=== PATIENT | female | born 1950 | race Caucasian/White ===

== ENCOUNTER 2021-02-19 08:13 | Outpatient (REF) | payer MEDICARE, SELFPAY ==
--- NOTE | ~2021-02-19 | XR_ITS ---
EXAMINATION: XR KNEE AP, BILATERAL XR KNEE CLINICAL INFORMATION: Pain in right knee COMPARISON: None TECHNIQUE: AP bilateral knee standing 1 view. Right knee lateral view. FINDINGS: AP BILATERAL KNEE: There is a total right knee arthroplasty with prosthetic components in satisfactory alignment. There is mild loss of medial and lateral compartment joint spaces, left knee. Minimal periarticular spurring visualized in the medial compartment. No loose bodies seen. No soft tissue swelling. RIGHT KNEE: A single lateral view right of knee reveals total knee arthroplasty with prosthetic components in satisfactory alignment. There is ukhe-wg-[id number] joint effusion but no loose body seen. No prosthetic loosening. XR/XR knee RT 2V IMPRESSION: 1. Total right knee arthroplasty with prosthetic components in satisfactory alignment. No loosening seen. There is mild suprapatellar joint effusion. 2. Mild degenerative changes medial and lateral compartments left knee with mild periarticular spurring medial compartment.
--- NOTE | ~2021-02-19 | XR_ITS ---
EXAMINATION: XR KNEE AP, BILATERAL XR KNEE CLINICAL INFORMATION: Pain in right knee COMPARISON: None TECHNIQUE: AP bilateral knee standing 1 view. Right knee lateral view. FINDINGS: AP BILATERAL KNEE: There is a total right knee arthroplasty with prosthetic components in satisfactory alignment. There is mild loss of medial and lateral compartment joint spaces, left knee. Minimal periarticular spurring visualized in the medial compartment. No loose bodies seen. No soft tissue swelling. RIGHT KNEE: A single lateral view right of knee reveals total knee arthroplasty with prosthetic components in satisfactory alignment. There is qjlm-la-njngjzjl joint effusion but no loose body seen. No prosthetic loosening. XR/XR knee standing BI IMPRESSION: 1. Total right knee arthroplasty with prosthetic components in satisfactory alignment. No loosening seen. There is mild suprapatellar joint effusion. 2. Mild degenerative changes medial and lateral compartments left knee with mild periarticular spurring medial compartment.
== END 2021-02-19 08:14 | disposition home or self-care (01) ==
LOC: HO.HOSX 08:13
PROVIDERS: Visit Provider Orthopaedic Surgery
DX: T84.84XA Pain due to internal orthopedic prosthetic devices, implants and grafts, initial encounter (principal); Z96.651 Presence of right artificial knee joint
CPT/HCPCS: 73560; 73565; 99212

== ENCOUNTER 2021-03-26 08:25 | Outpatient (REF) | payer MEDICARE, SELFPAY ==
[2021-03-26 12:30] LABS: TSH reflex Free T4 2.53 uIU/mL (0.32-4.0)
[2021-03-26 12:31] LABS: Alanine Aminotransferase 10 U/L (0-31); Albumin Level 3.9 g/dL (3.5-5.0); Alkaline Phosphatase 67 U/L (39-117); Anion Gap 13 (12-20); Aspartate Amino Transferase 13 U/L (5-31); Bilirubin Total 0.5 mg/dL (0.0-1.0); Blood Urea Nitrogen 21 mg/dL (9-16); Calcium 9.2 mg/dL (8.4-10.2); Carbon Dioxide 25 mmol/L (22-29); Chloride 108 mmol/L (96-108); Cholesterol 132 mg/dL; Estimated Glomerular Filt Rate > 60; Glucose Fasting 96 mg/dL (60-99); HDL Cholesterol 49 mg/dL; LDL Cholesterol Calculated 65 mg/dl; Potassium 4.4 mmol/L (3.3-5.1); Sodium 142 mmol/L (135-145); Total Protein 6.9 g/dL (6.5-8.0); Triglycerides 91 mg/dL
[2021-03-26 14:01] LABS: Glucose Urine UA NEG (NEG); Leukocyte Esterase Urine 1+ (NEG); Nitrite Urine NEG (NEG); UACC Culture Trigger YES; Urine Blood TRACE (NEG); Urine Ketones NEG (NEG); Urine Protein NEG (NEG-TRACE)
[2021-03-26 14:09] LABS: Appearance Urine HAZY; Color Urine YELLOW
[2021-03-26 14:35] LABS: Bacteria Urine 3+ /LPF; RBC Urine 0-2 /HPF (0)
== END 2021-03-26 08:26 | disposition home or self-care (01) ==
LOC: HO.HMGCLDS 08:25
PROVIDERS: PCP Nurse Practitioner Family; Visit Provider Nurse Practitioner Family
DX: R00.2 Palpitations (principal)
CPT/HCPCS: 36415; 80053; 80061; 81001; 81003; 84443; 87086; 87088; 87186

== ENCOUNTER → 2021-04-29 08:27 | Outpatient (REF) | payer MEDICARE, OTHER, SELFPAY ==
--- NOTE | ~2021-04-29 | NM_ITS ---
Myocardial perfusion study Indication: Palpitations to evaluate for myocardial ischemia Technique: The patient was brought in for a Lexiscan perfusion study on 04/29/2021. Patient performed low-level exercise and was injected 0.4 mg of Lexiscan intravenously. Within a minute of injection, 25 mCi of sestamibi was given intravenously. Images were obtained using the SPECT gamma camera interlaced with the gating device. Images were obtained in supine position. Resting perfusion study was performed on 04/30/2021. Patient was administered 25 mCi of sestamibi intravenously at rest. Images were then obtained in supine position. Images obtained with and without CT attenuation. Total DLP 105 mGy-cm. Images were processed with the software and compared side to side in short axis, horizontal long axis and vertical long axis views. Findings: The stress perfusion study showed both attenuated corrected as well as nonattenuated images show normal uptake of radiotracer in all segments of LV myocardium.. The gated study shows normal LV systolic function with calculated LVEF of greater than 70 %. LV cavity is normal in size. The gated study shows normal systolic wall thickening and contraction of segments. Resting study shows nonattenuated images show normal uptake of radiotracer in all segments of LV myocardium. Gating at rest reveals normal systolic wall motion with ejection fraction at 69%. The findings are consistent with normal myocardial perfusion . NM/NM cardiolite stress test Impression: 1. Myocardial perfusion imaging study shows normal myocardial perfusion 2. Gated LVEF is greater than 70% 3. Transient ischemic dilatation not present EKG is nondiagnostic for ischemia
--- NOTE | 2021-04-29 08:33 | CA_ITS ---
Transthoracic Echocardiogram Patient (Last, First, Middle): Bety Chinchilla, Gender: Female Date of : 1950 Age: 70 Procedure Date: 04/29/2021 Procedure Type: Transthoracic Echocardiogram Location: OP Height: 167.64 cm Weight: 77.57 kg BSA: 1.87 m2 Heart Rate: bpm BP: 120 / 80 mmHg Draw Press Operator: RADHA Knowles MD: Jose Hanks [facility] Symptoms: R00.2 - Palpitations Study Quality: Fair ECG Rhythm: Sinus Conclusions: - The left ventricular systolic function is normal. The calculated ejection fraction is 57% by biplane method. - There is mild calcification of the aortic valve. - No obvious valvular pathology seen on this study. Findings Left Ventricle Normal left ventricular cavity size. There is normal left ventricular wall thickness. The left ventricular systolic function is normal. The calculated ejection fraction is 57% by biplane method. There is no evidence of regional wall motion abnormalities. Diastolic function is normal for age. Right Ventricle Normal right ventricular cavity size and systolic function. Atria Both atria are normal in size. Aortic Valve There is a normal trileaflet aortic valve. There is mild calcification of the aortic valve. There is no aortic valve stenosis. There is no aortic valve regurgitation. Mitral Valve The mitral valve appears normal. There is trace mitral valve regurgitation. There is no mitral valve stenosis. Pulmonic Valve The pulmonic valve was not well visualized. Tricuspid Valve Normal tricuspid valve structure. There is trace tricuspid valve regurgitation. Tricuspid regurgitation envelope is inadequate for calculation of right ventricular systolic pressure. Great Vessels The aortic annulus, sinuses of valsalva, and asc aorta are normal in size. Venous The inferior vena cava is normal in size and collapses greater than 50% with inspiration. Pericardium/Pleural There is no evidence of pericardial effusion. Prior Study Comparison No significant change compared to prior study dated: 01/25/2019. Recommendations, Care & Conclusions No obvious valvular pathology seen on this study. Measurements 2D Linear Measurements IVSd: 0.86 0.6-0.9/0.6-1.0 cm LVIDd: 3.84 3.9-5.3/4.2-5.9 cm LVIDd Index: 2.05 2.4-3.2/2.2-3.1 cm/m2 LVIDs: 2.14 2.0-3.6 cm LVPWd: 0.80 0.7-1.1 cm Ao Root: 3.00 2.1-3.5 cm LA Diam: 2.30 2.7-3.8/3.0-4.0 cm LAIDs Index: 1.23 1.5-2.3 cm/m2 LV Mass: 114.33 67-162/88-224 g LV Mass Index: 61.14 43-95/49-115 g/m2 LVOT Diam: 2.00 3.0+(-)1.3 cm 2D Systolic Function EF 4C: 56.30 >55% EF 2C: 54.60 >55% EF BiP: 56.70 >55% Mitral Valve MV Pk E: 0.69 MV PK A: 0.87 MV Decel Time: 230.00 E/A: 0.80 E'Lateral: 7.51 E'Medial: 6.74 E/E' Med: 10.20 E/E' Lat: 9.10 PHT: 67.00 MVA PHT: 3.28 Decel [place]: 2.98 Aortic Valve AoV Pk Balbir: 1.28 AoV Mn Balbir: 0.86 AoV VTI: 0.25 AoV Pk Grad: 7.00 Aov Mn Grad: 3.00 PRASHANT Cont.VTI: 2.83 LVOT LVOT Pk Balbir: 1.09 LVOT Mn Balbir: 0.74 LVOT VTI: 0.23 LVOT Pk Grad: 5.00 LVOT Mn Grad: 2.00 LVOT Diam: 2.00 LVOT Area: 3.14 Diastolic Function MV Pk E: 0.69 MV Pk A: 0.87 E/A: 0.80 E'Medial: 6.74 E/E' Med: 10.20 E' Laterial: 7.51 E/E' Lat: 9.10 Right Ventricle TAPSE (mm): 2.38 TVS' Balbir: 14.70 Tricuspid Valve RA Press: 3.00 Great Vessels Aorta Ao Root-2D: 3.00 2.0-3.7 cm Ao Asc: 3.00 2.1-3.4 cm Ao Arch: 3.20 Updated in Other Vendor System with Status of Final Chi Cueto MD electronically signed on 04/29/2021 12:37:41 PM with status of Final
--- NOTE | 2021-04-29 09:30 | CA_ITS ---
Acquisition Time: 2021-04-29 09:03:41 Total Exercise Time: 00:03:24 Test Indications: Palpitations Medications: ?? ATENOLOL Protocol: LORENA Max HR: 142 BPM 95% of Pred: 148 BPM Max BP: 152/084 mmHG Max Work Load: 4.8 METS Exercise stress test with exercise 3 min 24 sec of Lorena protocol, with speed turned down to 2.0 MPH in stage 2, with moderate shortness of breath and request to stop exercise. Heart rate did achieve > 85% MPHR and no ischemia noted. Treadmill stopped and pt assisted to sitting position. During this recovery, frequent PVC, cuplets were noted. Once breathing recovered, testing was changed to a pharmacological stress test with Lexiscan injection, while sitting and kicking her left leg, without anginal symptoms, with frequent isolated PVC and occassional cuplet, with normotensive response to injection, with nondiagnostic EKG for ischemia. She did report having her palpitations which did correlate with PVCs. Nuclear images pending. Test reviewed with Dr Cueto., Referred By: Jose Hanks Overread By: ESTHELA MALIN
== END ==
LOC: HO.CARD 08:27
PROVIDERS: Visit Provider Nurse Practitioner Family
DX: R00.2 Palpitations (principal)
CPT/HCPCS: 78452; 93017; 93306; J0280; J2785

== ENCOUNTER 2021-12-26 10:50 | Outpatient (REF) | payer MEDICARE, OTHER, SELFPAY ==
[2021-12-26 14:04] LABS: Color Urine YELLOW; Glucose Urine UA NEG (NEG); Leukocyte Esterase Urine TRACE (NEG); Nitrite Urine POS (NEG); PH 5.5 (5.0-8.0); Specific Gravity - Urine 1.015 (1.005-1.025); UACC Culture Trigger YES; Urine Blood TRACE (NEG); Urine Ketones NEG (NEG); Urine Protein NEG (NEG-TRACE)
[2021-12-26 14:05] LABS: Appearance Urine HAZY
[2021-12-26 14:16] LABS: Bacteria Urine 3+ /LPF; Squamous Epithelial Cell Urine 1+ /LPF
== END 2021-12-26 10:51 | disposition home or self-care (01) ==
LOC: HO.HMGCLNP 10:50
PROVIDERS: PCP Nurse Practitioner Family; Visit Provider Nurse Practitioner Family
DX: R00.2 Palpitations (principal); R82.90 Unspecified abnormal findings in urine
CPT/HCPCS: 81001; 81003; 87086; 87088; 87186

== ENCOUNTER → 2022-04-03 11:31 | Outpatient (BNVA) | payer MEDICARE, OTHER, SELFPAY | PROVIDERS: PCP Nurse Practitioner Family; Visit Provider Physician Assistant | DX: Z01.818 Encounter for other preprocedural examination (principal); D36.9 Benign neoplasm, unspecified site | CPT/HCPCS: 99202 ==

== ENCOUNTER 2022-05-15 09:25 | Outpatient (REF) | payer MEDICARE, OTHER, SELFPAY ==
[2022-05-15 10:57] LABS: MANUAL DIFF FLAG NO
[2022-05-15 11:11] LABS: Basophils Percent Auto 0.6 % (0-2); Eosinophils Absolute Auto 0.2 X10*3/uL (0.0-0.4); Eosinophils Percent Auto 3.4 % (0-4); Hematocrit 37.4 % (37.0-47.0); Hemoglobin 12.1 g/dl (12.0-16.0); Imm Gran Abs Auto 0.02 X10*3/uL (0.00-0.03); Imm Gran Pct Auto 0.3 % (0.0-0.4); Lymphocytes Absolute Auto 2.4 X10*3/uL (1.2-4.9); Lymphocytes Percent Auto 38.2 % (20-40); Mean Corpuscular HGB Conc 32.4 g/dl (31.0-35.0); Mean Corpuscular Hemoglobin 29.1 pg (27.0-33.0); Mean Corpuscular Volume 89.9 fL (80.0-98.0); Mean Platelet Volume 10.6 fL (9.4-12.3); Monocytes Absolute Auto 0.5 X10*3/uL (0.1-1.2); Neutrophils Absolute Auto 3.1 x10*3/uL (2.0-8.3); Neutrophils Percent Auto 49.5 % (45-73); Platelet Count 349 X10*3/uL (160-400); Red Blood Count 4.16 X10*6/uL (4.20-5.50); Red Cell Distribution Width 13.9 % (11.0-16.0); White Blood Count 6.2 X10*3/uL (4.8-10.8)
[2022-05-15 11:38] LABS: Alanine Aminotransferase 7 U/L (0-31); Alkaline Phosphatase 62 U/L (39-117); Anion Gap 15 (12-20); Aspartate Amino Transferase 13 U/L (5-31); Bilirubin Total 0.5 mg/dL (0.0-1.0); Blood Urea Nitrogen 20 mg/dL (9-16); Calcium 9.5 mg/dL (8.4-10.2); Chloride 105 mmol/L (96-108); Cholesterol 135 mg/dL; Estimated Glomerular Filt Rate > 60; Glucose Fasting 88 mg/dL (60-99); HDL Cholesterol 47 mg/dL; LDL Cholesterol Calculated 71 mg/dl; Potassium 4.4 mmol/L (3.3-5.1); Sodium 142 mmol/L (135-145); Triglycerides 88 mg/dL
[2022-05-15 11:40] LABS: Carbon Dioxide 26 mmol/L (22-29)
[2022-05-15 12:04] LABS: TSH reflex Free T4 1.76 uIU/mL (0.32-4.0)
[2022-05-15 15:03] LABS: Appearance Urine Clear; Color Urine Yellow; Glucose Urine UA Negative (Negative); Leukocyte Esterase Urine Trace (Negative); Nitrite Urine Negative (Negative); PH 5.5 (5.0-9.0); Specific Gravity - Urine 1.015 (1.005-1.025); UMIC TRIGGER UACC YES; Urine Blood Trace (Negative); Urine Ketones Negative (Negative); Urine Protein Negative (Neg-Trace)
[2022-05-15 15:14] LABS: Bacteria Urine None Seen (None Seen); Hyaline Casts Urine 0-2 /LPF (0-2); Squamous Epithelial Cell Urine 0-2 /HPF (0-2); WBC Urine 0-5 /HPF (0-5)
== END 2022-05-15 09:26 | disposition home or self-care (01) ==
LOC: HO.HMGCLDS 09:25
PROVIDERS: PCP Nurse Practitioner Family; Visit Provider Nurse Practitioner Family
DX: E78.5 Hyperlipidemia, unspecified (principal)
CPT/HCPCS: 36415; 80053; 80061; 81001; 81003; 84443; 85025

== ENCOUNTER 2022-05-30 11:30 | Outpatient (REF) | payer MEDICARE, OTHER, SELFPAY ==
[2022-05-30 16:55] LABS: Urine Cytology See Pathology rpt
== END 2022-05-30 11:31 | disposition home or self-care (01) ==
LOC: HO.LAB 11:30
PROVIDERS: Visit Provider Urology
DX: N39.0 Urinary tract infection, site not specified (principal); N95.2 Postmenopausal atrophic vaginitis; R31.29 Other microscopic hematuria
CPT/HCPCS: 51701; 87086; 88112; 99202

== ENCOUNTER 2022-06-16 14:30 | Outpatient (REF) | payer MEDICARE, OTHER, SELFPAY ==
--- NOTE | ~2022-06-16 | US_ITS ---
EXAMINATION: US RETROPERITONEAL LIMITED (RENAL ONLY) CLINICAL INFORMATION: Urinary tract infection, site not specified. COMPARISON: None TECHNIQUE: Real-time imaging of the kidneys. FINDINGS: RIGHT KIDNEY: 9.0 x 3.9 x 4.8 cm (SAG x AP x TRV). The kidney is normal in size, contour, and echogenicity. Renal cortical thickness is normal. No renal calculi or hydronephrosis. There is anechoic cyst in midpole measuring 1.5 x 1.1 x 1.2 cm. LEFT KIDNEY: 9.4 x 5.3 x 4.8 cm (SAG x AP x TRV). The kidney is normal in size, contour, and echogenicity. Renal cortical thickness is normal. No renal calculi or focal parenchymal lesions. There is mild hydronephrosis. There is an incidental finding of an echogenic gallstone with acoustic shadowing. US/US renal BI IMPRESSION: 1. Anechoic cyst midpole right kidney. 2. No echogenic renal calculi or hydronephrosis. 3. Incidental finding of an echogenic gallstone with acoustic shadowing.
== END 2022-06-16 14:31 | disposition home or self-care (01) ==
LOC: HO.HMGCX 14:30
PROVIDERS: PCP Nurse Practitioner Family; Visit Provider Urology
DX: N39.0 Urinary tract infection, site not specified (principal); R31.29 Other microscopic hematuria
CPT/HCPCS: 76775

== ENCOUNTER 2022-06-30 17:01 | Outpatient (REF) | payer MEDICARE, OTHER, SELFPAY ==
[2022-06-30 17:20] LABS: Appearance Urine Cloudy; Color Urine Yellow; Glucose Urine UA Negative (Negative); Leukocyte Esterase Urine Large (3+) (Negative); Nitrite Urine Positive (Negative); Specific Gravity - Urine 1.015 (1.005-1.025); UMIC TRIGGER UA YES; Urine Blood Moderate (2+) (Negative); Urine Ketones Negative (Negative); Urine Protein Negative (Neg-Trace)
[2022-06-30 17:27] LABS: Bacteria Urine 4+ (None Seen); Hyaline Casts Urine 0-2 /LPF (0-2); Squamous Epithelial Cell Urine 0-2 /HPF (0-2); WBC Urine >50 /HPF (0-5)
== END 2022-06-30 17:02 | disposition home or self-care (01) ==
LOC: HO.LNP 17:01
PROVIDERS: Visit Provider Urology
DX: N39.0 Urinary tract infection, site not specified (principal); B96.20 Unspecified Escherichia coli [E. coli] as the cause of diseases classified elsewhere
CPT/HCPCS: 81001; 87086; 87088; 87186

== ENCOUNTER → 2022-07-18 10:58 | Outpatient (BNVA) | payer MEDICARE, OTHER, SELFPAY | PROVIDERS: PCP Nurse Practitioner Family; Visit Provider Urology | DX: R31.29 Other microscopic hematuria (principal); N39.0 Urinary tract infection, site not specified; N95.2 Postmenopausal atrophic vaginitis | CPT/HCPCS: 52000; 99212 ==

== ENCOUNTER 2022-08-14 09:04 | Day surgery (SDC) | payer MEDICARE, OTHER, SELFPAY ==
--- NOTE | 2022-08-13 13:19 | P.CONAN_ITS ---
Documented by User: Tessie Carrillo NP 08/13/22 13:40 HPI - Anesthesia Eval Consult details Narrative: 71yo F for Colonoscopy PMFSH Active Problems Active Problems: All Active Problems (Updated 08/11/22 @ 14:25 by Jeri Proctor, RN) History of total right knee replacement (TKR) (Acute) Palpitations (Acute) Medicare annual wellness visit, initial (Acute) Screening for colon cancer (Acute) Encounter for hearing test (Acute) Right knee pain (Acute) Frequent UTI (Acute) Encounter for screening colonoscopy (Acute) Tubular adenoma (Acute) Dyslipidemia (Acute) Vaginal atrophy (Acute) Microscopic hematuria (Acute) Past Medical History Medical History (Updated 08/11/22 @ 14:25 by Jeri Proctor RN) Elevated cholesterol History of depression History of palpitations Family History Family History Maternal Aunt Substance use disorder Surgical History Surgical History (Updated 08/11/22 @ 14:22 by Jeri Proctor RN) History of total right knee replacement (TKR) Hx of colonoscopy Social History Social History Housing: House Patient Tobacco Use Status: Never used Tobacco e-Cigarette/Vaping Use: Never Used Second Hand Smoke Exposure: Yes Are you DNR?: No Advance Directives: No Advance Directives Information Provided: Yes Current occupational status: retired Cognitive needs: No Hearing needs: No Vision needs: No Meds Allergies Allergy/AdvReac Type Severity Reaction Status Date / Time almond [ALMOND] Allergy Intermediate SWELLING,IT Verified 08/11/22 14:17 IRA clams [CLAMS] Allergy Intermediate SWELLING,ITCHING,GI Verified 08/11/22 14:17 ISSUES Home Medications Medication Instructions Recorded Confirmed Last Taken Type antiarthritic combination no.2 900 mg PO 03/19/21 05/30/22 08/13/22 History mg tablet (glucosamine-chondroitin) calcium carbonate 600 mg-vitamin 1 tab PO DAILY 03/19/21 08/11/22 08/13/22 History D3 20 mcg (800 unit) tablet cranberry fruit concentrate 250 mg 250 mg PO DAILY 03/19/21 08/11/22 08/07/22 History chewable tablet (Azo Cranberry) omega 5-xjo-mhk-fish oil 1,000 mg 1 cap PO DAILY 03/19/21 08/11/22 08/07/22 History (120 mg-180 mg) capsule (Fish Oil) turmeric root extract 1,053 mg 1,076 mg PO DAILY 03/19/21 08/11/22 08/13/22 History tablet Exam Exam Date and Time: August 13, 2022 1319 Pertinent Lab Results Pertinent Lab Results: Laboratory Tests 05/15/22 05/15/22 09:33 09:33 WBC 6.2 Hgb 12.1 Hct 37.4 Plt Count 349 Sodium 142 Potassium 4.4 Chloride 105 Carbon Dioxide 26 BUN 20 H Creatinine 0.75 Narrative Narrative: ECHO 2020 Conclusions: - The left ventricular systolic function is normal.? The ? calculated ejection fraction is 57% by biplane method. ? - There is mild calcification of the aortic valve. ? - No obvious valvular pathology seen on this study.? NM cardiolite stress test 2020 Impression: ? 1.? Myocardial perfusion imaging study shows normal myocardial perfusion 2.? Gated LVEF is greater than 70% 3. Transient ischemic dilatation not present ? EKG is nondiagnostic for ischemia ? Documented by User: Bibiana Miller MD 08/14/22 10:33 [facility] Past Medical History Medical History (Updated 08/11/22 @ 14:25 by Jeri Proctor RN) Elevated cholesterol History of depression History of palpitations Family History Family History Maternal Aunt Substance use disorder Family history of problems with anesthesia: No Surgical History Surgical History (Updated 08/11/22 @ 14:22 by Jeri Proctor RN) History of total right knee replacement (TKR) Hx of colonoscopy History of Problems with Anesthesia: No Social History Social History Housing: House Patient Tobacco Use Status: Never used Tobacco e-Cigarette/Vaping Use: Never Used Second Hand Smoke Exposure: Yes Are you DNR?: No Advance Directives: No Advance Directives Information Provided: Yes Current occupational status: retired Cognitive needs: No Hearing needs: No Vision needs: No Meds Allergies Allergy/AdvReac Type Severity Reaction Status Date / Time almond [ALMOND] Allergy Intermediate SWELLING,IT Verified 08/11/22 14:17 IRA clams [CLAMS] Allergy Intermediate SWELLING,ITCHING,GI Verified 08/11/22 14:17 ISSUES Home Medications Medication Instructions Recorded Confirmed Last Taken Type antiarthritic combination no.2 900 mg PO 03/19/21 05/30/22 08/13/22 History mg tablet (glucosamine-chondroitin) calcium carbonate 600 mg-vitamin 1 tab PO DAILY 03/19/21 08/11/22 08/13/22 History D3 20 mcg (800 unit) tablet cranberry fruit concentrate 250 mg 250 mg PO DAILY 03/19/21 08/11/22 08/07/22 History chewable tablet (Azo Cranberry) omega 9-ivg-bqn-fish oil 1,000 mg 1 cap PO DAILY 03/19/21 08/11/22 08/07/22 History (120 mg-180 mg) capsule (Fish Oil) turmeric root extract 1,053 mg 1,076 mg PO DAILY 03/19/21 08/11/22 08/13/22 History tablet Exam Airway Mallampati Class: II Neck ROM: Full Heart: rr Lungs: cta Assessment and Plan Assessment Anesthesia Assessment: Anesthesia Plan Discussed and Chart Reviewed Final Anesthetic Review Family History of Problems with Anesthesia: No History of Problems with Anesthesia: No NPO: Yes ASA Class: II Final Preanesthetic Review: No Changes in Pt Med Stat, Meds/Allgs Chart Reviewed, Consent Obtained/Reviewed and Anes Risks/Benef Reviewed Patient Risk: Low Procedure Risk: Low Anesthetic Plan Anesthetic Plan: MAC: Disposition: Standard PACU
[2022-08-14 08:53] VITALS: BMI 25.7
[2022-08-14 09:10] VITALS: BP 124/86; PULSE 20; RESP 20; TEMP 36.1; O2SAT 99
[2022-08-14] MEDS: Lactated Ringers 1,000 ML 100 ML IVCONT (09:38)
--- NOTE | 2022-08-14 10:15 | MHC.SHP ---
Pre-Procedural Eval Section A Date of Service: 08/14/22 Section B Chief Complaint: screening,benign neoplasm Relevant Family History (Specify if Yes): No Relevant Social History: None Present Medications: see Short Stay Collaborative assessment Medical History: Significant History (Elevated cholesterol History of depression History of palpitations) History of Previous Operations: Relevant previous surgery/procedure and date(s) (knee replacement, colonoscopy) Allergies: Allergies Allergy/AdvReac Type Severity Reaction Status Date / Time almond [ALMOND] Allergy Intermediate SWELLING,IT Verified 08/11/22 14:17 IRA clams [CLAMS] Allergy Intermediate SWELLING,ITCHING,GI Verified 08/11/22 14:17 ISSUES Review of Systems Sugical H&P ROS: Negative: Constitution, Cardiovascular, Respiratory, Neurological, Psychiatric, Hem-Onc, Allergic/Immunologic, Gastrointestinal, Genitourinary, Musculoskeletal, Integumentary, Endocrine and Eyes/Ears/Nose/Throat Exam Surgical H&P Exam: Normal: HEENT, Normal: Heart, Normal: Lungs, Normal: Extremities, Normal: Abdomen, Normal: Skin and Normal: Neurological Plan Diagnosis/Plan: Unchanged I have reviewed the history and physical and performed a pertinent physical examination on my patient. No changes have occurred unless specified. Time Spent With Patient Time: Total time managing care of this patient today ____ minutes.
--- NOTE | 2022-08-14 10:16 | W.PM.OPN ---
Operative Note Operative Note Date of Service: 08/14/22 Narrative: Operative Information Procedure Description: Colonoscopy Indication: screening Anesthesia: MAC COLONOSCOPY Instrument: Olympus variable stiffness pediatric scope 190L Colonoscopy Monitoring: Vital signs and clinical assessment, continuous EKG monitoring, Pulse oximetry, Carbon Dioxide monitoring and blood pressure monitoring were done throughout the procedure. Colon withdrawal time was 12 minutes. Procedure: The patient was placed in the left lateral decubitis position and pre-procedure medications were administered. After a digital rectal examination of the ano-rectum, the video colonoscope was inserted into the rectum and advanced through the colon to the cecum/TI. The colonoscope was slowly withdrawn in a retrograde panoramic fashion and the colon mucosa was carefully examined including a retroflexed view of the rectum. Findings and interventions are described below. Procedure Difficulty: moderate due to looping Findings: Terminal Ileum-normal Cecum:normal Right sided retroflexion-nml Ascending Colon: normal Transverse Colon -normal Descending Colon: 8-10 mm sessile polyp removed with cold snare Sigmoid Colon: moderate severe diverticulosis with wide mouthed tics Rectum: Retroflexion with medium sized internal hemorrhoids, grade I, 10 mm sessile polyp removed with cold snare Anorectum - normal Colon preparation: Stanford Bowel Preparation Scale Right colon; 3 Transverse colon: 3 Left colon; 3 (0 = Unprepared colon segment with mucosa not seen due to solid stool that cannot be cleared. 1 = Portion of mucosa of the colon segment seen, but other areas of the colon segment not well seen due to staining, residual stool and/or opaque liquid. 2 = Minor amount of residual staining, small fragments of stool and/or opaque liquid, but mucosa of colon segment seen well. 3 = Entire mucosa of colon segment seen well with no residual staining, small fragments of stool or opaque liquid) Impression and Post Procedure Diagnosis: polyps internal hemorrhoids diverticular disease Plan: High fiber diet leaflet Avoid straining at stool, epsom salts and sitz bath, anusol supps or cream Repeat Colonoscopy in 5-7 years if adenomatous polyps, can consider 10 yrs for screening if health allows it and the polyps are benign, or earlier if clinically indicated Above findings were reviewed with the patient and relevant handouts were provided if indicated.
[2022-08-14 10:58] VITALS: BP 105/58; PULSE 72; RESP 16; TEMP 36.6; O2SAT 98
[2022-08-14 11:13] VITALS: BP 119/69; PULSE 75; RESP 18; O2SAT 99
[2022-08-14 11:28] VITALS: BP 128/76; PULSE 73; RESP 18; TEMP 36.6; O2SAT 100
== END 2022-08-14 12:24 | disposition home or self-care (01) ==
PROVIDERS: PCP Nurse Practitioner Family; Visit Provider Internal Medicine Gastroenterology
PROC: 0DJD8ZZ Inspection of Lower Intestinal Tract, Via Natural or Artificial Opening Endoscopic (ICD-10-PCS; CPT 45378; principal; 2022-08-14 10:10)
DX: Z12.11 Encounter for screening for malignant neoplasm of colon (principal); Z86.010 Personal history of colon polyps; K63.5 Polyp of colon; K57.30 Diverticulosis of large intestine without perforation or abscess without bleeding; K64.0 First degree hemorrhoids; E78.00 Pure hypercholesterolemia, unspecified; Z79.899 Other long term (current) drug therapy; K62.1 Rectal polyp; Z96.651 Presence of right artificial knee joint
CPT/HCPCS: 45385; 88305

== ENCOUNTER 2022-09-05 11:55 | Outpatient (REF) | payer MEDICARE, OTHER, SELFPAY ==
--- NOTE | ~2022-09-05 | XR_ITS ---
EXAMINATION: XR KNEE, RIGHT CLINICAL INFORMATION: Right artificial knee joint COMPARISON: X-ray the right knee April 2021 TECHNIQUE: Four views of the right knee. FINDINGS: There is a total knee arthroplasty in place. The components are in the usual position and are unchanged. There is no periprosthetic fracture or surrounding abnormal lucency. There is a moderate joint effusion slightly increased compared to prior. The surrounding soft tissues are normal. XR/XR knee RT 2V IMPRESSION: 1. Right total knee arthroplasty without complication by x-ray. 2. Slight increase in joint effusion.
== END 2022-09-05 11:56 | disposition home or self-care (01) ==
LOC: HO.HMGCX 11:55
PROVIDERS: PCP Nurse Practitioner Family; Visit Provider Nurse Practitioner Family
DX: Z96.651 Presence of right artificial knee joint (principal)
CPT/HCPCS: 73560

== ENCOUNTER 2022-11-07 09:06 | Outpatient (REF) | payer MEDICARE, OTHER, SELFPAY ==
[2022-11-07 11:42] LABS: MANUAL DIFF FLAG NO
[2022-11-07 11:58] LABS: Basophils Percent Auto 0.5 % (0-2); Eosinophils Absolute Auto 0.2 X10*3/uL (0.0-0.4); Eosinophils Percent Auto 2.5 % (0-4); Hemoglobin 12.5 g/dl (12.0-16.0); Imm Gran Abs Auto 0.01 X10*3/uL (0.00-0.03); Imm Gran Pct Auto 0.2 % (0.0-0.4); Lymphocytes Absolute Auto 2.3 X10*3/uL (1.2-4.9); Mean Corpuscular HGB Conc 32.1 g/dl (31.0-35.0); Mean Corpuscular Hemoglobin 28.8 pg (27.0-33.0); Mean Corpuscular Volume 89.9 fL (80.0-98.0); Mean Platelet Volume 10.5 fL (9.4-12.3); Monocytes Absolute Auto 0.6 X10*3/uL (0.1-1.2); Monocytes Percent Auto 9.2 % (2-11); Neutrophils Absolute Auto 2.9 x10*3/uL (2.0-8.3); Neutrophils Percent Auto 48.6 % (45-73); Platelet Count 341 X10*3/uL (160-400); Red Blood Count 4.34 X10*6/uL (4.20-5.50); Red Cell Distribution Width 14.5 % (11.0-16.0)
[2022-11-07 12:28] LABS: Alanine Aminotransferase 7 U/L (0-31); Albumin Level 3.8 g/dL (3.5-5.0); Alkaline Phosphatase 70 U/L (39-117); Anion Gap 11 (12-20); Aspartate Amino Transferase 14 U/L (5-31); Bilirubin Total 0.5 mg/dL (0.0-1.0); Blood Urea Nitrogen 23 mg/dL (9-16); Calcium 9.5 mg/dL (8.4-10.2); Carbon Dioxide 28 mmol/L (22-29); Chloride 108 mmol/L (96-108); Cholesterol 141 mg/dL; Estimated Glomerular Filt Rate > 60; Glucose Fasting 91 mg/dL (60-99); HDL Cholesterol 51 mg/dL; LDL Cholesterol Calculated 72 mg/dl; Potassium 4.3 mmol/L (3.3-5.1); Sodium 143 mmol/L (135-145); TSH reflex Free T4 2.85 uIU/mL (0.32-4.0); Total Protein 6.7 g/dL (6.5-8.0); Triglycerides 94 mg/dL
[2022-11-07 14:05] LABS: Appearance Urine Clear; Color Urine Yellow; Glucose Urine UA Negative (Negative); Leukocyte Esterase Urine Trace (Negative); Nitrite Urine Negative (Negative); PH 6.5 (5.0-9.0); UMIC TRIGGER UACC YES; Urine Blood Trace (Negative); Urine Ketones Negative (Negative); Urine Protein Negative (Neg-Trace)
[2022-11-07 14:33] LABS: Bacteria Urine None Seen (None Seen); Hyaline Casts Urine 0-2 /LPF (0-2); Squamous Epithelial Cell Urine 0-2 /HPF (0-2); WBC Urine 0-5 /HPF (0-5)
== END 2022-11-07 09:07 | disposition home or self-care (01) ==
LOC: HO.HMGCLDS 09:06
PROVIDERS: PCP Nurse Practitioner Family; Visit Provider Nurse Practitioner Family
DX: I49.3 Ventricular premature depolarization (principal); Z87.898 Personal history of other specified conditions; E78.5 Hyperlipidemia, unspecified
CPT/HCPCS: 36415; 80053; 80061; 81001; 81003; 83735; 84443; 85025

== ENCOUNTER → 2022-11-18 10:28 | Outpatient (REF) | payer MEDICARE, OTHER, SELFPAY ==
--- NOTE | 2022-11-18 10:32 | HM_ITS ---
Conclusion: 1. Patient was monitored for total period of 2 days and 23 hours 2. Baseline was normal sinus with average heart of 72 beats per minute 3. Very rare PACs noted 4. Total of 15,680 PVCs accounting for 5% total beats account for frequent PVCs 5. No significant pauses noted 6. Patient reported 5 events at correlated with isolated PVCs MTDD
== END ==
LOC: HO.CARD 10:28
PROVIDERS: PCP Nurse Practitioner Family; Visit Provider Nurse Practitioner Family
DX: I49.3 Ventricular premature depolarization (principal); Z87.898 Personal history of other specified conditions
CPT/HCPCS: 93242

== ENCOUNTER 2023-03-12 13:44 | Outpatient (AMB) | payer MEDICARE, OTHER, SELFPAY ==
--- NOTE | 2023-03-12 13:56 | A.OFFVIS_ITS ---
Intake Vital Signs 03/12/23 13:57 Height 5 ft 5 in Weight 152 lb 1.903 oz BMI 25.3 BP 120/62 Blood Pressure Location Lt brachial Position Sitting Pulse 69 Intake Visit Reasons: NPV/cardiac arrhythmias/Glogowski Intake Note: NPV Material Planning Analyst Required: No Allergies almond [ALMOND] Allergy (Intermediate, Verified 03/12/23 13:59) SWELLING,ITCHING clams [CLAMS] Allergy (Intermediate, Verified 03/12/23 13:59) SWELLING,ITCHING,GI ISSUES nickel Adverse Reaction (Intermediate, Verified 03/12/23 13:59) Unknown Medication List - Last Reconciled 03/12/23 by Chi Cueto MD antiarthritic combination no.2 (glucosamine-chondroitin) mg PO atenolol 25 mg PO DAILY atorvastatin 10 mg PO BEDTIME calcium carbonate-vitamin D3 600 mg-20 mcg (800 unit) 1 tab PO DAILY cranberry fruit concentrate (Azo Cranberry) 250 mg PO DAILY estradiol 0.01%(0.1mg/gram) (Estrace) apply pea sized amount to fingertip vaginally at bedtime daily omega 2-gno-cps-fish oil 1,000 mg (120 mg-180 mg) (Fish Oil) 1 cap PO DAILY sertraline 25 mg PO DAILY turmeric root extract 1,076 mg PO DAILY HPI HPI Comments History of Present Illness Details Bety is here for evaluation regarding PVCs. She also needs clearance for cataract surgery. She had a routine EKG through her own PCP that showed bigeminy. Patient herself really does not have any cardiac history. No history of any coronary disease myocardial infarction or cardiomyopathy. She does not get exertional type chest pains and in fact does not get any chest pain at all. Sometimes may feel short of breath with activity. She does not feel any palpitations. No syncopal episodes. She states she has been on beta- blockers for a long time for history of irregular heart rate. [facility] Medical History Elevated cholesterol History of depression History of palpitations Surgical History History of total right knee replacement (TKR) Hx of colonoscopy Family History Maternal Aunt Substance use disorder Social History Housing: House Patient Tobacco Use Status: Never used Tobacco e-Cigarette/Vaping Use: Never Used Second Hand Smoke Exposure: Yes Current occupational status: retired Cognitive needs: No Hearing needs: No Vision needs: No Review of Systems Const Denies weakness ENT Denies dizziness Card Denies chest pain, Denies chest pain with activity, Denies syncope, Denies rapid heart rate, Denies pedal edema, Denies edema, Denies leg edema, Denies lightheadedness, Denies palpitations, Denies dyspnea, Denies dyspnea on exertion and Denies orthopnea Resp Denies cough, Denies dyspnea and Denies dyspnea on exertion GI Denies hematochezia and Denies change in stool character Musc Denies abnormal gait, Denies muscle cramps, Denies muscle weakness, Denies numbness, Denies radiating pain into limb and Denies tingling Neuro Denies abnormal gait, Denies dizziness, Denies syncope, Denies numbness, Denies tingling and Denies weakness Endo Denies palpitations Physical Exam Vital Signs: Last Vital Signs Pulse 69 03/12/23 13:57 BP 120/62 03/12/23 13:57 BMI result Body Mass Index 25.3 Const General: comfortable and no acute distress Orientation/consciousness: patient oriented x3 HEENT Other: Unremarkable Head: Yes normal to inspection Neck Neck: Yes normal visual inspection Chest Chest palpation & inspection: normal inspection of the chest Resp Auscultation: clear to auscultation bilaterally Cardio Palpation: normal PMI Heart sounds: S1 normal heart sound present, S2 normal heart sound present, no gallops, no murmurs and no rubs GI Palpation (GI): Soft to palpation Back/Spine/Pelvis Other: unremarkable Skin General skin exam: no rashes or lesions noted Neuro General: patient oriented x3 Extrem General: Yes normal to inspection Psych Mental Status: mental status grossly normal Assessment & Plan Assessment & Plan (1) Pre-op evaluation: Code(s): Z01.818 - Encounter for other preprocedural examination (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 PVCs have a left bundle pattern suggesting origin from the right ventricle. Based on polarity in the inferior leads, probably all RVOT PVCs which are generally benign. In the Holter monitor, underlying rhythm is sinus with an average rate of 72/Min. Frequent PVCs. [place] of 5%. No runs described. In the echocardiogram from 2020, LVEF 57%. Mild aortic valve calcification. Myocardial perfusion imaging study from 2020 was normal. Overall, she does have frequent PVCs but no evidence of cardiomyopathy or obstructive CAD. With regard to cataract surgery, may proceed as planned. Low cardiac risk. As she really does not have any symptoms or any concerns for high risk arrhythmias, may just remain on the beta-blockers that she is already taking. We will repeat an echocardiogram next year to ensure there is no development of PVC induced cardiomyopathy. We will also reassess the PVC burden. Plan discussed with patient and she understands and agrees. Orders: Orders CA echo transthoracic complete Today I49.3 - Ventricular premature depolarization ECG 3 day holter monitor Today I49.3 - Ventricular premature depolarization Coding Level of Care Code New Pt Level 4 (58445) Diagnoses Pre-op evaluation Z01.818 Frequent PVCs I49.3
[2023-03-12 13:57] VITALS: BP 120/62; PULSE 69; BMI 25.3
== END 2023-03-12 14:15 | disposition home or self-care (01) ==
PROVIDERS: PCP Nurse Practitioner Family; Referring Provider Nurse Practitioner Family; Visit Provider Internal Medicine
DX: I49.3 Ventricular premature depolarization (principal); Z01.818 Encounter for other preprocedural examination
CPT/HCPCS: 99213

== ENCOUNTER → 2023-03-12 13:44 | Outpatient (BNVA) | payer MEDICARE, OTHER, SELFPAY | PROVIDERS: PCP Nurse Practitioner Family; Referring Provider Nurse Practitioner Family; Visit Provider Internal Medicine | DX: Z01.810 Encounter for preprocedural cardiovascular examination (principal); I49.3 Ventricular premature depolarization | CPT/HCPCS: 99212 ==

== ENCOUNTER 2023-05-28 13:05 | Outpatient (AMB) | payer MEDICARE, OTHER, SELFPAY ==
--- NOTE | 2023-05-28 13:21 | A.OFFVIS_ITS ---
Intake Vital Signs 05/28/23 13:23 Height 5 ft 5 in Weight 150 lb BMI 25.0 Intake Visit Reasons: ov- RT.TKA pain January 2019 Intake Note: Bety 72 yr old female presents today for her Right Total knee check up from January [address] Oliver. States she was seen with her PCP who referred her to a freelance programmer/app developer, vascular & final tester, for a check up for redness on her knee. States she was told she is allergic to nickel (replacement) Allergies almond [ALMOND] Allergy (Intermediate, Verified 05/28/23 13:23) SWELLING,ITCHING clams [CLAMS] Allergy (Intermediate, Verified 05/28/23 13:23) SWELLING,ITCHING,GI ISSUES nickel Adverse Reaction (Intermediate, Verified 05/28/23 13:23) Unknown HPI ov- RT.TKA pain January 2019 KI HPI Details 72-year-old female who presents in the o ice today 4 years status post right total knee arthroplasty, which was performed in 01/[address] Oliver. The patient states about 2 years after the surgery she began to have erythema on the bottom of the knee. She was told by Dr. Oliver who told her to go to the PCP. PCP sent her to freelance programmer/app developer. Housing Property Manager sent her to a vascular specialist. She was then sent for an ultrasound that revealed blood clots that were superficial. She was told by the vascular surgeon she was reacting to the right knee implant. She states she was seen by an foundation director who tested her for nickel, which confirmed the allergy. She states the erythema has been spreading on the skin of the right lower extremity. She states the pain in the right knee began in the last few months and has begun to increase. She states her pain is controlled by Tylenol 1,000 mg, Ibuprofen 200 mg, and icy hot. She has tried compression stockings that caused an increase in pain. REPLACED BY [facility] Medical History Elevated cholesterol History of depression History of palpitations Surgical History History of total right knee replacement (TKR) Hx of colonoscopy Family History Maternal Aunt Substance use disorder Social History Housing: House Patient Tobacco Use Status: Never used Tobacco e-Cigarette/Vaping Use: Never Used Second Hand Smoke Exposure: Yes Current occupational status: retired Cognitive needs: No Hearing needs: No Vision needs: No Review of Systems Const All systems reviewed & are unremarkable except as noted in HPI and below Physical Exam Vital Signs: BMI result Body Mass Index 25.0 Const General: cooperative, healthy appearing and no acute distress Resp Effort & Inspection: normal respiratory effort and able to speak in complete sentences Cardio Rate: regular rate Peripheral pulses: Peripheral pulses 2+ throughout GI Palpation (GI): Soft to palpation Skin Lesions: no lesions Rashes: no rashes Extrem Other: Right knee: Full ROM. Mild laxity with valgus stress. Skin has what appears to be vascular structures in nature that are discolored. No warmth to touch. No scaly skin. No breaks in the skin or additional lesions in the skin. Assessment & Plan Assessment & Plan (1) Painful total knee replacement, right: Code(s): T84.84XA - Pain due to internal orthopedic prosthetic devices, implants and grafts, initial encounter; Z96.651 - Presence of right artificial knee joint Qualifiers: Encounter type: initial encounter Qualified Code(s): T84.84XA - Pain due to internal orthopedic prosthetic devices, implants and grafts, initial encounter; Z96.651 - Presence of right artificial knee joint Plan Ms. Chinchilla is a 72-year-old female who presents in the office today 4 years status post right total knee arthroplasty, which was performed in 01/[address] Oliver. The patient states about 2 years after the surgery she began to have erythema on the bottom of the knee. She was told by Dr. Oliver who told her to go to the PCP. PCP sent her to freelance programmer/app developer. Housing Property Manager sent her to a vascular specialist. She was then sent for an ultrasound that revealed blood clots that were superficial. She was told by the vascular surgeon she was reacting to the right knee implant. She states she was seen by an foundation director who tested her for nickel, which confirmed the allergy. She states the erythema has been spreading on the skin of the right lower extremity. She states the pain in the right knee began in the last few months and has begun to increase. She states her pain is controlled by Tylenol 1,000 mg, Ibuprofen 200 mg, and icy hot. She has tried compression stockings that caused an increase in pain. Dr. Barron was available to see the patient with me while in the office today and a collaborative treatment plan was made. Dr. Barron recommended that the patient have fluid removed from the knee for further testing. Once the test kit is obtained the office will call the patient to have her come in for fluid removal. Follow up will be after the kit is obtained, or sooner if needed. X-rays of the right knee obtained while in the office today and reviewed by me, Josee Sullivan PA-C, revealed no acute fractures or dislocations. Orthopedic hardware intact. Orders: Orders XR knee RT 2V Today M25.569 - Pain in unspecified knee XR knee standing BI Today M25.569 - Pain in unspecified knee Patient Instructions: Scribed for Josee Sullivan PA-C by Tahmina Shetty medical billing clerk, on 05/28/2023 at 1:07 pm, EST. Coding Level of Care Code Est Pt Level 4 (93249) Diagnoses Pain due to total right knee replacement, initial encounter T84.84XA; Z96.651 Encounter type: initial encounter
[2023-05-28 13:23] VITALS: BMI 25.0
== END 2023-05-28 14:09 | disposition home or self-care (01) ==
PROVIDERS: PCP Nurse Practitioner Family; Visit Provider Physician Assistant
DX: T84.84XA Pain due to internal orthopedic prosthetic devices, implants and grafts, initial encounter (principal); Z96.651 Presence of right artificial knee joint
CPT/HCPCS: 99213

== ENCOUNTER 2023-05-28 15:38 | Outpatient (REF) | payer MEDICARE, OTHER, SELFPAY ==
--- NOTE | ~2023-05-28 | XR_ITS ---
EXAMINATION: XR KNEE, RIGHT XR KNEE, STANDING, BILATERAL CLINICAL INFORMATION: Right knee pain COMPARISON: 09/05/2022 TECHNIQUE: AP standing view of bilateral knees. Lateral and sunrise views of the right knee. FINDINGS: Redemonstration of right total knee arthroplasty. Hardware appears intact. Moderate joint effusion. Apparent increase of 3 mm lucency posterior to the anterior superior aspect of the right femoral prosthesis in the anterior aspect. Degenerative changes left knee with moderate lateral joint space narrowing and small medial and lateral marginal osteophytes. XR/XR knee RT 2V IMPRESSION: 1. Redemonstration of right total knee arthroplasty. Moderate right joint effusion. Apparent increase of 3 mm lucency posterior to the anterior superior aspect of the right femoral prosthesis in the anterior aspect of the distal femur. 2. Moderate degenerative changes left knee. Additional imaging with CT scan or MRI should be considered for better visualization as these modalities are much more sensitive for detection of fracture or other underlying pathology.
--- NOTE | ~2023-05-28 | XR_ITS ---
EXAMINATION: XR KNEE, RIGHT XR KNEE, STANDING, BILATERAL CLINICAL INFORMATION: Right knee pain COMPARISON: 09/05/2022 TECHNIQUE: AP standing view of bilateral knees. Lateral and sunrise views of the right knee. FINDINGS: Redemonstration of right total knee arthroplasty. Hardware appears intact. Moderate joint effusion. Apparent increase of 3 mm lucency posterior to the anterior superior aspect of the right femoral prosthesis in the anterior aspect. Degenerative changes left knee with moderate lateral joint space narrowing and small medial and lateral marginal osteophytes. XR/XR knee standing BI IMPRESSION: 1. Redemonstration of right total knee arthroplasty. Moderate right joint effusion. Apparent increase of 3 mm lucency posterior to the anterior superior aspect of the right femoral prosthesis in the anterior aspect of the distal femur. 2. Moderate degenerative changes left knee. Additional imaging with CT scan or MRI should be considered for better visualization as these modalities are much more sensitive for detection of fracture or other underlying pathology.
== END 2023-05-28 15:39 | disposition home or self-care (01) ==
LOC: HO.HOSX 15:38
PROVIDERS: Visit Provider Physician Assistant
DX: T84.84XA Pain due to internal orthopedic prosthetic devices, implants and grafts, initial encounter (principal); Z96.651 Presence of right artificial knee joint
CPT/HCPCS: 73560; 73565; 99212

== ENCOUNTER 2023-08-10 12:04 | Outpatient (AMB) | payer MEDICARE, OTHER, SELFPAY ==
--- NOTE | 2023-08-10 12:05 | MHC.OFFVIS ---
Intake Intake Visit Reasons: OV - RT TKA, DOS 02/07/19 KI Intake Note: Bety is a 72 year old female who presents today for a follow up of her Right TKA 02/07/2019 . She is here today for a Synovasure aspiration. States her knee continues to be swollen. Allergies almond [ALMOND] Allergy (Intermediate, Verified 08/10/23 12:17) SWELLING,ITCHING clams [CLAMS] Allergy (Intermediate, Verified 08/10/23 12:17) SWELLING,ITCHING,GI ISSUES nickel Adverse Reaction (Intermediate, Verified 08/10/23 12:17) Unknown HPI OV - RT TKA, DOS 02/07/19 HPI Details Bety is a 72 year old woman who presents for right knee Synovasure. She denies fever and chills but feels that her pain is compromising her QOL She continues to complain of swelling in her knee. SHe has been told she has a metal allergy. She had + nickel sensitivity with cutaneous allergy testing. Hx of right TKA 02/07/[address] Oliver [facility] Medical History Elevated cholesterol History of depression History of palpitations Surgical History History of total right knee replacement (TKR) Hx of colonoscopy Family History Maternal Aunt Substance use disorder Social History Housing: House Patient Tobacco Use Status: Never used Tobacco e-Cigarette/Vaping Use: Never Used Second Hand Smoke Exposure: Yes Current occupational status: retired Cognitive needs: No Hearing needs: No Vision needs: No Review of Systems Const All systems reviewed & are unremarkable except as noted in HPI and below Physical Exam Const General: no acute distress, alert and awake Orientation/consciousness: patient oriented x3 HEENT Head: Yes normocephalic and Yes atraumatic Eyes EOM: EOMs intact bilaterally Resp Effort & Inspection: normal respiratory effort and able to speak in complete sentences Cardio Jugular venous distension: no JVD Skin General skin exam: turgor normal Rashes: no rashes Neuro General: patient oriented x3 Extrem Other: + effusion no erythema cutaneous venous/ skin changes of anterior tibia Psych Appearance: grossly normal Affect: normal affect Attitude: cooperative Office Procedures Joint Injection/Drain Joint Injection/Drain Details: Aspirated 30ml of murky synovial fluid Primary Site: right knee Approach Used: lateral parapatellar Coding 44969 - Large joint Procedure code (CPT) selection complete Assessment & Plan Assessment & Plan (1) Painful total knee replacement, right: Code(s): T84.84XA - Pain due to internal orthopedic prosthetic devices, implants and grafts, initial encounter; Z96.651 - Presence of right artificial knee joint Qualifiers: Encounter type: initial encounter Qualified Code(s): T84.84XA - Pain due to internal orthopedic prosthetic devices, implants and grafts, initial encounter; Z96.651 - Presence of right artificial knee joint Plan: Aspirated murky fluid Synovasure testing sent Plan Scribed for Tito Barron MD by Tj Kramer chief medical director, on 08/10/23 at 12:22 PM, EST. Coding Level of Care Code Est Pt Level 4 (06525) Diagnoses Pain due to total right knee replacement, initial encounter T84.84XA; Z96.651 Encounter type: initial encounter CPT Codes Coding - Large joint: 34998 - Large joint ([id number])
== END 2023-08-10 13:01 | disposition home or self-care (01) ==
PROVIDERS: PCP Nurse Practitioner Family; Visit Provider Orthopaedic Surgery
DX: T84.84XA Pain due to internal orthopedic prosthetic devices, implants and grafts, initial encounter (principal); Z96.651 Presence of right artificial knee joint
CPT/HCPCS: 20610; 99214

== ENCOUNTER → 2023-08-10 12:04 | Outpatient (BNVA) | payer MEDICARE, OTHER, SELFPAY | PROVIDERS: PCP Nurse Practitioner Family; Visit Provider Orthopaedic Surgery | DX: T84.84XA Pain due to internal orthopedic prosthetic devices, implants and grafts, initial encounter (principal); Z96.651 Presence of right artificial knee joint | CPT/HCPCS: 20610; 99212 ==

== ENCOUNTER 2023-09-04 11:01 | Outpatient (REF) | payer MEDICARE, OTHER, SELFPAY ==
[2023-09-04 13:40] LABS: MN% 3.7 %; PMN% 96.3 %
[2023-09-04 13:41] LABS: WBC Synovial Fluid 29.115 X10*3/uL
[2023-09-04 14:13] LABS: Monocytes Synovial Fluid 1 %; Neutrophils Synovial Fluid 99 %
[2023-09-04 14:15] LABS: BF Shift QC OK YES; Man Diluent Bkgrd OK YES; Source Synovial Fluid RIGHT KNEE
== END 2023-09-04 11:02 | disposition home or self-care (01) ==
LOC: HO.LAB 11:01
PROVIDERS: PCP Nurse Practitioner Family; Visit Provider Orthopaedic Surgery
DX: T84.84XA Pain due to internal orthopedic prosthetic devices, implants and grafts, initial encounter (principal); T56.891A Toxic effect of other metals, accidental (unintentional), initial encounter; Z96.651 Presence of right artificial knee joint
CPT/HCPCS: 20610; 36415; 85652; 86140; 87070; 87073; 87076; 87186; 87205; 89051; 99212

== ENCOUNTER 2023-09-04 11:01 | Outpatient (AMB) | payer MEDICARE, OTHER, SELFPAY ==
--- NOTE | 2023-09-04 11:14 | MHC.OFFVIS ---
Intake Vital Signs 09/04/23 11:18 Height 5 ft 5 in Weight 150 lb BMI 25.0 Intake Visit Reasons: OV-lab result review Intake Note: Bety is a 72 year old female who presents today for a follow up of her Right TKA 02/07/2019 KI. At her last appointment we aspirated the knee and sent out VIA Synovasure, additional labs were ordered by NE. Today she presents to review all lab values Allergies almond [ALMOND] Allergy (Intermediate, Verified 08/10/23 12:17) SWELLING,ITCHING clams [CLAMS] Allergy (Intermediate, Verified 08/10/23 12:17) SWELLING,ITCHING,GI ISSUES nickel Adverse Reaction (Intermediate, Verified 08/10/23 12:17) Unknown HPI OV-lab result review HPI Details Bety is a 73 year old woman who returns to discuss her Synovasure results & additional labs review. Hx of right TKA 02/07/[address] Oliver She continues to complain of swelling in her knee, along with pain. She has been told she has a metal allergy. She had + nickel sensitivity with cutaneous allergy testing. [facility] Medical History Elevated cholesterol History of depression History of palpitations Surgical History History of total right knee replacement (TKR) Hx of colonoscopy Family History Maternal Aunt Substance use disorder Social History Housing: House Patient Tobacco Use Status: Never used Tobacco e-Cigarette/Vaping Use: Never Used Second Hand Smoke Exposure: Yes Current occupational status: retired Cognitive needs: No Hearing needs: No Vision needs: No Review of Systems Const All systems reviewed & are unremarkable except as noted in HPI and below Physical Exam Vital Signs: BMI result Body Mass Index 25.0 Const General: no acute distress, alert and awake Orientation/consciousness: patient oriented x3 HEENT Head: Yes normocephalic and Yes atraumatic Eyes EOM: EOMs intact bilaterally Resp Effort & Inspection: normal respiratory effort and able to speak in complete sentences Cardio Jugular venous distension: no JVD Skin General skin exam: turgor normal Rashes: no rashes Neuro General: patient oriented x3 Extrem Other: Mild warmth Mild effusion anterior tibial skin changes. ? Telangiectasias Psych Appearance: grossly normal Affect: normal affect Attitude: cooperative Office Procedures Joint Injection/Drain Joint Injection/Drain Details: Aspiration Primary Site: right knee Approach Used: lateral parapatellar Coding - Large joint Procedure code (CPT) selection complete Results Reviewed Results Reviewed: Synovasure: 35k synovial nucleated cells 96% Neutrophils Synovasure + CRP-sf + cultures/microbial results negative though some still pending ESR and CRP elevated Assessment & Plan Assessment & Plan (1) Painful total knee replacement, right: Code(s): T84.84XA - Pain due to internal orthopedic prosthetic devices, implants and grafts, initial encounter; Z96.651 - Presence of right artificial knee joint Qualifiers: Encounter type: initial encounter Qualified Code(s): T84.84XA - Pain due to internal orthopedic prosthetic devices, implants and grafts, initial encounter; Z96.651 - Presence of right artificial knee joint Plan: All evidence points to infection. Cultures are negative but high cell count and inflammatory markers elevated. We discussed this and at this point I repeated an aspiration to let the fluid incubate for cultures. This was also murky in appearance. I will see her back in 1-2 weeks but I don't see a reasonable option that does not include a two stage revision procedure. Plan Prepared for Tito Barron MD by Tj Kramer, nuclear medicine medical director, on 09/04/23 at 11:19 AM, EST. Orders: Orders Cell Ct wDiff Synovial Fl 09/04/23 T84.84XA - Pain due to internal orthopedic prosthetic devices, implants and grafts, initial encounter, Z96.651 - Presence of right artificial knee joint Synovial Fld Cult + Gram stain 09/04/23 T84.84XA - Pain due to internal orthopedic prosthetic devices, implants and grafts, initial encounter, Z96.651 - Presence of right artificial knee joint Coding Level of Care Code Est Pt Level 4 (05639) Diagnoses Pain due to total right knee replacement, initial encounter T84.84XA; Z96.651 Encounter type: initial encounter CPT Codes Coding - Large joint: 64797 - Large joint ([id number])
[2023-09-04 11:18] VITALS: BMI 25.0
== END 2023-09-04 12:01 | disposition home or self-care (01) ==
PROVIDERS: PCP Nurse Practitioner Family; Visit Provider Orthopaedic Surgery
DX: T84.84XA Pain due to internal orthopedic prosthetic devices, implants and grafts, initial encounter (principal); Z96.651 Presence of right artificial knee joint
CPT/HCPCS: 20610; 99214

== ENCOUNTER 2023-09-04 12:06 | Outpatient (REF) | payer MEDICARE, OTHER, SELFPAY ==
[2023-09-04 14:25] LABS: C Reactive Protein 1.23 mg/dL (< or = 0.50)
[2023-09-04 14:31] LABS: Erythrocyte Sedimentation Rate 34 MM/HR (0-20)
== END 2023-09-04 12:07 | disposition home or self-care (01) ==
LOC: HO.10HDL 12:06
PROVIDERS: Visit Provider Orthopaedic Surgery
DX: Z13.89 Encounter for screening for other disorder (principal)
CPT/HCPCS: 36415; 85652; 86140

== ENCOUNTER → 2023-09-22 12:58 | Outpatient (REF) | payer MEDICARE, OTHER, SELFPAY ==
--- NOTE | 2023-09-22 13:02 | HM_ITS ---
Conclusion: 1. Patient was monitored for total period of 2 days and 22 hours 2. Baseline was normal sinus rhythm with average heart of 62 beats per minute 3. Frequent sinus bradycardia noted 50% of time heart rate below 60 beats per minute with no significant pauses 4. No significant arrhythmias noted 5. No patient reported events MTDD
--- NOTE | 2023-09-22 13:02 | CA_ITS ---
Transthoracic Echocardiogram Patient (Last, First, Middle): Bety Chinchilla, Gender: Female Date of : 1950 Age: 73 Procedure Date: 09/22/2023 Procedure Type: Transthoracic Echocardiogram Location: OP Height: 165.1 cm Weight: 68.04 kg BSA: 1.75 m2 Heart Rate: bpm BP: 110 / 70 mmHg Administrative Assistant Office Manager: ANIL Referring MD: Chi Cueto MD Seo Executive: Fletcher Gallardo MD Symptoms: I49.3 - Ventricular premature depolarization Study Quality: Fair ECG Rhythm: Sinus Conclusions: - Essentially normal study Findings Left Ventricle Normal left ventricular size, thickness, and systolic function. The visually estimated ejection fraction is between 55-60%. Spectral Doppler is indicative of a normal filling pattern. Peak GLS is -17.6%, borderline normal. Right Ventricle Normal right ventricular cavity size and systolic function. Atria Both atria are normal in size. There is lipomatous hypertrophy of the interatrial septum. There is no evidence of interatrial shunt. Aortic Valve Normal aortic valve structure and function. There is mild calcification of the aortic valve. There is no aortic valve stenosis. There is no aortic valve regurgitation. Mitral Valve There is mild anterior mitral leaflet thickening. There is trace mitral valve regurgitation. There is no mitral valve stenosis. Pulmonic Valve The pulmonic valve is likely normal. Tricuspid Valve Normal tricuspid valve structure. There is mild tricuspid valve regurgitation. The right ventricular systolic pressure is normal. The right ventricular systolic pressure is 28 mmHg. Normal right atrial pressure. There is no evidence of pulmonary hypertension. Great Vessels All visible segments of the aorta are normal in size. The pulmonary artery was not well visualized. There is no dilatation of the ascending aorta measuring 3.10 cm. Venous The inferior vena cava is normal in size and collapses greater than 50% with inspiration. Pericardium/Pleural There is no evidence of pericardial effusion. Prior Study Comparison No significant change compared to prior study dated: 04/29/2021. Measurements 2D Linear Measurements IVSd: 0.78 0.6-0.9/0.6-1.0 cm LVIDd: 4.40 3.9-5.3/4.2-5.9 cm LVIDd Index: 2.51 2.4-3.2/2.2-3.1 cm/m2 LVIDs: 2.86 2.0-3.6 cm LVPWd: 0.73 0.7-1.1 cm LA Diam: 3.00 2.7-3.8/3.0-4.0 cm LAIDs Index: 1.71 1.5-2.3 cm/m2 LV Mass: 126.53 67-162/88-224 g LV Mass Index: 72.30 43-95/49-115 g/m2 LVOT Diam: 2.00 3.0+(-)1.3 cm 2D Systolic Function EF 4C: 58.10 >55% EF 2C: 61.50 >55% EF BiP: 59.40 >55% Mitral Valve MV Pk E: 1.09 MV PK A: 0.75 MV Decel Time: 141.00 E/A: 1.40 E'Lateral: 10.20 E'Medial: 7.07 E/E' Med: 15.40 E/E' Lat: 10.70 PHT: 41.00 MVA PHT: 5.37 Decel Long: 7.73 Aortic Valve AoV Pk Balbir: 1.33 AoV Mn Balbir: 0.98 AoV VTI: 0.36 AoV Pk Grad: 7.00 Aov Mn Grad: 4.00 PRASHANT Cont.VTI: 1.88 LVOT LVOT Pk Balbir: 0.84 LVOT Mn Balbir: 0.55 LVOT VTI: 0.22 LVOT Pk Grad: 3.00 LVOT Mn Grad: 1.00 LVOT Diam: 2.00 LVOT Area: 3.14 Diastolic Function MV Pk E: 1.09 MV Pk A: 0.75 E/A: 1.40 E'Medial: 7.07 E/E' Med: 15.40 E' Laterial: 10.20 E/E' Lat: 10.70 Right Ventricle TAPSE (mm): 22.40 TVS' Balbir: 11.60 Tricuspid Valve TR Pk Balbir: 2.49 TR Pk Grad: 25.00 RA Press: 3.00 RVSP: 28.00 Great Vessels Aorta Sinus of Valsalva: 3.01 2.0-3.[address] [place]: 2.07 1.7-3.4 cm Ao Asc: 3.10 2.1-3.4 cm Updated in Other Vendor System with Status of Final Fletcher Gallardo MD electronically signed on 09/22/2023 4:27:57 PM with status of Final
== END ==
LOC: HO.CARD 12:58
PROVIDERS: PCP Nurse Practitioner Family; Visit Provider Internal Medicine
DX: I49.3 Ventricular premature depolarization (principal)
CPT/HCPCS: 93242; 93306; 93356

== ENCOUNTER → 2023-09-22 13:02 | Outpatient (BNV) | payer MEDICARE, OTHER, SELFPAY | PROVIDERS: PCP Nurse Practitioner Family; Visit Provider Internal Medicine Cardiovascular Disease | DX: R00.1 Bradycardia, unspecified (principal) | CPT/HCPCS: 93244; 93306 ==

== ENCOUNTER 2023-09-25 11:52 | Outpatient (AMB) | payer MEDICARE, OTHER, SELFPAY ==
--- NOTE | 2023-09-25 11:53 | MHC.OFFVIS ---
Intake Intake Visit Reasons: OV-discuss lab results Intake Note: Meghan is a 63 year old female presents today for a new problem visit with complaints of bilateral knee pain Allergies almond [ALMOND] Allergy (Intermediate, Verified 08/10/23 12:17) SWELLING,ITCHING clams [CLAMS] Allergy (Intermediate, Verified 08/10/23 12:17) SWELLING,ITCHING,GI ISSUES nickel Adverse Reaction (Intermediate, Verified 08/10/23 12:17) Unknown HPI OV-discuss lab results HPI Details Bety is a 73 year old woman who returns to discuss her repeat [facility] results & possible revision surgery. Hx of right TKA 02/07/[address] Oliver She continues to complain of swelling in her knee, along with pain. She also complains of pain in her left knee today, worse with activity. She has been told she has a metal allergy. She had + nickel sensitivity with cutaneous allergy testing. She has telangectasias over the anterior tibia. I aspirated her knee twice with samples sent to our [facility] labs and sent to [facility] for testing. Nucleated cells were 29k and 34k with 99 and [address] [facility] returned + for staph epi. [facility]ov[facility] still pending She has pain and feels fatigues. She is unable to walk distances. [facility] Medical History Elevated cholesterol History of depression History of palpitations Surgical History History of total right knee replacement (TKR) Hx of colonoscopy Family History Maternal Aunt Substance use disorder Social History Housing: House Patient Tobacco Use Status: Never used Tobacco e-Cigarette/Vaping Use: Never Used Second Hand Smoke Exposure: Yes Current occupational status: retired Cognitive needs: No Hearing needs: No Vision needs: No Review of Systems Const All systems reviewed & are unremarkable except as noted in HPI and below Physical Exam Const General: no acute distress, alert and awake Orientation/consciousness: patient oriented x3 HEENT Head: Yes normocephalic and Yes atraumatic Eyes EOM: EOMs intact bilaterally Resp Effort & Inspection: normal respiratory effort and able to speak in complete sentences Cardio Jugular venous distension: no JVD Skin General skin exam: turgor normal Rashes: no rashes Neuro General: patient oriented x3 Extrem Other: Telangiectasias distal to knee + knee effusion medial compartment ttp 0-130 deg motion stable to v/v stress Psych Appearance: grossly normal Affect: normal affect Attitude: cooperative Results Reviewed Results Reviewed: Cultures + for Staph epi and 29K nucleated cells 99% PMNs Assessment & Plan Assessment & Plan (1) Infection of prosthetic right knee joint: Code(s): T84.53XA - Infection and inflammatory reaction due to internal right knee prosthesis, initial encounter Plan: This is a 73 yo F with an infected right TKA. SHe has + ESR and CRP. High % PMNs with ~ 30 K nucleated cells and culture + for staph epi. Also convinced she has a metal allergy which I have no evidence to the contrary. She has been told this by an fryer operator. Regardless I recommend two stage revision arthroplasty for infection. I described this to her and discussed the r/b/a. I discussed the risks benefits and alternatives including but not limited to the risk of pain, infection, stiffness, need for further surgery as well as potential medical complications such as blood clots, pulmonary embolism and cardiac complications. She is adamant that we avoid nickel in her revision surgery and so we will tput in a titanium knee. First however is antibiotic spacer. I will have our NN call her and begin the pre operative clearance process. Plan Prepared for Tito Barron MD by Tj Kramer, medical massage therapist, on 09/25/23 at 11:55 AM, EST. Coding Level of Care Code Est Pt Level 4 (09264) Diagnoses Infection of prosthetic right knee joint T84.53XA
== END 2023-09-25 12:32 | disposition home or self-care (01) ==
PROVIDERS: PCP Nurse Practitioner Family; Visit Provider Orthopaedic Surgery
DX: T84.53XA Infection and inflammatory reaction due to internal right knee prosthesis, initial encounter (principal)
CPT/HCPCS: 99214

== ENCOUNTER → 2023-09-25 11:52 | Outpatient (BNVA) | payer MEDICARE, OTHER, SELFPAY | PROVIDERS: PCP Nurse Practitioner Family; Visit Provider Orthopaedic Surgery | DX: T84.53XA Infection and inflammatory reaction due to internal right knee prosthesis, initial encounter (principal) | CPT/HCPCS: 99212 ==

== ENCOUNTER 2023-10-07 13:34 | Outpatient (AMB) | payer MEDICARE, OTHER, SELFPAY ==
[2023-10-07 13:37] VITALS: BP 126/70; PULSE 60; BMI 25.4
--- NOTE | 2023-10-07 13:37 | A.OFFVIS_ITS ---
Intake Vital Signs 10/07/23 13:37 Height 5 ft 5 in Weight 152 lb 8.958 oz BMI 25.4 BP 126/70 Blood Pressure Location Lt brachial Position Sitting Pulse 60 Intake Visit Reasons: 6 mth follow up/Pre-op TKA revision, Dr. 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 Required: No Accompanied by: Self / Same As Patient Allergies almond [ALMOND] Allergy (Intermediate, Verified 10/07/23 13:40) SWELLING,ITCHING clams [CLAMS] Allergy (Intermediate, Verified 10/07/23 13:40) SWELLING,ITCHING,GI ISSUES nickel Adverse Reaction (Intermediate, Verified 10/07/23 13:40) Unknown Medication List - Last Reconciled 10/07/23 by Chi Cueto MD antiarthritic combination no.2 (glucosamine-chondroitin) mg PO atenolol 25 mg PO DAILY atorvastatin 10 mg PO BEDTIME calcium carbonate-vitamin D3 600 mg-20 mcg (800 unit) 1 tab PO DAILY cranberry fruit concentrate (Azo Cranberry) 250 mg PO DAILY estradiol 0.01%(0.1mg/gram) (Estrace) apply pea sized amount to fingertip vaginally at bedtime daily omega 2-fyc-tmz-fish oil 1,000 mg (120 mg-180 mg) (Fish Oil) 1 cap PO DAILY sertraline 25 mg PO DAILY turmeric root extract 1,076 mg PO DAILY HPI HPI Comments History of Present Illness Details Bety returns for follow-up. She also needs preoperative evaluation for knee surgery. To recall, in the past, she has been seen regarding PVCs. She had a routine EKG through her own PCP that showed bigeminy. Patient herself really does not have any cardiac history. No history of any coronary disease myocardial infarction or cardiomyopathy. She states she has been on beta-blockers for a long time for history of 'irregular heart rate'. Overall, she states she feels fine. No complaints like angina or shortness of breath or in fact anything cardiac sounding. Overall, doing well. Needs to go for knee surgery. [facility] Medical History Elevated cholesterol History of depression History of palpitations Surgical History History of total right knee replacement (TKR) Hx of colonoscopy Family History Maternal Aunt Substance use disorder Social History Housing: House Patient Tobacco Use Status: Never used Tobacco e-Cigarette/Vaping Use: Never Used Second Hand Smoke Exposure: Yes Current occupational status: retired Cognitive needs: No Hearing needs: No Vision needs: No Review of Systems Const Denies weakness ENT Denies dizziness Card Denies chest pain, Denies chest pain with activity, Denies syncope, Denies rapid heart rate, Denies pedal edema, Denies edema, Denies leg edema, Denies lightheadedness, Denies palpitations, Denies dyspnea, Denies dyspnea on exertion and Denies orthopnea Resp Denies cough, Denies dyspnea and Denies dyspnea on exertion GI Denies hematochezia and Denies change in stool character Musc Denies abnormal gait, Denies muscle cramps, Denies muscle weakness, Denies numbness, Denies radiating pain into limb and Denies tingling Neuro Denies abnormal gait, Denies dizziness, Denies syncope, Denies numbness, Denies tingling and Denies weakness Endo Denies palpitations Physical Exam Vital Signs: Last Vital Signs Pulse 60 10/07/23 13:37 BP 126/70 10/07/23 13:37 BMI result Body Mass Index 25.4 Const General: comfortable and no acute distress Orientation/consciousness: patient oriented x3 HEENT Other: Unremarkable Head: Yes normal to inspection Neck Neck: Yes normal visual inspection Chest Chest palpation & inspection: normal inspection of the chest Resp Auscultation: clear to auscultation bilaterally Cardio Palpation: normal PMI Heart sounds: S1 normal heart sound present, S2 normal heart sound present, no gallops, no murmurs and no rubs GI Palpation (GI): Soft to palpation Back/Spine/Pelvis Other: unremarkable Skin General skin exam: no rashes or lesions noted Neuro General: patient oriented x3 Extrem General: Yes normal to inspection Psych Mental Status: mental status grossly normal Office Procedures EKG Details: EKG with sinus rhythm, RSR' pattern suggestive of RV conduction delay; [place]. 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 PVCs have a left bundle pattern suggesting origin from the right ventricle. Based on polarity in the inferior leads, probably all RVOT PVCs which are generally benign. In prior Holter monitor, underlying rhythm is sinus with an average rate of 72/Min. Frequent PVCs. [place] of 5%. No runs described. In the more recent Holter monitor from last month, underlying rhythm is sinus with frequent sinus bradycardia but no significant PVCs. Echocardiogram with LVEF of 55-60%. No significant valvular issues. Myocardial perfusion imaging study from 2020 was normal. Overall, history of frequent PVCs but none so ever in the most recent Holter. Otherwise, based on the above testing no clear evidence of any obstructive CAD or cardiomyopathy. With regard to management, continue beta-blockers as she seems be doing quite well. With regard to knee surgery, may proceed. Low cardiac risk. Coding Level of Care Code Est Pt Level 4 (76834) Diagnoses Preoperative cardiovascular examination Z01.810 Frequent PVCs I49.3 CPT Codes EKG - CPT: 26414-[id number], Complete ([id number])
== END 2023-10-07 13:56 | disposition home or self-care (01) ==
PROVIDERS: PCP Nurse Practitioner Family; Visit Provider Internal Medicine
DX: I49.3 Ventricular premature depolarization (principal); Z01.810 Encounter for preprocedural cardiovascular examination
CPT/HCPCS: 93010; 99213

== ENCOUNTER → 2023-10-07 13:34 | Outpatient (BNVA) | payer MEDICARE, OTHER, SELFPAY | PROVIDERS: PCP Nurse Practitioner Family; Visit Provider Internal Medicine | DX: Z01.810 Encounter for preprocedural cardiovascular examination (principal); I49.3 Ventricular premature depolarization | CPT/HCPCS: 93005; 99212 ==

== ENCOUNTER 2023-10-12 10:39 | Outpatient (REF) | payer MEDICARE, OTHER, SELFPAY ==
[2023-10-12 13:01] LABS: MANUAL DIFF FLAG NO
[2023-10-12 13:23] LABS: Basophils Percent Auto 0.4 % (0-2); Eosinophils Absolute Auto 0.2 X10*3/uL (0.0-0.4); Eosinophils Percent Auto 1.9 % (0-4); Hematocrit 40.1 % (37.0-47.0); Hemoglobin 12.8 g/dl (12.0-16.0); Imm Gran Abs Auto 0.01 X10*3/uL (0.00-0.03); Imm Gran Pct Auto 0.1 % (0.0-0.4); Lymphocytes Absolute Auto 2.8 X10*3/uL (1.2-4.9); Lymphocytes Percent Auto 34.2 % (20-40); Mean Corpuscular HGB Conc 31.9 g/dl (31.0-35.0); Mean Corpuscular Hemoglobin 29.5 pg (27.0-33.0); Mean Corpuscular Volume 92.4 fL (80.0-98.0); Mean Platelet Volume 10.3 fL (9.4-12.3); Monocytes Absolute Auto 0.8 X10*3/uL (0.1-1.2); Monocytes Percent Auto 9.4 % (2-11); Neutrophils Absolute Auto 4.4 x10*3/uL (2.0-8.3); Platelet Count 324 X10*3/uL (160-400); Red Blood Count 4.34 X10*6/uL (4.20-5.50); Red Cell Distribution Width 14.4 % (11.0-16.0); White Blood Count 8.2 X10*3/uL (4.8-10.8)
[2023-10-12 13:29] LABS: Alanine Aminotransferase 10 U/L (0-31); Albumin Level 4.1 g/dL (3.5-5.0); Alkaline Phosphatase 64 U/L (39-117); Anion Gap 12 (12-20); Aspartate Amino Transferase 16 U/L (5-31); Bilirubin Total 0.4 mg/dL (0.0-1.0); Blood Urea Nitrogen 19 mg/dL (9-16); Calcium 10.2 mg/dL (8.4-10.2); Carbon Dioxide 27 mmol/L (22-29); Chloride 106 mmol/L (96-108); Estimated Glomerular Filt Rate > 60; Glucose Random 94 mg/dL (60-115); Potassium 3.8 mmol/L (3.3-5.1); Sodium 141 mmol/L (135-145); Total Protein 7.7 g/dL (6.5-8.0)
== END 2023-10-12 10:40 | disposition home or self-care (01) ==
LOC: HO.HMGCLDS 10:39
PROVIDERS: PCP Nurse Practitioner Family; Visit Provider Nurse Practitioner Family
DX: Z01.818 Encounter for other preprocedural examination (principal)
CPT/HCPCS: 36415; 80053; 85025

== ENCOUNTER 2023-10-14 15:42 | Outpatient (AMB) | payer MEDICARE, OTHER, SELFPAY ==
[2023-10-14 15:57] VITALS: BP 124/74; PULSE 60; O2SAT 98; BMI 25.3
--- NOTE | 2023-10-14 15:57 | MHC.PC.OV ---
Vital Signs 10/14/23 15:57 Height 5 ft 5 in Weight 152 lb BMI 25.3 BP 124/74 Blood Pressure Location Lt brachial Position Sitting Pulse 60 Pulse Source Pulse Oximeter Pulse Oximetry (%) 98 Oxygen Delivery Method Room Air Intake Visit Reasons: Rt prosthetic knee joint 11/11/[address] Barron Allergies almond [ALMOND] Allergy (Intermediate, Verified 10/07/23 13:40) SWELLING,ITCHING clams [CLAMS] Allergy (Intermediate, Verified 10/07/23 13:40) SWELLING,ITCHING,GI ISSUES nickel Adverse Reaction (Intermediate, Verified 10/07/23 13:40) Unknown Medication List - Last Reconciled 10/14/23 by MIRA Bates antiarthritic combination no.2 (glucosamine-chondroitin) mg PO atenolol 25 mg PO DAILY atorvastatin 10 mg PO BEDTIME calcium carbonate-vitamin D3 600 mg-20 mcg (800 unit) 1 tab PO DAILY cranberry fruit concentrate (Azo Cranberry) 250 mg PO DAILY estradiol 0.01%(0.1mg/gram) (Estrace) apply pea sized amount to fingertip vaginally at bedtime daily omega 3-dvu-eqc-fish oil 1,000 mg (120 mg-180 mg) (Fish Oil) 1 cap PO DAILY sertraline 25 mg PO DAILY turmeric root extract 1,076 mg PO DAILY Tobacco use date assessed: 12/24/22 HPI Rt prosthetic knee joint 11/11/[address] Barron HPI Details revision of right total knee, series of 2 surgeries, ? allergy to original hardware (nickel). 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 November 11 first surg. Last EKG was last week. wont repeat this today. pt denies any fevers, chills, dizziness, n/v, CP, SOB. PT IS CLEARED FOR SURGERY FROM MY [facility] Medical History Elevated cholesterol History of depression History of palpitations Surgical History History of total right knee replacement (TKR) Hx of colonoscopy Family History Maternal Aunt Substance use disorder Social History Housing: House Patient Tobacco Use Status: Never used Tobacco e-Cigarette/Vaping Use: Never Used Second Hand Smoke Exposure: Yes Current occupational status: retired Cognitive needs: No Hearing needs: No Vision needs: No Questionnaire PHQ-9 Over the last 2 weeks, how often have you been bothered by any of the following problems? 1. Little interest or pleasure in doing things: not at all 2. Feeling down, depressed, or hopeless: not at all 3. Trouble falling or staying asleep, or sleeping too much: not at all 4. Feeling tired or having little energy: more than half the days 5. Poor appetite or overeating: not at all 6. Feeling bad about yourself - or that you are a failure or have let yourself or your family down: not at all 7. Trouble concentrating on things, such as reading the newspaper or watching television: not at all 8. Moving or speaking so slowly that other people could have noticed. Or the opposite - being so fidgety or restless that you have been moving around a lot more than usual: not at all 9. Thoughts that you would be better off or of hurting yourself in some way: not at all Total score: 2 Depression Screening Interpretation: Negative Depression Screening Done: Yes 54844 - PHQ-9 Billing: Yes Source: Developed by Drs. Dominic Andrew, Pili Lvei, Pancho Root and colleagues, with an educational justyn from [employer]. Thrive Questionnaire Date Thrive assessed: 10/14/23 I am a: Patient What is your living situation today?: I have a steady place to live Within the past 12 months, did the food you bought not last and you didn't have the money to get more?: Never true Within the past 12 months, did you worry whether your food would run out before you got money to buy more?: Never true Do you have trouble paying for medicines?: No Do you have trouble getting transportation to medical appointments?: No Do you have trouble paying your heating and electricity bill?: No Do you have trouble taking care of your child, family member or friend?: No Do you have trouble with day-to-day activities such as bathing, preparing meals, shopping, managing finances, etc.?: No Are you currently unemployed and looking for a job?: No Are you interested in more education?: No Please select the resources that you would like help with: None Currently or been in a relationship where the following occur: no concerns reported THRIVE Score: 0 AUDIT C Alcohol Use Questionnaire (AUDIT-C) 1. How often do you have a drink containing alcohol?: Monthly or less 2. How many drinks containing alcohol do you have on a typical day when you are drinking?: 1 or 2 3. How often do you have six or more drinks on one occasion?: Never Total Score: 1 Score Reviewed/Action Taken: Yes ZAMZAM-7 AMB Questionnaire ZAMZAM-7 Date ZAMZAM - 7 assessed: 10/14/23 Feeling nervous, anxious, or on edge: 1 = Several days Not being able to stop or control worryin = Several days Worrying too much about different things: 1 = Several days Trouble relaxin = Several days Being so restless that it is hard to sit still: 0 = Not at all Becoming easily annoyed or irritable: 1 = Several days Feeling afraid as if something awful might happen: 0 = Not at all Total ZAMZAM-7 score (0-4 normal; 5-9 mild; 10-14 moderate; 15-21 severe): 5 Source: Developed by Drs. Dominic Andrew, Pili Levi, Pancho Roto and colleagues, with an educational justyn from [employer]. ZAMZAM-7 Assessment Billing ZAMZAM-7 Assessment Tool: ZAMZAM-7 Assessment 55715 Physical exam (Primary Care) Vital Signs: Last Vital Signs Pulse 60 10/14/23 15:57 BP 124/74 10/14/23 15:57 Pulse Ox 98 10/14/23 15:57 Oxygen Delivery Method Room Air 10/14/23 15:57 BMI result Body Mass Index 25.3 Tobacco/Smoking Status: Tobacco use Status Tobacco use date assessed 12/24/22 10/14/23 15:59 Patient Tobacco Use Status Never used Tobacco 10/14/23 15:59 e-Cigarette/Vaping Use Never Used 10/14/23 15:59 PHQ-9: PHQ-9 Score PHQ-9: Total score 2 10/14/23 16:35 Depression Screening Interpretation: Negative Thrive Assessment: Date of Thrive Assessment Date Thrive assessed 10/14/23 10/14/23 16:05 Currently or been in a relationship where the following occur: no concerns reported Const General: cooperative and healthy appearing Neck Neck: Yes no lymphadenopathy Resp Effort & Inspection: normal respiratory effort Auscultation: clear to auscultation bilaterally Cardio Rate: regular rate Rhythm: regular rhythm Heart sounds: S1 normal heart sound present and S2 normal heart sound present Skin Other: right inferior patellar region running distally down RLE, vine like erythema without tenderness with touch. erythema is not raised. Extrem General: Yes normal to inspection Psych Affect: normal affect Attitude: cooperative Thought content: Normal thought content present Insight: Good insight present (Psych) Judgement: Good judgement present (Psych) Assessment and Plan Assessment & Plan (1) Pre-op evaluation: Code(s): Z01.818 - Encounter for other preprocedural examination Orders: Orders Complete Blood Count Auto Diff Today Z01.818 - Encounter for other preprocedural examination Comprehensive Met. Panel Today Z01.818 - Encounter for other preprocedural examination TSH reflex Free T4 Today Z01.818 - Encounter for other preprocedural examination UA CC w/rflx Micro + Cult Today Z01.818 - Encounter for other preprocedural examination Urine Culture Today Z01.818 - Encounter for other preprocedural examination Coding Level of Care Code Est Pt Prev Care >65y(51942) Diagnoses Pre-op evaluation Z01.818 Additional Codes ZAMZAM-7 Assessment Billing - ZAMZAM-7 Assessment Tool: ZAMZAM-7 Assessment 62472 ([id number])
== END 2023-10-14 17:06 | disposition home or self-care (01) ==
PROVIDERS: PCP Nurse Practitioner Family; Visit Provider Nurse Practitioner Family
DX: Z01.818 Encounter for other preprocedural examination (principal)
CPT/HCPCS: 99213

== ENCOUNTER 2023-10-15 14:00 | Outpatient (REF) | payer MEDICARE, OTHER, SELFPAY ==
[2023-10-15 16:14] LABS: Appearance Urine Cloudy; Color Urine Yellow; Glucose Urine UA Negative (Negative); Leukocyte Esterase Urine Large (3+) (Negative); Nitrite Urine Positive (Negative); PH 5.5 (5.0-9.0); UMIC TRIGGER UACC YES; Urine Blood Small (1+) (Negative); Urine Ketones Trace mg/dL (Negative); Urine Protein Negative (Neg-Trace)
[2023-10-15 16:23] LABS: Bacteria Urine 4+ (None Seen); Hyaline Casts Urine 0-2 /LPF (0-2); Squamous Epithelial Cell Urine 0-2 /HPF (0-2); UACC Culture Trigger YES; WBC Urine >50 /HPF (0-5)
== END 2023-10-15 14:01 | disposition home or self-care (01) ==
LOC: HO.HMGCLNP 14:00
PROVIDERS: PCP Nurse Practitioner Family; Visit Provider Nurse Practitioner Family
DX: Z01.818 Encounter for other preprocedural examination (principal); R82.90 Unspecified abnormal findings in urine
CPT/HCPCS: 81001; 87086; 87088; 87186

== ENCOUNTER 2023-10-29 10:32 | Outpatient (REF) | payer MEDICARE, OTHER, SELFPAY ==
[2023-10-29 13:16] LABS: MANUAL DIFF FLAG NO
[2023-10-29 13:28] LABS: Basophils Percent Auto 0.4 % (0-2); Eosinophils Absolute Auto 0.1 X10*3/uL (0.0-0.4); Eosinophils Percent Auto 1.7 % (0-4); Hematocrit 37.9 % (37.0-47.0); Hemoglobin 12.3 g/dl (12.0-16.0); Imm Gran Abs Auto 0.02 X10*3/uL (0.00-0.03); Imm Gran Pct Auto 0.2 % (0.0-0.4); Lymphocytes Absolute Auto 2.2 X10*3/uL (1.2-4.9); Lymphocytes Percent Auto 27.6 % (20-40); Mean Corpuscular HGB Conc 32.5 g/dl (31.0-35.0); Mean Corpuscular Hemoglobin 29.9 pg (27.0-33.0); Mean Platelet Volume 10.5 fL (9.4-12.3); Monocytes Absolute Auto 0.8 X10*3/uL (0.1-1.2); Monocytes Percent Auto 9.5 % (2-11); Neutrophils Absolute Auto 4.9 x10*3/uL (2.0-8.3); Neutrophils Percent Auto 60.6 % (45-73); Platelet Count 394 X10*3/uL (160-400); Red Blood Count 4.12 X10*6/uL (4.20-5.50); Red Cell Distribution Width 14.2 % (11.0-16.0); White Blood Count 8.1 X10*3/uL (4.8-10.8)
[2023-10-29 13:53] LABS: Appearance Urine Clear; Color Urine Yellow; Glucose Urine UA Negative (Negative); Leukocyte Esterase Urine Negative (Negative); Nitrite Urine Negative (Negative); PH 5.5 (5.0-9.0); UMIC TRIGGER UACC YES; Urine Blood Small (1+) (Negative); Urine Ketones Negative (Negative); Urine Protein Negative (Neg-Trace)
[2023-10-29 13:53] LABS: Alanine Aminotransferase 10 U/L (0-31); Albumin Level 3.9 g/dL (3.5-5.0); Alkaline Phosphatase 59 U/L (39-117); Anion Gap 11 (12-20); Aspartate Amino Transferase 16 U/L (5-31); Bilirubin Total 0.3 mg/dL (0.0-1.0); Blood Urea Nitrogen 21 mg/dL (9-16); Calcium 9.9 mg/dL (8.4-10.2); Carbon Dioxide 27 mmol/L (22-29); Chloride 104 mmol/L (96-108); Estimated Glomerular Filt Rate > 60; Glucose Random 86 mg/dL (60-115); Potassium 3.9 mmol/L (3.3-5.1); Sodium 138 mmol/L (135-145); Total Protein 7.3 g/dL (6.5-8.0)
[2023-10-29 14:12] LABS: Bacteria Urine None Seen (None Seen); Hyaline Casts Urine 0-2 /LPF (0-2); Squamous Epithelial Cell Urine 0-2 /HPF (0-2); WBC Urine 0-5 /HPF (0-5)
== END 2023-10-29 10:33 | disposition home or self-care (01) ==
LOC: HO.HMGCLDS 10:32
PROVIDERS: PCP Nurse Practitioner Family; Visit Provider Nurse Practitioner Family
DX: Z01.818 Encounter for other preprocedural examination (principal)
CPT/HCPCS: 36415; 80053; 81001; 84443; 85025

== ENCOUNTER 2023-11-04 11:28 | Outpatient (REF) | payer MEDICARE, OTHER, SELFPAY ==
--- NOTE | ~2023-11-04 | US_ITS ---
EXAMINATION: US VENOUS ULTRASOUND WITH DOPPLER LOWER EXTREMITY, BILATERAL CLINICAL INFORMATION: Acute embolism and thrombosis of unspecified deep vein COMPARISON: None available. TECHNIQUE: Ultrasound of the deep veins is performed from the hip to the calf with compression sonography and color and pulse Doppler assessment. Spectral analysis with color-flow imaging is performed. FINDINGS: RIGHT: There is normal venous compression and respiratory variation and augmented flow. The visualized common femoral vein, superficial femoral vein, profunda femoral vein, popliteal vein, and the trifurcation region shows no evidence of deep venous thrombosis. There is no significant popliteal fossa cyst. LEFT: There is normal venous compression and respiratory variation and augmented flow. The visualized common femoral vein, superficial femoral vein, profunda femoral vein, popliteal vein, and the trifurcation region shows no evidence of deep venous thrombosis. There is no significant popliteal fossa cyst. Unremarkable appearing 1.1 x 0.7 x 1.0 cm right groin lymph node incidentally noted. The US/US venous duplex LE BI IMPRESSION: No DVT demonstrated in the bilateral lower extremities.
== END 2023-11-04 11:29 | disposition home or self-care (01) ==
LOC: HO.HMGCX 11:28
PROVIDERS: PCP Nurse Practitioner Family; Visit Provider Orthopaedic Surgery
DX: I82.403 Acute embolism and thrombosis of unspecified deep veins of lower extremity, bilateral (principal)
CPT/HCPCS: 93970

== ENCOUNTER 2023-11-05 09:32 | Outpatient (REF) | payer MEDICARE, OTHER, SELFPAY | END 2023-11-05 09:33 | disposition home or self-care (01) | LOC: HO.HOSX 09:32 | PROVIDERS: Visit Provider Physician Assistant | DX: Z13.89 Encounter for screening for other disorder (principal) ==

== ENCOUNTER 2023-11-06 09:38 | Outpatient (AMB) | payer MEDICARE, OTHER, SELFPAY ==
--- NOTE | 2023-11-06 09:44 | A.OFFVIS_ITS ---
Intake Vital Signs 11/06/23 09:48 Height 5 ft 5 in Weight 152 lb BMI 25.3 Intake Visit Reasons: Pre-Op:prosth remov, spacer place, R knee 11/10NE Allergies almond [ALMOND] Allergy (Intermediate, Verified 10/07/23 13:40) SWELLING,ITCHING clams [CLAMS] Allergy (Intermediate, Verified 10/07/23 13:40) SWELLING,ITCHING,GI ISSUES nickel Adverse Reaction (Intermediate, Verified 10/07/23 13:40) Unknown HPI Pre-Op:prosth remov, spacer place, R knee 11/10NE HPI Details 73-year-old female who presents in the [facility] today for her preoperative history and physical exam prior to a removal of right total knee prosthetic with placement of antibiotic spacer to be performed on 11/11/[address] Tito Barron. Patient states she was seen by a Manager Change due to her heart rate dropping down to the 30's. She reports she was told she was cleared for surgery. Patient has an allergy history, as follows: -Natural Bridge; swelling itching -Clams; swelling itching -Nickel; unknown Patient is currently taking, as follows: -Atenolol 25 mg PO daily -Atorvastatin 10 mg PO Bedtime -Calcium carbonate-vitamin D3 600 mg-20 mcg I tab PO daily -Cranberry extract 500 mg PO daily -Glucos sul 7QWS-gxr-qexog-C-Min 550-30- 1 mg (Glucosamine Chondroitin) 1 Cap PO BID -Seaside 2-wns-cpj-fish oil 1,000 mg 1 cap PO daily -Sertraline 25 mg PO daily -Turmeric root extract 1,076 mg PO bedti me Patient has a medical history, as follows: -DVT (deep venous thrombosis)-2021-right anterior knee-seen [place] [facility], no medication treatment given at that time. -Elevated cholesterol -Depression -Irregular heart beats -Palpitations -Ventricular bigeminy -Frequent PVCs -Microscopic hematuria -Vaginal atrophy -Tubular [id number] adenoma Patient has a surgical history, as follows: Patient reports she has woken up during surgery in the past. -Hx of bilateral cataract extraction -Hx of loop electrical excision procedur e (LEEP) -Hx of total right knee replacement (TKR )--2018- Dr. Oliver -[facility] Medical History (Updated 11/03/23 @ 13:09 by Tito Barron MD) DVT (deep venous thrombosis) Arthritis Back pain Hx of blood clots Hx: UTI (urinary tract infection) Elevated cholesterol History of depression History of palpitations Surgical History (Updated 11/02/23 @ 12:23 by Sandhya Stephens RN) Hx of bilateral cataract extraction History of loop electrical excision procedure (LEEP) History of total right knee replacement (TKR) Hx of colonoscopy Family History Maternal Aunt Substance use disorder Social History (Updated 11/06/23 @ 09:45 by Oscar Moreira) Housing: House Are you a primary skin care consultant to a significant other at home: No Do you presently have visiting nurse or other home services: No Alcohol intake: current Alcohol intake frequency: holidays/special occasions only Patient Tobacco Use Status: Never used Tobacco e-Cigarette/Vaping Use: Never Used Second Hand Smoke Exposure: Yes Current occupational status: retired Cognitive needs: No Hearing needs: No Vision needs: No Review of Systems Const All systems reviewed & are unremarkable except as noted in HPI and below Physical Exam Vital Signs: BMI result Body Mass Index 25.3 Const General: no acute distress, alert and awake Orientation/consciousness: patient oriented x3 HEENT Head: Yes normocephalic and Yes atraumatic Eyes EOM: EOMs intact bilaterally Resp Effort & Inspection: normal respiratory effort and able to speak in complete sentences Cardio Jugular venous distension: no JVD Skin General skin exam: turgor normal Rashes: no rashes Neuro General: patient oriented x3 Extrem Other: Right knee: Telangiectasias distal to knee + knee effusion medial compartment ttp 0-130 deg motion stable to v/v stress Psych Appearance: grossly normal Affect: normal affect Attitude: cooperative Assessment & Plan Assessment & Plan (1) Infection of prosthetic right knee joint: Code(s): T84.53XA - Infection and inflammatory reaction due to internal right knee prosthesis, initial encounter Plan: Daughter Reyna Please call [phone] Plan Ms. Chinchilla is a 73-year-old female who presents in the office today for her preoperative history and physical exam prior to a removal of right total knee prosthetic with placement of antibiotic spacer to be performed on 11/11/[address] Tito Barron. Patient states she was seen by a Manager Change due to her heart rate dropping down to the 30's. She reports she was told she was cleared for surgery. Patient has an allergy history, as follows: -Natural Bridge; swelling itching -Clams; swelling itching -Nickel; unknown Patient is currently taking, as follows: -Atenolol 25 mg PO daily -Atorvastatin 10 mg PO Bedtime -Calcium carbonate-vitamin D3 600 mg-20 mcg I tab PO daily -Cranberry extract 500 mg PO daily -Glucos sul 8HEW-dmc-bidlx-C-Min 550-30-1 mg (Glucosamine Chondroitin) 1 Cap PO BID -Seaside 1-dii-fyl-fish oil 1,000 mg 1 cap PO daily -Sertraline 25 mg PO daily -Turmeric root extract 1,076 mg PO bedtime Patient has a medical history, as follows: -DVT (deep venous thrombosis)-2021-right anterior knee-seen at [facility], no medication treatment given at that time. -Elevated cholesterol -Depression -Irregular heart beats -Palpitations -Ventricular bigeminy -Frequent PVCs -Microscopic hematuria -Vaginal atrophy -Tubular [id number] adenoma Patient has a surgical history, as follows: Patient reports she has woken up during surgery in the past. -Hx of bilateral cataract extraction -Hx of loop electrical excision procedure (LEEP) -Hx of total right knee replacement (TKR)--2018- Dr. Oliver -Hx of colonoscopy-- I discussed in detail the procedure and what to expect pre and post operatively. We discussed the risks, benefits and alternatives to the surgery as well as the rehabilitation course. The risks; which include, but are not limited to infection, bleeding, nerve injury, ongoing pain, swelling, and stiffness, perioperative risk of injury to bones and soft tissues, and blood clots. I have answered all questions and with their understanding they have consented to move forward with a removal of right total knee prosthetic with placement of antibiotic spacer to be performed on 11/11/[address] Tito Barron. Discussed the use of Lovenox for 6 weeks after surgery. Follow up will be at the post operative appointment on 11/26/2023 at 10:15 am, or sooner if needed. Please call daughter, Reyna, at [phone] after surgery. Patient Instructions: Scribed by Tahmina Shetty, caregivers non medical, for Josee Sullivan PA-C on 11/06/2023 at 9:40 am, EST. Coding Level of Care Code Global (75090) Diagnoses Infection of prosthetic right knee joint T84.53XA
[2023-11-06 09:48] VITALS: BMI 25.3
== END 2023-11-06 10:40 | disposition home or self-care (01) ==
PROVIDERS: PCP Nurse Practitioner Family; Visit Provider Physician Assistant
DX: T84.53XA Infection and inflammatory reaction due to internal right knee prosthesis, initial encounter (principal)
CPT/HCPCS: 99024

== ENCOUNTER → 2023-11-06 09:38 | Outpatient (BNVA) | payer MEDICARE, OTHER, SELFPAY | PROVIDERS: PCP Nurse Practitioner Family; Visit Provider Physician Assistant | DX: T84.53XA Infection and inflammatory reaction due to internal right knee prosthesis, initial encounter (principal) | CPT/HCPCS: 99212 ==

== ENCOUNTER 2023-11-11 11:37 | Inpatient (IN) | payer MEDICARE, OTHER, SELFPAY ==
[2023-11-02 12:31] VITALS: BP 142/69; PULSE 56; RESP 18; O2SAT 98; BMI 25.6
--- NOTE | 2023-11-02 12:49 | HO.ANESPROP2 ---
Documented by User: Tessie Carrillo NP 11/10/23 09:22 HPI - Anesthesia Eval Consult details Narrative: 73yo F for Right Removal of prothesis, placement of antibiotic spacer, 11/11/23 (s/p R TKA 2019 - pt denies problems, but recalls waking in the oR) Cardiac cleared Medically cleared No recent illness No CP/SOB within limits of pain. Able to ADLs, groceries. Hx RLE DVT. Chronic DVT per [facility] vascular note 2021. None by recent [place]. [facility] Active Problems Active Problems: All Active Problems (Updated 11/02/23 @ 12:22 by Sandhya Stephens RN) Preoperative cardiovascular examination (Acute) Infection of prosthetic right knee joint (Acute) Painful total knee replacement, right (Acute) Bigeminy (Acute) Pre-op evaluation (Acute) Frequent PVCs (Acute) Microscopic hematuria (Acute) Vaginal atrophy (Acute) Dyslipidemia (Acute) Tubular adenoma (Acute) Encounter for screening colonoscopy (Acute) Frequent UTI (Acute) Right knee pain (Acute) Encounter for hearing test (Acute) Screening for colon cancer (Acute) Medicare annual wellness visit, initial (Acute) Palpitations (Acute) History of total right knee replacement (TKR) (Acute) History of palpitations (Acute) Past Medical History Medical History DVT (deep venous thrombosis) Arthritis Back pain Hx of blood clots Hx: UTI (urinary tract infection) Elevated cholesterol History of depression History of palpitations Family History Family History Maternal Aunt Substance use disorder Family history of problems with anesthesia: No Surgical History Surgical History Hx of bilateral cataract extraction History of loop electrical excision procedure (LEEP) History of total right knee replacement (TKR) Hx of colonoscopy History of Problems with Anesthesia: No Social History Social History Housing: House Are you a primary caregivers non medical to a significant other at home: No Do you presently have visiting nurse or other home services: No Alcohol intake: current Alcohol intake frequency: holidays/special occasions only Patient Tobacco Use Status: Never used Tobacco e-Cigarette/Vaping Use: Never Used Second Hand Smoke Exposure: Yes Use of substances other than those prescribed or required for medical reasons: No Have you been hit, kicked, punched, or otherwise hurt by someone within the past year? If so, by whom?: No Are you DNR?: Yes Advance Directives: No Advance Directives on File: No Recently lost weight without trying: No Eating poorly because of decreased appetite: No Nutrition Risks: No Nutritional Risk Patient : No : No Poor oral hygiene: Yes (upper partial denture) Current occupational status: retired Cognitive needs: No Hearing needs: No Vision needs: No Meds Allergies Allergy/AdvReac Type Severity Reaction Status Date / Time almond [ALMOND] Allergy Intermediate SWELLING,IT Verified 10/07/23 13:40 IRA clams [CLAMS] Allergy Intermediate SWELLING,ITCHING,GI Verified 10/07/23 13:40 ISSUES nickel AdvReac Intermediate Unknown Verified 10/07/23 13:40 Home Medications ?Medication ?Instructions ?Recorded ?Confirmed ?Last Taken ?Type calcium carbonate 600 mg-vitamin 1 tab PO DAILY 03/19/21 11/02/23 11/03/23 History D3 20 mcg (800 unit) tablet omega 8-xdb-cfo-fish oil 1,000 mg 1 cap PO DAILY 03/19/21 11/02/23 11/03/23 History (120 mg-180 mg) capsule (Fish Oil) turmeric root extract 1,053 mg 1,076 mg PO BEDTIME 03/19/21 11/02/23 11/03/23 History tablet cranberry extract 500 mg capsule 500 mg PO DAILY 11/02/23 11/02/23 11/03/23 History glucosamine sulf dipot 1 cap PO BID 11/02/23 11/02/23 11/03/23 History chlr,msm,chond 550 mg-C 30 mg-ole 1 mg capsule (Glucosamine Chondroitin) Exam Height,Weight and Vital Signs: Height 5 ft 5 in Weight 69.853 kg Last Vital Signs Pulse 56 11/02/23 12:31 Resp 18 11/02/23 12:31 BP 142/69 H 11/02/23 12:31 Pulse Ox 98 11/02/23 12:31 O2 Del Method Room Air 11/02/23 12:31 Pertinent Lab Results Pertinent Lab Results: Laboratory Tests 10/29/23 10:37 WBC 8.1 Hgb 12.3 Hct 37.9 Plt Count 394 Sodium 138 Potassium 3.9 Chloride 104 Carbon Dioxide 27 BUN 21 H Creatinine 0.81 Narrative Narrative: EKG 10/2023 sinus rhythm, RSR' pattern suggestive of RV conduction delay; normal LA and corrected QT. ECHO 09/2023 Conclusions: - Essentially normal study NM cardiolite stress test 2020 Impression: 1. Myocardial perfusion imaging study shows normal myocardial perfusion 2. Gated LVEF is greater than 70% 3. Transient ischemic dilatation not present EKG is nondiagnostic for ischemia US venous duplex LE BI 11/2023 IMPRESSION: No DVT demonstrated in the bilateral lower extremities. Airway Mallampati Class: III TM Dist: >3cm Neck ROM: Full Partial: Upper (Almost full) Loose/Missing/Broken Teeth: Yes (Missing lower) Heart: RRR Lungs: CTAB Assessment and Plan Assessment Anesthesia Assessment: Anesthesia Plan Discussed and PAT Visit Final Anesthetic Review Family History of Problems with Anesthesia: No History of Problems with Anesthesia: No Documented by User: Faina Pope MD 11/11/23 13:30 PMFSH Past Medical History Medical History DVT (deep venous thrombosis) Arthritis Back pain Hx of blood clots Hx: UTI (urinary tract infection) Elevated cholesterol History of depression History of palpitations Family History Family History Maternal Aunt Substance use disorder Surgical History Surgical History Hx of bilateral cataract extraction History of loop electrical excision procedure (LEEP) History of total right knee replacement (TKR) Hx of colonoscopy Social History Social History Housing: House Are you a primary caregivers non medical to a significant other at home: No Do you presently have visiting nurse or other home services: No Alcohol intake: current Alcohol intake frequency: holidays/special occasions only Patient Tobacco Use Status: Never used Tobacco e-Cigarette/Vaping Use: Never Used Second Hand Smoke Exposure: Yes Use of substances other than those prescribed or required for medical reasons: No Have you been hit, kicked, punched, or otherwise hurt by someone within the past year? If so, by whom?: No Are you DNR?: Yes Advance Directives: No Advance Directives on File: No Recently lost weight without trying: No Eating poorly because of decreased appetite: No Nutrition Risks: No Nutritional Risk Patient : No : No Poor oral hygiene: Yes (upper partial denture) Current occupational status: retired Cognitive needs: No Hearing needs: No Vision needs: No Meds Allergies Allergy/AdvReac Type Severity Reaction Status Date / Time almond [ALMOND] Allergy Intermediate SWELLING,IT Verified 10/07/23 13:40 IRA clams [CLAMS] Allergy Intermediate SWELLING,ITCHING,GI Verified 10/07/23 13:40 ISSUES nickel AdvReac Intermediate Unknown Verified 10/07/23 13:40 Home Medications ?Medication ?Instructions ?Recorded ?Confirmed ?Last Taken ?Type calcium carbonate 600 mg-vitamin 1 tab PO DAILY 03/19/21 11/02/23 11/03/23 History D3 20 mcg (800 unit) tablet omega 1-lkf-wqr-fish oil 1,000 mg 1 cap PO DAILY 03/19/21 11/02/23 11/03/23 History (120 mg-180 mg) capsule (Fish Oil) turmeric root extract 1,053 mg 1,076 mg PO BEDTIME 03/19/21 11/02/23 11/03/23 History tablet cranberry extract 500 mg capsule 500 mg PO DAILY 11/02/23 11/02/23 11/03/23 History glucosamine sulf dipot 1 cap PO BID 11/02/23 11/02/23 11/03/23 History chlr,msm,chond 550 mg-C 30 mg-ole 1 mg capsule (Glucosamine Chondroitin) Assessment and Plan Final Anesthetic Review NPO: Yes ASA Class: III Final Preanesthetic Review: No Changes in Pt Med Stat, Meds/Allgs Chart Reviewed, Consent Obtained/Reviewed and Anes Risks/Benef Reviewed Patient Risk: Intermediate Procedure Risk: Intermediate Anesthetic Plan Anesthetic Plan: GA, MAC:, Spinal and Regional Block Disposition: Standard PACU
[2023-11-02 16:02] LABS: MRSA Nasal PCR NEGATIVE (Negative); SA Nasal PCR NEGATIVE (Negative)
[2023-11-11] VITALS (13 sets, daily range): BP systolic 87–145; BP diastolic 46–80; PULSE 59–82; RESP 16–20; TEMP 36.2–36.6; O2SAT 94–99
--- OUTSIDE RECORDS SUMMARY | 2023-11-11 11:46 | XMS_ITS | Continuity of Care Document ---
Author Organization [facility] Address [address] [place] [id number]- Care Team Providers Care Paradi Tender Name Role Phone Latonya NAIR, Jose Kelly Primary Care Physician [place] [facility] [place] Date(s): 07/01/22 - 07/31/22 [facility] [address] [place], [place] [address] Attending Physician: Royce Strauss Admitting Physician: Royce Strauss Referring Physician: AdmtrRoyce Allergies, Adverse Reactions, Alerts No Known Allergies Medications atenolol 25 mg oral tablet 25 mg, 1, tablet, By Mouth, Daily, Refills 0, Maintenance, 04/16/22 8:49:00 EDT, Partial fill upon patient request if the prescription is for a schedule II opioid drug. Start Date: 04/16/22 Status: Ordered atorvastatin 10 mg oral tablet 1 tablet = 10 mg, By Mouth, Daily, 0 Refills, Maintenance, 04/16/22 8:50:00 EDT, Partial fill upon patient request if the prescription is for a schedule II opioid drug. Start Date: 04/16/22 Status: Ordered AZO Cranberry Gummies 0 Refills, Maintenance, 04/16/22 8:51:00 EDT, Partial fill upon patient request if the prescriptionis for a schedule II opioid drug. Start Date: 04/16/22 Status: Ordered betamethasone topical dipropionate 0.05% cream 1 application, Topically, Daily, apply a small amount to the inflamed skin of right mauricio, use compression garments daily, # 15 Gm, 0 Refills, Maintenance, 04/16/22 9:58:00 EDT, Cream, [id number], Partial fill upon patient request if the prescr... Start Date: 04/16/22 Status: Ordered Calcium 600 +D oral tablet 1 tablet, By Mouth, 3 times a day, 0 Refills, Maintenance, 04/16/22 8:50:00 EDT, Partial fill upon patient request if the prescription is for a schedule II opioid drug. Start Date: 04/16/22 Status: Ordered Fish Oil By Mouth, 0 Refills, Maintenance, 04/16/22 8:50:00 EDT, Partial fill upon patient request if the prescription is for a schedule II opioid drug. Start Date: 04/16/22 Status: Ordered Glucosamine & Chondroitin with MSM 0 Refills, Maintenance, 04/16/22 8:50:00 EDT, Partial fill upon patient request if the prescriptionis for a schedule II opioid drug. Start Date: 04/16/22 Status: Ordered Juxtafit Knee-high Compression Garments(bilateral, left, right) with 2 pairs of liners Juxtafit Knee-high Compression Garments(bilateral, left, right) with 2 pairs of liners, See Instructions, # 1 kit, Refills 0, Tot. Refills 0, Maintenance, as directed, 05/28/22 15:57:00 EDT, Supply Start Date: 05/28/22 Status: Ordered Turmeric = 500 mg, By Mouth, Daily, 0 Refills, Maintenance, 04/16/22 8:51:00 EDT, Partial fill upon patient request if the prescription is for a schedule II opioid drug. Start Date: 04/16/22 Status: Ordered Zoloft 25 mg oral tablet 1 tablet = 25 mg, By Mouth, Daily, 0 Refills, Maintenance, 04/16/22 8:49:00 EDT, Partial fill upon patient request if the prescription is for a schedule II opioid drug. Start Date: 04/16/22 Status: Ordered Note * Event Display: Laboratory Result Scanned Authored Date: [id number] Patient Care team information Care Team Personnel Name: Jose Hanks NP Position: Reference Physician Member Role: PCP Address: Address: [address] [place] [address]- Care Team Related Persons Name: RICHARD RONDONFER Address: home [address] [place] [address]
--- OUTSIDE RECORDS SUMMARY | 2023-11-11 11:46 | XMS_ITS | Continuity of Care Document ---
Author Organization [facility] Address [address] [place] [address]- Care Team Providers Care Pill Coater Name Role Phone Latonya NAIR, Jose Kelly Primary Care Physician [place] [facility] [place]16[place]22 - 07/31/22 [facility] [address] [place], [place] [address] Attending Physician: Shay Dey MD Admitting Physician: Shay Dey MD Allergies, Adverse Reactions, Alerts No Known Allergies [...] opioid drug. Start Date: 04/16/22 Status: Ordered Patient Care team information Care Team Personnel Name: Jose Hanks NP Position: Reference Physician Member Role: PCP Address: Address: [address] [place] [phone]- Care Team Related Persons Name: ARACELI RONDON Address: home [address] [place] [address]
--- OUTSIDE RECORDS SUMMARY | 2023-11-11 11:46 | XMS_ITS | Continuity of Care Document ---
Author Organization [facility] Address [address] [place] [address]- Care Team Providers Care Analytical Clerk Name Role Phone Jose Hanks NP Primary Care Physician Encounter 05/03/20 - 05/10/20 [facility] [address], [facility] [address] [place] [address]- [phone] Attending Physician: Jose Hanks NP Admitting Physician: Jose Hanks NP Referring Physician: Jose Hanks NP
--- OUTSIDE RECORDS SUMMARY | 2023-11-11 11:46 | XMS_ITS | Continuity of Care Document ---
Author Organization [facility] [place] Address [address] [facility] [place] [address]- Care Team Providers Care Manager Global Name Role Phone Latonya NAIR, Jose Kelly Primary Care Physician [phone] Encounter 05/23/22 - 05/30/22 [facility] [address] [facility], [address] [place], [place] [address] Attending Physician: Jose Hanks NP Admitting Physician: Jose Hanks NP Referring Physician: Jose Hanks NP Allergies, Adverse Reactions, Alerts No Known Allergies [...] 04/16/22 Status: Ordered Patient Care team information Personnel Name: Jose Hanks NP Address: Address: [address] [place] [id number]
--- OUTSIDE RECORDS SUMMARY | 2023-11-11 11:46 | XMS_ITS | Continuity of Care Document ---
Author Organization [facility] Address [address] [facility] [address] [place] [address]- Care Team Providers Care Pipeline Operator Name Role Phone Drew Medina Primary Care Physician Encounter 05/07/21 - 05/14/21 [facility] [address], [facility] [address] [place] [address]- Attending Physician: Jose Hanks NP Admitting Physician: Jose Hanks NP Referring Physician: Jose Hanks NP
--- OUTSIDE RECORDS SUMMARY | 2023-11-11 11:46 | XMS_ITS | Continuity of Care Document ---
Author Organization [facility] Address [address] [place] [phone]- Care Team Providers Care Loader Helper Sorting Yard Name Role Phone Latonya NAIR, Jose Kelly Primary Care Physician Encounter [facility] Date(s): 08/28/22 - 12/26/22 [facility] [address] [place], [place] [address] Attending Physician: Ramirez Viera MD Admitting Physician: Ramirez Viera MD Allergies, Adverse Reactions, Alerts No Known [...] Reference Physician Member Role: PCP Address: Address: [address] [place] [id number]- Care Team Related Persons Name: ARACELI RONDON Address: home [address] [place] [id number]
--- OUTSIDE RECORDS SUMMARY | 2023-11-11 11:46 | XMS_ITS | Continuity of Care Document ---
Author Organization [facility] Address [address] [place] [address]- Care Team Providers Care Dimethylaniline Sulfator Operator Name Role Phone Latonya NAIR, Jose Kelly Primary Care Physician [facility] [facility] [place]22 - 06/[place]/22 [facility] [address] [place], [place] [address] Attending Physician: Royce Strauss Admitting Physician: Royce Strauss Referring Physician: trRoyce Allergies, Adverse Reactions, Alerts No Known Allergies [...] Reference Physician Member Role: PCP Address: Address: [address] [place] [address]- Care Team Related Persons Name: ARACELI RONDON Address: home [address] [place] [id number]
--- OUTSIDE RECORDS SUMMARY | 2023-11-11 11:46 | XMS_ITS | Continuity of Care Document ---
Author Organization [facility] Address [address] [place] [address]- Care Team Providers Care Dance Teacher Name Role Phone Latonya NAIR, Jose Kelly Primary Care Physician [phone] [place] [facility] [place] [id number] Date(s): 04/16/22 - 04/23/22 [facility] [address] [place] [address] Attending Physician: Gabriel NAIR, Sandhya Chery Admitting Physician: Gabriel NAIR, Sandhya Chery Referring Physician: Thanh REYNAGA, Abad Medications atenolol 25 mg oral tablet 25 [...] opioid drug. Start Date: 04/16/22 Status: Ordered Turmeric = 500 mg, By [...] opioid drug. Start Date: 04/16/22 Status: Ordered Vital Signs Most recent to oldest [Reference Range]: 1 Weight 70.31 kg (04/16/22 8:44 AM) Oxygen Saturation [94-100 %] 98 % (04/16/22 8:44 AM) Pulse Rate [55-90 bpm] 66 bpm (04/16/22 8:44 AM) Blood Pressure [90-138/55-84 mm Hg] 120/ 74mm Hg (04/16/22 8:44 AM) Mode of Delivery (Oxygen) Room air (04/16/22 8:44 AM) Blood pressure sites Arm, left (04/16/22 8:44 AM) Weight Obtained Via Patient/family state d (04/16/22 8:44 AM) Care Team Personnel Name: Jose Hanks NP Address: [address] [place] [address]
--- OUTSIDE RECORDS SUMMARY | 2023-11-11 11:46 | XMS_ITS | Continuity of Care Document ---
Author Organization [facility] Address [address] [place] [address]- Care Team Providers Care Assistant Center Director Name Role Phone Latonya NAIR, Jose Kelly Primary Care Physician Encounter [facility] [place] Date(s): 05/28/22 - 06/04/22 [facility] [address] [place], [place] [address] Attending Physician: Ramirez Viera MD [...] recent to oldest [Reference Range]: 1 Weight 71.21 kg (05/28/22 2:57 PM) Oxygen Saturation [94-100 %] 98 % (05/28/22 2:57 PM) Pulse Rate [55-90 bpm] 67 bpm (05/28/22 2:57 PM) Blood Pressure [90-138/55-84 mm Hg] 122/ 70mm Hg (05/28/22 2:57 PM) Mode of Delivery (Oxygen) Room air (05/28/22 2:57 PM) Blood pressure sites Arm, right (05/28/22 2:57 PM) Dry Weight 71.21 kg (05/28/22 2:57 PM) Weight Obtained Via Patient/family state d (05/28/22 2:57 PM) Dry Weight Obtained Via Patient/family s tated (05/28/22 2:57 PM) Patient Care team information Personnel Name: Jose Hanks NP Address: Address: [address] [place] [id number]
--- OUTSIDE RECORDS SUMMARY | 2023-11-11 11:46 | XMS_ITS | Continuity of Care Document ---
Author Organization [facility] [place] [address] [facility] [place] [address]- Care Team Providers Care Code Enforcement Supervisor Name Role Phone Latonya NAIR, Jose Kelly Primary Care Physician [phone] Encounter 05/25/23 - 06/01/23 [facility] [address] [facility], [address] [place], [place] [address] Attending Physician: Jose Hanks NP Admitting [...] opioid drug. Start Date: 04/16/22 Status: Ordered Results Radiology Reports * Exam Date Time Procedure Performing Provider Status 05/25/23 11:25 AM MM Digital Mammo Screening Jc Blevins; Auth (Verified) Notes: (MM Digital Mammo Screening) Reason For Exam: Z12.31 ROUTINE SCREENING RESULT: MM Digital Mammo Screening PROCEDURE: MM Digital Mammo Screening INDICATION: Screening for breast cancer. No known palpable abnormalities. COMPARISON: Multiple prior studies dating back to 05/03/2020. TECHNIQUE: Full-field digital CC and MLO 3D tomosynthesis images of both breasts were acquired. Computer-aided detection (CAD) was utilized in the interpretation of this study. DENSITY: The breast tissue is heterogeneously dense, which may obscure masses. FINDINGS: No suspicious masses, suspicious microcalcifications, or areas of architectural distortion are seen in either breast to suggest malignancy. Biopsy clip within the left breast. Scattered benign-appearing calcifications bilaterally, unchanged. IMPRESSION: No mammographic evidence of malignancy. RECOMMENDATION: Annual mammographic screening BI-RADS: 1 (Negative) Lay letter mailed to patient WSN: [id number] Ordering Physician: Jose Hanks NP Dictated By: Vikash Meza MD Dictated Date/Time: 05/25/23 12:18 pm Reviewed By: Vikash Meza MD Signed By: Vikash Meza MD Signed Date/Time: 05/25/23 12:18 pm Transcribed By: RAFIA Lead Business Analyst Date/Time: 05/25/23 12:07 pm Birads: Patient Care team information Care Team Personnel Name: Jose Hanks NP Position: Reference Physician Member Role: PCP Address: Address: [address] [place] [address]- Care Team Related Persons Name: ARACELI RONDON Address: home [address] [place] [address]
--- OUTSIDE RECORDS SUMMARY | 2023-11-11 11:47 | XMS_ITS | Continuity of Care Document ---
Author Organization [facility] Address [address] [place] [address]- Care Team Providers Care Wharf Worker Name Role Phone Latonya NAIR, Jose Kelly Primary Care Physician Encounter [facility] [place] Date(s): 11/26/22 - 12/26/22 [facility] [address] [place], [place] [address] Attending Physician: Royce Strauss Admitting Physician: Royce [...] opioid drug. Start Date: 04/16/22 Status: Ordered Laboratory * Event Display: Laboratory Result Scanned Authored Date: [id number] Patient Care team information Care Team Personnel Name: Jose Hanks NP Position: Reference Physician Member Role: PCP Address: Address: [address] [place] [address]- Care Team Related Persons Name: ARACELI RONDON Address: home [address] [place] [address]
--- NOTE | 2023-11-11 12:15 | PHA.MEDREC ---
Pharmacy Consult ? Medication Reconciliation Pharmacy has reviewed the medication reconciliation completed by nursing.
[2023-11-11] MEDS: Lactated Ringers 1,000 ML 100 ML IVCONT ×2 (12:27→17:37)
[2023-11-11 12:45] LABS: Hematocrit 35.4 % (37.0-47.0); Hemoglobin 11.6 g/dl (12.0-16.0); Mean Corpuscular HGB Conc 32.8 g/dl (31.0-35.0); Mean Corpuscular Hemoglobin 29.7 pg (27.0-33.0); Mean Corpuscular Volume 90.5 fL (80.0-98.0); Mean Platelet Volume 9.9 fL (9.4-12.3); Platelet Count 305 X10*3/uL (160-400); Red Blood Count 3.91 X10*6/uL (4.20-5.50); Red Cell Distribution Width 14.1 % (11.0-16.0); White Blood Count 8.8 X10*3/uL (4.8-10.8)
--- NOTE | 2023-11-11 12:58 | PC.NURSE ---
regional block by dr amado and dr gracia pt tolerating well
--- NOTE | 2023-11-11 15:00 | PM.OP ---
Brief Operative Note Date of Service: 11/11/23 Pre-op diagnosis: Infected right TKA Post-op diagnosis: same Procedure: Resection arthroplasty right knee Implants: Anna osteoremedy small Surgeon: Tito Barron MD Anesthesia: regional and spinal Was an Admitting Counselor used for this Procedure?: Yes Admitting Counselor: Josee Sullivan Estimated blood loss (mL): 25 Tourniquet time (min): 70 IV fluids (mL): 1,000 Pathology: other Condition: stable Disposition: PACU
[2023-11-11] MEDS: 0.9 % Sodium Chloride Flush 3 ML SYRINGE IVFLUSH (17:34)
--- NOTE | 2023-11-11 17:44 | MHC.SHP ---
Pre-Procedural Eval Section A - 24 Hr Update-Section A only Date of Service: 11/11/23 The patient is an INPATIENT: No Changes since office visit: No Cold of Flu in the past 2 weeks, No New Medical Problems, No Changes in Medication and No Patient answered all questions The patient has been examined within 24 hours of the surgical procedure. The History & Physical has been completed within 30 days and I have reviewed it.: Yes Section B - Complete if H&P > 30 days Chief Complaint: Revision right TKA with abx spacer Allergies: Allergies Allergy/AdvReac Type Severity Reaction Status Date / Time almond [ALMOND] Allergy Intermediate SWELLING,IT Verified 10/07/23 13:40 IRA clams [CLAMS] Allergy Intermediate SWELLING,ITCHING,GI Verified 10/07/23 13:40 ISSUES nickel AdvReac Intermediate Unknown Verified 10/07/23 13:40 Plan I have reviewed the history and physical and performed a pertinent physical examination on my patient. No changes have occurred unless specified. Time Spent With Patient Time: Total time managing care of this patient today ____ minutes.
[2023-11-11] MEDS: Celecoxib 200 MG CAPSULE PO (19:34)
[2023-11-11] MEDS: vancomycin HCL 1,000 MG, vancomycin HCL 750 MG in 0.9 % Sodium Chloride 500 ML 267.5 MG IV (19:34)
[2023-11-11] MEDS: Docusate Sodium 100 MG CAPSULE PO (19:34)
[2023-11-11] MEDS: oxyCODONE HCl ER 10 MG TAB.ER.12H PO (19:34)
[2023-11-11] MEDS: Atorvastatin Calcium 10 MG TABLET PO (19:35)
[2023-11-11 19:38] LABS: Creatinine Clr Calc Pharmacy 62.7; Estimated Glomerular Filt Rate > 60
[2023-11-11] MEDS: Acetaminophen 325 MG TABLET 650 MG PO (21:01)
--- NOTE | 2023-11-11 21:09 | PHA.PROG ---
Admission Date/Time: November 11, 2023 11:37 Indication: BONE AND JOINT INFECTION Weight in k.853 kg Adjusted body weight in Kg: Custer body weight in Kg: Obesity Dosing Indication % IBW: Serum Creatinine - Last 168 Hours 11/11/23 19:17 Creatinine 0.76 Estimated CrCl and GFR - Last 168 Hours 11/11/23 19:17 Estim Creat Clear Calc 62.7 Estimated GFR > 60 Vancomycin Loading Dose: 1750 MG Current Vancomycin Dosing Regimen: 750 MG Q12H Vancomycin Monitoring using AUC goal of 400 - 600 range with trough as surrogate marker: DIL=314 TROUGH=16.5 Date and Time for next Vancomycin Level to be drawn: 11/13/23 @0600 Pharmacist Comments on Vancomycin Plan: Vancomycin dosing will take advantage of My [employer] as a clinical decision support tool that uses Bayesian modeling to calculate individual patient's pharmacokinetic parameters and forecast the patient's drug concentration time course with the target goal AUC 24 range of 400 - 600 mg/L/hr.
[2023-11-12] VITALS (8 sets, daily range): BP systolic 98–121; BP diastolic 52–84; PULSE 52–66; RESP 16–18; TEMP 36.3–36.7; O2SAT 96–98
[2023-11-12] MEDS: oxyCODONE HCl Immed Release 5 MG TABLET PO ×4 (00:26→20:07)
[2023-11-12] MEDS: Lactated Ringers 1,000 ML 100 ML IVCONT ×2 (03:58→19:59)
--- NOTE | 2023-11-12 04:22 | PC.NURSE ---
0300- Patient unable to void, states she does not feel pain or pressure, but knows she needs to void. Bedpan offered and accepted, however, patient still unable to void, but not uncomfortable. Explained the dynamics of the purewick and patient willing to try as she has the locked immobilizer to her right leg. Time allowed to relax and void but still no results. Bladder scan revealed 779 ml, therefore, we discussed a st catherization to empty her bladder or a careful transfer to the commode. She wanted to avoid the tube , therefore with assistance and guidance with her leg she was able to safely pivot to the commode and results were a void of 650ml of yellow urine. Noted pt did not put right foot to floor or bear weight. transferred safely btb. will cont to monitor.
[2023-11-12 05:58] LABS: MANUAL DIFF FLAG NO
[2023-11-12 06:28] LABS: Anion Gap 10 (12-20); Blood Urea Nitrogen 22 mg/dL (9-16); Calcium 8.7 mg/dL (8.4-10.2); Carbon Dioxide 24 mmol/L (22-29); Chloride 108 mmol/L (96-108); Creatinine Clr Calc Pharmacy 63.5; Estimated Glomerular Filt Rate > 60; Glucose Fasting 130 mg/dL (60-99); Potassium 4.5 mmol/L (3.3-5.1); Sodium 137 mmol/L (135-145)
[2023-11-12 06:31] LABS: Basophils Percent Auto 0.2 % (0-2); Hematocrit 32.3 % (37.0-47.0); Hemoglobin 10.5 g/dl (12.0-16.0); Imm Gran Abs Auto 0.03 X10*3/uL (0.00-0.03); Imm Gran Pct Auto 0.3 % (0.0-0.4); Lymphocytes Percent Auto 10.5 % (20-40); Mean Corpuscular HGB Conc 32.5 g/dl (31.0-35.0); Mean Corpuscular Hemoglobin 29.7 pg (27.0-33.0); Mean Corpuscular Volume 91.5 fL (80.0-98.0); Mean Platelet Volume 10.4 fL (9.4-12.3); Monocytes Percent Auto 9.9 % (2-11); Neutrophils Absolute Auto 7.6 x10*3/uL (2.0-8.3); Neutrophils Percent Auto 79.1 % (45-73); Platelet Count 288 X10*3/uL (160-400); Red Blood Count 3.53 X10*6/uL (4.20-5.50); Red Cell Distribution Width 14.2 % (11.0-16.0); White Blood Count 9.6 X10*3/uL (4.8-10.8)
--- NOTE | 2023-11-12 07:42 | HO.POSTANES ---
Post Anesthesia Evaluation Post Anesthesia Evaluation Date of Service: 11/12/23 Vital Signs: Vital Signs Temp Pulse Resp BP Pulse Ox O2 Del Method 11/12/23 07:16 97.7 F 52 17 115/52 L 98 Room Air 11/12/23 04:21 18 11/12/23 03:46 97.8 F 55 18 114/54 L 96 Room Air 11/12/23 01:26 18 11/12/23 01:00 18 11/11/23 23:47 97.4 F 59 18 108/57 L 94 Room Air Anesthesia: Spinal Mental Status: Awake Pain Control: Satisfactory Nausea/Vomiting: None Hydration: Adequate Anesthesia-Related Issues: No Anes. Related Issues
[2023-11-12] MEDS: vancomycin HCL 750 MG in 0.9 % Sodium Chloride 250 ML 265 MG IV ×2 (07:50→20:01)
[2023-11-12] MEDS: Sertraline HCL 25 MG TABLET PO (07:51)
[2023-11-12] MEDS: oxyCODONE HCl ER 10 MG TAB.ER.12H PO ×2 (07:51→20:04)
[2023-11-12] MEDS: Docusate Sodium 100 MG CAPSULE PO ×2 (07:51→20:04)
[2023-11-12] MEDS: Calcium + Vitamin D 250 MG TABLET 500 MG PO (07:51)
[2023-11-12] MEDS: Acetaminophen 325 MG TABLET 650 MG PO ×2 (07:51→14:22)
[2023-11-12] MEDS: Celecoxib 200 MG CAPSULE PO ×2 (07:51→20:04)
[2023-11-12] MEDS: atenoloL 25 MG TABLET PO (07:52)
[2023-11-12] MEDS: 0.9 % Sodium Chloride Flush 3 ML SYRINGE IVFLUSH ×3 (07:52→23:43)
--- NOTE | 2023-11-12 09:10 | PM.PNORT ---
Subjective Subjective Date of Service: 11/12/23 Interval history: POD1 s/p removal of TKA and placement of antibiotic spacer Patient is resting in bed comfortably No overnight events Pain is managed No additional complaints Physical Exam Vital Signs: Vital Signs: Last Vital Signs Temp 97.7 F 11/12/23 07:16 Pulse 52 11/12/23 07:16 Resp 17 11/12/23 07:16 BP 115/52 L 11/12/23 07:16 Pulse Ox 98 11/12/23 07:16 O2 Del Method Room Air 11/12/23 07:16 O2 Flow Rate 2 11/11/23 15:25 BMI result Body Mass Index 25.6 Const: General: cooperative, healthy appearing and no acute distress Resp: Effort & Inspection: normal respiratory effort and able to speak in complete sentences Cardio: Rate: regular rate Peripheral pulses: Peripheral pulses 2+ throughout GI: Palpation (GI): Soft to palpation Skin: Lesions: no lesions Rashes: no rashes Extrem: Other: right knee dressing is c/d/i. Able to dorsi/plantar flex. Calf is supple and nontender. Sensation intact. Pedal pulse intact. Procedures Date of Service Date of Service: 11/12/23 Progress Note: A&P Assessment and plan (1) Infection of prosthetic right knee joint: Status: Acute Assessment and Plan: Continue pain mgmnt Begin ASA for dvt ppx begin PT for right total knee removal with placement of abx spacer - WBAT with brace Dispo planning-Pending PT eval, pain mgmnt, ID consult placed, PICC line placement Of note blood cultures were ordered in error, no additional blood cultures needed, patient is not septic, PICC placement may proceed (2) Painful total knee replacement, right: Status: Acute Time Spent With Patient Time: Total time managing care of this patient today ____ minutes. Quality Stroke Does the patient have a stroke diagnosis?: No VTE Prior VTE?: No VTE Risk Level:: Medical - moderate - high VTE Device Contraindication: N/A - Device Ordered VTE Drug Contraindication: N/A - Med Ordered
[2023-11-12] MEDS: Omeprazole 20 MG CAPSULE.DR PO (09:29)
--- NOTE | 2023-11-12 11:17 | HO.PM.IMCN ---
History of Present Illness Data of Consult Service Date: 11/12/23 Requesting physician: Geovanna Pabon Primary Care Provider: BRUCE Dejesus- HPI Reason for consult: med management 73 y/o F hx of depression ,palpatations,HLP came for prior to a removal of right total knee prosthetic with placement of antibiotic spacer (11/10),patient seen -as per patient recently has her joint fluid check-?infection ,so recomended( for above procedure). patient is s/p surgery ,has some discomfort ,no swelling or erythema. Denies any new complaint of chest pain or shortness of breath or abdominal pain or fever or chills or nausea or vomiting or coughor weakness or numbness. labs: cbc : no leucocytosis h/h: 10.5/32.3 bun : 22/0.75 synovial fluid and blood cultures pending Review of Systems Review of Systems: Yes all other systems are reviewed and are negative [facility] Medical History DVT (deep venous thrombosis) Arthritis Back pain Hx of blood clots Hx: UTI (urinary tract infection) Elevated cholesterol History of depression History of palpitations Functional capacity: independent ambulation Family History Maternal Aunt Substance use disorder Surgical History Hx of bilateral cataract extraction History of loop electrical excision procedure (LEEP) History of total right knee replacement (TKR) Hx of colonoscopy Social History Household Members: None Housing: House Are you a primary adult care provider to a significant other at home: No Do you presently have visiting nurse or other home services: No Alcohol intake: current Alcohol intake frequency: holidays/special occasions only Patient Tobacco Use Status: Never used Tobacco e-Cigarette/Vaping Use: Never Used Second Hand Smoke Exposure: Yes Use of substances other than those prescribed or required for medical reasons: No Currently Displaying Signs/Symptoms of Drug Intoxication Withdrawal: No Have you been hit, kicked, punched, or otherwise hurt by someone within the past year? If so, by whom?: No Do you feel safe in your current relationship?: Yes Is there a partner from a previous relationship who is making you feel unsafe now?: No Are you made to feel afraid or neglected: No Mormonism Healthcare Practices: christianity Are you DNR?: Yes Advance Directives: No Advance Directives on File: No Do you have thoughts of harming others: None Do you have a plan to hurt others: No Plan Recently lost weight without trying: No Eating poorly because of decreased appetite: No Nutrition Risks: No Nutritional Risk Patient : No : No Poor oral hygiene: No service: No Current occupational status: retired Cognitive needs: No Hearing needs: No Vision needs: No Meds Allergies Allergy/AdvReac Type Severity Reaction Status Date / Time almond [ALMOND] Allergy Intermediate SWELLING,IT Verified 10/07/23 13:40 IRA clams [CLAMS] Allergy Intermediate SWELLING,ITCHING,GI Verified 10/07/23 13:40 ISSUES nickel AdvReac Intermediate Unknown Verified 10/07/23 13:40 Active Medications: Current Medications Acetaminophen (Acetaminophen 325 Mg Tablet) 650 mg PO Q6H PRN PRN Reason: Pain, Mild (Pain Scale 1-3) Last Admin: 11/12/23 07:51 Dose: 650 mg Aspirin (Aspirin 325 Mg Tablet) 325 mg PO BID [facility] Atenolol (Atenolol 25 Mg Tablet) 25 mg PO DAILY [facility]; Protocol Last Admin: 11/12/23 07:52 Dose: 25 mg Atorvastatin Calcium (Atorvastatin Calcium 10 Mg Tablet) 10 mg PO BEDTIME [facility] Last Admin: 11/11/23 19:35 Dose: 10 mg Calcium Carbonate/Cholecalciferol (Calcium + Vitamin D 250 Mg Tablet) 500 mg PO DAILY [facility] Last Admin: 11/12/23 07:51 Dose: 500 mg Celecoxib (Celecoxib 200 Mg Capsule) 200 mg PO BID [facility] Last Admin: 11/12/23 07:51 Dose: 200 mg Docusate Sodium (Docusate Sodium 100 Mg Capsule) 100 mg PO BID [facility] Last Admin: 11/12/23 07:51 Dose: 100 mg Hydromorphone HCl (Hydromorphone Hcl 0.5 Mg/0.5 Ml Syringe) 0.25 mg IVPUSH Q4H PRN; Protocol PRN Reason: Pain, Severe (Pain Scale 7-10) Lactated Ringer's (Lr) 1,000 mls @ 100 mls/hr IVCONT .Q10H [facility] Last Admin: 11/12/23 03:58 Dose: 100 mls/hr Vancomycin HCl 750 mg/ Sodium (Chloride) 265 mls @ 265 mls/hr IV Q12H [facility] Last Infusion: 11/12/23 09:54 Dose: Infused Omeprazole (Omeprazole 20 Mg Capsule.Dr) 20 mg PO DAILY@0630 [facility] Last Admin: 11/12/23 09:29 Dose: 20 mg Ondansetron HCl (Ondansetron Hcl 4 Mg/2 Ml Vial) 4 mg IVPUSH Q8H PRN PRN Reason: Nausea and Vomiting Oxycodone HCl (Oxycodone Hcl Immed Release 5 Mg Tablet) 5 mg PO Q4H PRN PRN Reason: Pain, Moderate(Pain Scale 4-6) Last Admin: 11/12/23 04:38 Dose: 5 mg Oxycodone HCl (Oxycodone Hcl Er 10 Mg Tab.Er.12h) 10 mg PO BID [facility] Last Admin: 11/12/23 07:51 Dose: 10 mg Pharmacy Consult (Consult Rx Vancomycin Dosing) 1 each MISCELLANE DAILY PRN PRN Reason: Consult order Sertraline HCl (Sertraline Hcl 25 Mg Tablet) 25 mg PO DAILY [facility] Last Admin: 11/12/23 07:51 Dose: 25 mg Sodium Chloride (0.9 % Sodium Chloride Flush 3 Ml Syringe) 3 ml IVFLUSH QSHIFT [facility] Last Admin: 11/12/23 07:52 Dose: 3 ml Home Medications ?Medication ?Instructions ?Recorded ?Confirmed ?Last Taken ?Type calcium carbonate 600 mg-vitamin 1 tab PO DAILY 03/19/21 11/02/23 11/03/23 History D3 20 mcg (800 unit) tablet omega 8-uyq-aij-fish oil 1,000 mg 1 cap PO DAILY 03/19/21 11/02/23 11/03/23 History (120 mg-180 mg) capsule (Fish Oil) turmeric root extract 1,053 mg 1,076 mg PO BEDTIME 03/19/21 11/02/23 11/03/23 History tablet cranberry extract 500 mg capsule 500 mg PO DAILY 11/02/23 11/02/23 11/03/23 History glucosamine sulf dipot 1 cap PO BID 11/02/23 11/02/23 11/03/23 History chlr,msm,chond 550 mg-C 30 mg-ole 1 mg capsule (Glucosamine Chondroitin) Physical Exam Vital Signs and Narrative: Vital Signs: Last Vital Signs Temp 97.7 F 11/12/23 07:16 Pulse 52 11/12/23 07:16 Resp 17 11/12/23 07:16 BP 115/52 L 11/12/23 07:16 Pulse Ox 98 11/12/23 07:16 O2 Del Method Room Air 11/12/23 07:16 O2 Flow Rate 2 11/11/23 15:25 BMI result Body Mass Index 25.6 Appearance: Alert.? Oriented X3.? cvs: rrr, [id number] . res: clear to auscultation ,no rhonchii or wheezing abd: no rebound or guarding ,nt, bs present. ext pulses present , no cyanosis . MS: right knee wrapped -no swelling /erythema . neuro: axo3 , nonfocal. Results Labs 11/12/23 05:29 11/12/23 05:29 Labs: Laboratory Results - last 24 hr 11/11/23 11/11/23 11/12/23 12:36 19:17 05:29 MCV 90.5 91.5 MCH 29.7 29.7 MCHC 32.8 32.5 RDW 14.1 14.2 Plt Count 305 288 MPV 9.9 10.4 Immature Gran % (Auto) 0.3 Neut % (Auto) 79.1 H Lymph % (Auto) 10.5 L Barry % (Auto) 9.9 Eos % (Auto) 0.0 Baso % (Auto) 0.2 Lymph # (Auto) 1.0 L Barry # (Auto) 1.0 Eos # (Auto) 0.0 Baso # (Auto) 0.0 Abs Immat Gran (auto) 0.03 Absolute Neuts (auto) 7.6 Absolute Nucleated RBC 0.000 0.000 Nucleated RBC % (auto) 0.0 0.0 Anion Gap 10 L Estim Creat Clear Calc 62.7 63.5 Estimated GFR > 60 > 60 Fasting Glucose 130 H Calcium 8.7 D Assessment and Plan (1) Infection of prosthetic right knee joint: Status: Acute Plan 73 y/o F hx of depression ,palpatations,HLP came for prior to a removal of right total knee prosthetic with placement of antibiotic spacer (11/10) s/premoval of right total knee prosthetic with placement of antibiotic spacer (11/10): synovial fluid culture -grew strep epidermidis (09/04/23) Blood culture and synovial cultures repeated yesterday pending. postop anemia -moniter cbc closely Patient is currently on vancomycin,vanco trough monitering,pain management Id eval. ? palpataion: seen by cardiology for preop(10/07/[address] farr 's note for detials.) recent Holter monitor from last month, underlying rhythm is sinus with frequent sinus bradycardia but no significant PVCs. Echocardiogram with LVEF of 55-60%. No significant valvular issues. Myocardial perfusion imaging study from 2020 was normal. history of frequent PVCs but none so ever in the most recent Holter. Otherwise, based on the above testing no clear evidence of any obstructive CAD or cardiomyopathy. recomeneded to continue bb. ? [place]x of dvt (2021) [place]( [place]) dvt studies on 11/04/23 negative no new symptoms consider outpatient follow up dvt prophylax: as per primary team .
--- NOTE | 2023-11-12 13:31 | MHC.CM.PN ---
IMM 11/12/23 s/p Prosthetic removal and ABX spacer insertion 11/11/23. HCP is on file. Patient uses a walker. A referral has been sent to [facility]. Angelica has met with the patient to discuss option available. MOW will be ordered. Referrals have been sent to [facility] for Home infusion services and PT. DP home with services. Patient dtr will provide transportation home.
--- NOTE | 2023-11-12 14:08 | P.DS_ITS ---
DS: Providers Provider Date of Service: 11/13/23 <Kaiden-Cierra EVER Velázquez-C - Last Filed: 11/12/23 14:10> Date of admission: 11/11/23 11:37 <Kaiden-Cierra VelázquezEVER-C - Last Filed: 11/12/23 14:10> Primary care physician: Jose Hanks, ASSISTANT OCEANOGRAPHER-BC <LilianaCierraLEA MinerC - Last Filed: 11/12/23 14:10> Consults: 11/11/23 17:23 Consult to Hospitalist Routine Comment: Consulting Provider: Hospitalist Reason For Exam: routine medical management 11/12/23 08:19 Consult to Infectious Diseases Stat [place] [facility] [place] Reason for consultation: RTKA infection <Kaiden-CierraEVER Miner-C - Last Filed: 11/12/23 14:10> DS: Diagnosis Discharge Diagnosis (1) Infection of prosthetic right knee joint: Status: Acute <EVER Woodard-C - Last Filed: 11/12/23 14:10> (2) Painful total knee replacement, right: Status: Acute <Kaiden-EVER Marinelli-C - Last Filed: 11/12/23 14:10> DS: Summary Hospital Course Hospital Course: The patient underwent a successful revision right total knee arthroplasty with placement of abx spacer on 11/12/23, was transferred to PACU and then to the floor to recover. During their stay, their vitals were stable, afebrile at . Labs were unremarkable, H/H . POD 1 she was started on Lovenox for DVT ppx, they also received Physical Therapy services twice a day. Physical therapy should include gait training, ROM to tolerance and quad strength. SHe is WBAT. Knee brace should be worn with ambulation only to provide stability while walking. Ok to remove while at rest. Prior to discharge, his dressing was changed, incision clean dry and intact, new Aquacel dressing applied. The Aquacel dressing shoulder remain intact and dry at all times. Any concerns with the dressing, please contact orthopedic office. No showering. Infectious Disease recommendations: Plan Six weeks IV Vancomycin ( start date 11/12/23) Picc Line / iv abx Orders: * Weekly CBC w diff, BUN/cr * Check Vanco trough levels after 4th dose--labs should be reported to [facility], Infectious Disease * Keep Vanco trough level between 10 and 20 * Flush PICC line with 10 cc of normal saline 3 times a day <Kenyon Velázquez PA-C - Last Filed: 11/12/23 14:10> Time Attestation Total time managing care of this patient today: 30 mintues. <Josee Sullivan PA-C - Last Filed: 11/13/23 08:27> Discharge Coordination Time (in mins): 30 <Josee Sullivan PA-C - Last Filed: 11/13/23 08:27> Quality: Safe Use of Opioids Does Pt have an Active Cancer Diagnosis on the Problem List?: No <Josee Sullivan PA-C - Last Filed: 11/13/23 08:27> Quality: Stroke Does the patient have a stroke diagnosis?: No <Josee Sullivan PA-C - Last Filed: 11/13/23 08:27> Physical Exam Vital Signs: Vital Signs: Last Vital Signs Temp 98.0 F 11/12/23 12:00 Pulse 58 11/12/23 12:00 Resp 17 11/12/23 12:00 BP 98/55 L 11/12/23 12:00 Pulse Ox 97 11/12/23 12:00 O2 Del Method Room Air 11/12/23 12:00 O2 Flow Rate 2 11/11/23 15:25 BMI result Body Mass Index 25.6 <Kenyon Velázquez PA-C - Last Filed: 11/12/23 14:10> Const: General: cooperative, healthy appearing and no acute distress <Josee Sullivan PA-C - Last Filed: 11/13/23 08:27> Resp: Effort & Inspection: normal respiratory effort and able to speak in complete sentences <FRANKY Robbins Last Filed: 11/13/23 08:27> Cardio: Rate: regular rate <FRANKY Robbins Last Filed: 11/13/23 08:27> Peripheral pulses: Peripheral pulses 2+ throughout <FRANKY Robbins Last Filed: 11/13/23 08:27> GI: Palpation (GI): Soft to palpation <Josee Sullivan PA-C - Last Filed: 11/13/23 08:27> Skin: Lesions: no lesions <Josee Sullivan PA-C - Last Filed: 11/13/23 08:27> Rashes: no rashes <FRANKY Robbins Last Filed: 11/13/23 08:27> Extrem: Other: right knee dressing is c/d/i. Able to dorsi/plantar flex. Calf is supple and nontender. Sensation intact. Pedal pulse intact. <FRANKY Robbins Last Filed: 11/13/23 08:27> DS: Data Data Completed and Pending Labs on day of discharge: Laboratory Results - last 24 hr 11/11/23 11/12/23 19:17 05:29 WBC 9.6 RBC 3.53 L Hgb 10.5 L Hct 32.3 L MCV 91.5 MCH 29.7 MCHC 32.5 RDW 14.2 Plt Count 288 MPV 10.4 Immature Gran % (Auto) 0.3 Neut % (Auto) 79.1 H Lymph % (Auto) 10.5 L [place] % (Auto) 9.9 Eos % (Auto) 0.0 Baso % (Auto) 0.2 Lymph # (Auto) 1.0 L [place] # (Auto) 1.0 Eos # (Auto) 0.0 Baso # (Auto) 0.0 Abs Immat Gran (auto) 0.03 Absolute Neuts (auto) 7.6 Absolute Nucleated RBC 0.000 Nucleated RBC % (auto) 0.0 Sodium 137 Potassium 4.5 Chloride 108 Carbon Dioxide 24 Anion Gap 10 L BUN 22 H Creatinine 0.76 0.75 Estim Creat Clear Calc 62.7 63.5 Estimated GFR > 60 > 60 Fasting Glucose 130 H Calcium 8.7 D Preliminary micro results at discharge 11/11/23 Unknown Routine Culture - Preliminary Knee,Right No growth to date. Anaerobic Culture - Preliminary No growth to date. 11/11/23 Unknown Routine Culture - Preliminary Knee,Right No growth to date. Anaerobic Culture - Preliminary No growth to date. <Kenyon Velázquez PA-C - Last Filed: 11/12/23 14:10> Discharge Plan Discharge Anticipated Discharge Date/Time: 11/13/23 15:19 <Kenyon Velázquez PA-C - Last Filed: 11/12/23 14:10> Patient Disposition: Home Health Service <Kenyon Velázquez PA-C - Last Filed: 11/12/23 14:10> Discharge Diagnosis: s/p removal right TKA with abx spacer <Kenyon Velázquez PA-C - Last Filed: 11/12/23 14:10> s/p removal right TKA with abx spacer <Josee Sullivan PA-C - Last Filed: 11/13/23 08:27> Referrals: Josee Sullivan PA-C [Physician Canceling Machine Operator] - 11/26/23 10:15 am <Kenyon Velázquez PA-C - Last Filed: 11/12/23 14:10> Discharge Medications: New oxycodone 5 mg Tablet 5 mg PO Q4H PRN (Reason: Pain, Moderate(Pain Scale 4-6)) 7 Days Qty: 42 0RF Rx Instructions: Partial Fill upon patient request. acetaminophen 325 mg Tablet 650 mg PO Q6H PRN (Reason: Pain, Mild (Pain Scale 1-3)) 30 Days Qty: 240 0RF vancomycin in 0.9 % sodium chl 750 mg/150 mL piggyback 750 mg IV Q12H celecoxib 200 mg Capsule 200 mg PO BID 30 Days Qty: 60 0RF aspirin 325 mg Tablet 325 mg PO BID 42 Days Qty: 84 0RF docusate sodium 100 mg Capsule 100 mg PO BID 30 Days Qty: 60 0RF Continued sertraline 25 mg tablet 25 mg PO DAILY Qty: 90 1RF atenolol 25 mg tablet 25 mg PO DAILY Qty: 90 1RF atorvastatin 10 mg tablet 10 mg PO BEDTIME Qty: 90 1RF cranberry extract 500 mg Capsule 500 mg PO DAILY Rx Instructions: administer with meals Glucosamine Chondroitin 550-30-1 mg Capsule 1 cap PO BID calcium carbonate-vitamin D3 600 mg(1,500mg) -800 unit tablet 1 tab PO DAILY omega [id number] oil [Fish Oil] 1,000 mg (120 mg-180 mg) capsule 1 cap PO DAILY turmeric root extract 1,053 mg tablet 1,076 mg PO BEDTIME <FRANKY Woodard Last Filed: 11/12/23 14:10> Discharge Orders: Discharge Order (Routine); Ordered 11/13/23 Ordered By: Josee Sullivan <FRANKY Woodard Last Filed: 11/12/23 14:10> Activity on Discharge: Use cane or walker <FRANKY Woodard Last Filed: 11/12/23 14:10> Use cane or walker <FRANKY Robbins Last Filed: 11/13/23 08:27> Stand Alone Forms: Patient Portal Discharge page <FRANKY Woodard Last Filed: 11/12/23 14:10> Print Language: Tunisian <RFANKY Woodard Last Filed: 11/12/23 14:10> Care Plan Goals: restore fxn to right knee and eliminate infection <FRANKY Woodard Last Filed: 11/12/23 14:10> Health Concerns: none <FRANKY Woodard Last Filed: 11/12/23 14:10> Plan of Treatment: Physical Therapy for ROM 0-120, quad strength, gait training. Use walker for ambulation Limit stair climbing, No shower, No tub bath, No driving Continue anticoagulant Keep Aquacel dressing clean, dry and intact. Follow up with orthopedics in 2 weeks <FRANKY Woodard Last Filed: 11/12/23 14:10> Assessment: stable for discharge <FRANKY Woodard Last Filed: 11/12/23 14:10>
--- NOTE | 2023-11-12 16:52 | HO.PICC ---
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 Following completion of [place] Protocol the skin and soft tissues were anesthetized with 1% Lidocaine plain. Using ultrasound guidance, right brachial vein access was obtained. Over an 0.018 wire through peel-away sheath, a 4FR single lumen PASV PICC line was positioned. Catheter length is 41cm internal length, 0cm external length, for a total trimmed length of 41cm. The procedure was performed in rm 272. Tip verification was performed by Alek Espinal with Sherlock 3CG. Tip located in SVC. Ultrasound was used to document vein patency and for needle entry. A formal ultrasound picture and cardiac rhythm strip was recorded. Vascular Fleet Administrative Assistant has released the line for use and it is currently dressed with a StatLock, Tegaderm, and CHG disc. Verification has been performed for blood return and line patency. Blood cultures are pending, placement approved by and Maximo Sullivan PA-C Arm Circumference: 28cm Equipment: [employer] PowerPICC SOLO Catheter with Sherlock 3CG Tip Catheter Type: 4fr single lumen PASV PowerPICC Lot #: [id number]
[2023-11-12] MEDS: Aspirin 325 MG TABLET PO ×2 (17:08→23:04)
[2023-11-12] MEDS: Atorvastatin Calcium 10 MG TABLET PO (20:04)
[2023-11-13] VITALS: BP 119/56; PULSE 63; RESP 16; TEMP 36.7; O2SAT 94
[2023-11-13] MEDS: polyethylene glycoL 3350 17 GM POWD.PACK PO (01:38)
[2023-11-13] MEDS: Calcium Carbonate 750 MG TAB.CHEW PO (01:38)
[2023-11-13 03:27] VITALS: BP 144/64; PULSE 50; RESP 18; TEMP 36.6; O2SAT 94
[2023-11-13] MEDS: Omeprazole 20 MG CAPSULE.DR PO (05:13)
[2023-11-13] MEDS: Lactated Ringers 1,000 ML 100 ML IVCONT (05:14)
[2023-11-13 06:14] LABS: Anion Gap 12 (12-20); Blood Urea Nitrogen 18 mg/dL (9-16); Calcium 8.8 mg/dL (8.4-10.2); Carbon Dioxide 24 mmol/L (22-29); Chloride 111 mmol/L (96-108); Creatinine Clr Calc Pharmacy 56.7; Estimated Glomerular Filt Rate > 60; Glucose Fasting 137 mg/dL (60-99); Potassium 4.3 mmol/L (3.3-5.1); Sodium 143 mmol/L (135-145)
--- NOTE | 2023-11-13 07:07 | HE.PHANOTE ---
RE: VANCO DOSING Random came back as 16. Noted that serum creatinine is trending up but still want appropriate dose to treat bone&joint infection so will continue with 750 mg q12h, next random is scheduled (after 2 doses) on 11/13/23 @0600.
[2023-11-13 07:27] VITALS: BP 122/53; PULSE 96; RESP 16; TEMP 36.9; O2SAT 96
[2023-11-13] MEDS: vancomycin HCL 750 MG in 0.9 % Sodium Chloride 250 ML 265 MG IV (08:22)
[2023-11-13] MEDS: Aspirin 325 MG TABLET PO (08:22)
[2023-11-13] MEDS: Sertraline HCL 25 MG TABLET PO (08:23)
[2023-11-13] MEDS: oxyCODONE HCl ER 10 MG TAB.ER.12H PO (08:23)
[2023-11-13] MEDS: Docusate Sodium 100 MG CAPSULE PO (08:23)
[2023-11-13] MEDS: Celecoxib 200 MG CAPSULE PO (08:23)
[2023-11-13] MEDS: Calcium + Vitamin D 250 MG TABLET 500 MG PO (08:23)
[2023-11-13] MEDS: atenoloL 25 MG TABLET PO (08:24)
--- NOTE | 2023-11-13 08:28 | P.F2F_ITS ---
Service Date Service Date: 11/13/23 Encounter Date of encounter: 11/13/23 Reasons for Services Signs and symptoms assessed: s/p rt total knee arthroplasty removal with abx spacer. Pt. is considered homebound due to recent surgery. Unable to drive, poor balance, poor gait mechanics. Reason for intermediate: administration of IV, SQ, or IM injection and central line care Reason for physical therapy: home safety and mobility, therapeutic exercises, restore joint function, gait/transfer training, assess need for DME and ADL training Homebound: Leaving the home is medically contraindicated at this time without the asist of a device and/or another person due th the listed conditions above and below. Reason homebound: unsteady gait / fall risk, leg weakness, pain with ambulation, pain with transfers, poor balance / fall risk and unable to drive Certification: Based on the above findings, I certify that this patient is confined to the home and needs intermittent intermediate care, physical therapy and/or speech therapy, or continues to need occupational therapy. The patient is under my care, and I have initiated the establishment of the plan of care. The patient will be followed by a physician who will periodically review the plan of care. Time Spent With Patient Time: Total time managing care of this patient today ____ minutes.
--- NOTE | 2023-11-13 08:39 | HO.PM.IMPN ---
Subjective Subjective Date of Service: 11/13/23 Interval History: nausea, constipation Physical Exam Vital Signs: Vital Signs: Last Vital Signs Temp 98.5 F 11/13/23 07:27 Pulse 96 11/13/23 07:27 Resp 16 11/13/23 07:27 BP 122/53 L 11/13/23 07:27 Pulse Ox 96 11/13/23 07:27 O2 Del Method Room Air 11/13/23 07:27 O2 Flow Rate 2 11/11/23 15:25 BMI result Body Mass Index 25.6 Const: General: cooperative, healthy appearing and no acute distress Resp: Effort & Inspection: normal respiratory effort and able to speak in complete sentences Cardio: Rate: regular rate Peripheral pulses: Peripheral pulses 2+ throughout GI: Palpation (GI): Soft to palpation Skin: Lesions: no lesions Rashes: no rashes Extrem: Other: right knee dressing is c/d/i. Able to dorsi/plantar flex. Calf is supple and nontender. Sensation intact. Pedal pulse intact. Objective Data Active Medications Acetaminophen (Acetaminophen 325 Mg Tablet) 650 mg PO Q6H PRN PRN Reason: Pain, Mild (Pain Scale 1-3) Last Admin: 11/12/23 14:22 Dose: 650 mg Documented By: ALIVIA Aspirin (Aspirin 325 Mg Tablet) 325 mg PO BID [facility] Last Admin: 11/13/23 08:22 Dose: 325 mg Documented By: ALIVIA Atenolol (Atenolol 25 Mg Tablet) 25 mg PO DAILY [facility]; Protocol Last Admin: 11/13/23 08:24 Dose: 25 mg Documented By: ALIVIA Atorvastatin Calcium (Atorvastatin Calcium 10 Mg Tablet) 10 mg PO BEDTIME [facility] Last Admin: 11/12/23 20:04 Dose: 10 mg Documented By: APOLINAR Calcium Carbonate/Cholecalciferol (Calcium + Vitamin D 250 Mg Tablet) 500 mg PO DAILY [facility] Last Admin: 11/13/23 08:23 Dose: 500 mg Documented By: ALIVIA Celecoxib (Celecoxib 200 Mg Capsule) 200 mg PO BID [facility] Last Admin: 11/13/23 08:23 Dose: 200 mg Documented By: ALIVIA Docusate Sodium (Docusate Sodium 100 Mg Capsule) 100 mg PO BID [facility] Last Admin: 11/13/23 08:23 Dose: 100 mg Documented By: ALIVIA Hydromorphone HCl (Hydromorphone Hcl 0.5 Mg/0.5 Ml Syringe) 0.25 mg IVPUSH Q4H PRN; Protocol PRN Reason: Pain, Severe (Pain Scale 7-10) Lactated Ringer's (Lr) 1,000 mls @ 100 mls/hr IVCONT .Q10H [facility] Last Admin: 11/13/23 05:14 Dose: 100 mls/hr Documented By: ANTOIC Vancomycin HCl 750 mg/ Sodium (Chloride) 265 mls @ 265 mls/hr IV Q12H [facility] Last Admin: 11/13/23 08:22 Dose: 265 mls/hr Documented By: ALIVIA Omeprazole (Omeprazole 20 Mg Capsule.Dr) 20 mg PO DAILY@0630 [facility] Last Admin: 11/13/23 05:13 Dose: 20 mg Documented By: BERNABE Ondansetron HCl (Ondansetron Hcl 4 Mg/2 Ml Vial) 4 mg IVPUSH Q8H PRN PRN Reason: Nausea and Vomiting Oxycodone HCl (Oxycodone Hcl Immed Release 5 Mg Tablet) 5 mg PO Q4H PRN PRN Reason: Pain, Moderate(Pain Scale 4-6) Last Admin: 11/12/23 20:07 Dose: 5 mg Documented By: APOLINAR Oxycodone HCl (Oxycodone Hcl Er 10 Mg Tab.Er.12h) 10 mg PO BID [facility] Last Admin: 11/13/23 08:23 Dose: 10 mg Documented By: ALIVIA Pharmacy Consult (Consult Rx Vancomycin Dosing) 1 each MISCELLANE DAILY PRN PRN Reason: Consult order Sertraline HCl (Sertraline Hcl 25 Mg Tablet) 25 mg PO DAILY [facility] Last Admin: 11/13/23 08:23 Dose: 25 mg Documented By: ALIVIA Sodium Chloride (0.9 % Sodium Chloride Flush 3 Ml Syringe) 3 ml IVFLUSH QSHIFT [facility] Last Admin: 11/13/23 08:24 Dose: Not Given Documented By: ALIVIA Non-Admin Reason: IV Running Sodium Chloride (0.9 % Sodium Chloride Flush 10 Ml Syringe) 5 ml IVFLUSH TID [facility] Last Admin: 11/13/23 08:28 Dose: Not Given Documented By: ALIVIA Non-Admin Reason: IV Running Labs 11/12/23 05:29 11/13/23 05:42 Labs: Laboratory Results - last 24 hr 11/13/23 05:42 Hold Purple Top SEE NOTE Anion Gap 12 Estim Creat Clear Calc 56.7 Estimated GFR > 60 Fasting Glucose 137 H Calcium 8.8 Random Vancomycin 16.0 Microbiology Microbiology Results: Microbiology 11/11/23 Unknown Gram Stain - Final Knee,Right Routine Culture - Final No growth after 2 days Anaerobic Culture - Preliminary No growth to date. 11/11/23 Unknown Gram Stain - Final Knee,Right Routine Culture - Final No growth after 2 days Anaerobic Culture - Preliminary No growth to date. 11/11/23 17:18 Blood Culture - Preliminary Blood - Venous No growth after 24 hours. 11/11/23 17:18 Blood Culture - Preliminary Blood - Venous No growth after 24 hours. Assessment and Plan (1) Dyslipidemia: Status: Acute Plan 73 y/o F hx of depression, palpatations,HLP came for prior to a removal of right total knee prosthetic with placement of antibiotic spacer (11/10) s/p removal of right total knee prosthetic with placement of antibiotic spacer (11/10): management per ortho ? hx of dvt (2021) -[facility]( as per patient) dvt studies on 11/04/23 negative no new symptoms constipation enema appears medically stable, will sign off for now, please recall if needed Quality Stroke Does the patient have a stroke diagnosis?: No VTE Prior VTE?: No VTE Risk Level:: Medical - moderate - high VTE Device Contraindication: N/A - Device Ordered VTE Drug Contraindication: N/A - Med Ordered
[2023-11-13 08:51] LABS: Hematocrit 33.8 % (37.0-47.0); Hemoglobin 10.8 g/dl (12.0-16.0)
--- NOTE | 2023-11-13 13:56 | MHC.CM.PN ---
Addendum entered by Amy Martinez 11/13/23 14:36: CM MET WITH PT TO REVIEW DCP SHE SAYS SHE FEELS SHE WILL BE ABLE TO DO HER EVENING DOSE OF IV ABX INDEPENDENTLY SHE IS AWARE THE VNA WILL START TOMORROW AND IF SHE HAS ANY QUESTIONS THIS EVENING SHE CAN CALL [facility] SHE SAYS HER DAUGHTER WILL BE TRANSPORTING HER HOME SHE DID MENTION SHE WAS UNSURE HOW SHE WOULD GET TO HER FOLLOW UP APPTS PT LIVES IN [place], INFORMED HER WE DID NOT HAVE ANY TRANSPORTATION OPTIONS THAT WOULD BE COVERED BY HER INSURANCE CM WILL REACH OUT TO [facility] TO DETERMINE IF THEY HAVE ANY RESOURCES FOR THIS PT CM WILL ALSO MESSAGE ORTHO NAVIGATION RN TO DETERMINE IF THEY HAVE OPTIONS Original Note: PT CLEARED TO DC TODAY, HOME WITH [facility] FOR IV ABX AND SUPPLIES AND [facility] FOR PT AND SN [facility] LIAISON ON SITE TODAY TO PROVIDE TEACH TO PT, WHICH PT REPORTEDLY DID VERY WELL WITH. [facility] WILL DELIVER MEDS/SUPPLIES TODAY [facility] WILL SEE HER AT HOME TOMORROW FAMILY TO TRANSPORT
[2023-11-13 14:12] VITALS: BP 122/53; PULSE 96; O2SAT 96
[2023-11-13 15:24] VITALS: BP 103/54; PULSE 80; RESP 12; TEMP 36.6; O2SAT 95
--- NOTE | 2023-11-13 15:57 | W.PM.IDCN ---
History of Present Illness Data of Consult Service Date: 11/13/23 Requesting physician: Josee Sullivan Primary Care Provider: BRUCE Dejesus- HPI Reason for consult: right knee PKI,staph epidermidis She presents for evaluation/spacer placement right total knee. She has WBC 29,000 fluid and MRSA negative. She had initial TKR right she reports Dr Oliver 5 years ago. Review of Systems Review of Systems: Yes all other systems are reviewed and are negative PMFSH Past Medical History Medical History History of revision of total replacement of right knee joint DVT (deep venous thrombosis) Arthritis Back pain Hx of blood clots Hx: UTI (urinary tract infection) Elevated cholesterol History of depression History of palpitations Family History Family History Maternal Aunt Substance use disorder Family history: reviewed and not pertinent Surgical History Surgical History Hx of bilateral cataract extraction History of loop electrical excision procedure (LEEP) History of total right knee replacement (TKR) Hx of colonoscopy Social History Social History Household Members: None Housing: House Are you a primary resident care associate to a significant other at home: No Do you presently have visiting nurse or other home services: No Alcohol intake: current Alcohol intake frequency: holidays/special occasions only Patient Tobacco Use Status: Never used Tobacco e-Cigarette/Vaping Use: Never Used Second Hand Smoke Exposure: Yes Use of substances other than those prescribed or required for medical reasons: No Currently Displaying Signs/Symptoms of Drug Intoxication Withdrawal: No Have you been hit, kicked, punched, or otherwise hurt by someone within the past year? If so, by whom?: No Do you feel safe in your current relationship?: Yes Is there a partner from a previous relationship who is making you feel unsafe now?: No Are you made to feel afraid or neglected: No Sabianist Healthcare Practices: druze Are you DNR?: Yes Advance Directives: No Advance Directives on File: No Do you have thoughts of harming others: None Do you have a plan to hurt others: No Plan Recently lost weight without trying: No Eating poorly because of decreased appetite: No Nutrition Risks: No Nutritional Risk Patient : No : No Poor oral hygiene: No service: No Current occupational status: retired Cognitive needs: No Hearing needs: No Vision needs: No Meds Allergies Allergy/AdvReac Type Severity Reaction Status Date / Time almond [ALMOND] Allergy Intermediate SWELLING,IT Verified 10/07/23 13:40 IRA clams [CLAMS] Allergy Intermediate SWELLING,ITCHING,GI Verified 10/07/23 13:40 ISSUES nickel AdvReac Intermediate Unknown Verified 10/07/23 13:40 Active Medications: Current Medications Acetaminophen (Acetaminophen 325 Mg Tablet) 650 mg PO Q6H PRN PRN Reason: Pain, Mild (Pain Scale 1-3) Last Admin: 11/12/23 14:22 Dose: 650 mg Aspirin (Aspirin 325 Mg Tablet) 325 mg PO BID [facility] Last Admin: 11/13/23 08:22 Dose: 325 mg Atenolol (Atenolol 25 Mg Tablet) 25 mg PO DAILY [facility]; Protocol Last Admin: 11/13/23 08:24 Dose: 25 mg Atorvastatin Calcium (Atorvastatin Calcium 10 Mg Tablet) 10 mg PO BEDTIME [facility] Last Admin: 11/12/23 20:04 Dose: 10 mg Calcium Carbonate/Cholecalciferol (Calcium + Vitamin D 250 Mg Tablet) 500 mg PO DAILY [facility] Last Admin: 11/13/23 08:23 Dose: 500 mg Celecoxib (Celecoxib 200 Mg Capsule) 200 mg PO BID [facility] Last Admin: 11/13/23 08:23 Dose: 200 mg Docusate Sodium (Docusate Sodium 100 Mg Capsule) 100 mg PO BID [facility] Last Admin: 11/13/23 08:23 Dose: 100 mg Hydromorphone HCl (Hydromorphone Hcl 0.5 Mg/0.5 Ml Syringe) 0.25 mg IVPUSH Q4H PRN; Protocol PRN Reason: Pain, Severe (Pain Scale 7-10) Lactated Ringer's (Lr) 1,000 mls @ 100 mls/hr IVCONT .Q10H [facility] Last Infusion: 11/13/23 15:21 Dose: Infused Vancomycin HCl 750 mg/ Sodium (Chloride) 265 mls @ 265 mls/hr IV Q12H [facility] Last Infusion: 11/13/23 09:27 Dose: Infused Omeprazole (Omeprazole 20 Mg Capsule.Dr) 20 mg PO DAILY@0630 [facility] Last Admin: 11/13/23 05:13 Dose: 20 mg Ondansetron HCl (Ondansetron Hcl 4 Mg/2 Ml Vial) 4 mg IVPUSH Q8H PRN PRN Reason: Nausea and Vomiting Oxycodone HCl (Oxycodone Hcl Immed Release 5 Mg Tablet) 5 mg PO Q4H PRN PRN Reason: Pain, Moderate(Pain Scale 4-6) Last Admin: 11/12/23 20:07 Dose: 5 mg Oxycodone HCl (Oxycodone Hcl Er 10 Mg Tab.Er.12h) 10 mg PO BID [facility] Last Admin: 11/13/23 08:23 Dose: 10 mg Pharmacy Consult (Consult Rx Vancomycin Dosing) 1 each MISCELLANE DAILY PRN PRN Reason: Consult order Sertraline HCl (Sertraline Hcl 25 Mg Tablet) 25 mg PO DAILY [facility] Last Admin: 11/13/23 08:23 Dose: 25 mg Sodium Chloride (0.9 % Sodium Chloride Flush 3 Ml Syringe) 3 ml IVFLUSH QSHIFT [facility] Last Admin: 11/13/23 08:24 Dose: Not Given Sodium Chloride (0.9 % Sodium Chloride Flush 10 Ml Syringe) 5 ml IVFLUSH TID [facility] Last Admin: 11/13/23 08:28 Dose: Not Given Home Medications ?Medication ?Instructions ?Recorded ?Confirmed ?Last Taken ?Type calcium carbonate 600 mg-vitamin 1 tab PO DAILY 03/19/21 11/02/23 11/03/23 History D3 20 mcg (800 unit) tablet omega 5-zsf-sgk-fish oil 1,000 mg 1 cap PO DAILY 03/19/21 11/02/23 11/03/23 History (120 mg-180 mg) capsule (Fish Oil) turmeric root extract 1,053 mg 1,076 mg PO BEDTIME 03/19/21 11/02/23 11/03/23 History tablet cranberry extract 500 mg capsule 500 mg PO DAILY 11/02/23 11/02/23 11/03/23 History glucosamine sulf dipot 1 cap PO BID 11/02/23 11/02/23 11/03/23 History chlr,msm,chond 550 mg-C 30 mg-ole 1 mg capsule (Glucosamine Chondroitin) Physical Exam Vital Signs: Vital Signs: Last Vital Signs Temp 97.8 F 11/13/23 15:24 Pulse 80 11/13/23 15:24 Resp 12 11/13/23 15:24 BP 103/54 L 11/13/23 15:24 Pulse Ox 95 11/13/23 15:24 O2 Del Method Room Air 11/13/23 15:24 O2 Flow Rate 2 11/11/23 15:25 BMI result Body Mass Index 25.6 Const: General: cooperative HEENT: Head: Yes normal to inspection Face and sinus: Yes normal facial exam Mouth: Normal oral and palatal mucosa present Teeth and gingiva: dentition normal Eyes: General: appearance normal, both eyes and all related structures Pupils: Equal, round and reactive pupils present Resp: Effort & Inspection: normal respiratory effort Cardio: Rate: regular rate Rhythm: regular rhythm GI: Palpation (GI): Soft to palpation and nontender : General: Yes no CVA tenderness Back/Spine/Pelvis: Back: no CVA tenderness Skin: General skin exam: no rashes or lesions noted Neuro: General: moves all extremities Cranial nerves: Yes Equal, round and reactive pupils present Extrem: Other: right knee wrapped Psych: Appearance: grossly normal Results Labs 11/13/23 07:57 11/13/23 05:42 Labs: Short CBC 11/13/23 Range/Units 07:57 Hgb 10.8 L (12.0-16.0) g/dl Hct 33.8 L (37.0-47.0) % BMP 11/13/23 05:42 Sodium 143 Potassium 4.3 Chloride 111 H Carbon Dioxide 24 BUN 18 H Creatinine 0.84 Calcium 8.8 Microbiology Microbiology Results: Microbiology 11/11/23 Unknown Knee,Right Gram Stain - Final 11/11/23 Unknown Knee,Right Routine Culture - Final No growth after 2 days 11/11/23 Unknown Knee,Right Anaerobic Culture - Preliminary No growth to date. 11/11/23 Unknown Knee,Right Gram Stain - Final 11/11/23 Unknown Knee,Right Routine Culture - Final No growth after 2 days 11/11/23 Unknown Knee,Right Anaerobic Culture - Preliminary No growth to date. 11/11/23 17:18 Blood - Venous Blood Culture - Preliminary No growth after 24 hours. 11/11/23 17:18 Blood - Venous Blood Culture - Preliminary No growth after 24 hours. Assessment and Plan (1) Infection of prosthetic right knee joint: Status: Acute Plan She has probable staph epi Apparently spacer and then IV Vancomycin,trough 15-20) for six weeks with weekly creatinine. May use preventive Bactrim DS three times a week for some time later.
--- NOTE | 2023-11-14 12:15 | W.PM.OPN ---
Operative Note Operative Note Date of Service: 11/11/23 Narrative: Date of Service: 11/11/23 Pre-op diagnosis: Infected right TKA Post-op diagnosis: same Procedure: Resection arthroplasty right knee Implants: Anna osteoremedy small Surgeon: Tito Barron MD Anesthesia: regional and spinal Was an Environmental Compliance Manager used for this Procedure?: Yes Environmental Compliance Manager: Josee Sullivan Estimated blood loss (mL): 25 Tourniquet time (min): 70 IV fluids (mL): 1,000 Pathology: other Condition: stable Disposition: PACU Procedure in detail: The patient was brought to the operating room and prepped and draped in standard sterile fashion. A time-out was called to identify proper site proper procedure proper surgeon and IV antibiotics were administered. 1 g of IV tranexamic acid was administered. I began by making a midline incision through the prior incision and down to the retinaculum. A medial peripatellar arthrotomy was performed. There was immediate expression of abundant abnormal appearing joint fluid. The knee was flexed up and the joint examined. There was abundant necrotic fat and irregular appearing joint lfuid. I took cultures although prior cultures grew up staphlococcus. I then took a small flexible osteotome to the femur. Ciorcumferential undermining of the femoral component was perfromed and then the prosthessis was removed iwth no bone loss which was suprising. The unerlying bone was soft however. I then turned my attention to the tibial monoblock and using a small osteotome was able to remove this with no bone loss. The same was performed over the patellar. It appeared that there was no ingrowth in any of the components. I then used a bovie to remove all necrotic debris. I then used a currette and a rongeur to debride the tibial and femoral bone. There was some posterior femoral bone loss and then posteromedial tibia. It was not severe. I then irrigated copiously with a pulse lavage and sized a small osteoremedy implant. 8 gm of vancomycin powder was mixed with 2 bags of gentamycin bone cement. Once the cement was near firm i loosely cemented in the components in terminal extension. I was satsified with the stability and there was flexion to ~90 deg. I then closed with quill and nylon on the skin. Patient was then placed in sterile dressing and brought to recovery room in stable condition there were no known complications.
== END 2023-11-13 17:50 | disposition home health service (06) | DRG 464 ==
LOC: HO.SSSA 14:06 → HO.S3 15:30
PROVIDERS: Anesthesiology; Orthopaedic Surgery; Physician Assistant; Admitting Provider Physician Assistant; PCP Nurse Practitioner Family; Visit Provider Physician Assistant
PROC: 0SPC0JZ Removal of Synthetic Substitute from Right Knee Joint, Open Approach (ICD-10-PCS; principal; 2023-11-11 15:30)
DX: T84.53XA Infection and inflammatory reaction due to internal right knee prosthesis, initial encounter (principal); I96 Gangrene, not elsewhere classified; K59.00 Constipation, unspecified; B95.7 Other staphylococcus as the cause of diseases classified elsewhere; D64.89 Other specified anemias; G89.18 Other acute postprocedural pain; E78.00 Pure hypercholesterolemia, unspecified; Z86.718 Personal history of other venous thrombosis and embolism; Z79.899 Other long term (current) drug therapy
CPT/HCPCS: 36415; 36573; 80048; 80202; 82565; 85014; 85018; 85025; 85027; 86850; 86900; 86901; 87040; 87070; 87073; 87205; 87640; 87641; 97116; 97161; 97530; C1713; C1751; C1776; J0131; J0665; J0690; J1100; J1596; J2250; J2371; J2405; J2704; J3370; J7120

== ENCOUNTER → 2023-11-11 11:37 | Outpatient (BNV) | payer MEDICARE, OTHER, SELFPAY | PROVIDERS: Admitting Provider Physician Assistant; PCP Nurse Practitioner Family; Visit Provider Internal Medicine | DX: E78.5 Hyperlipidemia, unspecified (principal) | CPT/HCPCS: 99222; 99231 ==

== ENCOUNTER → 2023-11-11 11:37 | Outpatient (BNV) | payer MEDICARE, OTHER, SELFPAY | PROVIDERS: Admitting Provider Physician Assistant; PCP Nurse Practitioner Family; Visit Provider Orthopaedic Surgery | DX: T84.53XA Infection and inflammatory reaction due to internal right knee prosthesis, initial encounter (principal); T84.84XA Pain due to internal orthopedic prosthetic devices, implants and grafts, initial encounter; Z96.651 Presence of right artificial knee joint | CPT/HCPCS: 27487; 99024; G0180 ==

== ENCOUNTER → 2023-11-11 11:37 | Outpatient (BNV) | payer MEDICARE, OTHER, SELFPAY | PROVIDERS: Admitting Provider Physician Assistant; PCP Nurse Practitioner Family; Visit Provider Internal Medicine | DX: T84.53XA Infection and inflammatory reaction due to internal right knee prosthesis, initial encounter (principal) | CPT/HCPCS: 99222 ==

== ENCOUNTER 2023-11-16 09:15 | Outpatient (REF) | payer MEDICARE, OTHER, SELFPAY ==
[2023-11-16 10:34] LABS: MANUAL DIFF FLAG NO
[2023-11-16 10:55] LABS: Basophils Percent Auto 0.4 % (0-2); Eosinophils Absolute Auto 0.2 X10*3/uL (0.0-0.4); Eosinophils Percent Auto 2.9 % (0-4); Hematocrit 34.2 % (37.0-47.0); Hemoglobin 11.2 g/dl (12.0-16.0); Imm Gran Abs Auto 0.04 X10*3/uL (0.00-0.03); Imm Gran Pct Auto 0.5 % (0.0-0.4); Lymphocytes Absolute Auto 2.1 X10*3/uL (1.2-4.9); Lymphocytes Percent Auto 27.1 % (20-40); Mean Corpuscular HGB Conc 32.7 g/dl (31.0-35.0); Mean Corpuscular Hemoglobin 29.6 pg (27.0-33.0); Mean Corpuscular Volume 90.5 fL (80.0-98.0); Mean Platelet Volume 10.3 fL (9.4-12.3); Monocytes Absolute Auto 0.6 X10*3/uL (0.1-1.2); Monocytes Percent Auto 7.8 % (2-11); Neutrophils Absolute Auto 4.7 x10*3/uL (2.0-8.3); Neutrophils Percent Auto 61.3 % (45-73); Platelet Count 358 X10*3/uL (160-400); Red Blood Count 3.78 X10*6/uL (4.20-5.50); Red Cell Distribution Width 14.1 % (11.0-16.0); White Blood Count 7.7 X10*3/uL (4.8-10.8)
[2023-11-16 11:34] LABS: Vancomycin Trough 19.1 mcg/mL (10.0-20.0)
[2023-11-16 12:02] LABS: Blood Urea Nitrogen 14 mg/dL (9-16); Estimated Glomerular Filt Rate > 60
== END 2023-11-16 09:16 | disposition home or self-care (01) ==
LOC: HO.HVNA 09:15
PROVIDERS: PCP Nurse Practitioner Family; Visit Provider Internal Medicine
DX: Z47.89 Encounter for other orthopedic aftercare (principal); T84.53XA Infection and inflammatory reaction due to internal right knee prosthesis, initial encounter; X58.XXXA Exposure to other specified factors, initial encounter; Y93.9 Activity, unspecified; Y92.9 Unspecified place or not applicable; Y99.9 Unspecified external cause status
CPT/HCPCS: 36415; 80202; 82565; 84520; 85025

== ENCOUNTER 2023-11-18 12:26 | Outpatient (AMB) | payer MEDICARE, OTHER, SELFPAY ==
--- NOTE | 2023-11-18 12:36 | A.OFFVIS_ITS ---
Intake Intake Visit Reasons: PO:prosthremov,s/p, Rknee 4/10brace fitting Intake Note: Bety presents today for her S/P rt knee arthroplasty right knee 11/14/23 brace fitting. States her brace is loose. Allergies almond [ALMOND] Allergy (Intermediate, Verified 11/18/23 12:40) SWELLING,ITCHING clams [CLAMS] Allergy (Intermediate, Verified 11/18/23 12:40) SWELLING,ITCHING,GI ISSUES nickel Adverse Reaction (Intermediate, Verified 11/18/23 12:40) Unknown HPI PO:prosthremov,s/p, Rknee 4/10brace fitting HPI Details 73-year-old female who returns to the [facility] today for a brace fitting s/p right knee arthroplasty, 11/14/23. She reports her brace is loose. [facility] Medical History History of revision of total replacement of right knee joint DVT (deep venous thrombosis) Arthritis Back pain Hx of blood clots Hx: UTI (urinary tract infection) Elevated cholesterol History of depression History of palpitations Surgical History Hx of bilateral cataract extraction History of loop electrical excision procedure (LEEP) History of total right knee replacement (TKR) Hx of colonoscopy Family History Maternal Aunt Substance use disorder Social History Household Members: None Housing: House Are you a primary medication care manager to a significant other at home: No Do you presently have visiting nurse or other home services: No Alcohol intake: current Alcohol intake frequency: holidays/special occasions only Patient Tobacco Use Status: Never used Tobacco e-Cigarette/Vaping Use: Never Used Second Hand Smoke Exposure: Yes service: No Current occupational status: retired Cognitive needs: No Hearing needs: No Vision needs: No Review of Systems Const All systems reviewed & are unremarkable except as noted in HPI and below Physical Exam Extrem Other: Right knee: Incision clean, dry and intact. No erythema or drainage. Calf supple, nontender. NVI. Assessment & Plan Assessment & Plan (1) Infection of prosthetic right knee joint: Code(s): T84.53XA - Infection and inflammatory reaction due to internal right knee prosthesis, initial encounter Qualifiers: Encounter type: subsequent encounter Qualified Code(s): T84.53XD - Infection and inflammatory reaction due to internal right knee prosthesis, subsequent encounter (2) Painful total knee replacement, right: Code(s): T84.84XA - Pain due to internal orthopedic prosthetic devices, implants and grafts, initial encounter; Z96.651 - Presence of right artificial knee joint Qualifiers: Encounter type: initial encounter Qualified Code(s): T84.84XA - Pain due to internal orthopedic prosthetic devices, implants and grafts, initial encounter; Z96.651 - Presence of right artificial knee joint Plan Her immobilizer brace was readjusted. She will continue to wear the brace locked in extension while ambulating. She can remove the brace for resting and physical therapy. she will see me back next week for routine post-op appointment. Patient Instructions: Scribed for Kenyon Velázquez PA-C, by Cole Wilson medical office receptionist, on 11/18/2023 at 12:45 PM EST. I, Kenyon Velázquez PA-C, have personally reviewed and agree with the information entered by the scribe. Coding Level of Care Code Global (08962) Diagnoses Infection associated with internal right knee prosthesis, subsequent encounter T84.53XD Encounter type: subsequent encounter Pain due to total right knee replacement, initial encounter T84.84XA; Z96.651 Encounter type: initial encounter
== END 2023-11-18 13:29 | disposition home or self-care (01) ==
PROVIDERS: PCP Nurse Practitioner Family; Visit Provider Physician Assistant
DX: T84.53XD Infection and inflammatory reaction due to internal right knee prosthesis, subsequent encounter (principal); T84.84XA Pain due to internal orthopedic prosthetic devices, implants and grafts, initial encounter; Z96.651 Presence of right artificial knee joint
CPT/HCPCS: 99024

== ENCOUNTER → 2023-11-18 12:26 | Outpatient (BNVA) | payer MEDICARE, OTHER, SELFPAY | PROVIDERS: PCP Nurse Practitioner Family; Visit Provider Physician Assistant | DX: T84.53XD Infection and inflammatory reaction due to internal right knee prosthesis, subsequent encounter (principal); T84.84XA Pain due to internal orthopedic prosthetic devices, implants and grafts, initial encounter; Z96.651 Presence of right artificial knee joint | CPT/HCPCS: 99212 ==

== ENCOUNTER 2023-11-23 09:30 | Outpatient (REF) | payer MEDICARE, OTHER, SELFPAY ==
[2023-11-23 13:14] LABS: MANUAL DIFF FLAG NO
[2023-11-23 13:57] LABS: Basophils Percent Auto 0.4 % (0-2); Eosinophils Absolute Auto 0.3 X10*3/uL (0.0-0.4); Eosinophils Percent Auto 3.9 % (0-4); Hematocrit 37.3 % (37.0-47.0); Hemoglobin 11.9 g/dl (12.0-16.0); Imm Gran Abs Auto 0.06 X10*3/uL (0.00-0.03); Imm Gran Pct Auto 0.7 % (0.0-0.4); Lymphocytes Percent Auto 23.9 % (20-40); Mean Corpuscular HGB Conc 31.9 g/dl (31.0-35.0); Mean Corpuscular Hemoglobin 29.2 pg (27.0-33.0); Mean Corpuscular Volume 91.4 fL (80.0-98.0); Mean Platelet Volume 10.1 fL (9.4-12.3); Monocytes Absolute Auto 0.7 X10*3/uL (0.1-1.2); Monocytes Percent Auto 7.9 % (2-11); Neutrophils Absolute Auto 5.2 x10*3/uL (2.0-8.3); Neutrophils Percent Auto 63.2 % (45-73); Platelet Count 373 X10*3/uL (160-400); Red Blood Count 4.08 X10*6/uL (4.20-5.50); White Blood Count 8.2 X10*3/uL (4.8-10.8)
[2023-11-23 14:10] LABS: Vancomycin Trough 20.7 mcg/mL (10.0-20.0)
[2023-11-23 14:12] LABS: Blood Urea Nitrogen 14 mg/dL (9-16); Estimated Glomerular Filt Rate > 60
== END 2023-11-23 09:31 | disposition home or self-care (01) ==
LOC: HO.HVNA 09:30
PROVIDERS: PCP Nurse Practitioner Family; Visit Provider Internal Medicine
DX: M19.19 Post-traumatic osteoarthritis, other specified site (principal); T84.53XD Infection and inflammatory reaction due to internal right knee prosthesis, subsequent encounter
CPT/HCPCS: 36415; 80202; 82565; 84520; 85025

== ENCOUNTER 2023-11-26 12:36 | Outpatient (REF) | payer MEDICARE, OTHER, SELFPAY ==
--- NOTE | ~2023-11-26 | XR_ITS ---
EXAMINATION: XR KNEE, RIGHT CLINICAL INFORMATION: Reason for Exam M25.569 - Pain in unspecified knee COMPARISON: Knee radiographs 05/08/2023 TECHNIQUE: 3 views of the knee FINDINGS: No acute fracture or dislocation. There is been interval revision of the previously seen total knee arthroplasty with removal of the tibial component, a new femoral component and a radiopaque bone cement noted dorsal to the knee. Large suprapatellar joint effusion. Atherosclerotic vascular calcification. Few amorphous foci of mineralization in the soft tissues of the knee. Soft tissue swelling about the knee. XR/XR knee RT 3V IMPRESSION: There is been interval revision of the previously seen total knee arthroplasty with removal of the tibial component, a new femoral component and a radiopaque bone cement noted dorsal to the knee. Large suprapatellar joint effusion. Soft tissue swelling about the knee.
== END 2023-11-26 12:37 | disposition home or self-care (01) ==
LOC: HO.HOSX 12:36
PROVIDERS: Visit Provider Orthopaedic Surgery
DX: T84.53XD Infection and inflammatory reaction due to internal right knee prosthesis, subsequent encounter (principal); M25.561 Pain in right knee; X58.XXXD Exposure to other specified factors, subsequent encounter; Z98.890 Other specified postprocedural states
CPT/HCPCS: 73562; 99212

== ENCOUNTER 2023-11-26 13:11 | Outpatient (AMB) | payer MEDICARE, OTHER, SELFPAY ==
--- NOTE | 2023-11-26 13:44 | MHC.OFFVIS ---
Intake Visit Reasons: 2wkPO:prosth remov, spacer place, R knee 11/10NE Intake Note: Bety is a 73 year old female [facility] s/p Right Knee Resection Arthroplasty 11/11/23. She is wearing her ROM brace, she has been wearing it while weight bearing but taking off when at rest. Patient reports that she is doing well. She reports that she needs to change her vanco as her levels are too high but she will be doing this tomorrow with infectious disease. Allergies almond [ALMOND] Allergy (Intermediate, Verified 11/27/23 13:14) SWELLING,ITCHING clams [CLAMS] Allergy (Intermediate, Verified 11/27/23 13:14) SWELLING,ITCHING,GI ISSUES nickel Adverse Reaction (Intermediate, Verified 11/27/23 13:14) Unknown HPI HPI 2wkPO:prosth remov, spacer place, R knee 11/10NE: Details: Bety is a 73 year old female [facility] s/p Right Knee Resection Arthroplasty 11/11/23. She is wearing her ROM brace, she has been wearing it while weight bearing but taking off when at rest. Patient reports that she is doing well. She reports that she needs to change her vanco as her levels are too high but she will be doing this tomorrow with infectious disease. [facility] Medical History History of revision of total replacement of right knee joint DVT (deep venous thrombosis) Arthritis Back pain Hx of blood clots Hx: UTI (urinary tract infection) Elevated cholesterol History of depression History of palpitations Surgical History Hx of bilateral cataract extraction History of loop electrical excision procedure (LEEP) History of total right knee replacement (TKR) Hx of colonoscopy Family History Maternal Aunt Substance use disorder Social History Household Members: None Housing: House Are you a primary home care associate to a significant other at home: No Do you presently have visiting nurse or other home services: No Alcohol intake: current Alcohol intake frequency: holidays/special occasions only Patient Tobacco Use Status: Never used Tobacco e-Cigarette/Vaping Use: Never Used Second Hand Smoke Exposure: Yes service: No Current occupational status: retired Cognitive needs: No Hearing needs: No Vision needs: No Physical Exam Extrem Other: inc c/d/i 0-90 deg motion Results Reviewed Results Reviewed: antibiotic spacer intact Assessment & Plan Assessment & Plan (1) Infection of prosthetic right knee joint: Code(s): T84.53XA - Infection and inflammatory reaction due to internal right knee prosthesis, initial encounter Category: Medical Qualifiers: Encounter type: subsequent encounter Qualified Code(s): T84.53XD - Infection and inflammatory reaction due to internal right knee prosthesis, subsequent encounter Plan: continue IV abx for 4 more weeks f/u one week for suture removal Orders: Orders XR knee standing BI 11/26/23 M25.569 - Pain in unspecified knee Coding Level of Care Code Global (14573) Diagnoses Infection associated with internal right knee prosthesis, subsequent encounter T84.53XD Encounter type: subsequent encounter
== END 2023-11-26 14:18 | disposition home or self-care (01) ==
PROVIDERS: PCP Nurse Practitioner Family; Visit Provider Orthopaedic Surgery
DX: T84.53XD Infection and inflammatory reaction due to internal right knee prosthesis, subsequent encounter (principal)
CPT/HCPCS: 99024

== ENCOUNTER 2023-11-27 12:58 | Outpatient (AMB) | payer MEDICARE, OTHER, SELFPAY ==
--- NOTE | 2023-11-27 13:04 | MHC.OFFVIS ---
Vital Signs 11/27/23 13:13 Height 5 ft 5 in Weight 156 lb BMI 26.0 BP 102/56 L Blood Pressure Location Lt brachial Position Sitting Pulse 78 Pulse Source Pulse Oximeter Temp 98.7 F Temp Source Oral Pulse Oximetry (%) 97 Intake Visit Reasons: Ref.[facility], Infection of prosthetic R Knee joint Allergies almond [ALMOND] Allergy (Intermediate, Verified 11/27/23 13:14) SWELLING,ITCHING clams [CLAMS] Allergy (Intermediate, Verified 11/27/23 13:14) SWELLING,ITCHING,GI ISSUES nickel Adverse Reaction (Intermediate, Verified 11/27/23 13:14) Unknown HPI HPI Ref.[facility], Infection of prosthetic R Knee joint: Details: She is six weeks on antibiotics on 12/24. She has Vancomycin level last week 19 and now 22.7 with normal creatinine. Vancomycin level has been reduced She is on Daptomycin 6 mgkg daily She has impregnated beads. She has no hardware knee. COUNTS INCLUDE 234 BEDS AT THE [facility] Medical History History of revision of total replacement of right knee joint DVT (deep venous thrombosis) Arthritis Back pain Hx of blood clots Hx: UTI (urinary tract infection) Elevated cholesterol History of depression History of palpitations Surgical History Hx of bilateral cataract extraction History of loop electrical excision procedure (LEEP) History of total right knee replacement (TKR) Hx of colonoscopy Family History Maternal Aunt Substance use disorder Social History Household Members: None Housing: House Are you a primary director of patient care to a significant other at home: No Do you presently have visiting nurse or other home services: No Alcohol intake: current Alcohol intake frequency: holidays/special occasions only Patient Tobacco Use Status: Never used Tobacco e-Cigarette/Vaping Use: Never Used Second Hand Smoke Exposure: Yes service: No Current occupational status: retired Cognitive needs: No Hearing needs: No Vision needs: No Review of Systems Const All systems reviewed & are unremarkable except as noted in HPI and below Physical Exam Vital Signs: Last Vital Signs Temp 98.7 F 11/27/23 13:13 Pulse 78 11/27/23 13:13 BP 102/56 L 11/27/23 13:13 Pulse Ox 97 11/27/23 13:13 BMI result Body Mass Index 26.0 Const General: cooperative Orientation/consciousness: patient oriented x3 HEENT Head: Yes normal to inspection Mouth: Normal oral and palatal mucosa present Eyes General: appearance normal, both eyes and all related structures Pupils: Equal, round and reactive pupils present Resp Effort & Inspection: normal respiratory effort Cardio Rate: regular rate Rhythm: regular rhythm GI Palpation (GI): Soft to palpation and nontender General: Yes no CVA tenderness Back/Spine/Pelvis Back: no CVA tenderness Skin General skin exam: no rashes or lesions noted Neuro General: patient oriented x3 Cranial nerves: Yes CN's II-XII intact bilaterally and Yes Equal, round and reactive pupils present Extrem General: Yes normal to inspection Psych Appearance: grossly normal Assessment & Plan Assessment & Plan (1) Infection of prosthetic right knee joint: Code(s): T84.53XA - Infection and inflammatory reaction due to internal right knee prosthesis, initial encounter Category: Medical Qualifiers: Encounter type: subsequent encounter Qualified Code(s): T84.53XD - Infection and inflammatory reaction due to internal right knee prosthesis, subsequent encounter Plan 6 weeks Daptomycin 6 mg/kg /day Weekly CK and creatinine. Orders: Referrals Infusion Center Notification T84.53XD - Infection and inflammatory reaction due to internal right knee prosthesis, subsequent encounter Medications: New daptomycin in 0.9 % sod chlor 500 mg/50 mL administer over 30 mins last dose 12/24 and then pull PICC line 500 mg (50 mL) IV DAILY Coding Level of Care Code Est Pt Level 3 (83702) Diagnoses Infection associated with internal right knee prosthesis, subsequent encounter T84.53XD Encounter type: subsequent encounter
[2023-11-27 13:13] VITALS: BP 102/56; PULSE 78; TEMP 37.1; O2SAT 97; BMI 26.0
== END 2023-11-27 14:32 | disposition home or self-care (01) ==
PROVIDERS: PCP Nurse Practitioner Family; Visit Provider Internal Medicine
DX: T84.53XD Infection and inflammatory reaction due to internal right knee prosthesis, subsequent encounter (principal)
CPT/HCPCS: 99213

== ENCOUNTER → 2023-11-27 12:58 | Outpatient (BNVA) | payer MEDICARE, OTHER, SELFPAY | PROVIDERS: PCP Nurse Practitioner Family; Visit Provider Internal Medicine | DX: T84.53XD Infection and inflammatory reaction due to internal right knee prosthesis, subsequent encounter (principal) | CPT/HCPCS: 99212 ==

== ENCOUNTER 2023-11-30 09:25 | Outpatient (REF) | payer MEDICARE, OTHER, SELFPAY ==
[2023-11-30 14:02] LABS: Basophils Absolute Auto 0.1 X10*3/uL (0.0-0.2); Basophils Percent Auto 0.8 % (0-2); Eosinophils Absolute Auto 0.3 X10*3/uL (0.0-0.4); Eosinophils Percent Auto 3.7 % (0-4); Hematocrit 38.7 % (37.0-47.0); Hemoglobin 12.6 g/dl (12.0-16.0); Imm Gran Abs Auto 0.02 X10*3/uL (0.00-0.03); Imm Gran Pct Auto 0.3 % (0.0-0.4); MANUAL DIFF FLAG NO; Mean Corpuscular HGB Conc 32.6 g/dl (31.0-35.0); Mean Corpuscular Hemoglobin 29.7 pg (27.0-33.0); Mean Corpuscular Volume 91.3 fL (80.0-98.0); Mean Platelet Volume 10.2 fL (9.4-12.3); Monocytes Absolute Auto 0.8 X10*3/uL (0.1-1.2); Monocytes Percent Auto 9.6 % (2-11); Neutrophils Absolute Auto 4.8 x10*3/uL (2.0-8.3); Neutrophils Percent Auto 60.6 % (45-73); Platelet Count 410 X10*3/uL (160-400); Red Blood Count 4.24 X10*6/uL (4.20-5.50); White Blood Count 7.8 X10*3/uL (4.8-10.8)
[2023-11-30 17:13] LABS: Blood Urea Nitrogen 26 mg/dL (9-16); Estimated Glomerular Filt Rate > 60
== END 2023-11-30 09:26 | disposition home or self-care (01) ==
LOC: HO.HVNA 09:25
PROVIDERS: Visit Provider Internal Medicine
DX: T84.53XA Infection and inflammatory reaction due to internal right knee prosthesis, initial encounter (principal)
CPT/HCPCS: 36415; 82565; 84520; 85025

== ENCOUNTER 2023-12-03 11:11 | Outpatient (AMB) | payer MEDICARE, OTHER, SELFPAY ==
--- NOTE | 2023-12-03 11:17 | MHC.OFFVIS ---
Vital Signs 12/03/23 11:26 Height 5 ft 5 in Weight 156 lb BMI 26.0 Intake Visit Reasons: PO:prosth remov, spacer place, R knee Intake Note: Bety is a 73 year old female who presents today using a walker with her granddaughter for a post operative visit s/p Right Knee Resection Arthroplasty 11/11/23. She is wearing her ROM brace and continues wearing it while weight bearing but taking off when at rest. Sutures remain intact. Patient is doing well and continues using ROM brace for stability. Her main concern today is to discuss her next surgery. Accompanied by: Grand Child Allergies almond [ALMOND] Allergy (Intermediate, Verified 12/03/23 11:28) SWELLING,ITCHING clams [CLAMS] Allergy (Intermediate, Verified 12/03/23 11:) SWELLING,ITCHING,GI ISSUES nickel Adverse Reaction (Intermediate, Verified 12/03/23 11:28) Unknown HPI HPI PO:prosth remov, spacer place, R knee 11/10NE: Details: Bety is a 73 year old female who presents today using a walker with her granddaughter for a post operative visit s/p Right Knee Resection Arthroplasty 11/11/23. She is wearing her ROM brace and continues wearing it while weight bearing but taking off when at rest. Sutures remain intact. Patient is doing well and continues using ROM brace for stability. Her main concern today is to discuss her next surgery. [facility] Medical History History of revision of total replacement of right knee joint DVT (deep venous thrombosis) Arthritis Back pain Hx of blood clots Hx: UTI (urinary tract infection) Elevated cholesterol History of depression History of palpitations Surgical History Hx of bilateral cataract extraction History of loop electrical excision procedure (LEEP) History of total right knee replacement (TKR) Hx of colonoscopy Family History Maternal Aunt Substance use disorder Social History Household Members: None Housing: House Are you a primary animal care assistant to a significant other at home: No Do you presently have visiting nurse or other home services: No Alcohol intake: current Alcohol intake frequency: holidays/special occasions only Patient Tobacco Use Status: Never used Tobacco e-Cigarette/Vaping Use: Never Used Second Hand Smoke Exposure: Yes service: No Current occupational status: retired Cognitive needs: No Hearing needs: No Vision needs: No Physical Exam Vital Signs: BMI result Body Mass Index 26.0 Extrem Other: inc c/d/i Assessment & Plan Assessment & Plan (1) Infection of prosthetic right knee joint: Code(s): T84.53XA - Infection and inflammatory reaction due to internal right knee prosthesis, initial encounter Category: Medical Qualifiers: Encounter type: subsequent encounter Qualified Code(s): T84.53XD - Infection and inflammatory reaction due to internal right knee prosthesis, subsequent encounter Plan: Sutures removed f/u ~3 weeks Coding Level of Care Code Global (63807) Diagnoses Infection associated with internal right knee prosthesis, subsequent encounter T84.53XD Encounter type: subsequent encounter
[2023-12-03 11:26] VITALS: BMI 26.0
== END 2023-12-03 11:52 | disposition home or self-care (01) ==
PROVIDERS: PCP Nurse Practitioner Family; Visit Provider Orthopaedic Surgery
DX: T84.53XD Infection and inflammatory reaction due to internal right knee prosthesis, subsequent encounter (principal)
CPT/HCPCS: 99024

== ENCOUNTER → 2023-12-03 11:11 | Outpatient (BNVA) | payer MEDICARE, OTHER, SELFPAY | PROVIDERS: PCP Nurse Practitioner Family; Visit Provider Orthopaedic Surgery | DX: T84.53XD Infection and inflammatory reaction due to internal right knee prosthesis, subsequent encounter (principal) | CPT/HCPCS: 99212 ==

== ENCOUNTER 2023-12-07 09:25 | Outpatient (REF) | payer MEDICARE, OTHER, SELFPAY ==
[2023-12-07 13:52] LABS: Estimated Glomerular Filt Rate > 60
[2023-12-11 13:44] LABS: CK-BB None Detected (None Detected); CK-MB 0 % (<5); CK-MM 100 % (95-100); Creatine Kinase,Total,Serum 74 U/L (29-143)
== END 2023-12-07 09:26 | disposition home or self-care (01) ==
LOC: HO.HVNA 09:25
PROVIDERS: PCP Nurse Practitioner Family; Visit Provider Internal Medicine
DX: T84.53XD Infection and inflammatory reaction due to internal right knee prosthesis, subsequent encounter (principal)
CPT/HCPCS: 36415; 82552; 82565

== ENCOUNTER 2023-12-09 09:00 | Outpatient (REF) | payer MEDICARE, OTHER, SELFPAY ==
[2023-12-09 13:36] LABS: Appearance Urine Clear; Color Urine Yellow; Glucose Urine UA Negative (Negative); Leukocyte Esterase Urine Trace (Negative); Nitrite Urine Positive (Negative); Specific Gravity - Urine 1.015 (1.005-1.025); UMIC TRIGGER UACC YES; Urine Blood Trace (Negative); Urine Ketones Negative (Negative); Urine Protein Negative (Neg-Trace)
[2023-12-09 13:45] LABS: Bacteria Urine 4+ (None Seen); Hyaline Casts Urine 0-2 /LPF (0-2); Squamous Epithelial Cell Urine 0-2 /HPF (0-2); UACC Culture Trigger YES
== END 2023-12-09 09:01 | disposition home or self-care (01) ==
LOC: HO.HMGCLNP 09:00
PROVIDERS: PCP Nurse Practitioner Family; Visit Provider Nurse Practitioner Family
DX: N39.0 Urinary tract infection, site not specified (principal); T84.53XD Infection and inflammatory reaction due to internal right knee prosthesis, subsequent encounter; X58.XXXD Exposure to other specified factors, subsequent encounter
CPT/HCPCS: 81001; 87086; 87088; 87186

== ENCOUNTER 2023-12-14 13:15 | Outpatient (REF) | payer MEDICARE, OTHER, SELFPAY ==
[2023-12-14 14:23] LABS: Estimated Glomerular Filt Rate > 60
[2023-12-18 18:13] LABS: CK-BB None Detected (None Detected); CK-MB 0 % (<5); CK-MM 100 % (95-100); Creatine Kinase,Total,Serum 134 U/L (29-143)
== END 2023-12-14 13:16 | disposition home or self-care (01) ==
LOC: HO.HVNA 13:15
PROVIDERS: Visit Provider Internal Medicine
DX: T84.53XD Infection and inflammatory reaction due to internal right knee prosthesis, subsequent encounter (principal)
CPT/HCPCS: 36415; 82552; 82565

== ENCOUNTER 2023-12-25 13:29 | Outpatient (AMB) | payer MEDICARE, OTHER, SELFPAY ==
--- NOTE | 2023-12-25 13:36 | A.OFFVIS_ITS ---
Intake Visit Reasons: 1 mth. f/u Allergies almond [ALMOND] Allergy (Intermediate, Verified 12/31/23 11:40) SWELLING,ITCHING clams [CLAMS] Allergy (Intermediate, Verified 12/31/23 11:40) SWELLING,ITCHING,GI ISSUES nickel Adverse Reaction (Intermediate, Verified 12/31/23 11:40) Unknown HPI HPI 1 mth. f/u: Details: She has prosthetic right knee and says swelling diminished. She has no hardware. She is on Daptomycin for staph epi. PFSH Medical History History of revision of total replacement of right knee joint DVT (deep venous thrombosis) Arthritis Back pain Hx of blood clots Hx: UTI (urinary tract infection) Elevated cholesterol History of depression History of palpitations Surgical History Hx of bilateral cataract extraction History of loop electrical excision procedure (LEEP) History of total right knee replacement (TKR) Hx of colonoscopy Family History Maternal Aunt Substance use disorder Social History Household Members: None Housing: House Are you a primary vp care management to a significant other at home: No Do you presently have visiting nurse or other home services: No Alcohol intake: current Alcohol intake frequency: holidays/special occasions only Patient Tobacco Use Status: Never used Tobacco e-Cigarette/Vaping Use: Never Used Second Hand Smoke Exposure: Yes service: No Current occupational status: retired Cognitive needs: No Hearing needs: No Vision needs: No Review of Systems Const All systems reviewed & are unremarkable except as noted in HPI and below Physical Exam Const General: cooperative HEENT Head: Yes normal to inspection Face and sinus: Yes normal facial exam Mouth: Normal oral and palatal mucosa present Teeth and gingiva: dentition normal Eyes General: appearance normal, both eyes and all related structures Pupils: Equal, round and reactive pupils present Resp Effort & Inspection: normal respiratory effort Cardio Rate: regular rate Rhythm: regular rhythm GI Palpation (GI): Soft to palpation and nontender General: Yes no CVA tenderness Back/Spine/Pelvis Back: no CVA tenderness Skin General skin exam: no rashes or lesions noted Neuro General: moves all extremities Cranial nerves: Yes Equal, round and reactive pupils present Extrem General: Yes normal to inspection Psych Appearance: grossly normal Assessment & Plan Assessment & Plan (1) Infection of prosthetic right knee joint: Comment: area appears clear Code(s): T84.53XA - Infection and inflammatory reaction due to internal right knee prosthesis, initial encounter Category: Medical Qualifiers: Encounter type: subsequent encounter Qualified Code(s): T84.53XD - Infection and inflammatory reaction due to internal right knee prosthesis, subsequent encounter Plan: Finish six weeks Daptomycin and then Bactrim DS daily for prevention. Orders: Orders IR cvc remove any age 0512/29/23 T84.53XD - Infection and inflammatory reaction due to internal right knee prosthesis, subsequent encounter Medications: New sulfamethoxazole-trimethoprim 800-160 mg (Bactrim DS) 1 tab PO DAILY 30 tabs 1RF 30 days Coding Level of Care Code Est Pt Level 3 (40032) Diagnoses Infection associated with internal right knee prosthesis, subsequent encounter T84.53XD Encounter type: subsequent encounter
== END 2023-12-25 14:03 | disposition home or self-care (01) ==
PROVIDERS: PCP Nurse Practitioner Family; Visit Provider Internal Medicine
DX: T84.53XD Infection and inflammatory reaction due to internal right knee prosthesis, subsequent encounter (principal)
CPT/HCPCS: 99213

== ENCOUNTER → 2023-12-25 13:29 | Outpatient (BNVA) | payer MEDICARE, OTHER, SELFPAY | PROVIDERS: PCP Nurse Practitioner Family; Visit Provider Internal Medicine | DX: T84.53XD Infection and inflammatory reaction due to internal right knee prosthesis, subsequent encounter (principal) | CPT/HCPCS: 99212 ==

== ENCOUNTER 2023-12-31 11:27 | Outpatient (AMB) | payer MEDICARE, OTHER, SELFPAY ==
--- NOTE | 2023-12-31 11:35 | A.OFFVIS_ITS ---
Vital Signs 12/31/23 11:36 Height 5 ft 5 in Weight 165 lb BMI 27.5 Intake Visit Reasons: 6wkPO:prosth remov, spacer place, R knee 11/10NE Intake Note: Bety is a 73 year old female who presents today for a post operative appointment s/p Right Knee Resection Arthroplasty 11/11/23. Allergies almond [ALMOND] Allergy (Intermediate, Verified 12/31/23 11:40) SWELLING,ITCHING clams [CLAMS] Allergy (Intermediate, Verified 12/31/23 11:40) SWELLING,ITCHING,GI ISSUES nickel Adverse Reaction (Intermediate, Verified 12/31/23 11:40) Unknown HPI HPI 6wkPO:prosth remov, spacer place, R knee 11/10NE: Details: 2 mo post resection arthroplasty complains of pain PFSH Medical History History of revision of total replacement of right knee joint DVT (deep venous thrombosis) Arthritis Back pain Hx of blood clots Hx: UTI (urinary tract infection) Elevated cholesterol History of depression History of palpitations Surgical History Hx of bilateral cataract extraction History of loop electrical excision procedure (LEEP) History of total right knee replacement (TKR) Hx of colonoscopy Family History Maternal Aunt Substance use disorder Social History Household Members: None Housing: House Are you a primary long term care phlebotomist to a significant other at home: No Do you presently have visiting nurse or other home services: No Alcohol intake: current Alcohol intake frequency: holidays/special occasions only Patient Tobacco Use Status: Never used Tobacco e-Cigarette/Vaping Use: Never Used Second Hand Smoke Exposure: Yes service: No Current occupational status: retired Cognitive needs: No Hearing needs: No Vision needs: No Physical Exam Vital Signs: BMI result Body Mass Index 27.5 Extrem Other: full extension pain with flexion > 75 deg Assessment & Plan Assessment & Plan (1) Infection of prosthetic right knee joint: Code(s): T84.53XA - Infection and inflammatory reaction due to internal right knee prosthesis, initial encounter Category: Medical Qualifiers: Encounter type: subsequent encounter Qualified Code(s): T84.53XD - Infection and inflammatory reaction due to internal right knee prosthesis, subsequent encounter Plan: PO abx for 10 more day followed by 2 week washout and then aspiration and possible surgery Plan Fit for a Playmaker Knee Brace Coding Level of Care Code Global (09681) Diagnoses Infection associated with internal right knee prosthesis, subsequent encounter T84.53XD Encounter type: subsequent encounter
[2023-12-31 11:36] VITALS: BMI 27.5
== END 2023-12-31 11:53 | disposition home or self-care (01) ==
PROVIDERS: PCP Nurse Practitioner Family; Visit Provider Orthopaedic Surgery
DX: T84.53XD Infection and inflammatory reaction due to internal right knee prosthesis, subsequent encounter (principal)
CPT/HCPCS: 99024

== ENCOUNTER → 2023-12-31 11:27 | Outpatient (BNVA) | payer MEDICARE, OTHER, SELFPAY | PROVIDERS: PCP Nurse Practitioner Family; Visit Provider Orthopaedic Surgery | DX: T84.53XD Infection and inflammatory reaction due to internal right knee prosthesis, subsequent encounter (principal) | CPT/HCPCS: 99212 ==

== ENCOUNTER 2024-01-11 13:00 | Outpatient (AMB) | payer MEDICARE, OTHER, SELFPAY ==
--- NOTE | 2024-01-11 13:07 | MHC.PC.OV ---
Vital Signs 01/11/24 13:11 Height 5 ft 5 in Weight 149 lb BMI 24.8 BP 110/80 Blood Pressure Location Lt brachial Position Sitting Pulse 61 Pulse Source Pulse Oximeter Pulse Oximetry (%) 97 Oxygen Delivery Method Room Air Intake Visit Reasons: Follow up Intake Note: Patient here to follow up after knee procedure. Allergies almond [ALMOND] Allergy (Intermediate, Verified 01/11/24 13:12) SWELLING,ITCHING clams [CLAMS] Allergy (Intermediate, Verified 01/11/24 13:12) SWELLING,ITCHING,GI ISSUES nickel Adverse Reaction (Intermediate, Verified 01/11/24 13:12) Unknown Medication List - Last Reconciled 01/11/24 by MIRA Bates atenolol 25 mg PO DAILY atorvastatin 10 mg PO DAILY glucos sul [id number]-Mn 550-30-1 mg (Glucosamine Chondroitin) 1 cap PO BID omega 5-fkh-mat-fish oil 1,000 mg (120 mg-180 mg) (Fish Oil) 1 cap PO DAILY sertraline 50 mg PO DAILY 90 days turmeric root extract 1,076 mg PO BEDTIME Tobacco use date assessed: 01/11/24 Fall risk assessment: No Falls in past year Last assessed Fall Risk: 01/11/24 Dental Screening Dental Screen Date: 01/11/24 Did you have a dental visit in the last 12 months?: Yes Did you have a dental problem in the last 6 months where you did not have access to dental care?: No Was dental information given to patient?: Patient has dentist HPI Follow up HPI Details ongoing infected knee prosthetic. [place] filler, and old prosthetic taken out, on november 10. Pt is going to PT. Pt still reports some discomfort and warmth to the region. She will be following up with ortho next week for possible new prosthetic replacement in the near future. Pt reports increased depression. She is tearful today. Will increase sertraline from 25mg to 50mg. Denies any SI and HI. Will await Ortho's plan [facility] Medical History History of revision of total replacement of right knee joint DVT (deep venous thrombosis) Arthritis Back pain Hx of blood clots Hx: UTI (urinary tract infection) Elevated cholesterol History of depression History of palpitations Surgical History Hx of bilateral cataract extraction History of loop electrical excision procedure (LEEP) History of total right knee replacement (TKR) Hx of colonoscopy Family History Maternal Aunt Substance use disorder Social History Household Members: None Housing: House Are you a primary dog daycare provider to a significant other at home: No Do you presently have visiting nurse or other home services: No Alcohol intake: current Alcohol intake frequency: holidays/special occasions only Patient Tobacco Use Status: Never used Tobacco e-Cigarette/Vaping Use: Never Used Second Hand Smoke Exposure: Yes service: No Current occupational status: retired Cognitive needs: No Hearing needs: No Vision needs: No Questionnaire Thrive Questionnaire Date Thrive assessed: 11/12/23 ZAMZAM-7 AMB Questionnaire ZAMZAM-7 Date ZAMZAM - 7 assessed: 10/14/23 Source: Developed by Drs. Dominic Andrew, Pili Levi, Pancho Root and colleagues, with an educational justyn from [employer]. Review of Systems Const Reports as per HPI Physical exam (Primary Care) Vital Signs: Last Vital Signs Pulse 61 01/11/24 13:11 BP 110/80 01/11/24 13:11 Pulse Ox 97 01/11/24 13:11 Oxygen Delivery Method Room Air 01/11/24 13:11 BMI result Body Mass Index 24.8 Tobacco/Smoking Status: Tobacco use Status Tobacco use date assessed 01/11/24 01/11/24 13:18 Patient Tobacco Use Status Never used Tobacco 01/11/24 13:07 e-Cigarette/Vaping Use Never Used 01/11/24 13:07 Thrive Assessment: Date of Thrive Assessment Date Thrive assessed 11/12/23 01/11/24 13:07 Const General: cooperative Orientation/consciousness: patient oriented x3 Limitations: ambulation with walker Resp Effort & Inspection: normal respiratory effort Auscultation: clear to auscultation bilaterally Cardio Rate: regular rate Rhythm: regular rhythm Heart sounds: S1 normal heart sound present and S2 normal heart sound present Neuro General: patient oriented x3 Extrem Other: large vertical incision to right knee, well approximated, slightly warm to touch especially to lateral aspect, swelling noted to knee, + patellar reflex. + dorsalis pedis Psych Appearance: grossly normal Mental Status: mental status grossly normal Speech and movement: Normal speech and movement present Affect: normal affect Attitude: cooperative Thought process: Normal thought process present Thought content: Normal thought content present Insight: Good insight present (Psych) Judgement: Good judgement present (Psych) Assessment and Plan Assessment & Plan (1) Infection of prosthetic right knee joint: Comment: area appears clear Code(s): T84.53XA - Infection and inflammatory reaction due to internal right knee prosthesis, initial encounter Qualifiers: Encounter type: subsequent encounter Qualified Code(s): T84.53XD - Infection and inflammatory reaction due to internal right knee prosthesis, subsequent encounter Plan The patient agreed to the use of a medical translator for this encounter. Scribed for BRUCE Mcelroy-BC by Helena Desai medical translator, on 01/11/2024 at 13:35 EST. Orders: Orders Complete Blood Count Auto Diff Today T84.53XD - Infection and inflammatory reaction due to internal right knee prosthesis, subsequent encounter Comprehensive [place]. Panel Fast Today T84.53XD - Infection and inflammatory reaction due to internal right knee prosthesis, subsequent encounter Lipid Panel Today T84.53XD - Infection and inflammatory reaction due to internal right knee prosthesis, subsequent encounter TSH reflex Free T4 Today T84.53XD - Infection and inflammatory reaction due to internal right knee prosthesis, subsequent encounter UA CC w/rflx Micro + Cult Today T84.53XD - Infection and inflammatory reaction due to internal right knee prosthesis, subsequent encounter Medications: Changed From sertraline 25 mg PO DAILY 90 tabs 1RF To sertraline 50 mg PO DAILY 90 days 90 tabs 1RF Coding Level of Care Code Est Pt Level 3 (40436) Diagnoses Infection associated with internal right knee prosthesis, subsequent encounter T84.53XD Encounter type: subsequent encounter
[2024-01-11 13:11] VITALS: BP 110/80; PULSE 61; O2SAT 97; BMI 24.8
== END 2024-01-11 14:28 | disposition home or self-care (01) ==
PROVIDERS: PCP Nurse Practitioner Family; Visit Provider Nurse Practitioner Family
DX: T84.53XD Infection and inflammatory reaction due to internal right knee prosthesis, subsequent encounter (principal)
CPT/HCPCS: 99213

== ENCOUNTER 2024-01-18 10:50 | Outpatient (REF) | payer MEDICARE, OTHER, SELFPAY ==
[2024-01-18 13:57] LABS: C Reactive Protein 0.36 mg/dL (< or = 0.50)
[2024-01-18 14:14] LABS: Erythrocyte Sedimentation Rate 14 MM/HR (0-20)
== END 2024-01-18 10:51 | disposition home or self-care (01) ==
LOC: HO.10HDL 10:50
PROVIDERS: Visit Provider Orthopaedic Surgery
DX: T84.53XD Infection and inflammatory reaction due to internal right knee prosthesis, subsequent encounter (principal)
CPT/HCPCS: 36415; 85652; 86140; 99212

== ENCOUNTER 2024-01-18 11:06 | Outpatient (AMB) | payer MEDICARE, OTHER, SELFPAY ==
[2024-01-18 11:07] VITALS: BMI 24.8
--- NOTE | 2024-01-18 11:07 | A.OFFVIS_ITS ---
Vital Signs 01/18/24 11:07 Height 5 ft 5 in Weight 149 lb BMI 24.8 Intake Visit Reasons: PO:prosth remov, spacer place, R knee 11/10NE Intake Note: Bety is 73 year old female who presents today with a walker for a post operative visit s/p Right Knee Resection Arthroplasty 11/11/23. Patient completed labs prior to her appointment today. Patient reports she noticed roughly about a week and a half ago her knee is beginning to having more pain and feels weaker. Allergies almond [ALMOND] Allergy (Intermediate, Verified 01/18/24 11:10) SWELLING,ITCHING clams [CLAMS] Allergy (Intermediate, Verified 01/18/24 11:10) SWELLING,ITCHING,GI ISSUES nickel Adverse Reaction (Intermediate, Verified 01/18/24 11:10) Unknown HPI HPI PO:prosth remov, spacer place, R knee 11/10NE: Details: Bety is 73 year old female who presents today with a walker for a post operative visit s/p Right Knee Resection Arthroplasty 11/11/23. Patient completed labs prior to her appointment today. Patient reports she noticed roughly about a week and a half ago her knee is beginning to having more pain and feels weaker. [facility] Medical History History of revision of total replacement of right knee joint DVT (deep venous thrombosis) Arthritis Back pain Hx of blood clots Hx: UTI (urinary tract infection) Elevated cholesterol History of depression History of palpitations Surgical History Hx of bilateral cataract extraction History of loop electrical excision procedure (LEEP) History of total right knee replacement (TKR) Hx of colonoscopy Family History Maternal Aunt Substance use disorder Social History Household Members: None Housing: House Are you a primary ostomy care nurse to a significant other at home: No Do you presently have visiting nurse or other home services: No Alcohol intake: current Alcohol intake frequency: holidays/special occasions only Patient Tobacco Use Status: Never used Tobacco e-Cigarette/Vaping Use: Never Used Second Hand Smoke Exposure: Yes service: No Current occupational status: retired Cognitive needs: No Hearing needs: No Vision needs: No Physical Exam Vital Signs: BMI result Body Mass Index 24.8 Extrem Other: Incision clean dry and intact 0-90 degrees of motion No unexpected warmth or erythema 2+ dorsalis pedis pulse Results Reviewed Results Reviewed: ESR and CRP are within normal limits Assessment & Plan Assessment & Plan (1) Infection of prosthetic right knee joint: Comment: area appears clear Code(s): T84.53XA - Infection and inflammatory reaction due to internal right knee prosthesis, initial encounter Category: Medical Qualifiers: Encounter type: subsequent encounter Qualified Code(s): T84.53XD - Infection and inflammatory reaction due to internal right knee prosthesis, subsequent encounter Plan: Bety is proximally 8-10 weeks status post resection arthroplasty for infected right knee. She is doing well and her labs are encouraging. She has only been off p.o. antibiotics for 10 days. I would like to see her next week for a aspiration with Synovasure and I will schedule her for revision surgery in early January. Orders: Orders Erythrocyte Sedimentation Rate 01/18/24 T84.53XD - Infection and inflammatory reaction due to internal right knee prosthesis, subsequent encounter C Reactive Protein 01/18/24 T84.53XD - Infection and inflammatory reaction due to internal right knee prosthesis, subsequent encounter Coding Level of Care Code Global (13484) Diagnoses Infection associated with internal right knee prosthesis, subsequent encounter T84.53XD Encounter type: subsequent encounter
== END 2024-01-18 11:46 | disposition home or self-care (01) ==
PROVIDERS: PCP Nurse Practitioner Family; Visit Provider Orthopaedic Surgery
DX: T84.53XD Infection and inflammatory reaction due to internal right knee prosthesis, subsequent encounter (principal)
CPT/HCPCS: 99024

== ENCOUNTER → 2024-01-25 09:25 | Outpatient (BNVA) | payer MEDICARE, OTHER, SELFPAY | PROVIDERS: PCP Nurse Practitioner Family | DX: Z01.818 Encounter for other preprocedural examination (principal) ==

== ENCOUNTER 2024-01-29 10:05 | Outpatient (AMB) | payer MEDICARE, OTHER, SELFPAY ==
--- NOTE | 2024-01-29 10:10 | MHC.OFFVIS ---
Vital Signs 01/29/24 11:07 Height 5 ft 5 in Weight 149 lb BMI 24.8 Intake Visit Reasons: R Knee Aspiration- Synovasure Intake Note: Bety is a 73 year old female who presents today for a Right Knee Synovasure Aspiration. She is s/p Right Knee Resection Arthroplasty 11/11/23, this aspiration is for preoperative planning for upcoming TKA Revision booked on 02/10/24 Allergies almond [ALMOND] Allergy (Intermediate, Verified 01/29/24 10:16) SWELLING,ITCHING clams [CLAMS] Allergy (Intermediate, Verified 01/29/24 10:16) SWELLING,ITCHING,GI ISSUES nickel Adverse Reaction (Intermediate, Verified 01/29/24 10:16) Unknown HPI HPI R Knee Aspiration- Synovasure: Details: Bety is a 73 year old female who presents today for a Right Knee Synovasure Aspiration. She is s/p Right Knee Resection Arthroplasty 11/11/23, this aspiration is for preoperative planning for upcoming TKA Revision booked on 02/10/24 [facility] Medical History History of revision of total replacement of right knee joint DVT (deep venous thrombosis) Arthritis Back pain Hx of blood clots Hx: UTI (urinary tract infection) Elevated cholesterol History of depression History of palpitations Surgical History Hx of bilateral cataract extraction History of loop electrical excision procedure (LEEP) History of total right knee replacement (TKR) Hx of colonoscopy Family History Maternal Aunt Substance use disorder Social History Household Members: None Housing: House Are you a primary healthcare account manager to a significant other at home: No Do you presently have visiting nurse or other home services: No Alcohol intake: current Alcohol intake frequency: holidays/special occasions only Patient Tobacco Use Status: Never used Tobacco e-Cigarette/Vaping Use: Never Used Second Hand Smoke Exposure: Yes service: No Current occupational status: retired Cognitive needs: No Hearing needs: No Vision needs: No Physical Exam Vital Signs: BMI result Body Mass Index 24.8 Extrem Other: effusion with no erythema Office Procedures Joint Injection/Drain Joint Injection/Drain Details: Aspirated serosanguinous synovial fluid right knee. Aseptic appearance. Site was prepped using aseptic technique. Patient tolerated the procedure well. Primary Site: right knee Approach Used: anterolateral Coding - Large joint Procedure code (CPT) selection complete Assessment & Plan Assessment & Plan (1) Infection of prosthetic right knee joint: Comment: area appears clear Code(s): T84.53XA - Infection and inflammatory reaction due to internal right knee prosthesis, initial encounter Category: Medical Qualifiers: Encounter type: subsequent encounter Qualified Code(s): T84.53XD - Infection and inflammatory reaction due to internal right knee prosthesis, subsequent encounter Plan: Fluid sent for synovasure. Coding Level of Care Code Est Pt Level 2 (09520) Diagnoses Infection associated with internal right knee prosthesis, subsequent encounter T84.53XD Encounter type: subsequent encounter CPT Codes Coding - Large joint: 95951 - Large joint ([id number])
[2024-01-29 11:07] VITALS: BMI 24.8
== END 2024-01-29 10:41 | disposition home or self-care (01) ==
PROVIDERS: PCP Nurse Practitioner Family; Visit Provider Orthopaedic Surgery
DX: T84.53XD Infection and inflammatory reaction due to internal right knee prosthesis, subsequent encounter (principal)
CPT/HCPCS: 20610

== ENCOUNTER → 2024-01-29 10:05 | Outpatient (BNVA) | payer MEDICARE, OTHER, SELFPAY | PROVIDERS: PCP Nurse Practitioner Family; Visit Provider Orthopaedic Surgery | DX: T84.53XD Infection and inflammatory reaction due to internal right knee prosthesis, subsequent encounter (principal) | CPT/HCPCS: 20610 ==

== ENCOUNTER 2024-02-02 09:38 | Outpatient (REF) | payer MEDICARE, OTHER, SELFPAY ==
[2024-02-02 13:02] LABS: MANUAL DIFF FLAG NO
[2024-02-02 13:16] LABS: Basophils Percent Auto 0.4 % (0-2); Eosinophils Absolute Auto 0.1 X10*3/uL (0.0-0.4); Eosinophils Percent Auto 1.5 % (0-4); Hemoglobin 12.5 g/dl (12.0-16.0); Imm Gran Abs Auto 0.02 X10*3/uL (0.00-0.03); Imm Gran Pct Auto 0.3 % (0.0-0.4); Lymphocytes Absolute Auto 2.3 X10*3/uL (1.2-4.9); Lymphocytes Percent Auto 30.2 % (20-40); Mean Corpuscular HGB Conc 32.9 g/dl (31.0-35.0); Mean Corpuscular Hemoglobin 29.3 pg (27.0-33.0); Mean Platelet Volume 10.5 fL (9.4-12.3); Monocytes Absolute Auto 0.8 X10*3/uL (0.1-1.2); Monocytes Percent Auto 10.6 % (2-11); Neutrophils Absolute Auto 4.3 x10*3/uL (2.0-8.3); Platelet Count 282 X10*3/uL (160-400); Red Blood Count 4.27 X10*6/uL (4.20-5.50); Red Cell Distribution Width 13.6 % (11.0-16.0); White Blood Count 7.5 X10*3/uL (4.8-10.8)
[2024-02-02 13:50] LABS: Alanine Aminotransferase 11 U/L (0-31); Albumin Level 4.2 g/dL (3.5-5.0); Alkaline Phosphatase 57 U/L (39-117); Anion Gap 13 (12-20); Aspartate Amino Transferase 17 U/L (5-31); Bilirubin Total 0.4 mg/dL (0.0-1.0); Blood Urea Nitrogen 29 mg/dL (9-16); Calcium 10.1 mg/dL (8.4-10.2); Carbon Dioxide 26 mmol/L (22-29); Chloride 105 mmol/L (96-108); Cholesterol 167 mg/dL (<200); Estimated Glomerular Filt Rate > 60; Glucose Fasting 93 mg/dL (60-99); HDL Cholesterol 66 mg/dL (>40); LDL Cholesterol Calculated 84 mg/dL (<100); Sodium 140 mmol/L (135-145); Total Protein 7.5 g/dL (6.5-8.0); Triglycerides 89 mg/dL (<150)
== END 2024-02-02 09:39 | disposition home or self-care (01) ==
LOC: HO.HMGCLDS 09:38
PROVIDERS: PCP Nurse Practitioner Family; Visit Provider Nurse Practitioner Family
DX: T84.53XD Infection and inflammatory reaction due to internal right knee prosthesis, subsequent encounter (principal)
CPT/HCPCS: 36415; 80053; 80061; 84443; 85025

== ENCOUNTER 2024-02-05 11:00 | Outpatient (REF) | payer MEDICARE, OTHER, SELFPAY ==
[2024-02-05 13:16] LABS: Appearance Urine Clear; Color Urine Yellow; Glucose Urine UA Negative (Negative); Leukocyte Esterase Urine Moderate (2+) (Negative); Nitrite Urine Positive (Negative); Specific Gravity - Urine 1.015 (1.005-1.025); UMIC TRIGGER UACC YES; Urine Blood Negative (Negative); Urine Ketones Negative (Negative); Urine Protein Negative (Neg-Trace)
[2024-02-05 13:22] LABS: Bacteria Urine 4+ (None Seen); Hyaline Casts Urine 0-2 /LPF (0-2); RBC Urine 0-2 /HPF (0-2); Squamous Epithelial Cell Urine 0-2 /HPF (0-2); UACC Culture Trigger YES; WBC Urine 21-50 /HPF (0-5)
== END 2024-02-05 11:01 | disposition home or self-care (01) ==
LOC: HO.HMGCLNP 11:00
PROVIDERS: PCP Nurse Practitioner Family; Visit Provider Nurse Practitioner Family
DX: T84.53XD Infection and inflammatory reaction due to internal right knee prosthesis, subsequent encounter (principal); X58.XXXD Exposure to other specified factors, subsequent encounter; R82.90 Unspecified abnormal findings in urine
CPT/HCPCS: 81001; 87086; 87088; 87186

== ENCOUNTER 2024-02-10 07:18 | Inpatient (IN) | payer MEDICARE, OTHER, SELFPAY ==
[2024-02-02 09:08] VITALS: BMI 24.8
--- NOTE | 2024-02-09 08:44 | HO.ANESPROP2 ---
Documented by User: Tessie Carrillo NP 02/09/24 08:47 HPI - Anesthesia Eval Consult details Narrative: 73yo F for Right Knee Total Revision s/p Removal of prothesis, placement of antibiotic spacer 11/11/23 with spinal/block Cardiac cleared and Medically cleared prior to 11/2023 surgery Hx RLE DVT. Chronic DVT per [facility] vascular note 2021. None by recent US. DNR/DNI [facility] Active Problems Active Problems: All Active Problems Preoperative cardiovascular examination (Acute) Infection of prosthetic right knee joint (Acute) Painful total knee replacement, right (Acute) Bigeminy (Acute) Pre-op evaluation (Acute) Frequent PVCs (Acute) Microscopic hematuria (Acute) Vaginal atrophy (Acute) Dyslipidemia (Acute) Tubular adenoma (Acute) Encounter for screening colonoscopy (Acute) Frequent UTI (Acute) Right knee pain (Acute) Encounter for hearing test (Acute) Screening for colon cancer (Acute) Medicare annual wellness visit, initial (Acute) Palpitations (Acute) History of total right knee replacement (TKR) (Acute) DVT (deep venous thrombosis) (Acute) History of palpitations (Acute) Past Medical History Medical History History of revision of total replacement of right knee joint DVT (deep venous thrombosis) Arthritis Back pain Hx of blood clots Hx: UTI (urinary tract infection) Elevated cholesterol History of depression History of palpitations Family History Family History Maternal Aunt Substance use disorder Family history of problems with anesthesia: No Surgical History Surgical History Hx of bilateral cataract extraction History of loop electrical excision procedure (LEEP) History of total right knee replacement (TKR) Hx of colonoscopy History of Problems with Anesthesia: No Social History Social History Household Members: None Housing: House Are you a primary long term care administrator to a significant other at home: No Do you presently have visiting nurse or other home services: No Alcohol intake: current Alcohol intake frequency: holidays/special occasions only Patient Tobacco Use Status: Never used Tobacco e-Cigarette/Vaping Use: Never Used Second Hand Smoke Exposure: Yes Use of substances other than those prescribed or required for medical reasons: No Have you been hit, kicked, punched, or otherwise hurt by someone within the past year? If so, by whom?: No Are you DNR?: Yes Advance Directives: No Advance Directives Information Provided: Yes Advance Directives on File: No Recently lost weight without trying: No Eating poorly because of decreased appetite: No Nutrition Risks: No Nutritional Risk Poor oral hygiene: No (upper partial denture) service: No Current occupational status: retired Cognitive needs: No Hearing needs: No Vision needs: No Meds Allergies Allergy/AdvReac Type Severity Reaction Status Date / Time almond [ALMOND] Allergy Intermediate SWELLING,IT Verified 01/29/24 10:16 IRA clams [CLAMS] Allergy Intermediate SWELLING,ITCHING,GI Verified 01/29/24 10:16 ISSUES nickel AdvReac Intermediate Unknown Verified 01/29/24 10:16 Home Medications ?Medication ?Instructions ?Recorded ?Confirmed ?Last Taken ?Type omega 4-zol-kid-fish oil 1,000 mg 1 cap PO DAILY 03/19/21 02/10/24 02/03/24 History (120 mg-180 mg) capsule (Fish Oil) turmeric root extract 1,053 mg 1,076 mg PO BEDTIME 03/19/21 02/02/24 02/03/24 History tablet glucosamine sulf dipot 1 cap PO BID 11/02/23 02/02/24 02/03/24 History chlr,msm,chond 550 mg-C 30 mg-ole 1 mg capsule (Glucosamine Chondroitin) atorvastatin 10 mg tablet 10 mg PO BEDTIME 01/11/24 02/10/24 02/09/24 History calcium carbonate 600 mg-vitamin 1 tab PO DAILY 01/25/24 02/10/24 02/03/24 History D3 5 mcg (200 unit) tablet cranberry 500 mg capsule 500 mg PO BID 01/25/24 02/10/24 02/03/24 History Exam Height,Weight and Vital Signs: Height 5 ft 5 in Weight 67.585 kg Pertinent Lab Results Pertinent Lab Results: Laboratory Tests 02/02/24 09:48 WBC 7.5 Hgb 12.5 Hct 38.0 Plt Count 282 D Sodium 140 Potassium 4.0 Chloride 105 Carbon Dioxide 26 BUN 29 H Creatinine 0.87 Narrative Narrative: EKG 10/2023 sinus rhythm, RSR' pattern suggestive of RV conduction delay; normal [place] and corrected QT. ECHO 09/2023 Conclusions: - Essentially normal study NM cardiolite stress test 2020 Impression: 1. Myocardial perfusion imaging study shows normal myocardial perfusion 2. Gated LVEF is greater than 70% 3. Transient ischemic dilatation not present EKG is nondiagnostic for ischemia US venous duplex LE BI 11/2023 IMPRESSION: No DVT demonstrated in the bilateral lower extremities. Assessment and Plan Assessment Anesthesia Assessment: Chart Reviewed Final Anesthetic Review Family History of Problems with Anesthesia: No History of Problems with Anesthesia: No Documented by User: Faina Pope MD 02/10/24 08:21 PMFSH Past Medical History Medical History History of revision of total replacement of right knee joint DVT (deep venous thrombosis) Arthritis Back pain Hx of blood clots Hx: UTI (urinary tract infection) Elevated cholesterol History of depression History of palpitations Family History Family History Maternal Aunt Substance use disorder Surgical History Surgical History Hx of bilateral cataract extraction History of loop electrical excision procedure (LEEP) History of total right knee replacement (TKR) Hx of colonoscopy Social History Social History Household Members: None Housing: House Are you a primary long term care administrator to a significant other at home: No Do you presently have visiting nurse or other home services: No Alcohol intake: current Alcohol intake frequency: holidays/special occasions only Patient Tobacco Use Status: Never used Tobacco e-Cigarette/Vaping Use: Never Used Second Hand Smoke Exposure: Yes Use of substances other than those prescribed or required for medical reasons: No Have you been hit, kicked, punched, or otherwise hurt by someone within the past year? If so, by whom?: No Are you DNR?: Yes Advance Directives: No Advance Directives Information Provided: Yes Advance Directives on File: No Recently lost weight without trying: No Eating poorly because of decreased appetite: No Nutrition Risks: No Nutritional Risk Poor oral hygiene: No (upper partial denture) service: No Current occupational status: retired Cognitive needs: No Hearing needs: No Vision needs: No Meds Allergies Allergy/AdvReac Type Severity Reaction Status Date / Time almond [ALMOND] Allergy Intermediate SWELLING,IT Verified 01/29/24 10:16 IRA clams [CLAMS] Allergy Intermediate SWELLING,ITCHING,GI Verified 01/29/24 10:16 ISSUES nickel AdvReac Intermediate Unknown Verified 01/29/24 10:16 Home Medications ?Medication ?Instructions ?Recorded ?Confirmed ?Last Taken ?Type omega 2-lmx-piv-fish oil 1,000 mg 1 cap PO DAILY 03/19/21 02/10/24 02/03/24 History (120 mg-180 mg) capsule (Fish Oil) turmeric root extract 1,053 mg 1,076 mg PO BEDTIME 03/19/21 02/02/24 02/03/24 History tablet glucosamine sulf dipot 1 cap PO BID 11/02/23 02/02/24 02/03/24 History chlr,msm,chond 550 mg-C 30 mg-ole 1 mg capsule (Glucosamine Chondroitin) atorvastatin 10 mg tablet 10 mg PO BEDTIME 01/11/24 02/10/24 02/09/24 History calcium carbonate 600 mg-vitamin 1 tab PO DAILY 01/25/24 02/10/24 02/03/24 History D3 5 mcg (200 unit) tablet cranberry 500 mg capsule 500 mg PO BID 01/25/24 02/10/24 02/03/24 History Exam Airway Mallampati Class: II TM Dist: >3cm Neck ROM: Limited Heart: rrr Lungs: cta Assessment and Plan Assessment Anesthesia Assessment: Anesthesia Plan Discussed Final Anesthetic Review NPO: Yes ASA Class: III Final Preanesthetic Review: No Changes in Pt Med Stat, Meds/Allgs Chart Reviewed, Consent Obtained/Reviewed, Anes Risks/Benef Reviewed and DNR Form (If Appl.) (reversed) Patient Risk: Intermediate Procedure Risk: Intermediate Anesthetic Plan Anesthetic Plan: MAC:, Spinal, Regional Block and Agree w/ Assess. and Plan Disposition: Standard PACU
[2024-02-10] VITALS (9 sets, daily range): BP systolic 97–138; BP diastolic 48–74; PULSE 58–95; RESP 14–18; TEMP 36.1–37; O2SAT 93–99; BMI 24.5
--- NOTE | ~2024-02-10 | XR_ITS ---
EXAMINATION: XR KNEE, RIGHT CLINICAL INFORMATION: Status post total knee arthroplasty revision COMPARISON: 05/28/2023 and 11/26/2023 TECHNIQUE: AP and lateral views of the right knee. FINDINGS: Interval revision of the total knee arthroplasty. There is anatomic alignment at patellofemoral and tibiofemoral compartments. No fracture or osteolysis around the new hardware. Postoperative soft tissue gas and effusion of the knee with anterior skin ann in place. XR/XR knee RT 2V IMPRESSION: Interval revision of the total knee arthroplasty. The hardware is in excellent position. No hardware loosening.
--- NOTE | 2024-02-10 07:34 | MHC.SHP ---
Pre-Procedural Eval Section A - 24 Hr Update-Section A only Date of Service: 02/10/24 The patient is an INPATIENT: No Changes since office visit: No Cold of Flu in the past 2 weeks, No New Medical Problems, No Changes in Medication and No Patient answered all questions The patient has been examined within 24 hours of the surgical procedure. The History & Physical has been completed within 30 days and I have reviewed it.: Yes Section B - Complete if H&P > 30 days Chief Complaint: Revision RTK with abx spacer Details of Present Illness: Here for re implantation. Infectious markers negative Relevant Family History (Specify if Yes): No Relevant Social History: None Present Medications: see Short Stay Collaborative assessment Medical History: No relevant PMH History of Previous Operations: Relevant previous surgery/procedure and date(s) Allergies: Allergies Allergy/AdvReac Type Severity Reaction Status Date / Time almond [ALMOND] Allergy Intermediate SWELLING,IT Verified 01/29/24 10:16 IRA clams [CLAMS] Allergy Intermediate SWELLING,ITCHING,GI Verified 01/29/24 10:16 ISSUES nickel AdvReac Intermediate Unknown Verified 01/29/24 10:16 Review of Systems Sugical H&P ROS: Negative: Constitution, Cardiovascular, Respiratory, Neurological, Psychiatric, Hem-Onc, Allergic/Immunologic, Gastrointestinal, Genitourinary, Integumentary, Endocrine and Eyes/Ears/Nose/Throat and Yes, Specify: Musculoskeletal (right knee pain) Exam Surgical H&P Exam: Normal: HEENT, Normal: Heart, Normal: Lungs, Normal: Abdomen, Normal: Skin and Normal: Neurological and Significant Findings: Extremities (no erythema. + effusion. 60 deg ROM) Plan Diagnosis/Plan: Unchanged I have reviewed the history and physical and performed a pertinent physical examination on my patient. No changes have occurred unless specified. We are planning on reimplanting a right TKA today. I discussed the risks benefits and alternatives including but not limited to the risk of pain, infection, stiffness, need for further surgery as well as potential medical complications such as blood clots, pulmonary embolism and cardiac complications. Time Spent With Patient Time: Total time managing care of this patient today ____ minutes.
[2024-02-10 08:11] LABS: Hematocrit 38.6 % (37.0-47.0); Hemoglobin 12.7 g/dl (12.0-16.0)
[2024-02-10] MEDS: Lactated Ringers 1,000 ML 100 ML IVCONT ×4 (08:24→22:11)
[2024-02-10 09:08] LABS: MRSA Nasal PCR NEGATIVE (Negative); SA Nasal PCR NEGATIVE (Negative)
--- NOTE | 2024-02-10 13:17 | PM.OP ---
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 Size 2 Gen2 tibial baseplate with Legion 18 mm contrained insert and 29x7.5 gen2 patella, cemented Surgeon: Tito Barron MD Anesthesia: regional and spinal Was an Production Consultant used for this Procedure?: No Production Consultant: Josee Sullivan Estimated blood loss (mL): 50 Tourniquet time (min): 140 IV fluids (mL): 1,500 Pathology: none sent Condition: stable Disposition: PACU Assessment and Plan (No Qualifiers) Assessment and Plan (1) History of revision of total replacement of right knee joint: Status: Acute Comment: 11/2023-removal prosthesis and insertion antibiotic spacer Plan: lovenox (h/o DVT) wbat
--- NOTE | 2024-02-10 14:37 | P.CONHOSP_ITS ---
History of Present Illness Data of Consult Service Date: 02/10/24 Primary Care Provider: Jose Hanks, [facility]- HPI Reason for consult: Medical management This is a 73-year-old with pertinent history PVCs on atenolol, mood disorder, mixed hyperlipidemia who underwent revision of right TKA by Dr. Barron on 02/09. Hospitalist team consulted found routine medical management. Patient is doing well postop and has no new complaints. Her pain is well controlled with analgesics. No fever, chills, chest discomfort, palpitations, shortness of breath, abdominal pain, changes in urinary or bowel habits. Patient is maintaining normal oxygen saturation on room air. Review of Systems 2 Constitutional: Constitutional: Reports no additional constitutional complaints Cardiovascular: Cardiovascular: Reports no additional cardiovascular complaints Respiratory: Respiratory: Reports no additional respiratory complaints Gastrointestinal: Gastrointestinal: Reports no additional gastrointestinal complaints Genitourinary: Genitourinary: Reports no additional female genitourinary complaints [facility] Medical History History of revision of total replacement of right knee joint DVT (deep venous thrombosis) Arthritis Back pain Hx of blood clots Hx: UTI (urinary tract infection) Elevated cholesterol History of depression History of palpitations Family History Maternal Aunt Substance use disorder Surgical History Hx of bilateral cataract extraction History of loop electrical excision procedure (LEEP) History of total right knee replacement (TKR) Hx of colonoscopy Social History Household Members: None Housing: House Are you a primary child care aide to a significant other at home: No Do you presently have visiting nurse or other home services: No Alcohol intake: current Alcohol intake frequency: holidays/special occasions only Patient Tobacco Use Status: Never used Tobacco e-Cigarette/Vaping Use: Never Used Second Hand Smoke Exposure: Yes Use of substances other than those prescribed or required for medical reasons: No Have you been hit, kicked, punched, or otherwise hurt by someone within the past year? If so, by whom?: No Do you feel safe in your current relationship?: No Current Relationship Is there a partner from a previous relationship who is making you feel unsafe now?: No Are you made to feel afraid or neglected: No Are you DNR?: Yes Advance Directives: No Advance Directives Information Provided: Yes Advance Directives on File: No Do you have a plan to hurt others: No Plan Recently lost weight without trying: No Eating poorly because of decreased appetite: No Nutrition Risks: No Nutritional Risk Patient : No : No Poor oral hygiene: No service: No Current occupational status: retired Cognitive needs: No Hearing needs: No Vision needs: No Meds Allergies Allergy/AdvReac Type Severity Reaction Status Date / Time almond [ALMOND] Allergy Intermediate SWELLING,IT Verified 01/29/24 10:16 IRA clams [CLAMS] Allergy Intermediate SWELLING,ITCHING,GI Verified 01/29/24 10:16 ISSUES nickel AdvReac Intermediate Unknown Verified 01/29/24 10:16 Active Medications: Current Medications Acetaminophen (Acetaminophen 325 Mg Tablet) 650 mg PO Q6H PRN PRN Reason: Pain, Mild (Pain Scale 1-3), fever or headache Atenolol (Atenolol 25 Mg Tablet) 25 mg PO DAILY [place]; Protocol Atorvastatin Calcium (Atorvastatin Calcium 10 Mg Tablet) 10 mg PO BEDTIME [place] Celecoxib (Celecoxib 200 Mg Capsule) 200 mg PO BID [place] Enoxaparin Sodium (Enoxaparin Sodium 40 Mg/0.4 Ml Syringe) 40 mg SUBCUT Q24H [place] Hydromorphone HCl (Hydromorphone Hcl 0.5 Mg/0.5 Ml Syringe) 0.25 mg IVPUSH Q4H PRN; Protocol PRN Reason: Pain, Severe (Pain Scale 7-10) Lactated Ringer's (Lr) 1,000 mls @ 100 mls/hr IVCONT .Q10H [place] Last Admin: 02/10/24 14:16 Dose: 100 mls/hr Lactated Ringer's (Lr) 1,000 mls @ 100 mls/hr IVCONT .Q10H [place] Last Admin: 02/10/24 14:17 Dose: Not Given Cefazolin Sodium/Dextrose (Ancef) 2 gm in 50 mls @ 100 mls/hr IV POSTOP ONE Stop: 02/10/24 16:29 Non-Formulary Medication (Calcium Carbonate-Vitamin D3) 1 tab PO DAILY [place] Non-Formulary Medication (Cranberry) 500 mg PO BID [place] Non-Formulary Medication (Glucos Sul 3xnx-Roy-Mjdgp-C-Mn [Glucosamine Chondroitin]) 1 cap PO BID [place] Non-Formulary Medication ([place] 3-Zot-Xap-Fish Oil [Fish Oil]) 1 cap PO DAILY [place] Non-Formulary Medication (Turmeric Root Extract) 1,076 mg PO BEDTIME [place] Oxycodone HCl (Oxycodone Hcl Immed Release 5 Mg Tablet) 5 mg PO Q4H PRN PRN Reason: Pain, Moderate(Pain Scale 4-6) Oxycodone HCl (Oxycodone Hcl Er 10 Mg Tab.Er.12h) 10 mg PO BID [place] Sertraline HCl (Sertraline Hcl 50 Mg Tablet) 50 mg PO DAILY [facility] Sodium Chloride (0.9 % Sodium Chloride Flush 3 Ml Syringe) 3 ml IVFLUSH QSHIFT [facility] Home Medications ?Medication ?Instructions ?Recorded ?Confirmed ?Last Taken ?Type omega 4-rlg-mwm-fish oil 1,000 mg 1 cap PO DAILY 03/19/21 02/10/24 02/03/24 History (120 mg-180 mg) capsule (Fish Oil) turmeric root extract 1,053 mg 1,076 mg PO BEDTIME 03/19/21 02/02/24 02/03/24 History tablet glucosamine sulf dipot 1 cap PO BID 11/02/23 02/02/24 02/03/24 History chlr,msm,chond 550 mg-C 30 mg-ole 1 mg capsule (Glucosamine Chondroitin) atorvastatin 10 mg tablet 10 mg PO BEDTIME 01/11/24 02/10/24 02/09/24 History calcium carbonate 600 mg-vitamin 1 tab PO DAILY 01/25/24 02/10/24 02/03/24 History D3 5 mcg (200 unit) tablet cranberry 500 mg capsule 500 mg PO BID 01/25/24 02/10/24 02/03/24 History Physical Exam 2 Vital Signs and Narrative: Vital Signs: Last Vital Signs Temp 96.9 F 02/10/24 13:58 Pulse 69 02/10/24 13:58 Resp 18 02/10/24 13:58 BP 107/58 L 02/10/24 13:58 Pulse Ox 98 02/10/24 13:58 O2 Del Method Room Air 02/10/24 13:58 BMI result Body Mass Index 24.5 Middle-aged female lying in bed in no distress Neck supple, no JVD Regular rate and rhythm, S1-S2 heard Regular breath sounds bilaterally, no wheezing or crackles appreciated Abdomen soft nontender, no guarding, no rigidity Patient is awake, alert and oriented to self, place, time and person ; no focal motor deficit Psych: Normal mood Results Labs 02/10/24 07:52 Labs: Laboratory Results - last 24 hr 02/10/24 02/10/24 07:47 07:52 Nasal Screen MRSA (PCR) NEGATIVE Nasal S. aureus Screen NEGATIVE Nasal MRSA/S.aureus Interp SEE NOTE Blood Type B Positive Antibody Screen NEGATIVE Assessment and Plan (1) Mixed hyperlipidemia: Status: Acute (2) PVCs (premature ventricular contractions): Status: Acute (3) Mood disorder: Status: Acute Plan This is a 73-year-old with pertinent history PVCs on atenolol, mood disorder, mixed hyperlipidemia who underwent revision of right TKA by Dr. Barron on 02/09. #. Postop day 0 revision right TKA: Management as per Orthopedic surgery #. History of frequent PVCs: On atenolol #. Mixed hyperlipidemia: On statin #. Disorder: On sertraline Thank you for the consult. Patient is medically stable. Will sign off. Please call if we can help.
[2024-02-10 15:06] LABS: Estimated Glomerular Filt Rate > 60
--- NOTE | 2024-02-10 15:46 | PHA.MEDREC ---
Pharmacy Consult ? Medication Reconciliation Pharmacy has completed the medication reconciliation. Confirmed medications with patient. She confirmed she stoppped her OTC meidication on February 02 for the surgery. The patient also confirmed she is taking the nitro capusel, she started it Wednesday 02/07 and she last took it 02/08.
[2024-02-10] MEDS: 0.9 % Sodium Chloride Flush 3 ML SYRINGE IVFLUSH (16:25)
[2024-02-10] MEDS: ceFAZolin Sodium/Dextrose,Iso 2 GM/50 ML PIGGYBACK IV (16:25)
[2024-02-10] MEDS: HYDROmorphone HCl 0.5 MG/0.5 ML SYRINGE 0.25 MG IVPUSH (17:13)
[2024-02-10] MEDS: oxyCODONE HCl Immed Release 5 MG TABLET PO (19:25)
[2024-02-10] MEDS: Celecoxib 200 MG CAPSULE PO (21:05)
[2024-02-10] MEDS: Atorvastatin Calcium 10 MG TABLET PO (21:05)
[2024-02-10] MEDS: oxyCODONE HCl ER 10 MG TAB.ER.12H PO (22:10)
[2024-02-11] MEDS: HYDROmorphone HCl 0.5 MG/0.5 ML SYRINGE 0.25 MG IVPUSH ×2 (01:04→05:39)
[2024-02-11] MEDS: Lactated Ringers 1,000 ML 100 ML IVCONT ×3 (01:04→19:18)
[2024-02-11 03:08] VITALS: BP 114/57; PULSE 68; RESP 16; TEMP 36.7; O2SAT 97
[2024-02-11] MEDS: oxyCODONE HCl Immed Release 5 MG TABLET PO ×4 (04:34→19:16)
[2024-02-11 06:09] LABS: MANUAL DIFF FLAG NO
[2024-02-11 06:16] LABS: Basophils Percent Auto 0.1 % (0-2); Hematocrit 32.3 % (37.0-47.0); Hemoglobin 10.8 g/dl (12.0-16.0); Imm Gran Abs Auto 0.05 X10*3/uL (0.00-0.03); Imm Gran Pct Auto 0.4 % (0.0-0.4); Lymphocytes Absolute Auto 1.1 X10*3/uL (1.2-4.9); Lymphocytes Percent Auto 8.2 % (20-40); Mean Corpuscular HGB Conc 33.4 g/dl (31.0-35.0); Mean Corpuscular Hemoglobin 29.6 pg (27.0-33.0); Mean Corpuscular Volume 88.5 fL (80.0-98.0); Mean Platelet Volume 10.7 fL (9.4-12.3); Monocytes Absolute Auto 1.4 X10*3/uL (0.1-1.2); Monocytes Percent Auto 11.1 % (2-11); Neutrophils Absolute Auto 10.2 x10*3/uL (2.0-8.3); Neutrophils Percent Auto 80.2 % (45-73); Platelet Count 213 X10*3/uL (160-400); Red Blood Count 3.65 X10*6/uL (4.20-5.50); Red Cell Distribution Width 13.7 % (11.0-16.0); White Blood Count 12.8 X10*3/uL (4.8-10.8)
[2024-02-11 06:35] LABS: Anion Gap 12 (12-20); Blood Urea Nitrogen 20 mg/dL (9-16); Calcium 9.5 mg/dL (8.4-10.2); Carbon Dioxide 25 mmol/L (22-29); Chloride 104 mmol/L (96-108); Estimated Glomerular Filt Rate > 60; Glucose Fasting 142 mg/dL (60-99); Potassium 4.8 mmol/L (3.3-5.1); Sodium 136 mmol/L (135-145)
[2024-02-11 07:35] VITALS: BP 107/57; PULSE 67; RESP 16; TEMP 36.3; O2SAT 96
--- NOTE | 2024-02-11 08:28 | P.PNOP_ITS ---
Subjective Subjective Date of Service: 02/11/24 Interval history: POD 1 s/p Revision RT TKA no overnight events resting in bed denies sob, chest pain, palpitations. Physical Exam Vital Signs: Vital Signs: Last Vital Signs Temp 97.3 F 02/11/24 07:35 Pulse 67 02/11/24 07:35 Resp 16 02/11/24 07:35 BP 107/57 L 02/11/24 07:35 Pulse Ox 96 02/11/24 07:35 O2 Del Method Room Air 02/11/24 07:35 BMI result Body Mass Index 24.5 Const: General: cooperative, healthy appearing and no acute distress Resp: Effort & Inspection: normal respiratory effort and able to speak in complete sentences Cardio: Rate: regular rate Peripheral pulses: Peripheral pulses 2+ throughout GI: Palpation (GI): Soft to palpation Skin: General skin exam: no rashes or lesions noted Extrem: Other: bandage clean dry and intact. Jerome intact. No erythema or joint effusion. Calf supple nontender. Neurovascularly intact. Procedures Date of Service Date of Service: 02/11/24 Progress Note: A&P Assessment and plan (1) Status post revision of total replacement of right knee: Status: Acute Assessment and Plan: * Continue pain mgmnt * Begin Aspirin for dvt ppx * begin PT for Revision RT TKA * Dispo planning-Pending PT eval, pain mgmnt Time Spent With Patient Time: Total time managing care of this patient today ____ minutes. Quality Stroke Does the patient have a stroke diagnosis?: No VTE Prior VTE?: No VTE Risk Level:: Surgical - very high VTE Device Contraindication: N/A - Device Ordered VTE Drug Contraindication: N/A - Med Ordered
--- NOTE | 2024-02-11 08:55 | MHC.CM.PN ---
IMM 02/10/24 S/P revision R TK. Patient lives alone. She uses a walker. She is independent with equipment for ADLs. DP Home with [facility]. Her dtr will provide transportation home.
--- NOTE | 2024-02-11 09:08 | HO.POSTANES ---
Post Anesthesia Evaluation Post Anesthesia Evaluation Date of Service: 02/11/24 Vital Signs: Vital Signs Temp Pulse Resp BP Pulse Ox O2 Del Method 02/11/24 07:35 97.3 F 67 16 107/57 L 96 Room Air 02/11/24 03:08 98.1 F 68 16 114/57 L 97 Room Air Anesthesia: Spinal Mental Status: Awake Pain Control: Satisfactory Nausea/Vomiting: None Hydration: Adequate Anesthesia-Related Issues: No Anes. Related Issues
[2024-02-11] MEDS: Calcium + Vitamin D 250 MG TABLET 500 MG PO (09:10)
[2024-02-11 09:11] VITALS: BP 110/60; PULSE 68
[2024-02-11] MEDS: atenoloL 25 MG TABLET PO (09:11)
[2024-02-11] MEDS: Sertraline HCL 50 MG TABLET PO (09:11)
[2024-02-11] MEDS: Acetaminophen 325 MG TABLET 650 MG PO (09:17)
[2024-02-11] MEDS: Celecoxib 200 MG CAPSULE PO ×2 (09:17→19:16)
--- NOTE | 2024-02-11 09:18 | PC.NURSE ---
PRN tylenol 650mg PRN given for 6/10 pain per patient request.
[2024-02-11] MEDS: oxyCODONE HCl ER 10 MG TAB.ER.12H PO ×2 (10:17→19:16)
[2024-02-11] MEDS: Enoxaparin Sodium 40 MG/0.4 ML SYRINGE SUBCUT (12:35)
[2024-02-11 15:37] VITALS: BP 101/52; PULSE 70; RESP 18; TEMP 36.3; O2SAT 94
[2024-02-11] MEDS: Atorvastatin Calcium 10 MG TABLET PO (19:16)
[2024-02-11 19:23] VITALS: BP 111/59; PULSE 63; RESP 18; TEMP 36.2; O2SAT 96
[2024-02-12 03:15] VITALS: BP 112/61; PULSE 71; RESP 16; TEMP 37.2; O2SAT 92
[2024-02-12] MEDS: oxyCODONE HCl Immed Release 5 MG TABLET PO (03:27)
[2024-02-12] MEDS: Lactated Ringers 1,000 ML 100 ML IVCONT (03:28)
[2024-02-12 05:58] LABS: MANUAL DIFF FLAG NO
[2024-02-12 06:05] LABS: Basophils Percent Auto 0.2 % (0-2); Eosinophils Absolute Auto 0.1 X10*3/uL (0.0-0.4); Eosinophils Percent Auto 0.8 % (0-4); Hematocrit 28.3 % (37.0-47.0); Hemoglobin 9.2 g/dl (12.0-16.0); Imm Gran Abs Auto 0.04 X10*3/uL (0.00-0.03); Imm Gran Pct Auto 0.5 % (0.0-0.4); Lymphocytes Absolute Auto 2.1 X10*3/uL (1.2-4.9); Lymphocytes Percent Auto 24.3 % (20-40); Mean Corpuscular HGB Conc 32.5 g/dl (31.0-35.0); Mean Corpuscular Hemoglobin 29.4 pg (27.0-33.0); Mean Corpuscular Volume 90.4 fL (80.0-98.0); Mean Platelet Volume 10.7 fL (9.4-12.3); Monocytes Absolute Auto 1.1 X10*3/uL (0.1-1.2); Monocytes Percent Auto 12.5 % (2-11); Neutrophils Absolute Auto 5.3 x10*3/uL (2.0-8.3); Neutrophils Percent Auto 61.7 % (45-73); Platelet Count 175 X10*3/uL (160-400); Red Blood Count 3.13 X10*6/uL (4.20-5.50); Red Cell Distribution Width 14.1 % (11.0-16.0); White Blood Count 8.6 X10*3/uL (4.8-10.8)
[2024-02-12 07:33] VITALS: BP 116/56; PULSE 71; RESP 72; TEMP 37; O2SAT 94
--- NOTE | 2024-02-12 07:48 | P.DS_ITS ---
DS: Providers Provider Date of Service: 02/12/24 Date of admission: 02/10/24 07:18 Primary care physician: MIRA Dejesus Consults: 02/10/24 13:58 Consult to Hospitalist Routine Comment: Consulting Provider: Hospitalist Reason For Exam: routine medical management DS: Diagnosis Discharge Diagnosis (1) Status post revision of total replacement of right knee: Status: Acute DS: Summary Hospital Course Hospital Course: The patient underwent a successful right total knee arthroplasty revision, they were transferred to PACU and then to the floor to recover. During their stay, their vitals were stable, afebrile at 98.9. Labs were unremarkable, H/H 9.2/28.3. POD 1 they were started on Lovenox for DVT ppx, they also received Physical Therapy services twice a day. Prior to discharge, their dressing wasclean dry and intact, and the plan was to be discharged home with VNA services. Time Attestation Total time managing care of this patient today: 30 mintues. Discharge Coordination Time (in mins): 30 Quality: Safe Use of Opioids Does Pt have an Active Cancer Diagnosis on the Problem List?: No Quality: Stroke Does the patient have a stroke diagnosis?: No Physical Exam Vital Signs: Vital Signs: Last Vital Signs Temp 98.6 F 02/12/24 07:33 Pulse 71 02/12/24 07:33 Resp 72 H 02/12/24 07:33 BP 116/56 L 02/12/24 07:33 Pulse Ox 94 02/12/24 07:33 O2 Del Method Room Air 02/12/24 07:33 BMI result Body Mass Index 24.5 Const: General: cooperative, healthy appearing and no acute distress Resp: Effort & Inspection: normal respiratory effort and able to speak in complete sentences Cardio: Rate: regular rate Peripheral pulses: Peripheral pulses 2+ throughout GI: Palpation (GI): Soft to palpation Skin: Lesions: no lesions Rashes: no rashes Extrem: Other: right knee dressing is c/d/i. Able to dorsi/plantar flex. Calf is supple and nontender. Sensation intact. Pedal pulse intact. DS: Data Data Completed and Pending Completed studies during hospitalization [Text1]: Procedures Insertion of Infusion Device into Superior Vena Cava, Percutaneous Approach (11/11/23) Insertion of Spacer into Right Knee Joint, Open Approach (11/11/23) Introduction of Anesthetic Agent into Peripheral Nerves and Plexi, Percutaneous Approach (11/11/23) Removal of Synthetic Substitute from Right Knee Joint, Open Approach (11/11/23) Ultrasonography of Superior Vena Cava, Guidance (11/11/23) Pending studies at discharge: Pending at discharge 02/10/24 12:32 Surgical [PTH] Routine Labs on day of discharge: Laboratory Results - last 24 hr 02/12/24 05:43 WBC 8.6 RBC 3.13 L Hgb 9.2 L Hct 28.3 L MCV 90.4 MCH 29.4 MCHC 32.5 RDW 14.1 Plt Count 175 MPV 10.7 Immature Gran % (Auto) 0.5 H Neut % (Auto) 61.7 Lymph % (Auto) 24.3 [place] % (Auto) 12.5 H Eos % (Auto) 0.8 Baso % (Auto) 0.2 Lymph # (Auto) 2.1 [place] # (Auto) 1.1 Eos # (Auto) 0.1 Baso # (Auto) 0.0 Abs Immat Gran (auto) 0.04 H Absolute Neuts (auto) 5.3 Absolute Nucleated RBC 0.000 Nucleated RBC % (auto) 0.0 Discharge Plan Discharge Anticipated Discharge Date/Time: 02/12/24 13:41 Patient Disposition: Home Health Service Discharge Diagnosis: s/p RTK revision Referrals: Josee Sullivan PA-C [Physician Vc++ Developer] - 02/25/24 3:00 pm Discharge Medications: New enoxaparin 40 mg/0.4 mL Syringe 40 mg subcut Q24H 42 Days Qty: 16.8 0RF celecoxib 200 mg Capsule 200 mg PO BID 30 Days Qty: 60 0RF acetaminophen 325 mg Tablet 650 mg PO Q6H PRN (Reason: Pain, Mild (Pain Scale 1-3), fever or headache) 30 Days Qty: 240 0RF oxycodone 5 mg Tablet 5 mg PO Q4H PRN (Reason: Pain, Moderate(Pain Scale 4-6)) 7 Days Qty: 42 0RF Rx Instructions: Partial Fill upon patient request. Continued atenolol 25 mg tablet 25 mg PO DAILY Qty: 90 1RF nitrofurantoin monohyd/m-cryst [Macrobid] 100 mg capsule 100 mg PO BID 7 Days Qty: 14 0RF Rx Instructions: must administer with a meal/food sulfamethoxazole-trimethoprim 800-160 mg tablet 1 tab PO DAILY Glucosamine Chondroitin 550-30-1 mg Capsule 1 cap PO BID omega 5-gqv-nce-fish oil [Fish Oil] 1,000 mg (120 mg-180 mg) capsule 1 cap PO DAILY turmeric root extract 1,053 mg tablet 1,076 mg PO BEDTIME atorvastatin 10 mg tablet 10 mg PO BEDTIME sertraline 50 mg tablet 50 mg PO DAILY 90 Days Qty: 90 1RF calcium carbonate-vitamin D3 600 mg-5 mcg (200 unit) tablet 1 tab PO DAILY cranberry 500 mg capsule 500 mg PO BID Rx Instructions: administer with meals Discharge Orders: Discharge Order (Routine); Ordered 02/12/24 Ordered By: Josee Sullivan Diet: Advance to usual diet Activity on Discharge: Use cane or walker Stand Alone Forms: Patient Portal Discharge page Print Language: Cymro Care Plan Goals: restore fxn to the right knee Health Concerns: none Plan of Treatment: Physical Therapy for ROM 0-120, quad strength, gait training. Use walker for ambulation Limit stair climbing, No shower, No tub bath, No driving Continue anticoagulant x 6 weeks (Lovenox) Keep Aquacel dressing clean, dry and intact. Follow up with orthopedics in 2 weeks Assessment: stable for discharge
--- NOTE | 2024-02-12 07:49 | P.F2F_ITS ---
Service Date Service Date: 02/12/24 Encounter Date of encounter: 02/12/24 Reasons for Services Signs and symptoms assessed: s/p RTKA revison. Pt. is considered homebound due to recent surgery. Unable to drive, poor balance, poor gait mechanics. Reason for physical therapy: home safety and mobility, therapeutic exercises, restore joint function, gait/transfer training, assess need for DME and ADL training Homebound: Leaving the home is medically contraindicated at this time without the asist of a device and/or another person due th the listed conditions above and below. Reason homebound: unsteady gait / fall risk, leg weakness, pain with ambulation, pain with transfers, poor balance / fall risk and unable to drive Certification: Based on the above findings, I certify that this patient is confined to the home and needs intermittent retirement care, physical therapy and/or speech therapy, or continues to need occupational therapy. The patient is under my care, and I have initiated the establishment of the plan of care. The patient will be followed by a physician who will periodically review the plan of care. Time Spent With Patient Time: Total time managing care of this patient today ____ minutes.
[2024-02-12] MEDS: atenoloL 25 MG TABLET PO (08:08)
[2024-02-12] MEDS: Calcium + Vitamin D 250 MG TABLET 500 MG PO (08:08)
[2024-02-12] MEDS: oxyCODONE HCl ER 10 MG TAB.ER.12H PO (08:09)
[2024-02-12] MEDS: Celecoxib 200 MG CAPSULE PO (08:10)
[2024-02-12] MEDS: Sertraline HCL 50 MG TABLET PO (08:10)
--- NOTE | 2024-02-12 08:48 | MHC.CM.PN ---
[facility]SPORT
[2024-02-12 08:50] VITALS: BP 116/56; PULSE 71; O2SAT 94
--- NOTE | 2024-02-26 07:37 | W.PM.OPN ---
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 Size 2 Gen2 tibial baseplate with Legion 18 mm constrained insert and 29x7.5 gen2 patella, cemented Surgeon: Tito Barron MD Anesthesia: regional and spinal Was an Meat Pumper used for this Procedure?: No Meat Pumper: Josee Sullivan Estimated blood loss (mL): 50 Tourniquet time (min): 140 IV fluids (mL): 1,500 Pathology: none sent Condition: stable Disposition: PACU Procedure in detail: The patient was brought to the operating room and prepped and draped in standard sterile fashion. A time-out was called to identify proper site proper procedure proper surgeon and IV antibiotics were administered. 1 g of IV tranexamic acid was administered. I began by making a midline incision through the prior incision to the retinaculum and performed a medial parapatellar arthrotomy. All prior suture was removed. The patella was translated laterally and the knee was flexed up. The femur and tibia were then removed easily as they had been loosley cemented in. I then irrigated extensively and removed all residual cement and debrided the bony and soft tissued down to bleeding tissue. I then used an intrameduallry guide to make my clean up distal femoral cut. There was mild medial femoral condyle bone loss and so I placed a 3 revision cutting block and, using the medial epicondyles for reference I made my anterior and posterior and chamfer cuts. I needed a 5 mm medial augment only. A box cut was made and I then turned my attention to the tibia. There were no uncontained defects and only small defects that did not require augmentation. I used extramedually reference and made my tibial cut while protecting the soft tissues and sized a 2 baseplate. This was provisionally placed and I trialed with a stemmed femur and was satisfied with the balance and stability and range and tracking. I then cleaned up the patella and removed all excess cement and irrigated copiously and tiraled a 29 x 7.5 patellar. Again I was satisfied with the tracking. All triales were then removed and I cipiously irrigated. @ bags of Palacos bone cement with gentamycin was prepared on the back table I then cemented the patella, tibia and femur in standard fashion. Axial compression and a clamp were used while the cement dried. Once the cement was hard on the back table all excess cement was removed and I trialed different inserts until I selected a #18 constrained insert. The final insert was placed and local TXA was administered.The knee was then closed with a running Quill suture, a 3 0 Vicryl and ann on the skin. Patient was then placed in sterile dressing and brought to recovery room in stable condition there were no known complications.
== END 2024-02-12 11:31 | disposition home health service (06) | DRG 468 ==
LOC: HO.SSSA 07:20 → HO.S3 13:13
PROVIDERS: Orthopaedic Surgery; Admitting Provider Physician Assistant; PCP Nurse Practitioner Family; Visit Provider Physician Assistant
PROC: 0SPT0JZ Removal of Synthetic Substitute from Right Knee Joint, Femoral Surface, Open Approach (ICD-10-PCS; CPT 27487; principal; 2024-02-10 09:30)
DX: T84.53XA Infection and inflammatory reaction due to internal right knee prosthesis, initial encounter (principal); G89.18 Other acute postprocedural pain; E78.2 Mixed hyperlipidemia; I49.3 Ventricular premature depolarization; F39 Unspecified mood [affective] disorder; Z79.899 Other long term (current) drug therapy
CPT/HCPCS: 36415; 73560; 80048; 82565; 85014; 85018; 85025; 86850; 86900; 86901; 87640; 87641; 88305; 88311; 97110; 97116; 97161; C1713; C1776; J0131; J0171; J0665; J0690; J1100; J1170; J1650; J2250; J2405; J2704; J3010; J7120

== ENCOUNTER → 2024-02-10 07:18 | Outpatient (BNV) | payer MEDICARE, OTHER, SELFPAY | PROVIDERS: Admitting Provider Physician Assistant; PCP Nurse Practitioner Family; Visit Provider Orthopaedic Surgery | DX: Z96.651 Presence of right artificial knee joint (principal) | CPT/HCPCS: 27487; 99024; G0180 ==

== ENCOUNTER → 2024-02-10 07:18 | Outpatient (BNV) | payer MEDICARE, OTHER, SELFPAY | PROVIDERS: Admitting Provider Physician Assistant; PCP Nurse Practitioner Family; Visit Provider Student in an Organized Health Care Education/Training Program | DX: E78.2 Mixed hyperlipidemia (principal); I49.3 Ventricular premature depolarization; F39 Unspecified mood [affective] disorder | CPT/HCPCS: 99222 ==

== ENCOUNTER 2024-02-25 14:51 | Outpatient (AMB) | payer MEDICARE, OTHER, SELFPAY ==
--- NOTE | 2024-02-25 15:05 | MHC.OFFVIS ---
Intake Visit Reasons: 2WK PO: R TKA Revision w/NE 02/10/24 Intake Note: Bety is a 73 year old female who presents today for a post op appointment s/p R TKA Revision 02/10/24 NE. Patient reports no pain at the moment. Bandage was removed. Allergies almond [ALMOND] Allergy (Intermediate, Verified 02/25/24 15:09) SWELLING,ITCHING clams [CLAMS] Allergy (Intermediate, Verified 02/25/24 15:09) SWELLING,ITCHING,GI ISSUES nickel Adverse Reaction (Intermediate, Verified 02/25/24 15:09) Unknown HPI HPI 2WK PO: R TKA Revision w/NE 02/10/24: Details: 73-year-old female who presents in the office today 15 days status post revision of a right total knee arthroplasty, which was performed on 02/10/[address] Barron.? ? While in the office today, the patient reports no pain. She states she has been working on her ROM. Due to not being able to drive at this time she would like to see if she can have the home physical therapy extended. ? PFSH Medical History History of revision of total replacement of right knee joint DVT (deep venous thrombosis) Arthritis Back pain Hx of blood clots Hx: UTI (urinary tract infection) Elevated cholesterol History of depression History of palpitations Surgical History Hx of bilateral cataract extraction History of loop electrical excision procedure (LEEP) History of total right knee replacement (TKR) Hx of colonoscopy Family History Maternal Aunt Substance use disorder Social History Household Members: None Housing: House Are you a primary career development consultant to a significant other at home: No Do you presently have visiting nurse or other home services: No Alcohol intake: current Alcohol intake frequency: holidays/special occasions only Patient Tobacco Use Status: Never used Tobacco e-Cigarette/Vaping Use: Never Used Second Hand Smoke Exposure: Yes service: No Current occupational status: retired Cognitive needs: No Hearing needs: No Vision needs: No Review of Systems Const All systems reviewed & are unremarkable except as noted in HPI and below Physical Exam Const General: cooperative, healthy appearing and no acute distress Resp Effort & Inspection: normal respiratory effort and able to speak in complete sentences Cardio Rate: regular rate Peripheral pulses: Peripheral pulses 2+ throughout GI Palpation (GI): Soft to palpation Skin Lesions: no lesions Rashes: no rashes Extrem Other: Right knee: Incision site is clean, dry, and intact. Tosha are intact. No surrounding erythema or drainage. No signs of infection. Active ROM is 15-110 degrees. Passive ROM is 0-110 degrees. Quad weakness noted on exam. No palpable deformity on the quad tendon attachment. Sensation intact. ? Assessment & Plan Assessment & Plan (1) Infection of prosthetic right knee joint: Comment: area appears clear Code(s): T84.53XA - Infection and inflammatory reaction due to internal right knee prosthesis, initial encounter Category: Medical Qualifiers: Encounter type: subsequent encounter Qualified Code(s): T84.53XD - Infection and inflammatory reaction due to internal right knee prosthesis, subsequent encounter Plan Ms. Fritz a 73-year-old female who presents in the office today 15 days status post revision of a right total knee arthroplasty, which was performed on 02/10/[address] Barron.? ? While in the office today, the patient reports no pain. She states she has been working on her ROM. Due to not being able to drive at this time she would like to see if she can have the home physical therapy extended.? ? Tosha were removed and steri-stripes were applied. The office will attempt to get the patient?s home physical therapy extended due to her not having access to transportation. Follow-up will be in four weeks, or sooner if needed. ? Patient Instructions: Scribed by Tahmina Shetty medical secretary, for Josee Sullivan PA-C on 02/25/2024 at 3:46 pm, EST.? Coding Level of Care Code Global (21243) Diagnoses Infection associated with internal right knee prosthesis, subsequent encounter T84.53XD Encounter type: subsequent encounter
== END 2024-02-25 15:25 | disposition home or self-care (01) ==
PROVIDERS: PCP Nurse Practitioner Family; Visit Provider Physician Assistant
DX: T84.53XD Infection and inflammatory reaction due to internal right knee prosthesis, subsequent encounter (principal)
CPT/HCPCS: 99024

== ENCOUNTER → 2024-02-25 14:51 | Outpatient (BNVA) | payer MEDICARE, OTHER, SELFPAY | PROVIDERS: PCP Nurse Practitioner Family; Visit Provider Physician Assistant | DX: T84.53XD Infection and inflammatory reaction due to internal right knee prosthesis, subsequent encounter (principal); Z96.651 Presence of right artificial knee joint | CPT/HCPCS: 99212 ==

== ENCOUNTER 2024-03-17 08:12 | Outpatient (REF) | payer MEDICARE, OTHER, SELFPAY ==
--- NOTE | ~2024-03-17 | XR_ITS ---
EXAMINATION: XR KNEE, RIGHT XR KNEE AP STANDING CLINICAL INFORMATION: Right knee pain. COMPARISON: Prior radiographs, most recently 02/10/2024. TECHNIQUE: Lateral axial views of the right knee are submitted. AP bilateral standing view of the knees was obtained. FINDINGS: Prosthetic components of the right total knee arthroplasty are appropriately aligned without periprosthetic fracture or abnormal lucency. No component migration. No joint effusion. There are periprosthetic and atherosclerotic calcifications. The lateral and medial joint space compartments of the left knee are well-maintained. There is mild peripheral osteophyte formation of the medial joint space compartment. No fracture or dislocation is seen. There is no significant varus or valgus configuration. There are atherosclerotic calcifications of the left lower leg. XR/XR knee RT 3V IMPRESSION: 1. Appropriate of the right total knee arthroplasty without evidence of complications. 2. There is very mild osteoarthritic change of the medial joint space compartment of the left knee. Electronically signed by: Jose Shipley MD 04/13/2024 07:47 PM EDT
== END 2024-03-17 08:13 | disposition home or self-care (01) ==
LOC: HO.HOSX 08:12
PROVIDERS: Visit Provider Orthopaedic Surgery
DX: M25.561 Pain in right knee (principal); Z96.651 Presence of right artificial knee joint
CPT/HCPCS: 73562; 99212

== ENCOUNTER 2024-03-17 10:28 | Outpatient (AMB) | payer MEDICARE, OTHER, SELFPAY ==
--- NOTE | 2024-03-17 10:43 | MHC.OFFVIS ---
Vital Signs 03/17/24 10:47 Height 5 ft 5 in Weight 147 lb BMI 24.5 Intake Visit Reasons: 6WK PO: R TKA Revision w/NE 02/10/24 Intake Note: Bety is a 73 year old female who presents today for a post op appointment s/p R TKA Revision 02/10/24 NE. Patient reports that she is doing very well she would like to drive. She will need a rx for prophulactic abx Allergies almond [ALMOND] Allergy (Intermediate, Verified 02/25/24 15:09) SWELLING,ITCHING clams [CLAMS] Allergy (Intermediate, Verified 02/25/24 15:09) SWELLING,ITCHING,GI ISSUES nickel Adverse Reaction (Intermediate, Verified 02/25/24 15:09) Unknown HPI HPI 6WK PO: R TKA Revision w/NE 02/10/24: Details: Six weeks status post revision right knee arthroplasty. She is doing well. [facility] Medical History History of revision of total replacement of right knee joint DVT (deep venous thrombosis) Arthritis Back pain Hx of blood clots Hx: UTI (urinary tract infection) Elevated cholesterol History of depression History of palpitations Surgical History Hx of bilateral cataract extraction History of loop electrical excision procedure (LEEP) History of total right knee replacement (TKR) Hx of colonoscopy Family History Maternal Aunt Substance use disorder Social History Household Members: None Housing: House Are you a primary assurance services manager health care to a significant other at home: No Do you presently have visiting nurse or other home services: No Alcohol intake: current Alcohol intake frequency: holidays/special occasions only Patient Tobacco Use Status: Never used Tobacco e-Cigarette/Vaping Use: Never Used Second Hand Smoke Exposure: Yes service: No Current occupational status: retired Cognitive needs: No Hearing needs: No Vision needs: No Physical Exam Vital Signs: BMI result Body Mass Index 24.5 Extrem Other: Incision clean dry and intact 5-120 degrees of motion Results Reviewed Results Reviewed: Right revision total knee arthroplasty in expected post operative position with no hardware complications or evidence of loosening Assessment & Plan Assessment & Plan (1) Status post revision of total replacement of right knee: Code(s): Z96.651 - Presence of right artificial knee joint Category: Surgical Plan: Status post revision TKA doing well. Follow up 6 weeks. May discontinue her postoperative anti coagulant. Orders: Orders XR knee RT 3V 03/17/24 M25.561 - Pain in right knee Coding Level of Care Code Global (59797) Diagnoses Status post revision of total replacement of right knee Z96.651
[2024-03-17 10:47] VITALS: BMI 24.5
== END 2024-03-17 11:04 | disposition home or self-care (01) ==
PROVIDERS: PCP Nurse Practitioner Family; Visit Provider Orthopaedic Surgery
DX: Z96.651 Presence of right artificial knee joint (principal)
CPT/HCPCS: 99024

== ENCOUNTER 2024-04-28 11:21 | Outpatient (AMB) | payer MEDICARE, OTHER, SELFPAY ==
--- NOTE | 2024-04-28 11:31 | MHC.OFFVIS ---
Intake Visit Reasons: PO R TKA Revision w/NE 02/10/24 Intake Note: Bety is a 73 year old female who presents today for a post op appointment s/p R TKA Revision 02/10/24 NE. Patient reports that she is doing well, she has some increased pain after physical therapy. She taked Tylenol and Mortrin PRN. She would like to continue Physical therapy - She will need a new Script. Allergies almond [ALMOND] Allergy (Intermediate, Verified 02/25/24 15:09) SWELLING,ITCHING clams [CLAMS] Allergy (Intermediate, Verified 02/25/24 15:09) SWELLING,ITCHING,GI ISSUES nickel Adverse Reaction (Intermediate, Verified 02/25/24 15:09) Unknown HPI HPI PO R TKA Revision w/NE 02/10/24: Details: Bety is a 73 year old female who presents today for a post op appointment s/p R TKA Revision 02/10/24 NE. Patient reports that she is doing well, she has some increased pain after physical therapy. She taked Tylenol and Mortrin PRN. She would like to continue Physical therapy - She will need a new Script. [facility] Medical History History of revision of total replacement of right knee joint DVT (deep venous thrombosis) Arthritis Back pain Hx of blood clots Hx: UTI (urinary tract infection) Elevated cholesterol History of depression History of palpitations Surgical History Hx of bilateral cataract extraction History of loop electrical excision procedure (LEEP) History of total right knee replacement (TKR) Hx of colonoscopy Family History Maternal Aunt Substance use disorder Social History Household Members: None Housing: House Are you a primary medical care evaluation specialist to a significant other at home: No Do you presently have visiting nurse or other home services: No Alcohol intake: current Alcohol intake frequency: holidays/special occasions only Patient Tobacco Use Status: Never used Tobacco e-Cigarette/Vaping Use: Never Used Second Hand Smoke Exposure: Yes service: No Current occupational status: retired Cognitive needs: No Hearing needs: No Vision needs: No Physical Exam Extrem Other: 5-130 degrees of motion Well-healed incision Stable arc of motion No effusion Assessment & Plan Assessment & Plan (1) Status post revision of total replacement of right knee: Code(s): Z96.651 - Presence of right artificial knee joint Category: Surgical Plan: Status post revision TKA doing well. Follow up 9 months. Continue physical therapy. Coding Level of Care Code Global (02955) Diagnoses Status post revision of total replacement of right knee Z96.651
== END 2024-04-28 11:48 | disposition home or self-care (01) ==
PROVIDERS: PCP Nurse Practitioner Family; Visit Provider Orthopaedic Surgery
DX: Z96.651 Presence of right artificial knee joint (principal)
CPT/HCPCS: 99024

== ENCOUNTER → 2024-04-28 11:21 | Outpatient (BNVA) | payer MEDICARE, OTHER, SELFPAY | PROVIDERS: PCP Nurse Practitioner Family; Visit Provider Orthopaedic Surgery | DX: Z47.1 Aftercare following joint replacement surgery (principal); Z96.651 Presence of right artificial knee joint | CPT/HCPCS: 99212 ==

== ENCOUNTER 2024-05-12 13:32 | Outpatient (AMB) | payer MEDICARE, OTHER, SELFPAY ==
[2024-05-12 13:34] VITALS: BP 114/62; PULSE 69; O2SAT 96; BMI 25.0
--- NOTE | 2024-05-12 13:34 | MHC.PC.OV ---
Vital Signs 05/12/24 13:34 Height 5 ft 5 in Weight 150 lb BMI 25.0 BP 114/62 Blood Pressure Location Lt brachial Position Sitting Pulse 69 Pulse Source Pulse Oximeter Pulse Oximetry (%) 96 Intake Visit Reasons: f/u knee surgery Intake Note: pt is here for knee surgery Process Steward Required: No Accompanied by: Self / Same As Patient Allergies almond [ALMOND] Allergy (Intermediate, Verified 05/12/24 17:09) SWELLING,ITCHING clams [CLAMS] Allergy (Intermediate, Verified 05/12/24 17:09) SWELLING,ITCHING,GI ISSUES nickel Adverse Reaction (Intermediate, Verified 05/12/24 17:09) Unknown Tobacco use date assessed: 01/11/24 Fall risk assessment: No Falls in past year Last assessed Fall Risk: 05/12/24 Dental Screening Dental Screen Date: 01/11/24 HPI f/u knee surgery HPI Details Pt underwent a right TKA revision on 02/09. She has followed up with ortho post-op. Pt reports doing well overall since the surgery. She is still going to PT once a week. Pt c/o fatigue and hair loss. She reports this has been present since her surgery. Will order labs. Dyslipidemia: Pt is on atorvastatin 10mg and fish oil. Will order labs. Denies fever, chills, and dizziness. [facility] Medical History Mood disorder PVCs (premature ventricular contractions) Mixed hyperlipidemia History of revision of total replacement of right knee joint DVT (deep venous thrombosis) Arthritis Back pain Hx of blood clots Hx: UTI (urinary tract infection) Elevated cholesterol History of depression History of palpitations Surgical History Hx of bilateral cataract extraction History of loop electrical excision procedure (LEEP) History of total right knee replacement (TKR) Hx of colonoscopy Family History Maternal Aunt Substance use disorder Social History Household Members: None Housing: House Are you a primary janitor caretaker to a significant other at home: No Do you presently have visiting nurse or other home services: No Alcohol intake: current Alcohol intake frequency: holidays/special occasions only Patient Tobacco Use Status: Never used Tobacco e-Cigarette/Vaping Use: Never Used Second Hand Smoke Exposure: Yes service: No Current occupational status: retired Cognitive needs: No Hearing needs: No Vision needs: No Questionnaire PHQ-9 Over the last 2 weeks, how often have you been bothered by any of the following problems? 1. Little interest or pleasure in doing things: several days 2. Feeling down, depressed, or hopeless: several days 3. Trouble falling or staying asleep, or sleeping too much: several days 4. Feeling tired or having little energy: more than half the days 5. Poor appetite or overeating: not at all 6. Feeling bad about yourself - or that you are a failure or have let yourself or your family down: not at all 7. Trouble concentrating on things, such as reading the newspaper or watching television: not at all 8. Moving or speaking so slowly that other people could have noticed. Or the opposite - being so fidgety or restless that you have been moving around a lot more than usual: not at all 9. Thoughts that you would be better off or of hurting yourself in some way: not at all Total score: 5 Depression Screening Interpretation: Negative Depression Screening Done: Yes [id number] - PHQ-9 Billing: Yes Source: Developed by Drs. Dominic Andrew, Pili Levi, Pancho Root and colleagues, with an educational justyn from [employer]. Thrive Questionnaire Date Thrive assessed: 05/12/24 I am a: Patient What is your living situation today?: I have a steady place to live Within the past 12 months, did the food you bought not last and you didn't have the money to get more?: Never true Within the past 12 months, did you worry whether your food would run out before you got money to buy more?: Never true Do you have trouble paying for medicines?: No Do you have trouble getting transportation to medical appointments?: No Do you have trouble paying your heating and electricity bill?: No Do you have trouble taking care of your child, family member or friend?: No Do you have trouble with day-to-day activities such as bathing, preparing meals, shopping, managing finances, etc.?: No Are you interested in more education?: No Please select the resources that you would like help with: None Currently or been in a relationship where the following occur: No concerns reported THRIVE Score: 0 AUDIT C Alcohol Use Questionnaire (AUDIT-C) 1. How often do you have a drink containing alcohol?: Monthly or less 2. How many drinks containing alcohol do you have on a typical day when you are drinking?: 1 or 2 3. How often do you have six or more drinks on one occasion?: Never Total Score: 1 Score Reviewed/Action Taken: Yes ZAMZAM-7 AMB Questionnaire ZAMZAM-7 Date ZAMZAM - 7 assessed: 05/12/24 Feeling nervous, anxious, or on edge: 0 = Not at all Not being able to stop or control worryin = Not at all Worrying too much about different things: 0 = Not at all Trouble relaxin = Not at all Being so restless that it is hard to sit still: 0 = Not at all Becoming easily annoyed or irritable: 0 = Not at all Feeling afraid as if something awful might happen: 0 = Not at all Total ZAMZAM-7 score (0-4 normal; 5-9 mild; 10-14 moderate; 15-21 severe): 0 Source: Developed by Drs. Dominic Andrew, Pili Levi, Pancho Root and colleagues, with an educational justyn from [employer]. ZAMZAM-7 Assessment Billing ZAMZAM-7 Assessment Tool: ZAMZAM-7 Assessment 74452 Review of Systems Const Reports as per HPI Physical exam (Primary Care) Vital Signs: Last Vital Signs Pulse 69 05/12/24 13:34 BP 114/62 05/12/24 13:34 Pulse Ox 96 05/12/24 13:34 BMI result Body Mass Index 25.0 Tobacco/Smoking Status: Tobacco use Status Tobacco use date assessed 01/11/24 05/12/24 13:37 Patient Tobacco Use Status Never used Tobacco 05/12/24 13:37 e-Cigarette/Vaping Use Never Used 05/12/24 13:37 PHQ-9: PHQ-9 Score PHQ-9: Total score 5 05/12/24 14:02 Depression Screening Interpretation: Negative Thrive Assessment: Date of Thrive Assessment Date Thrive assessed 05/12/24 05/12/24 13:37 Currently or been in a relationship where the following occur: No concerns reported Const General: cooperative Orientation/consciousness: patient oriented x3 Resp Effort & Inspection: normal respiratory effort Auscultation: clear to auscultation bilaterally Cardio Rate: regular rate Rhythm: regular rhythm Heart sounds: S1 normal heart sound present, S2 normal heart sound present and Murmur heart sound present systolic (faint) Neuro General: patient oriented x3 Extrem Other: healed well approximated scar to right knee, weak dorsalis pedis pulse to right, though good CMS Psych Appearance: grossly normal Mental Status: mental status grossly normal Speech and movement: Normal speech and movement present Affect: normal affect Attitude: cooperative Thought process: Normal thought process present Thought content: Normal thought content present Insight: Good insight present (Psych) Judgement: Good judgement present (Psych) Coding Level of Care Code Est Pt Level 3 (37539) Diagnoses Dyslipidemia E78.5 Status post revision of total replacement of right knee Z96.651 Fatigue R53.83 Additional Codes ZAMZAM-7 Assessment Billing - ZAMZAM-7 Assessment Tool: ZAMZAM-7 Assessment 40506 ([id number]) Assessment & Plan Assessment & Plan (1) Dyslipidemia: Code(s): E78.5 - Hyperlipidemia, unspecified Category: Medical (2) Status post revision of total replacement of right knee: Code(s): Z96.651 - Presence of right artificial knee joint Category: Surgical (3) Fatigue: Code(s): R53.83 - Other fatigue Category: Medical Plan The patient agreed to the use of a medical and health services manager for this encounter. Scribed for MIRA Mcelroy by Helena Desai medical and health services manager, on 05/12/2024 at 14:00 EST. Orders: Orders Complete Blood Count Auto Diff Today E78.5 - Hyperlipidemia, unspecified, R53.83 - Other fatigue, Z96.651 - Presence of right artificial knee joint UA CC w/rflx Micro + Cult Today E78.5 - Hyperlipidemia, unspecified, R53.83 - Other fatigue, Z96.651 - Presence of right artificial knee joint Vitamin B12 and Folate Today E78.5 - Hyperlipidemia, unspecified, R53.83 - Other fatigue, Z96.651 - Presence of right artificial knee joint Ferritin Today E78.5 - Hyperlipidemia, unspecified, R53.83 - Other fatigue, Z96.651 - Presence of right artificial knee joint IRON PROFILE Today E78.5 - Hyperlipidemia, unspecified, R53.83 - Other fatigue, Z96.651 - Presence of right artificial knee joint Comprehensive [place]. Panel Fast Today E78.5 - Hyperlipidemia, unspecified, R53.83 - Other fatigue, Z96.651 - Presence of right artificial knee joint TSH reflex Free T4 Today E78.5 - Hyperlipidemia, unspecified, R53.83 - Other fatigue, Z96.651 - Presence of right artificial knee joint Lipid Panel Today E78.5 - Hyperlipidemia, unspecified, R53.83 - Other fatigue, Z96.651 - Presence of right artificial knee joint Hemoglobin Electrophoresis Today R53.83 - Other fatigue
== END 2024-05-12 14:19 | disposition home or self-care (01) ==
PROVIDERS: PCP Nurse Practitioner Family; Visit Provider Nurse Practitioner Family
DX: E78.5 Hyperlipidemia, unspecified (principal); Z96.651 Presence of right artificial knee joint; R53.83 Other fatigue

== ENCOUNTER → 2024-05-12 13:32 | Outpatient (BNVA) | payer MEDICARE, OTHER, SELFPAY | PROVIDERS: PCP Nurse Practitioner Family; Visit Provider Nurse Practitioner Family | DX: E78.5 Hyperlipidemia, unspecified (principal); R53.83 Other fatigue; Z96.651 Presence of right artificial knee joint | CPT/HCPCS: 96127; 99212 ==

== ENCOUNTER 2024-05-16 09:30 | Outpatient (REF) | payer MEDICARE, OTHER, SELFPAY ==
[2024-05-16 13:02] LABS: MANUAL DIFF FLAG NO
[2024-05-16 13:12] LABS: Basophils Percent Auto 0.4 % (0-2); Eosinophils Absolute Auto 0.2 X10*3/uL (0.0-0.4); Eosinophils Percent Auto 2.1 % (0-4); Hematocrit 40.3 % (37.0-47.0); Hemoglobin 12.9 g/dl (12.0-16.0); Imm Gran Abs Auto 0.01 X10*3/uL (0.00-0.03); Imm Gran Pct Auto 0.1 % (0.0-0.4); Lymphocytes Absolute Auto 2.5 X10*3/uL (1.2-4.9); Mean Corpuscular Hemoglobin 28.4 pg (27.0-33.0); Mean Corpuscular Volume 88.6 fL (80.0-98.0); Mean Platelet Volume 10.9 fL (9.4-12.3); Monocytes Absolute Auto 0.8 X10*3/uL (0.1-1.2); Monocytes Percent Auto 11.3 % (2-11); Neutrophils Absolute Auto 3.6 x10*3/uL (2.0-8.3); Neutrophils Percent Auto 51.1 % (45-73); Platelet Count 297 X10*3/uL (160-400); Red Blood Count 4.55 X10*6/uL (4.20-5.50); Red Cell Distribution Width 14.9 % (11.0-16.0); White Blood Count 7.1 X10*3/uL (4.8-10.8)
[2024-05-16 13:28] LABS: Alanine Aminotransferase 17 U/L (0-31); Albumin Level 4.2 g/dL (3.5-5.0); Alkaline Phosphatase 57 U/L (39-117); Anion Gap 11 (12-20); Aspartate Amino Transferase 19 U/L (5-31); Bilirubin Total 0.5 mg/dL (0.0-1.0); Blood Urea Nitrogen 24 mg/dL (9-16); Calcium 10.3 mg/dL (8.4-10.2); Carbon Dioxide 27 mmol/L (22-29); Chloride 103 mmol/L (96-108); Cholesterol 163 mg/dL (<200); Estimated Glomerular Filt Rate > 60; Glucose Fasting 96 mg/dL (60-99); HDL Cholesterol 71 mg/dL (>40); Iron 71 mcg/dL (30-160); LDL Cholesterol Calculated 71 mg/dL (<100); Percent Iron Saturation 18 % (15-50); Potassium 3.8 mmol/L (3.3-5.1); Sodium 137 mmol/L (135-145); Total Iron Binding Capacity 388 mcg/dL (228-428); Total Protein 7.3 g/dL (6.5-8.0); Triglycerides 109 mg/dL (<150); Unsaturated Iron Binding 317 ug/dL
[2024-05-16 13:47] LABS: Ferritin 25 ng/mL (10-250); TSH reflex Free T4 2.48 uIU/mL (0.32-4.0)
[2024-05-16 13:56] LABS: Appearance Urine Cloudy; Color Urine Yellow; Glucose Urine UA Negative (Negative); Leukocyte Esterase Urine Large (3+) (Negative); Nitrite Urine Positive (Negative); PH 5.5 (5.0-9.0); Specific Gravity - Urine 1.015 (1.005-1.025); UMIC TRIGGER UACC YES; Urine Blood Small (1+) (Negative); Urine Ketones Negative (Negative); Urine Protein Negative (Neg-Trace)
[2024-05-16 13:59] LABS: Folate 10.3 ng/mL (> or = 4.0); Vitamin B12 237 pg/mL (200-900)
[2024-05-16 14:26] LABS: Bacteria Urine 4+ (None Seen); Hyaline Casts Urine 0-2 /LPF (0-2); RBC Urine 0-2 /HPF (0-2); Squamous Epithelial Cell Urine 0-2 /HPF (0-2); UACC Culture Trigger YES; WBC Urine >50 /HPF (0-5)
[2024-05-17 12:38] LABS: Hematocrit 41.5 % (35.0-45.0); Hemoglobin 13.1 g/dL (11.7-15.5); RBC 4.51 Million/uL (3.80-5.10); RDW 14.3 % (11.0-15.0)
== END 2024-05-16 09:31 | disposition home or self-care (01) ==
LOC: HO.HMGCLDS 09:30
PROVIDERS: PCP Nurse Practitioner Family; Visit Provider Nurse Practitioner Family
DX: E78.5 Hyperlipidemia, unspecified (principal); Z96.651 Presence of right artificial knee joint; R53.83 Other fatigue
CPT/HCPCS: 36415; 80053; 80061; 81001; 82607; 82728; 82746; 83020; 83540; 84443; 85014; 85018; 85025; 85041; 87086; 87088; 87186

== ENCOUNTER 2024-05-25 10:00 | Outpatient (RCR) | payer MEDICARE, OTHER, SELFPAY ==
--- NOTE | 2024-03-31 12:04 | MHC.PT.EP ---
[facility] [place] Office [place] Office [place] Office [address] Ruddy Morris [address] [phone] F: [phone] F: [phone] F: [phone] F: [phone] Physical Therapy Plan of Care Date of Evaluation: 03/31/24 Date of Surgery: 02/10/2024 Diagnosis: s/p R TKA revision Assessment: Patient is a 73 year old female presenting to PT s/p R TKA revision on 02/10/2024. She presents today with impairments in pain, knee strength, hip strength, gait mechanics. 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 Clinical presentation today is most consistent with signs and sx associated with s/p R TKA revision 02/10/2024 and pt will benefit from skilled PT 2 week x 4 weeks to address the following problems and impairments noted upon evaluation: pain, knee strength, hip strength, gait mechanics. 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 The prescribed treatment plan of care is medically necessary. Co-morbidities of hx DVT were identified and taken into considerations of plan of care. Pt was educated on HEP, role of PT, prognosis, POC. Frequency and Duration: The patient will be seen 2 x week x 4 weeks Short Term Goals: Pt will demonstrate ability to perform SLR without lag in 2 weeks. Pt will demonstrate hip MMT strength at least 4/5 in 2 weeks. Pt will demonstrate 5/5 knee MMT strength in 2 weeks. Residential Goals: Pt will demonstrate improved LEFI score by 9 points in 4 weeks for improved functional mobility. Pt will demonstrate ability to ambulate without device and good mechanics in 4 weeks for improved access to her home and community. Pt will demonstrate ability to negotiate stairs with min to no difficulty in 4 weeks for improved access to her home. Treatment Plan: Modalities to reduce pain, spasms and effusion. Manual therapy to restore motion and function. Therapeutic exercise to improve strength and flexibility. Neuromuscular re-education for posture and balance. Therapeutic activities to return to functional activities of daily living. Electronically signed by: Malou Retana, PT, DPT, ATC Please sign and return to therapist. Thank you for your referral.
--- NOTE | 2024-05-25 10:58 | MHC.PT.DC ---
[facility] [place] Office [place] Office [place] Office [address] Ruddy Morris [address] [phone] F: [phone] F: [phone] F: [phone] F: [phone] Physical Therapy Discharge Report Diagnosis: s/p R TKA revision Date of Surgery: 02/10/2024 Date of Evaluation: 03/31/24 Date of Discharge: 05/25/24 Treatments to Date: 13 Cancellations to Date: No Shows to Date: Discharge Status: Independent with HEP Patient Elected to Stop Discharge Summary: 05/25/2024: Pt has made good progress since start of care. Unfortunately she is still experiencing a lag with SLR which is also notable during her gait as she doesn't fully get TKE. She has this range passively but actively and in terms of strength she is still with impairments. She feels ready to continue with her HEP at home and I feel this is reasonable as she is independent and compliant with her HEP. She knows to continue working on her exercises. Electronically signed by: Malou Retana, PT, DPT, ATC Please sign and return to therapist. Thank you for your referral.
== END 2024-05-25 10:59 | disposition home or self-care (01) ==
LOC: HO.PTCHIC 10:00
PROVIDERS: PCP Nurse Practitioner Family; Visit Provider Orthopaedic Surgery
DX: Z96.651 Presence of right artificial knee joint (principal)
CPT/HCPCS: 97110; 97112; 97161; 97530

== ENCOUNTER 2024-08-16 13:17 | Outpatient (REF) | payer MEDICARE, OTHER, SELFPAY ==
[2024-08-16 16:05] LABS: Appearance Urine Turbid; Color Urine Yellow; Glucose Urine UA Negative (Negative); Leukocyte Esterase Urine Large (3+) (Negative); Nitrite Urine Positive (Negative); PH 5.5 (5.0-9.0); Specific Gravity - Urine 1.015 (1.005-1.025); UMIC TRIGGER UA YES; Urine Blood Moderate (2+) (Negative); Urine Ketones Negative (Negative); Urine Protein Trace mg/dL (Neg-Trace)
[2024-08-16 16:45] LABS: Bacteria Urine 3+ (None Seen); Hyaline Casts Urine 0-2 /LPF (0-2); Squamous Epithelial Cell Urine 0-2 /HPF (0-2)
== END 2024-08-16 13:18 | disposition home or self-care (01) ==
LOC: HO.HMGCLDS 13:17
PROVIDERS: PCP Nurse Practitioner Family; Visit Provider Nurse Practitioner Family
DX: R30.0 Dysuria (principal)
CPT/HCPCS: 81001; 87086; 87088; 87186

== ENCOUNTER 2024-08-29 12:19 | Outpatient (REF) | payer MEDICARE, OTHER, SELFPAY | END 2024-08-29 12:20 | disposition home or self-care (01) | LOC: HO.HMGCLDS 12:19 | PROVIDERS: PCP Nurse Practitioner Family; Visit Provider Nurse Practitioner Family | DX: N39.0 Urinary tract infection, site not specified (principal) | CPT/HCPCS: 87086 ==

== ENCOUNTER 2024-11-16 11:32 | Outpatient (AMB) | payer MEDICARE, OTHER, SELFPAY ==
--- NOTE | 2024-11-16 11:43 | MHC.PC.OV ---
Vital Signs 11/16/24 11:45 Height 5 ft 5 in Weight 163 lb BMI 27.1 BP 116/80 Blood Pressure Location Lt brachial Position Sitting Respiration 15 Pulse 69 Pulse Source Pulse Oximeter Temp 98.3 F Temp Source Oral Pulse Oximetry (%) 97 Oxygen Delivery Method Room Air Intake Visit Reasons: 6 months f/up Intake Note: Pt is here today for her 6mo. f/u Allergies almond [ALMOND] Allergy (Intermediate, Verified 11/16/24 11:48) SWELLING,ITCHING clams [CLAMS] Allergy (Intermediate, Verified 11/16/24 11:48) SWELLING,ITCHING,GI ISSUES nickel Adverse Reaction (Intermediate, Verified 11/16/24 11:48) Unknown Tobacco use date assessed: 11/16/24 Fall risk assessment: 1 Fall in past year Last assessed Fall Risk: 11/16/24 Dental Screening Dental Screen Date: 11/16/24 Did you have a dental visit in the last 12 months?: Yes Did you have a dental problem in the last 6 months where you did not have access to dental care?: No Was dental information given to patient?: Patient has dentist HPI 6 months f/up HPI Details Chief Complaint Follow-up appointment for dyslipidemia management. History of Present Illness The patient is a 74-year-old female presenting with dyslipidemia for follow-up care. She reports stable status, with no acute symptoms of chest pain, shortness of breath, headache, dizziness, or blurred vision. Previously, a faint systolic murmur was identified in the pulmonic area, but it has remained asymptomatic. Lung auscultation demonstrated clear sounds bilaterally. Social History Health Maintenance Review of Systems - Cardiovascular: Denies chest pain or shortness of breath. - Neurological: Denies headache, dizziness, or blurred vision. Physical Exam General: Cooperative, healthy appearing, comfortable, no acute distress and well developed Orientation: Patient oriented x3 Limitations: No limitations Head: Normal to inspection Ears: Hearing grossly normal bilaterally Nose: Normal external nose present Face and sinus: Normal facial exam Eyes: Appearance normal, both eyes and all related structures Neck: Normal visual inspection and Yes full ROM Respiratory: Normal respiratory effort and able to speak in complete sentences. Clear to auscultation bilaterally Cardiovascular: Regular rate and rhythm. Normal S1 and S2, very faint systolic murmur to the pulmonic region GI: Normal to inspection. Soft to palpation and nontender Skin: No rashes or lesions noted Neuro: Patient oriented x3 Extremities: Normal to inspection Results Plan I plan to obtain laboratory tests to evaluate the patient's cholesterol levels to manage her dyslipidemia effectively. The noted systolic murmur in the pulmonic region will be monitored, and any emerging symptoms will dictate future interventions as necessary. Continued follow-up is necessary to ensure proper control and monitoring. Discussion Notes I discussed with the patient the importance of evaluating her cholesterol levels to appropriately manage her dyslipidemia. We talked about potential monitoring and management based on forthcoming lab results and addressed the faint systolic murmur that was previously identified. I explained that while no immediate interventions are required, routine follow-up and observation for any symptom changes are advisable. The patient understood the plan and agreed with the surveillance approach. Patient Instructions - Continue current lifestyle and diet adjustments aimed at managing cholesterol levels. - Follow up with recommended laboratory testing. - Monitor for any chest pain or significant changes in symptoms and report them immediately. - Attend follow-up appointments as scheduled for ongoing care and monitoring. [facility] Medical History Mood disorder PVCs (premature ventricular contractions) Mixed hyperlipidemia History of revision of total replacement of right knee joint DVT (deep venous thrombosis) Arthritis Back pain Hx of blood clots Hx: UTI (urinary tract infection) Elevated cholesterol History of depression History of palpitations Surgical History Hx of bilateral cataract extraction History of loop electrical excision procedure (LEEP) History of total right knee replacement (TKR) Hx of colonoscopy Family History Maternal Aunt Substance use disorder Social History Household Members: None Housing: House Are you a primary physician primary care sports medicine to a significant other at home: No Do you presently have visiting nurse or other home services: No Alcohol intake: current Alcohol intake frequency: holidays/special occasions only Patient Tobacco Use Status: Never used Tobacco e-Cigarette/Vaping Use: Never Used Second Hand Smoke Exposure: Yes service: No Current occupational status: retired Cognitive needs: No Hearing needs: No Vision needs: No Questionnaire Thrive Questionnaire Date Thrive assessed: 11/10/24 I am a: Patient What is your living situation today?: I have a steady place to live Within the past 12 months, did the food you bought not last and you didn't have the money to get more?: Never true Within the past 12 months, did you worry whether your food would run out before you got money to buy more?: Never true Do you have trouble paying for medicines?: No Do you have trouble getting transportation to medical appointments?: No Do you have trouble paying your heating and electricity bill?: No Do you have trouble taking care of your child, family member or friend?: No Do you have trouble with day-to-day activities such as bathing, preparing meals, shopping, managing finances, etc.?: No Are you currently unemployed and looking for a job?: No Are you interested in more education?: No Please select the resources that you would like help with: None Currently or been in a relationship where the following occur: No concerns reported THRIVE Score: 0 AUDIT C Alcohol Use Questionnaire (AUDIT-C) 1. How often do you have a drink containing alcohol?: Monthly or less 2. How many drinks containing alcohol do you have on a typical day when you are drinking?: 1 or 2 3. How often do you have six or more drinks on one occasion?: Never Total Score: 1 ZAMZAM-7 AMB Questionnaire ZAMZAM-7 Date ZAMZAM - 7 assessed: 05/12/24 Feeling nervous, anxious, or on edge: 0 = Not at all Not being able to stop or control worryin = Not at all Worrying too much about different things: 0 = Not at all Trouble relaxin = Not at all Being so restless that it is hard to sit still: 0 = Not at all Becoming easily annoyed or irritable: 0 = Not at all Feeling afraid as if something awful might happen: 0 = Not at all Total ZAMZAM-7 score (0-4 normal; 5-9 mild; 10-14 moderate; 15-21 severe): 0 Source: Developed by Drs. Dominic Andrew, Pili Levi, Pancho Root and colleagues, with an educational justyn from [employer]. Physical exam (Primary Care) Vital Signs: Last Vital Signs Temp 98.3 F 11/16/24 11:45 Pulse 69 11/16/24 11:45 Resp 15 11/16/24 11:45 BP 116/80 11/16/24 11:45 Pulse Ox 97 11/16/24 11:45 Oxygen Delivery Method Room Air 11/16/24 11:45 BMI result Body Mass Index 27.1 Tobacco/Smoking Status: Tobacco use Status Tobacco use date assessed 11/16/24 11/16/24 11:51 Patient Tobacco Use Status Never used Tobacco 11/16/24 11:45 e-Cigarette/Vaping Use Never Used 11/16/24 11:45 Thrive Assessment: Date of Thrive Assessment Date Thrive assessed 11/10/24 11/16/24 11:45 Currently or been in a relationship where the following occur: No concerns reported Coding Level of Care Code Est Pt Level 3 (30322) Diagnoses Dyslipidemia E78.5 Assessment & Plan Assessment & Plan (1) Dyslipidemia: Code(s): E78.5 - Hyperlipidemia, unspecified Category: Medical Plan . Orders: Orders Comprehensive [place]. Panel Fast Today E78.5 - Hyperlipidemia, unspecified TSH reflex Free T4 Today E78.5 - Hyperlipidemia, unspecified UA CC w/rflx Micro + Cult Today E78.5 - Hyperlipidemia, unspecified Lipid Panel Today E78.5 - Hyperlipidemia, unspecified Complete Blood Count Auto Diff Today E78.5 - Hyperlipidemia, unspecified
[2024-11-16 11:45] VITALS: BP 116/80; PULSE 69; RESP 15; TEMP 36.8; O2SAT 97; BMI 27.1
== END 2024-11-16 13:55 | disposition home or self-care (01) ==
LOC: HO.HMCC 11:33
PROVIDERS: PCP Nurse Practitioner Family; Visit Provider Nurse Practitioner Family
DX: E78.5 Hyperlipidemia, unspecified (principal)

== ENCOUNTER → 2024-11-16 11:32 | Outpatient (BNVA) | payer MEDICARE, OTHER, SELFPAY | PROVIDERS: PCP Nurse Practitioner Family; Visit Provider Nurse Practitioner Family | DX: E78.5 Hyperlipidemia, unspecified (principal) | CPT/HCPCS: 99212 ==

== ENCOUNTER 2024-11-28 09:34 | Outpatient (REF) | payer MEDICARE, OTHER, SELFPAY ==
[2024-11-28 13:01] LABS: MANUAL DIFF FLAG NO
[2024-11-28 13:21] LABS: Basophils Percent Auto 0.5 % (0-2); Eosinophils Absolute Auto 0.4 X10*3/uL (0.0-0.4); Eosinophils Percent Auto 6.7 % (0-4); Hematocrit 40.2 % (37.0-47.0); Hemoglobin 13.6 g/dl (12.0-16.0); Imm Gran Abs Auto 0.02 X10*3/uL (0.00-0.03); Imm Gran Pct Auto 0.3 % (0.0-0.4); Lymphocytes Absolute Auto 1.5 X10*3/uL (1.2-4.9); Lymphocytes Percent Auto 23.3 % (20-40); Mean Corpuscular HGB Conc 33.8 g/dl (31.0-35.0); Mean Corpuscular Hemoglobin 30.6 pg (27.0-33.0); Mean Corpuscular Volume 90.5 fL (80.0-98.0); Mean Platelet Volume 10.7 fL (9.4-12.3); Monocytes Absolute Auto 0.9 X10*3/uL (0.1-1.2); Monocytes Percent Auto 13.2 % (2-11); Neutrophils Absolute Auto 3.7 x10*3/uL (2.0-8.3); Platelet Count 240 X10*3/uL (160-400); Red Blood Count 4.44 X10*6/uL (4.20-5.50); Red Cell Distribution Width 13.9 % (11.0-16.0); White Blood Count 6.6 X10*3/uL (4.8-10.8)
[2024-11-28 13:45] LABS: Alanine Aminotransferase 16 U/L (0-31); Albumin Level 4.1 g/dL (3.5-5.0); Alkaline Phosphatase 54 U/L (39-117); Anion Gap 12 (12-20); Aspartate Amino Transferase 23 U/L (5-31); Bilirubin Total 0.4 mg/dL (0.0-1.0); Blood Urea Nitrogen 24 mg/dL (9-16); Calcium 9.6 mg/dL (8.4-10.2); Carbon Dioxide 27 mmol/L (22-29); Chloride 106 mmol/L (96-108); Cholesterol 152 mg/dL (<200); Estimated Glomerular Filt Rate > 60; Glucose Fasting 102 mg/dL (60-99); HDL Cholesterol 62 mg/dL (>40); LDL Cholesterol Calculated 69 mg/dL (<100); Potassium 4.3 mmol/L (3.3-5.1); Sodium 141 mmol/L (135-145); Total Protein 7.1 g/dL (6.5-8.0); Triglycerides 109 mg/dL (<150)
[2024-11-28 13:50] LABS: TSH reflex Free T4 2.27 uIU/mL (0.32-4.0)
[2024-11-28 16:09] LABS: Appearance Urine Clear; Color Urine Yellow; Glucose Urine UA Negative (Negative); Leukocyte Esterase Urine Negative (Negative); Nitrite Urine Negative (Negative); PH 6.5 (5.0-9.0); Urine Blood Negative (Negative); Urine Ketones Negative (Negative); Urine Protein Negative (Neg-Trace)
== END 2024-11-28 09:35 | disposition home or self-care (01) ==
LOC: HO.HMGCLDS 09:34
PROVIDERS: PCP Nurse Practitioner Family; Visit Provider Nurse Practitioner Family
DX: E78.5 Hyperlipidemia, unspecified (principal)
CPT/HCPCS: 36415; 80053; 80061; 81003; 84443; 85025

== ENCOUNTER 2025-04-25 13:33 | Emergency (ER) | payer MEDICARE, OTHER, SELFPAY ==
--- NOTE | ~2025-04-25 | XR_ITS ---
EXAMINATION: XR ANKLE, RIGHT CLINICAL INFORMATION: pain, fall COMPARISON: None available. TECHNIQUE: AP, lateral, and mortise views of the right ankle. FINDINGS: There is a cast obscuring bony detail. There is an oblique fracture that appears to extend up from the syndesmotic ligaments into the distal fibula Ankle mortise is grossly congruent. There are small calcaneal spurs. XR/XR ankle RT min 3V IMPRESSION: There is oblique fracture involving the distal right fibula that appears to extend cephalad from the level of the syndesmosis. Electronically signed by: Dario Napier MD 04/25/2025 02:32 PM EDT
--- NOTE | ~2025-04-25 | XR_ITS ---
EXAMINATION: XR KNEE, RIGHT CLINICAL INFORMATION: pain fall COMPARISON: March 17, 2024 TECHNIQUE: AP and lateral views of the right knee. FINDINGS: Revision of total knee arthroplasty has been performed. It appears stable when compared to the prior. Joint effusion present on the prior has resolved. There is increasing dystrophic calcification in quadriceps, patellar tendon, and Hoffa's fat pad. No fracture is identified. XR/XR knee RT 2V IMPRESSION: Stable total knee arthroplasty post revision. Interval resolution of a joint effusion. Increasing dystrophic calcification in quadriceps, patellar tendon, and Hoffa's fat pad. Electronically signed by: Dario Napier MD 04/25/2025 03:12 PM EDT
[2025-04-25 13:40] VITALS: BP 135/76; PULSE 76; O2SAT 97
[2025-04-25 13:43] VITALS: BP 135/60; PULSE 85; RESP 20; TEMP 36.7; O2SAT 97
[2025-04-25 14:00] VITALS: RESP 16; TEMP 36.6; O2SAT 98; BMI 25.8
--- NOTE | 2025-04-25 14:05 | PC.NURSE ---
Provider at bedside for R ankle reduction
--- NOTE | 2025-04-25 15:29 | ED.LOWEXIN ---
HPI - Extremity Injury (Lower) General Chief Complaint: Extremity Injury, Lower Stated Complaint: MECH FALL,TWISTED ANKLE PER EMS Time Seen by Provider: 04/25/25 13:50 Source: patient, EMS and old records reviewed Mode of arrival: EMS Limitations: no limitations History of Present Illness ED Provider: AMMON HPI Narrative: 74 yo female with PMH of HLD, mood disorder, prior bilateral TKR, hx of prior DVT but not on thinners here with c/o getting up and tripping on carpet. The initial fall she landed on both knees. She denies LOC/headstrike/neck strike. She then tried to get up and couldn't fell again and twisted her ankle - again no LOC, no headstrike. She was able to get up on her own and use the bathroom but her R ankle was clearly broken/dislocated. She denies any other injury. She had no preceding illness. 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) Type of Injury: blunt and inversion Place: home Severity: moderate Relieving factors: immobilization Exacerbating factors: weight bearing, movement and palpation Context: fall Associated symptoms: snap/pop sensation, swelling and unable to bear weight Other symptoms: none Treatments prior to arrival: cold therapy and bandage Related Data Home Medications ?Medication ?Instructions ?Recorded ?Confirmed omega 5-pyi-sci-fish oil 1,000 mg 1 cap PO DAILY 03/19/21 02/10/24 (120 mg-180 mg) capsule (Fish Oil) turmeric root extract 1,053 mg 1,076 mg PO BEDTIME 03/19/21 02/02/24 tablet glucosamine sulf dipot 1 cap PO BID 11/02/23 02/02/24 chlr,msm,chond 550 mg-C 30 mg-ole 1 mg capsule (Glucosamine Chondroitin) calcium 600 mg (as 1 tab PO DAILY 01/25/24 02/10/24 carbonate)-vitamin D3 5 mcg (200 unit) tablet multivitamin with minerals 1 tab PO DAILY 11/16/24 (Hair,Skin and Nails tablet) Previous Rx's ?Medication ?Instructions ?Recorded acetaminophen 325 mg tablet 650 mg (2 x 325 mg) PO Q6H PRN 02/12/24 Pain, Mild (Pain Scale 1-3), fever or headache 30 days #240 tabs sertraline 50 mg tablet 50 mg PO DAILY 90 days #90 tabs 09/21/24 amoxicillin 500 mg tablet 2,000 mg (4 x 500 mg) PO ONCE take 12/30/24 4 tabs by mouth 1 hour prior to dental ppx 1 day #4 tabs atenolol 25 mg tablet 25 mg PO DAILY #90 tabs 04/06/25 atorvastatin 10 mg tablet 10 mg PO BEDTIME #90 tabs 04/06/25 ondansetron 4 mg disintegrating 4 mg PO Q8H PRN nausea and 04/25/25 tablet vomiting #20 tabs oxycodone 5 mg tablet 5 mg PO Q6H PRN pain #14 tabs 04/25/25 Allergies Allergy/AdvReac Type Severity Reaction Status Date / Time almond (ALMOND) Allergy Intermediate SWELLING,IT Verified 04/25/25 14:16 IRA clams (CLAMS) Allergy Intermediate SWELLING,ITCHING,GI Verified 04/25/25 14:16 ISSUES nickel AdvReac Intermediate Unknown Verified 04/25/25 14:16 Review of Systems Review of Systems: Constitutional : No Fever, No Chills ENT/Mouth : No Ear Pain, No Hoarseness, No sore throat Eyes: No Eye Pain, No Swelling, No Redness, No Foreign Body Cardiovascular : No Chest Pain, No SOB Respiratory : No Cough, No Dyspnea Gastrointestinal : No Nausea, No Vomiting, No Diarrhea, No abdominal Pain Genitourinary : No Dysuria, No Hematuria Musculoskeletal : positive joint pain, No Myalgias, pos Joint Swelling Skin : No Skin lacerations, No rash Neuro : No Weakness, No Numbness, No Loss of Consciousness, No Dizziness, No Headache All other systems reviewed and are negative [facility] Past Medical History Attestation statement: The following information was validated with the patient. Source: old records reviewed Medical History Mood disorder PVCs (premature ventricular contractions) Mixed hyperlipidemia History of revision of total replacement of right knee joint DVT (deep venous thrombosis) Arthritis Back pain Hx of blood clots Hx: UTI (urinary tract infection) Elevated cholesterol History of depression History of palpitations Surgical History Hx of bilateral cataract extraction History of loop electrical excision procedure (LEEP) History of total right knee replacement (TKR) Hx of colonoscopy Family History Family History Maternal Aunt Substance use disorder Social History Social History Household Members: None Housing: House Are you a primary home care specialist to a significant other at home: No Do you presently have visiting nurse or other home services: No Alcohol intake: current Alcohol intake frequency: holidays/special occasions only Patient Tobacco Use Status: Never used Tobacco e-Cigarette/Vaping Use: Never Used Second Hand Smoke Exposure: Yes Advance Directives: No Advance Directives Information Provided: Yes service: No Current occupational status: retired Cognitive needs: No Hearing needs: No Vision needs: No Physical Exam Vital Signs: Vital Signs: Last Vital Signs Temp 98 F 04/25/25 14:00 Pulse 85 04/25/25 13:43 Resp 16 04/25/25 14:00 BP 135/60 04/25/25 13:43 Pulse Ox 98 04/25/25 14:00 O2 Del Method Room Air 04/25/25 14:00 BMI result Body Mass Index 25.8 Appearance: Alert. Oriented X3. No acute distress. Eyes: Pupils equal, round and reactive to light. ENT: Pharynx normal. atraumatic Neck: Normal inspection. Neck supple. no midline ttp collar removed CVS: Normal heart rate and rhythm. Pulses normal. Respiratory: No respiratory distress. Breath sounds normal. Abdomen: Soft and nontender. Skin: Skin warm and dry. Normal skin color. Normal skin turgor. Extremities: No lower extremity edema. mild swelling, R ankle deformity consistent with dislocation - distal NV intact Neuro: Oriented X 3. No motor deficit. No sensory deficit. Medications Administered Discontinued Medications Generic Name Dose Route Start Last Admin Trade Name Freq PRN Reason Stop Dose Admin Hydromorphone HCl 1 mg 04/25/25 13:53 04/25/25 14:01 Hydromorphone Hcl 1 Mg/Ml Syringe IVPUSH 04/25/25 13:54 1 mg ONCE ONE Administration Protocol Ondansetron HCl 4 mg 04/25/25 13:53 04/25/25 14:01 Ondansetron Hcl 4 Mg/2 Ml Vial IVPUSH 04/25/25 13:54 4 mg ONCE ONE Administration Medical Decision Making Medical Decision Making MDM Narrative: 74 yo female with PMH of HLD, mood disorder, prior bilateral TKR, hx of prior DVT but not on thinners here with c/o R ankle and R knee pain post mechanical fall - no headstrike no LOC not on thinners no other injury noted. IV dilaudid ordered for pain control, reduced ankle on arrival no issues Differential Diagnosis Differential Diagnoses: The differential diagnosis associated with the presentation includes fracture, dislocation Admission/Observation Consideration of admission/observation: Escalation of care including admission/observation considered refuses STR Consult Healthcare Provider Management of the patient was discussed with: Utility Inspector BEATA Coello follow up in office Independent Interpretation I performed an independent interpretation of an: Plain X-Ray (fib fracture) Radiology Impression Discussion of test interpretation with radiology: I have reviewed the radiologist's reading. Independent Historian Clinical information obtained from an independent historian. History obtained from or confirmed by: EMS External Record Review External record reviewed: Inpatient record and Outpatient record Prescription Management I considered prescription management with: Pain Medication Procedures Orthopedic Joint Reduction Joint #1: Time Out Performed: Yes Side: right Joint Reduction Location: ankle Analgesia: other Technique used: direct manipulation Post-reduction neuro exam: intact Post-reduction vascular: intact Post Reduction X-Ray Obtained: Yes Post Reduction X-Ray Results: reduced Splint Applied: Yes Patient Tolerated Procedure: well and no complications Orthopedic Splinting/Casting Injury #1: Side: right Lower Extremity Injury Location: ankle Lower Extremity Immobilizer: posterior splint and stirrup splint Other Orthopedic Equipment: crutches Additional Comments: NV intact Discharge Plan Discharge Clinical Impression: Ankle dislocation Qualifiers: Encounter type: initial encounter Laterality: right Qualified Code(s): S93.04XA - Dislocation of right ankle joint, initial encounter Closed fibular fracture Qualifiers: Encounter type: initial encounter Fibula location: distal Fracture morphology: unspecified fracture morphology Laterality: right Qualified Code(s): S82.831A - Other fracture of upper and lower end of right fibula, initial encounter for closed fracture Patient Disposition: Home, Self-Care Instructions: Leg Fracture (ED), Ankle Dislocation (ED) Additional Instructions: non weight bearing no fracture on knee use crutches, splint cannot get wet, call orthopedics tomorrow to follow up with outpatient appointment keep leg elevated as much as possible return for cold, blue, numb toes given your history of blood clot at this time would take 81mg aspirin daily IF YOU CANNOT MANAGE PLEASE COME BACK AND WE WILL HELP GET YOU IN REHAB. XR/XR ankle RT min 3V IMPRESSION: There is oblique fracture involving the distal right fibula that appears to extend cephalad from the level of the syndesmosis. Prescriptions: New oxycodone 5 mg tablet 5 mg PO Q6H PRN (Reason: pain) Qty: 14 0RF Rx Instructions: Partial Fill upon patient request. ondansetron 4 mg tablet,disintegrating 4 mg PO Q8H PRN (Reason: nausea and vomiting) Qty: 20 0RF No Action sertraline 50 mg tablet 50 mg PO DAILY 90 Days Qty: 90 3RF amoxicillin 500 mg tablet 2,000 mg PO ONCE 1 Days Qty: 4 0RF atenolol 25 mg tablet 25 mg PO DAILY Qty: 90 1RF atorvastatin 10 mg tablet 10 mg PO BEDTIME Qty: 90 1RF acetaminophen 325 mg Tablet 650 mg PO Q6H PRN (Reason: Pain, Mild (Pain Scale 1-3), fever or headache) 30 Days Qty: 240 0RF Glucosamine Chondroitin 550-30-1 mg Capsule 1 cap PO BID omega 8-tsa-cra-fish oil [Fish Oil] 1,000 mg (120 mg-180 mg) capsule 1 cap PO DAILY turmeric root extract 1,053 mg tablet 1,076 mg PO BEDTIME calcium carbonate-vitamin D3 600 mg-5 mcg (200 unit) tablet 1 tab PO DAILY Hair,Skin and Nails Tablet 1 tab PO DAILY Referrals: [facility] [Provider Group] Print Language: Nauruan
[2025-04-25 16:38] VITALS: BP 129/73; PULSE 72; RESP 16; TEMP 36.6; O2SAT 98
== END 2025-04-25 16:39 | disposition home or self-care (01) ==
PROVIDERS: Emergency Provider Emergency Medicine; PCP Nurse Practitioner Family
DX: S93.04XA Dislocation of right ankle joint, initial encounter (principal); S82.831A Other fracture of upper and lower end of right fibula, initial encounter for closed fracture; W01.10XA Fall on same level from slipping, tripping and stumbling with subsequent striking against unspecified object, initial encounter; Y93.9 Activity, unspecified; Y92.9 Unspecified place or not applicable; Y99.9 Unspecified external cause status; F39 Unspecified mood [affective] disorder; E78.2 Mixed hyperlipidemia; Z86.718 Personal history of other venous thrombosis and embolism
CPT/HCPCS: 27840; 73560; 73610; 96374; 96375; 99282; 99284; J1171; J2405

== ENCOUNTER → 2025-04-25 13:53 | Outpatient (BNV) | payer MEDICARE, OTHER, SELFPAY | PROVIDERS: Emergency Provider Emergency Medicine; PCP Nurse Practitioner Family; Visit Provider Radiology Diagnostic Radiology | DX: S82.431A Displaced oblique fracture of shaft of right fibula, initial encounter for closed fracture (principal); Z96.651 Presence of right artificial knee joint | CPT/HCPCS: 73560; 73610 ==

== ENCOUNTER 2025-05-02 08:27 | Outpatient (AMB) | payer MEDICARE, OTHER, SELFPAY ==
--- NOTE | 2025-05-02 08:37 | A.OFFVIS_ITS ---
Vital Signs 05/02/25 08:38 Height 5 ft 6 in Weight 160 lb BMI 25.8 Intake Visit Reasons: ED f/u Right ankle fracture dislocation Intake Note: Bety is a 74 year old female who presents today for a evaluation of her right ankle fracture/dislocation, DOI 04/25/25. Patient reports she was getting up and tripped on the carpet. When she first fell she landed on both knees. Patient then tried to get up and couldn't, which led her to fall again and twisted her ankle. She was able to get up on her own and use the bathroom but her right ankle was broken/dislocated. IMPRESSION: There is oblique fracture involving the distal right fibula that appears to extend cephalad from the level of the syndesmosis. Accompanied by: Daughter Allergies almond (ALMOND) Allergy (Intermediate, Verified 05/02/25 08:41) SWELLING,ITCHING clams (CLAMS) Allergy (Intermediate, Verified 05/02/25 08:41) SWELLING,ITCHING,GI ISSUES nickel Adverse Reaction (Intermediate, Verified 05/02/25 08:41) Unknown HPI HPI ED f/u Right ankle fracture dislocation: Details: Ms. Chinchilla this is a 74-year-old female who presents to the office today for evaluation of a right ankle injury that she sustained on 04/25/2025. She has a past medical history significant for hyperlipidemia, mood disorder, right TKA revision and history of DVT. She is not on any blood thinners at this time. Patient states that she was getting up off of her couch and fell landing on bilateral knees. She went to get back up and fell again twisting her right ankle. She immediately noticed a right ankle deformity. She presented to the emergency department where x-rays of the right ankle were obtained and she was diagnosed to have a right ankle trimalleolar fracture dislocation. She was reduced in the emergency department and placed into a splint with instructed to follow up with orthopedics outpatient for further evaluation and treatment. Additionally, patient noticed that a few days after her initial injury she noted some bruising and swelling along the lateral aspect of the left ankle and foot. She denies any pain. She has been ambulating with the use of a walker nonweightbearing on the right lower extremity. She lives at home alone. Her daughter and granddaughter accompanied her at today's visit. [facility] Medical History Mood disorder PVCs (premature ventricular contractions) Mixed hyperlipidemia History of revision of total replacement of right knee joint DVT (deep venous thrombosis) Arthritis Back pain Hx of blood clots Hx: UTI (urinary tract infection) Elevated cholesterol History of depression History of palpitations Surgical History Hx of bilateral cataract extraction History of loop electrical excision procedure (LEEP) History of total right knee replacement (TKR) Hx of colonoscopy Family History Maternal Aunt Substance use disorder Social History Household Members: None Housing: House Are you a primary summer child caregiver to a significant other at home: No Do you presently have visiting nurse or other home services: No Alcohol intake: current Alcohol intake frequency: holidays/special occasions only Patient Tobacco Use Status: Never used Tobacco e-Cigarette/Vaping Use: Never Used Second Hand Smoke Exposure: Yes service: No Current occupational status: retired Cognitive needs: No Hearing needs: No Vision needs: No Review of Systems Const All systems reviewed & are unremarkable except as noted in HPI and below Physical Exam Vital Signs: BMI result Body Mass Index 25.8 Const General: cooperative, healthy appearing and no acute distress Resp Effort & Inspection: normal respiratory effort and able to speak in complete sentences Extrem Other: Right ankle skin is intact. No evidence of open fracture. Tenderness to palpation both the medial and lateral malleolus. Able to move all digits. Sensation is reportedly intact. Pedal pulse intact. Psych Appearance: grossly normal Mental Status: mental status grossly normal Attitude: cooperative Assessment & Plan Assessment & Plan (1) Fracture of ankle, trimalleolar, right, closed: Code(s): S82.851A - Displaced trimalleolar fracture of right lower leg, initial encounter for closed fracture Category: Medical (2) Dislocation of right ankle joint: Code(s): S93.04XA - Dislocation of right ankle joint, initial encounter Category: Medical Plan Ms. Chinchilla this is a 74-year-old female who presents to the office today for evaluation of a right ankle injury that she sustained on 04/25/2025. She has a past medical history significant for hyperlipidemia, mood disorder, right TKA re vision and history of DVT. Patient reports DVT in 2021 diagnosed at [facility] vascular. She is not on any blood thinners at this time. Patient states that she was getting up off of her couch and fell landing on bilateral knees. She went to get back up and fell again twisting her right ankle. She immediately noticed a right ankle deformity. She presented to the emergency department where x-rays of the right ankle were obtained and she was diagnosed to have a right ankle trimalleolar fracture dislocation. She was reduced in the emergency department and placed into a splint with instructed to follow up with orthopedics outpatient for further evaluation and treatment. Additionally, patient noticed that a few days after her initial injury she noted some bruising and swelling along the lateral aspect of the left ankle and foot. She denies any pain. She has been ambulating with the use of a walker nonweightbearing on the right lower extremity. She lives at home alone. Her daughter and granddaughter accompanied her at today's visit. I discussed the case with Dr. Barron, who was also available but did not see the patient in the office today. He is familiar with this patient from prior right total knee revision surgery. I explained the procedure in detail along with the length of recovery and rehab course. I explained the risk, benefits and alternatives.? Risks including, but not limited to infection, blood clots, bleeding, delayed healing, non union malunion, post-traumatic arthritis and nerve/tissue damage to surrounding areas, numbness, scar sensitivity, irritation from plates/screws, hardware loosening or breakage, and need for later removal.? Benefits include, restoring proper alignment, improving ankle mobility and function, reduced long-term risk of arthritis, chronic pain or deformity, earlier mobilization of compared to no-operative treatment in unstable fractures. Alternatives include, Non-surgical management; casting or splinting with strict nonweightbearing. The patient had ample opportunity to ask questions. All questions were answered to the patient's satisfaction. The patient verbalized understanding and agreed to move forward with a right ankle open reduction internal fixation performed by Dr. Barron. The patient demonstrates understanding of the risks, benefits and alternatives and wishes to proceed.? The splint was secured and the patient was instructed to non weightbear on the right lower extremity. X-rays of the right ankle which were obtained while in the office today and were reviewed by me, Josee Sullivan PA-C, revealed redemonstration of a trimalleolar fracture with subluxation of the ankle joint. X-rays of the left ankle which were obtained while in the office today and were reviewed by me, Josee Sullivan PA-C, revealed no acute fracture or dislocation. Postoperative recovery notes: -Patient is considering rehab placement status post right ankle ORIF - she lives alone and although she does have family members they are not available during the day as they work. Additionally, it is difficult for her to get around on one leg. -DVT ppx consideration: Lovenox - history of DVT 2021 Orders: Orders XR ankle LT min 3V Today M25.579 - Pain in unspecified ankle and joints of un specified foot XR ankle RT min 3V Today M25.579 - Pain in unspecified ankle and joints of unspecified foot XR knee LT 3V Today M25.569 - Pain in unspecified knee Coding Level of Care Code Est Pt Level 4 (54190) Diagnoses Fracture of ankle, trimalleolar, right, closed S82.851A Dislocation of right ankle joint S93.04XA
[2025-05-02 08:38] VITALS: BMI 25.8
== END 2025-05-02 10:05 | disposition home or self-care (01) ==
LOC: HO.HOS 08:28
PROVIDERS: PCP Nurse Practitioner Family; Visit Provider Physician Assistant
DX: S82.851A Displaced trimalleolar fracture of right lower leg, initial encounter for closed fracture (principal); S93.04XA Dislocation of right ankle joint, initial encounter
CPT/HCPCS: 99214

== ENCOUNTER → 2025-05-02 08:32 | Outpatient (BNV) | payer MEDICARE, OTHER, SELFPAY | PROVIDERS: Visit Provider Radiology Diagnostic Radiology | DX: M25.572 Pain in left ankle and joints of left foot (principal); S82.841A Displaced bimalleolar fracture of right lower leg, initial encounter for closed fracture | CPT/HCPCS: 73610 ==

== ENCOUNTER 2025-05-02 09:02 | Outpatient (REF) | payer MEDICARE, OTHER, SELFPAY ==
--- NOTE | ~2025-05-02 | XR_ITS ---
EXAMINATION: XR ANKLE 3 OR MORE VIEWS RIGHT HISTORY: M25.579 - Pain in unspecified ankle and joints of unspecified foot COMPARISON: Comparison is made with the prior examination dated 04/25/2025. FINDINGS: Three prostate views of the right ankle are submitted. The fiberglass cast obscures fine bony detail. Again seen is a displaced fracture of the distal fibula. There is greater displacement on the current examination. A displaced fracture of the medial malleolus is now visible. There is lateral subluxation of the ankle mortise which is new from the prior study. The soft tissues are unremarkable. XR/XR ankle RT min 3V IMPRESSION: Greater displacement of the previously seen distal fibular fracture. A displaced fracture of the medial malleolus is now visible. New lateral subluxation of the ankle mortise. Electronically signed by: Dominic Hurley MD 05/02/2025 08:43 AM EDT
--- NOTE | ~2025-05-02 | XR_ITS ---
EXAMINATION: XR ANKLE 3 OR MORE VIEWS LEFT HISTORY: M25.579 - Pain in unspecified ankle and joints of unspecified foot COMPARISON: There are no prior studies available for comparison. FINDINGS: Three views of the left ankle are submitted. Osseous mineralization is normal. There is no fracture or dislocation. The joint spaces are preserved. The soft tissues are unremarkable. XR/XR ankle LT min 3V IMPRESSION: Unremarkable examination of the left ankle. Electronically signed by: Dominic Hurley MD 05/02/2025 09:19 AM EDT
== END 2025-05-02 09:03 | disposition home or self-care (01) ==
LOC: HO.HOSX 09:02
PROVIDERS: Visit Provider Physician Assistant
DX: S82.851A Displaced trimalleolar fracture of right lower leg, initial encounter for closed fracture (principal); S93.04XA Dislocation of right ankle joint, initial encounter; W01.0XXA Fall on same level from slipping, tripping and stumbling without subsequent striking against object, initial encounter
CPT/HCPCS: 73610; 99212

== ENCOUNTER 2025-05-05 11:16 | Day surgery (SDC) | payer MEDICARE, OTHER, SELFPAY ==
[2025-05-03 08:52] VITALS: BMI 26.6
--- NOTE | 2025-05-03 10:17 | HO.ANESPROP2 ---
Documented by User: Meri Centeno NP 05/03/25 10:31 HPI - Anesthesia Eval Consult details Narrative: 74 yr old female for right Ankle Fracture ORIF s/p Right total knee revision 02/2024 H/O DVT 1.5 yrs after TKR in 2019, not on anti-coagulation. H/O PVCs: asymptomatic, remains on atenolol. Saw [facility] cards in 2023 prior to revision of total knee; most recent holter showing sinus, frequent sinus nathan without PVCs; also has an essentially normal echo in 2023. DNR [facility] Active Problems Active Problems: All Active Problems Dislocation of right ankle joint (Acute) Fracture of ankle, trimalleolar, right, closed (Acute) Fatigue (Acute) Status post revision of total replacement of right knee (Acute) Preoperative cardiovascular examination (Acute) Infection of prosthetic right knee joint (Acute) Painful total knee replacement, right (Acute) Bigeminy (Acute) Pre-op evaluation (Acute) Frequent PVCs (Acute) Microscopic hematuria (Acute) Vaginal atrophy (Acute) Dyslipidemia (Acute) Tubular adenoma (Acute) Encounter for screening colonoscopy (Acute) Frequent UTI (Acute) Right knee pain (Acute) Encounter for hearing test (Acute) Screening for colon cancer (Acute) Medicare annual wellness visit, initial (Acute) Palpitations (Acute) History of total right knee replacement (TKR) (Acute) DVT (deep venous thrombosis) (Acute) History of palpitations (Acute) Past Medical History Medical History Mood disorder PVCs (premature ventricular contractions) Mixed hyperlipidemia History of revision of total replacement of right knee joint DVT (deep venous thrombosis) Arthritis Back pain Hx: UTI (urinary tract infection) Elevated cholesterol History of depression History of palpitations Family History Family History Maternal Aunt Substance use disorder Family history of problems with anesthesia: No Surgical History Surgical History History of revision of total knee arthroplasty Hx of bilateral cataract extraction History of loop electrical excision procedure (LEEP) History of total right knee replacement (TKR) Hx of colonoscopy History of Problems with Anesthesia: No Social History Social History Household Members: None Housing: House Are you a primary point of care technician to a significant other at home: No Do you presently have visiting nurse or other home services: No Alcohol intake: current Alcohol intake frequency: holidays/special occasions only Patient Tobacco Use Status: Never used Tobacco e-Cigarette/Vaping Use: Never Used Second Hand Smoke Exposure: Yes service: No Current occupational status: retired Cognitive needs: No Hearing needs: No Vision needs: No Meds Allergies Allergy/AdvReac Type Severity Reaction Status Date / Time almond (ALMOND) Allergy Intermediate SWELLING,IT Verified 05/02/25 08:41 IRA clams (CLAMS) Allergy Intermediate SWELLING,ITCHING,GI Verified 05/02/25 08:41 ISSUES nickel AdvReac Intermediate infection Verified 05/03/25 08:44 from knee prosthesis from TKR Home Medications ?Medication ?Instructions ?Recorded ?Confirmed ?Last Taken ?Type omega 0-kip-ule-fish oil 1,000 mg 1 cap PO DAILY 03/19/21 05/03/25 02/03/24 History (120 mg-180 mg) capsule (Fish Oil) turmeric root extract 1,053 mg 1,076 mg PO BEDTIME 03/19/21 05/03/25 02/03/24 History tablet glucosamine sulf dipot 1 cap PO BID 11/02/23 05/03/25 02/03/24 History chlr,msm,chond 550 mg-C 30 mg-ole 1 mg capsule (Glucosamine Chondroitin) calcium 600 mg (as 1 tab PO DAILY 01/25/24 05/03/25 02/03/24 History carbonate)-vitamin D3 5 mcg (200 unit) tablet multivitamin with minerals 1 tab PO DAILY 11/16/24 05/03/25 Unknown History (Hair,Skin and Nails tablet) Exam Height,Weight and Vital Signs: Height 5 ft 5 in Weight 72.575 kg Assessment and Plan Final Anesthetic Review Family History of Problems with Anesthesia: No History of Problems with Anesthesia: No Documented by User: Faina Pope MD 05/05/25 11:19 PMFSH Past Medical History Medical History Mood disorder PVCs (premature ventricular contractions) Mixed hyperlipidemia History of revision of total replacement of right knee joint DVT (deep venous thrombosis) Arthritis Back pain Hx: UTI (urinary tract infection) Elevated cholesterol History of depression History of palpitations Family History Family History Maternal Aunt Substance use disorder Surgical History Surgical History History of revision of total knee arthroplasty Hx of bilateral cataract extraction History of loop electrical excision procedure (LEEP) History of total right knee replacement (TKR) Hx of colonoscopy Social History Social History Household Members: None Housing: House Are you a primary point of care technician to a significant other at home: No Do you presently have visiting nurse or other home services: No Alcohol intake: current Alcohol intake frequency: holidays/special occasions only Patient Tobacco Use Status: Never used Tobacco e-Cigarette/Vaping Use: Never Used Second Hand Smoke Exposure: Yes service: No Current occupational status: retired Cognitive needs: No Hearing needs: No Vision needs: No Meds Allergies Allergy/AdvReac Type Severity Reaction Status Date / Time almond (ALMOND) Allergy Intermediate SWELLING,IT Verified 05/02/25 08:41 IRA clams (CLAMS) Allergy Intermediate SWELLING,ITCHING,GI Verified 05/02/25 08:41 ISSUES nickel AdvReac Intermediate infection Verified 05/03/25 08:44 from knee prosthesis from TKR Home Medications ?Medication ?Instructions ?Recorded ?Confirmed ?Last Taken ?Type omega 9-mvw-yhn-fish oil 1,000 mg 1 cap PO DAILY 03/19/21 05/03/25 02/03/24 History (120 mg-180 mg) capsule (Fish Oil) turmeric root extract 1,053 mg 1,076 mg PO BEDTIME 0805/03/25 02/03/24 History tablet glucosamine sulf dipot 1 cap PO BID 11/02/23 05/03/25 02/03/24 History chlr,msm,chond 550 mg-C 30 mg-ole 1 mg capsule (Glucosamine Chondroitin) calcium 600 mg (as 1 tab PO DAILY 01/25/24 05/03/25 02/03/24 History carbonate)-vitamin D3 5 mcg (200 unit) tablet multivitamin with minerals 1 tab PO DAILY 11/16/24 05/03/25 Unknown History (Hair,Skin and Nails tablet) Exam Airway Mallampati Class: II TM Dist: >3cm Neck ROM: Full Heart: rrr Lungs: cta Assessment and Plan Assessment Anesthesia Assessment: Anesthesia Plan Discussed and Chart Reviewed Final Anesthetic Review NPO: Yes ASA Class: II Final Preanesthetic Review: No Changes in Pt Med Stat, Meds/Allgs Chart Reviewed, Consent Obtained/Reviewed and Anes Risks/Benef Reviewed Patient Risk: Low Procedure Risk: Intermediate Anesthetic Plan Anesthetic Plan: GA, Regional Block and Agree w/ Assess. and Plan Disposition: Standard PACU
[2025-05-05] VITALS (12 sets, daily range): BP systolic 103–150; BP diastolic 59–79; PULSE 64–92; RESP 10–20; TEMP 36.1–36.3; O2SAT 97–100
--- NOTE | ~2025-05-05 | FL_ITS ---
EXAMINATION: FL GUIDANCE ONLY HISTORY: RIGHT ANKLE ORIF COMPARISON: Comparison is made with the prior examination of the right ankle dated 10/30/2024. TECHNIQUE: Fluoroscopy time: 0.4 minutes. Cumulative Dose: 1.56 mGy. DAP: 0.0269 mGycm2 Images: 3. FINDINGS: Fluoroscopic spot films of the right ankle demonstrate internal fixation of the previously seen fracture of the distal fibula with a sideplate and multiple orthopedic screws. There has also been internal fixation of the previously seen fracture of the medial malleolus with a single screw. FL/FL guidance in OR IMPRESSION: Fluoroscopy during procedure. Please see procedure report for additional information. Electronically signed by: Dominic Hurley MD 05/05/2025 03:38 PM EDT
[2025-05-05] MEDS: Lactated Ringers 1,000 ML 100 ML IVCONT ×2 (12:04→16:34)
--- NOTE | 2025-05-05 12:56 | PC.NURSE ---
Dr. Barron at bedside, christine wrap bandage taken down to access right ankle. No evidence of swelling. per Dr. Barron okay to proceed with procedure.
--- NOTE | 2025-05-05 13:03 | MHC.SHP ---
Pre-Procedural Eval Section A - 24 Hr Update-Section A only Date of Service: 05/05/25 The patient is an INPATIENT: No Changes since office visit: No Cold of Flu in the past 2 weeks, No New Medical Problems, No Changes in Medication and No Patient answered all questions The patient has been examined within 24 hours of the surgical procedure. The History & Physical has been completed within 30 days and I have reviewed it.: Yes Section B - Complete if H&P > 30 days Chief Complaint: Displaced trimalleolar fracture of right lower leg Allergies: Allergies Allergy/AdvReac Type Severity Reaction Status Date / Time almond (ALMOND) Allergy Intermediate SWELLING,IT Verified 05/02/25 08:41 IRA clams (CLAMS) Allergy Intermediate SWELLING,ITCHING,GI Verified 05/02/25 08:41 ISSUES nickel AdvReac Intermediate infection Verified 05/03/25 08:44 from knee prosthesis from TKR Plan I have reviewed the history and physical and performed a pertinent physical examination on my patient. No changes have occurred unless specified. Time Spent With Patient Time: Total time managing care of this patient today ____ minutes.
--- NOTE | 2025-05-05 15:01 | PM.OP ---
Brief Operative Note Date of Service: 05/05/25 Pre-op diagnosis: Right bimalleolar ankle fracture dislocation Post-op diagnosis: same Procedure: ORIF dawson ORIF syndesmosis Implants: Rubia Pangea lateral locking plate Rubia 4.0 Cannulated screws x 2 Surgeon: Tito Barron MD Anesthesia: local Was an Cogn[employer] Developer used for this Procedure?: No Estimated blood loss (mL): 25 Tourniquet time (min): 70 IV fluids (mL): 1,000 Pathology: none sent Condition: stable Disposition: PACU
--- NOTE | 2025-05-05 16:12 | PHA.MEDREC ---
Addendum entered by Dustin Ewing RPh 05/05/25 16:13: Reviewed by [facility] Original Note: Pharmacy Consult ? Medication Reconciliation Pharmacy has reviewed the medication reconciliation done by nursing. claims match med list.
[2025-05-05] MEDS: 0.9 % Sodium Chloride Flush 3 ML SYRINGE IVFLUSH (16:33)
--- NOTE | 2025-05-05 17:25 | HO.PM.IMCN ---
History of Present Illness Data of Consult Service Date: 05/05/25 Requesting physician: Tito Barron Primary Care Provider: Jose Hanks [facility] HPI Reason for consult: Medical management 74-year-old female who initially fractured ankle on 04/25/2025 presents today for repair. There are no acute medical issues at this time Review of Systems Review of Systems: Denies chest pain Denies shortness of breath Denies nausea vomiting diarrhea Denies fever chills PMFSH Medical History Mood disorder PVCs (premature ventricular contractions) Mixed hyperlipidemia History of revision of total replacement of right knee joint DVT (deep venous thrombosis) Arthritis Back pain Hx: UTI (urinary tract infection) Elevated cholesterol History of depression History of palpitations Family History Maternal Aunt Substance use disorder Surgical History History of revision of total knee arthroplasty Hx of bilateral cataract extraction History of loop electrical excision procedure (LEEP) History of total right knee replacement (TKR) Hx of colonoscopy Social History Household Members: None Housing: House Are you a primary critical care physician assistant to a significant other at home: No Do you presently have visiting nurse or other home services: No Alcohol intake: current Alcohol intake frequency: holidays/special occasions only Patient Tobacco Use Status: Never used Tobacco e-Cigarette/Vaping Use: Never Used Second Hand Smoke Exposure: Yes Use of substances other than those prescribed or required for medical reasons: No Have you been hit, kicked, punched, or otherwise hurt by someone within the past year? If so, by whom?: No Do you feel safe in your current relationship?: No Current Relationship Is there a partner from a previous relationship who is making you feel unsafe now?: No Are you made to feel afraid or neglected: No Spiritual Healthcare Practices: no Mandaen Healthcare Practices: Yazdanism Cultural Healthcare Practices: no Are you DNR?: Yes Advance Directives Information Provided: Yes (advised to bring copies DOS) Advance Directives on File: No Do you have a plan to hurt others: No Plan Recently lost weight without trying: No Eating poorly because of decreased appetite: No Nutrition Risks: No Nutritional Risk Patient : No FDLMP: n/a : No Poor oral hygiene: No service: No Current occupational status: retired Cognitive needs: No Hearing needs: No Vision needs: No Meds Allergies Allergy/AdvReac Type Severity Reaction Status Date / Time almond (ALMOND) Allergy Intermediate SWELLING,IT Verified 05/02/25 08:41 IRA clams (CLAMS) Allergy Intermediate SWELLING,ITCHING,GI Verified 05/02/25 08:41 ISSUES nickel AdvReac Intermediate infection Verified 05/03/25 08:44 from knee prosthesis from TKR Active Medications: Current Medications Acetaminophen (Acetaminophen 325 Mg Tablet) 650 mg PO Q6H PRN PRN Reason: Pain, Mild (Pain Scale 1-3), fever or headache Atenolol (Atenolol 25 Mg Tablet) 25 mg PO DAILY [facility]; Protocol Celecoxib (Celecoxib 200 Mg Capsule) 200 mg PO BID ZA Enoxaparin Sodium (Enoxaparin Sodium 40 Mg/0.4 Ml Syringe) 40 mg SUBCUT Q24H [place] Hydromorphone HCl (Hydromorphone Hcl 0.5 Mg/0.5 Ml Syringe) 0.25 mg IVPUSH Q4H PRN; Protocol PRN Reason: Pain, Severe (Pain Scale 7-10) Lactated Ringer's (Lr) 1,000 mls @ 100 mls/hr IVCONT .Q10H [facility] Last Admin: 05/05/25 16:34 Dose: 100 mls/hr Cefazolin Sodium/Dextrose (Ancef) 2 gm in 50 mls @ 100 mls/hr IV POSTOP@1900 ONE Stop: 05/05/25 19:29 Ondansetron HCl (Ondansetron Odt 4 Mg Tab.Rapdis) 4 mg TRANSLINGU Q8H PRN PRN Reason: Nausea and Vomiting Oxycodone HCl (Oxycodone Hcl Er 10 Mg Tab.Er.12h) 10 mg PO BID [place] Oxycodone HCl (Oxycodone Hcl Immed Release 5 Mg Tablet) 5 mg PO Q4H PRN PRN Reason: Pain, Moder 4-6,fever,headache Sertraline HCl (Sertraline Hcl 50 Mg Tablet) 50 mg PO DAILY [facility] Sodium Chloride (0.9 % Sodium Chloride Flush 3 Ml Syringe) 3 ml IVFLUSH QSHIFT [place] Last Admin: 05/05/25 16:33 Dose: 3 ml Home Medications ?Medication ?Instructions ?Recorded ?Confirmed ?Last Taken ?Type omega 7-qqk-qfz-fish oil 1,000 mg 1 cap PO DAILY 03/19/21 05/03/25 05/04/25 History (120 mg-180 mg) capsule (Fish Oil) turmeric root extract 1,053 mg 1,076 mg PO BEDTIME 03/19/21 05/03/25 05/04/25 History tablet glucosamine sulf dipot 1 cap PO BID 11/02/23 05/03/25 05/04/25 History chlr,msm,chond 550 mg-C 30 mg-ole 1 mg capsule (Glucosamine Chondroitin) calcium 600 mg (as 1 tab PO DAILY 01/25/24 05/03/25 05/04/25 History carbonate)-vitamin D3 5 mcg (200 unit) tablet multivitamin with minerals 1 tab PO DAILY 11/16/24 05/03/25 05/04/25 History (Hair,Skin and Nails tablet) Physical Exam Vital Signs and Narrative: Vital Signs: Last Vital Signs Temp 97.0 F 05/05/25 16:14 Pulse 80 05/05/25 16:14 Resp 16 05/05/25 16:14 BP 133/71 05/05/25 16:14 Pulse Ox 98 05/05/25 16:14 O2 Del Method Room Air 05/05/25 16:14 O2 Flow Rate 8 05/05/25 15:04 BMI result Body Mass Index 26.6 Const: Other: Awake alert no acute distress Resp: Other: Clear to auscultation bilaterally no rales rhonchi or wheezes Cardio: Other: No S4; positive S1-S2; no S3 murmurs rubs or gallops Extrem: Other: No edema bilaterally Results Imaging Radiologist's Impressions: Impressions Guidance Fluoroscopy 05/05/25 13:24 IMPRESSION: Fluoroscopy during procedure. Please see procedure report for additional information. Electronically signed by: Dominic Hurley MD 05/05/2025 03:38 PM EDT Assessment and Plan (1) Fracture of ankle, trimalleolar, right, closed: Qualifiers: Encounter type: subsequent encounter Status: Acute (2) Dyslipidemia: Status: Acute (3) History of palpitations: Status: Acute Plan 74-year-old female with history of right trimalleolar fracture presents today for elective repair. No acute medical issues at this time 1. Fracture right ankle -plan as per surgery 2. Dyslipidemia -continue statin -follow up as outpatient 3. Palpitations by history -appears stable well compensated -continue atenolol Full code Lovenox
[2025-05-05] MEDS: oxyCODONE HCl ER 10 MG TAB.ER.12H PO (20:22)
[2025-05-05] MEDS: oxyCODONE HCl Immed Release 5 MG TABLET PO (23:39)
[2025-05-06 00:20] VITALS: RESP 16
[2025-05-06 03:23] VITALS: BP 91/64; PULSE 82; RESP 18; TEMP 36.1; O2SAT 95
[2025-05-06] MEDS: Lactated Ringers 1,000 ML 100 ML IVCONT (05:10)
[2025-05-06 07:43] VITALS: BP 94/53; PULSE 82; RESP 16; TEMP 36.3; O2SAT 97
[2025-05-06 08:57] LABS: Hematocrit 33.2 % (37.0-47.0); Hemoglobin 11.4 g/dl (12.0-16.0)
--- NOTE | 2025-05-06 10:59 | PM.PNORT ---
Subjective Subjective Date of Service: 05/06/25 Interval history: POD 1 s/p ORIF rt ankle no overnight events resting in bed pain is managable Physical Exam Vital Signs: Vital Signs: Last Vital Signs Temp 97.3 F 05/06/25 07:43 Pulse 82 05/06/25 07:43 Resp 16 05/06/25 07:43 BP 94/53 L 05/06/25 07:43 Pulse Ox 97 05/06/25 07:43 O2 Del Method Room Air 05/06/25 07:43 O2 Flow Rate 99 05/05/25 19:27 BMI result Body Mass Index 26.6 Const: General: cooperative, healthy appearing and no acute distress Resp: Effort & Inspection: normal respiratory effort and able to speak in complete sentences Cardio: Rate: regular rate Peripheral pulses: Peripheral pulses 2+ throughout GI: Palpation (GI): Soft to palpation Skin: General skin exam: no rashes or lesions noted Extrem: Other: Right ankle splint c/d/i. She has sensation and good cap refill of toes Procedures Date of Service Date of Service: 05/06/25 Progress Note: A&P Assessment and plan (1) Fracture of ankle, trimalleolar, right, closed: Status: Acute Assessment and Plan: Cont pain medication Pt/Ot nwb rle Begin lovenox for dvt ppx dispo pending pt eval, rehab placement Time Spent With Patient Time: Total time managing care of this patient today ____ minutes. Quality Stroke Does the patient have a stroke diagnosis?: No VTE Prior VTE?: Yes VTE Risk Level:: Surgical - high VTE Device Contraindication: N/A - Device Ordered VTE Drug Contraindication: N/A - Med Ordered
--- NOTE | 2025-05-06 11:46 | HO.POSTANES ---
Post Anesthesia Evaluation Post Anesthesia Evaluation Date of Service: 05/06/25 Vital Signs: Vital Signs Temp Pulse Resp BP Pulse Ox O2 Del Method 05/06/25 07:43 97.3 F 82 16 94/53 L 97 Room Air 05/06/25 03:23 96.9 F 82 18 91/64 95 Room Air 05/06/25 00:20 16 Anesthesia: General LMA Mental Status: Awake Pain Control: Satisfactory Nausea/Vomiting: None Hydration: Adequate Anesthesia-Related Issues: No Anes. Related Issues
--- NOTE | 2025-05-06 12:10 | P.PNIM_ITS ---
Subjective Subjective Date of Service: 05/06/25 Interval History: No acute issues overnight. Review of Systems Denies chest pain Denies shortness of breath Denies nausea vomiting diarrhea Denies fever chills Physical Exam 2 Vital Signs: Vital Signs: Last Vital Signs Temp 97.3 F 05/06/25 07:43 Pulse 82 05/06/25 07:43 Resp 16 05/06/25 07:43 BP 94/53 L 05/06/25 07:43 Pulse Ox 97 05/06/25 07:43 O2 Del Method Room Air 05/06/25 07:43 O2 Flow Rate 99 05/05/25 19:27 BMI result Body Mass Index 26.6 Const: Other: Awake alert no acute distress Resp: Other: Clear to auscultation bilaterally no rales rhonchi or wheezes Cardio: Other: No S4; positive S1-S2; no S3 murmurs rubs or gallops Extrem: Other: No edema bilaterally Objective Data Active Medications Acetaminophen (Acetaminophen 325 Mg Tablet) 650 mg PO Q6H PRN PRN Reason: Pain, Mild (Pain Scale 1-3), fever or headache Last Admin: 05/06/25 08:24 Dose: 650 mg Documented By: REJI Atenolol (Atenolol 25 Mg Tablet) 25 mg PO DAILY [facility]; Protocol Last Admin: 05/06/25 08:25 Dose: Not Given Documented By: REJI Non-Admin Reason: Decreased Blood Pressure Atorvastatin Calcium (Atorvastatin Calcium 10 Mg Tablet) 10 mg PO BEDTIME [facility] Last Admin: 05/05/25 20:22 Dose: 10 mg Documented By: JUAN LUIS Celecoxib (Celecoxib 200 Mg Capsule) 200 mg PO BID [facility] Last Admin: 05/06/25 08:24 Dose: 200 mg Documented By: REJI Enoxaparin Sodium (Enoxaparin Sodium 40 Mg/0.4 Ml Syringe) 40 mg SUBCUT Q24H [facility] Hydromorphone HCl (Hydromorphone Hcl 0.5 Mg/0.5 Ml Syringe) 0.25 mg IVPUSH Q4H PRN; Protocol PRN Reason: Pain, Severe (Pain Scale 7-10) Lactated Ringer's (Lr) 1,000 mls @ 100 mls/hr IVCONT .Q10H [facility] Last Admin: 05/06/25 05:10 Dose: 100 mls/hr Documented By: BETTYE Ondansetron HCl (Ondansetron Odt 4 Mg Tab.Rapdis) 4 mg TRANSLINGU Q8H PRN PRN Reason: Nausea and Vomiting Oxycodone HCl (Oxycodone Hcl Er 10 Mg Tab.Er.12h) 10 mg PO BID [facility] Last Admin: 05/05/25 20:22 Dose: 10 mg Documented By: JUAN LUIS Oxycodone HCl (Oxycodone Hcl Immed Release 5 Mg Tablet) 5 mg PO Q4H PRN PRN Reason: Pain, Moder 4-6,fever,headache Last Admin: 05/05/25 23:39 Dose: 5 mg Documented By: REN Sertraline HCl (Sertraline Hcl 50 Mg Tablet) 50 mg PO DAILY [facility] Last Admin: 05/06/25 08:23 Dose: 50 mg Documented By: REJI Sodium Chloride (0.9 % Sodium Chloride Flush 3 Ml Syringe) 3 ml IVFLUSH QSHIFT [facility] Last Admin: 05/06/25 08:25 Dose: Not Given Documented By: REJI Non-Admin Reason: IV Running Labs 05/06/25 08:47 Assessment and Plan (1) Fracture of ankle, trimalleolar, right, closed: Status: Acute (2) Palpitations: Status: Acute Plan 74-year-old female with history of right trimalleolar fracture presents today for elective repair. No acute medical issues at this time 1. Fracture right ankle -plan as per surgery 2. Dyslipidemia -continue statin -follow up as outpatient 3. Palpitations by history -BP soft today -hold atenolol Full code Lovenox Quality Stroke Does the patient have a stroke diagnosis?: No VTE Prior VTE?: Yes VTE Risk Level:: Surgical - high VTE Device Contraindication: N/A - Device Ordered VTE Drug Contraindication: N/A - Med Ordered
[2025-05-06 16:00] VITALS: BP 102/52; PULSE 78; RESP 16; TEMP 36.9; O2SAT 98
--- NOTE | 2025-05-06 16:04 | MHC.CM.PN ---
PT REPORTS SHE LIVES ALONE AND IS INDEPENDENT AT BASELINE PT USED NO DME OR SERVICES RN PEDIATRIC HCP AND MOLST ON FILE PCP: YVONNE BLAIR DCP: PT REQUESTING REHAB, UNDERSTANDS SHE WILL NOT HAVE A QHS FOR STR SO WOULD HAVE TO QUALIFY FOR ACUTE TRANSPORT TBD BY DISPO
[2025-05-06 19:46] VITALS: BP 102/53; PULSE 87; RESP 17; TEMP 36.4; O2SAT 94
[2025-05-06] MEDS: oxyCODONE HCl ER 10 MG TAB.ER.12H PO (20:03)
[2025-05-07 04:00] VITALS: BP 101/55; PULSE 75; RESP 18; TEMP 36.6; O2SAT 96
[2025-05-07 07:42] VITALS: BP 102/58; PULSE 83; RESP 16; TEMP 36.2; O2SAT 95
[2025-05-07] MEDS: oxyCODONE HCl ER 10 MG TAB.ER.12H PO (08:09)
--- NOTE | 2025-05-07 09:16 | PM.PNORT ---
Subjective Subjective Date of Service: 05/07/25 Interval history: POD 2 s/p ORIF rt ankle no overnight events resting in bed pain is managable She did not have physical therapy postop day 1 Physical Exam Vital Signs: Vital Signs: Last Vital Signs Temp 97.1 F 05/07/25 07:42 Pulse 83 05/07/25 07:42 Resp 16 05/07/25 07:42 BP 102/58 L 05/07/25 07:42 Pulse Ox 95 05/07/25 07:42 O2 Del Method Room Air 05/07/25 07:42 O2 Flow Rate 99 05/05/25 19:27 BMI result Body Mass Index 26.6 Const: General: cooperative, healthy appearing and no acute distress Resp: Effort & Inspection: normal respiratory effort and able to speak in complete sentences Cardio: Rate: regular rate Peripheral pulses: Peripheral pulses 2+ throughout GI: Palpation (GI): Soft to palpation Skin: General skin exam: no rashes or lesions noted Extrem: Other: Right ankle splint c/d/i. She has sensation and good cap refill of toes Procedures Date of Service Date of Service: 05/07/25 Progress Note: A&P Assessment and plan (1) Fracture of ankle, trimalleolar, right, closed: Status: Acute Assessment and Plan: Cont pain medication Pt/Ot nwb rle lovenox for dvt ppx dispo pending pt eval, rehab placement Time Spent With Patient Time: Total time managing care of this patient today ____ minutes. Quality Stroke Does the patient have a stroke diagnosis?: No VTE Prior VTE?: Yes VTE Risk Level:: Surgical - high VTE Device Contraindication: N/A - Device Ordered VTE Drug Contraindication: N/A - Med Ordered
[2025-05-07 10:24] VITALS: BP 127/58; PULSE 85; RESP 14; O2SAT 97
--- NOTE | 2025-05-07 11:55 | HO.PM.IMPN ---
Subjective Subjective Date of Service: 05/07/25 Physical Exam Vital Signs: Vital Signs: Last Vital Signs Temp 97.1 F 05/07/25 07:42 Pulse 85 05/07/25 10:24 Resp 14 05/07/25 10:24 BP 127/58 L 05/07/25 10:24 Pulse Ox 97 05/07/25 10:24 O2 Del Method Room Air 05/07/25 10:24 O2 Flow Rate 99 05/05/25 19:27 BMI result Body Mass Index 26.6 Objective Data Active Medications Acetaminophen (Acetaminophen 325 Mg Tablet) 650 mg PO Q6H PRN PRN Reason: Pain, Mild (Pain Scale 1-3), fever or headache Last Admin: 05/07/25 00:00 Dose: 650 mg Documented By: HILTON Atenolol (Atenolol 25 Mg Tablet) 25 mg PO DAILY FORMERLY [facility], [facility]1983; Protocol Last Admin: 05/07/25 08:13 Dose: Not Given Documented By: REJI Non-Admin Reason: Decreased Blood Pressure Comments: pt declined due to bp Atorvastatin Calcium (Atorvastatin Calcium 10 Mg Tablet) 10 mg PO BEDTIME FORMERLY [facility], [facility]1983 Last Admin: 05/06/25 20:02 Dose: 10 mg Documented By: HILTON Celecoxib (Celecoxib 200 Mg Capsule) 200 mg PO BID FORMERLY [facility], [facility]1983 Last Admin: 05/07/25 08:08 Dose: 200 mg Documented By: REJI Enoxaparin Sodium (Enoxaparin Sodium 40 Mg/0.4 Ml Syringe) 40 mg SUBCUT Q24H FORMERLY [facility], [facility]–1983 Last Admin: 05/06/25 14:08 Dose: 40 mg Documented By: REJI Hydromorphone HCl (Hydromorphone Hcl 0.5 Mg/0.5 Ml Syringe) 0.25 mg IVPUSH Q4H PRN; Protocol PRN Reason: Pain, Severe (Pain Scale 7-10) Ondansetron HCl (Ondansetron Odt 4 Mg Tab.Rapdis) 4 mg TRANSLINGU Q8H PRN PRN Reason: Nausea and Vomiting Oxycodone HCl (Oxycodone Hcl Er 10 Mg Tab.Er.12h) 10 mg PO BID FORMERLY [facility], 1928[facility]1983 Last Admin: 05/07/25 08:09 Dose: 10 mg Documented By: REJI Oxycodone HCl (Oxycodone Hcl Immed Release 5 Mg Tablet) 5 mg PO Q4H PRN PRN Reason: Pain, Moder 4-6,fever,headache Last Admin: 05/05/25 23:39 Dose: 5 mg Documented By: REN Sertraline HCl (Sertraline Hcl 50 Mg Tablet) 50 mg PO DAILY FORMERLY [facility], [facility] Last Admin: 05/07/25 08:09 Dose: 50 mg Documented By: REJI Sodium Chloride (0.9 % Sodium Chloride Flush 3 Ml Syringe) 3 ml IVFLUSH QSHIFT FORMERLY [facility], [facility]–1983 Last Admin: 05/07/25 08:13 Dose: Not Given Documented By: REJI Non-Admin Reason: No Access Labs 05/06/25 08:47 Assessment and Plan (1) Fracture of ankle, trimalleolar, right, closed: Status: Acute (2) Palpitations: Status: Acute Plan 74-year-old female with history of right trimalleolar fracture presents today for elective repair. No acute medical issues at this time 1. Fracture right ankle -plan as per surgery 2. Dyslipidemia -continue statin -follow up as outpatient 3. Palpitations by history -BP soft today -hold atenolol Full code Lovenox Quality Stroke Does the patient have a stroke diagnosis?: No VTE Prior VTE?: Yes VTE Risk Level:: Surgical - high VTE Device Contraindication: N/A - Device Ordered VTE Drug Contraindication: N/A - Med Ordered
[2025-05-07 15:46] VITALS: BP 107/63; PULSE 84; RESP 16; TEMP 36.6; O2SAT 97
--- NOTE | 2025-05-07 17:28 | PC.NURSE ---
Addendum entered by Elsa Rubio RN 05/07/25 17:31: previous entry ( message sent to PT on 05/06/25 not 05/07/25 Original Note: late entry-05/07/25 1500- Message sent to PT Chalino Figueroa via [employer] in regards to evaluating pt. Message read but no response given. Nursing staff assisted pt OOB to recliner with walker NWLexis right
[2025-05-07 19:48] VITALS: BP 108/56; PULSE 88; RESP 17; TEMP 36; O2SAT 95
[2025-05-07] MEDS: oxyCODONE HCl Immed Release 5 MG TABLET PO (22:48)
[2025-05-08 03:40] VITALS: BP 108/51; PULSE 74; RESP 16; TEMP 36.1; O2SAT 95
[2025-05-08 06:59] VITALS: BP 120/59; PULSE 84; RESP 16; TEMP 36.9; O2SAT 96
[2025-05-08 08:59] VITALS: BP 121/60; PULSE 82
--- NOTE | 2025-05-08 09:11 | PM.PNORT ---
Subjective Subjective Date of Service: 05/08/25 Interval history: POD 3 s/p ORIF rt ankle no overnight events resting in recliner pain is managable Physical Exam Vital Signs: Vital Signs: Last Vital Signs Temp 98.4 F 05/08/25 06:59 Pulse 82 05/08/25 08:59 Resp 16 05/08/25 06:59 BP 121/60 05/08/25 08:59 Pulse Ox 96 05/08/25 06:59 O2 Del Method Room Air 05/08/25 06:59 O2 Flow Rate 99 05/05/25 19:27 BMI result Body Mass Index 26.6 Const: General: cooperative, healthy appearing and no acute distress Resp: Effort & Inspection: normal respiratory effort and able to speak in complete sentences Cardio: Rate: regular rate Peripheral pulses: Peripheral pulses 2+ throughout GI: Palpation (GI): Soft to palpation Skin: General skin exam: no rashes or lesions noted Extrem: Other: Right ankle splint c/d/i. She has sensation and good cap refill of toes Procedures Date of Service Date of Service: 05/08/25 Progress Note: A&P Assessment and plan (1) Fracture of ankle, trimalleolar, right, closed: Status: Acute Assessment and Plan: Cont pain medication Pt/Ot nwb rle lovenox for dvt ppx dispo pending pt eval, rehab placement Time Spent With Patient Time: Total time managing care of this patient today ____ minutes. Quality Stroke Does the patient have a stroke diagnosis?: No VTE Prior VTE?: Yes VTE Risk Level:: Surgical - high VTE Device Contraindication: N/A - Device Ordered VTE Drug Contraindication: N/A - Med Ordered
--- NOTE | 2025-05-08 12:58 | P.DS_ITS ---
DS: Providers Provider Date of Service: 05/08/25 Date of discharge: 05/08/25 Primary care physician: MIRA Dejesus Consults: 05/05/25 16:05 Consult to Case Management Routine Comment: STR s/p ORIF rt ankle- lives alone Consult to Hospitalist Routine Comment: Consulting Provider: [facility] Reason For Exam: CAD. h/o dvt DS: Diagnosis Discharge Diagnosis (1) Fracture of ankle, trimalleolar, right, closed: Status: Acute DS: Summary Hospital Course Hospital Course: The patient underwent a successful right ankle open reduction internal fixation, they were transferred to PACU and then to the floor to recover. During their stay, their vitals were stable, afebrile at 98.4 Labs were unremarkable, H/H 11.4/33.2. POD 1 they were started on Lovenox for DVT ppx, they also received Physical Therapy services. Prior to discharge, their splint was clean dry and intact and the plan was to be discharged to rehab to reduce imparements and maximize function. Time Attestation Discharge Coordination Time (in mins): 30 Quality: Safe Use of Opioids Does Pt have an Active Cancer Diagnosis on the Problem List?: No Quality: Stroke Does the patient have a stroke diagnosis?: No Physical Exam Vital Signs: Vital Signs: Last Vital Signs Temp 98.4 F 05/08/25 06:59 Pulse 82 05/08/25 08:59 Resp 16 05/08/25 06:59 BP 121/60 05/08/25 08:59 Pulse Ox 96 05/08/25 06:59 O2 Del Method Room Air 05/08/25 06:59 O2 Flow Rate 99 05/05/25 19:27 BMI result Body Mass Index 26.6 Const: General: cooperative, healthy appearing and no acute distress Resp: Effort & Inspection: normal respiratory effort and able to speak in complete sentences Cardio: Rate: regular rate Peripheral pulses: Peripheral pulses 2+ throughout GI: Palpation (GI): Soft to palpation Skin: General skin exam: no rashes or lesions noted Extrem: Other: Right ankle splint c/d/i. Sensation intact. Cap refill brisk. DS: Data Data Completed and Pending Completed studies during hospitalization [Text1]: Procedures Insertion of Infusion Device into Superior Vena Cava, Percutaneous Approach (11/11/23) Insertion of Spacer into Right Knee Joint, Open Approach (11/11/23) Introduction of Anesthetic Agent into Peripheral Nerves and Plexi, Percutaneous Approach (02/10/24) Removal of Synthetic Substitute from Right Knee Joint, Femoral Surface, Open Approach (02/10/24) Removal of Synthetic Substitute from Right Knee Joint, Open Approach (11/11/23) Replacement of Right Knee Joint, Femoral Surface with Synthetic Substitute, Cemented, Open Approach (02/10/24) Ultrasonography of Superior Vena Cava, Guidance (11/11/23) Discharge Plan Discharge Patient Disposition: [facility] Referrals: Josee Sullivan PA-C [Physician Projection Printer, Orthopedics] - 05/11/25 9:30 am Discharge Medications: New oxycodone 5 mg Tablet 5 mg PO Q4H PRN (Reason: Pain, Moder 4-6,fever,headache) 7 Days Qty: 42 0RF Rx Instructions: Partial Fill upon patient request. enoxaparin 40 mg/0.4 mL Syringe 40 mg subcut Q24H 42 Days Qty: 16.8 0RF celecoxib 200 mg Capsule 200 mg PO BID 30 Days Qty: 60 0RF docusate sodium 100 mg Capsule 100 mg PO BID 30 Days Qty: 60 0RF Continued sertraline 50 mg tablet 50 mg PO DAILY 90 Days Qty: 90 3RF atenolol 25 mg tablet 25 mg PO DAILY Qty: 90 1RF atorvastatin 10 mg tablet 10 mg PO BEDTIME Qty: 90 1RF ondansetron 4 mg tablet,disintegrating 4 mg PO Q8H PRN (Reason: nausea and vomiting) Qty: 20 0RF Glucosamine Chondroitin 550-30-1 mg Capsule 1 cap PO BID turmeric root extract 1,053 mg tablet 1,076 mg PO BEDTIME calcium carbonate-vitamin D3 600 mg-5 mcg (200 unit) tablet 1 tab PO DAILY Hair,Skin and Nails Tablet 1 tab PO DAILY Discontinued acetaminophen 325 mg Tablet 650 mg PO Q6H PRN (Reason: Pain, Mild (Pain Scale 1-3), fever or headache) 30 Days Qty: 240 0RF oxycodone 5 mg tablet 5 mg PO Q6H PRN (Reason: pain) Qty: 14 0RF Rx Instructions: Partial Fill upon patient request. omega 8-pnt-pea-fish oil [Fish Oil] 1,000 mg (120 mg-180 mg) capsule 1 cap PO DAILY Discharge Orders: Discharge Order (Routine); Ordered 05/08/25 Ordered By: Kenyon Velázquez Diet: Advance to usual diet Activity on Discharge: Use Splints or Immobilizers Activity Restrictions/Additional Instructions: 1. Activity and Weightbearing * Do NOT bear weight on the operative leg until cleared. * Use crutches or a walker * Keep your leg elevated above heart level as much as possible for the first 5-7 days to reduce swelling. * Avoid prolonged standing or sitting with the leg hanging down. * Move your toes and non-injured joints often to maintain circulation. 2. Immobilization and Dressing * Keep the splint, cast, or boot clean and dry at all times. * Do not remove the splint or dressings. * If the splint feels excessively tight, numbness develops, or your toes become pale/blue and cold, loosen the christine wrap if possible and contact your surgeon immediately. * Call orthopedics if the splint becomes wet. 3. Wound Care * Keep the dressing intact and dry until your follow-up visit or until instructed to change it. * Do not soak the incision (no baths, pools, or hot tubs) until the incision is fully healed. * Do not shower. 4. Pain Management * Take prescribed pain medications as directed. * You may use Tylenol or NSAIDs if approved by your surgeon for mild pain. * Ice may be applied over the splint (20 minutes on, 20 minutes off) several times a day to help with pain and swelling ? make sure the splint stays dry. 5. Diet and Constipation Prevention * Resume your regular diet as tolerated. * Pain medications can cause constipation ? increase fluids, fiber, and activity as tolerated. * You may use [id number]-[id number]-[id number] stool softeners (Colace, Senna, Miralax) if needed. 6. Signs to Contact Your Surgeon Call your surgeon or go to the emergency room if you experience: * Fever > 101?F (38.3?C) * Excessive swelling, redness, or drainage from incision site(s) * Numbness, tingling, or inability to move your toes * Calf pain, swelling, or shortness of breath (possible blood clot) 7. Follow-Up * Your first postoperative appointment is typically 10?14 days after surgery for wound check and possible suture/staple removal and cast placement. Print Language: Nauruan
--- NOTE | 2025-05-08 13:02 | P.DS_ITS ---
DS: Providers Provider Date of Service: 05/08/25 Date of discharge: 05/08/25 Primary care physician: MIRA Dejesus Consults: 05/05/25 16:05 Consult to Case Management Routine Comment: STR s/p ORIF rt ankle- lives alone Consult to Hospitalist Routine Comment: Consulting Provider: [facility] Reason For Exam: CAD. h/o dvt DS: Diagnosis Discharge Diagnosis (1) Fracture of ankle, trimalleolar, right, closed: Status: Acute DS: Summary Hospital Course Hospital Course: The patient underwent a successful right ankle open reduction internal fixation, they were transferred to PACU and then to the floor to recover. During their stay, their vitals were stable, afebrile at 98.4 Labs were unremarkable, H/H 11.4/33.2. POD 1 they were started on Lovenox for DVT ppx, they also received Physical Therapy services. Prior to discharge, their splint was clean dry and intact and the plan was to be discharged to rehab to reduce imparements and maximize function. Physical Exam Vital Signs: Vital Signs: Last Vital Signs Temp 98.4 F 05/08/25 06:59 Pulse 82 05/08/25 08:59 Resp 16 05/08/25 06:59 BP 121/60 05/08/25 08:59 Pulse Ox 96 05/08/25 06:59 O2 Del Method Room Air 05/08/25 06:59 O2 Flow Rate 99 05/05/25 19:27 BMI result Body Mass Index 26.6 DS: Data Data Completed and Pending Completed studies during hospitalization [Text1]: Procedures Insertion of Infusion Device into Superior Vena Cava, Percutaneous Approach (11/11/23) Insertion of Spacer into Right Knee Joint, Open Approach (11/11/23) Introduction of Anesthetic Agent into Peripheral Nerves and Plexi, Percutaneous Approach (02/10/24) Removal of Synthetic Substitute from Right Knee Joint, Femoral Surface, Open Approach (02/10/24) Removal of Synthetic Substitute from Right Knee Joint, Open Approach (11/11/23) Replacement of Right Knee Joint, Femoral Surface with Synthetic Substitute, Cemented, Open Approach (02/10/24) Ultrasonography of Superior Vena Cava, Guidance (11/11/23) Discharge Plan Discharge Patient Disposition: [facility] Referrals: Josee Sullivan PA-C [Physician Play Reader, Orthopedics] - 05/11/25 9:30 am Discharge Medications: New oxycodone 5 mg Tablet 5 mg PO Q4H PRN (Reason: Pain, Moder 4-6,fever,headache) 7 Days Qty: 42 0RF Rx Instructions: Partial Fill upon patient request. enoxaparin 40 mg/0.4 mL Syringe 40 mg subcut Q24H 42 Days Qty: 16.8 0RF celecoxib 200 mg Capsule 200 mg PO BID 30 Days Qty: 60 0RF docusate sodium 100 mg Capsule 100 mg PO BID 30 Days Qty: 60 0RF Continued sertraline 50 mg tablet 50 mg PO DAILY 90 Days Qty: 90 3RF atenolol 25 mg tablet 25 mg PO DAILY Qty: 90 1RF atorvastatin 10 mg tablet 10 mg PO BEDTIME Qty: 90 1RF ondansetron 4 mg tablet,disintegrating 4 mg PO Q8H PRN (Reason: nausea and vomiting) Qty: 20 0RF Glucosamine Chondroitin 550-30-1 mg Capsule 1 cap PO BID turmeric root extract 1,053 mg tablet 1,076 mg PO BEDTIME calcium carbonate-vitamin D3 600 mg-5 mcg (200 unit) tablet 1 tab PO DAILY Hair,Skin and Nails Tablet 1 tab PO DAILY Discontinued acetaminophen 325 mg Tablet 650 mg PO Q6H PRN (Reason: Pain, Mild (Pain Scale 1-3), fever or headache) 30 Days Qty: 240 0RF oxycodone 5 mg tablet 5 mg PO Q6H PRN (Reason: pain) Qty: 14 0RF Rx Instructions: Partial Fill upon patient request. omega 2-qga-ftq-fish oil [Fish Oil] 1,000 mg (120 mg-180 mg) capsule 1 cap PO DAILY Discharge Orders: Discharge Order (Routine); Ordered 05/08/25 Ordered By: Kenyon Velázquez Diet: Advance to usual diet Activity on Discharge: Use Splints or Immobilizers Activity Restrictions/Additional Instructions: 1. Activity and Weightbearing * Do NOT bear weight on the operative leg until cleared. * Use crutches or a walker * Keep your leg elevated above heart level as much as possible for the first 5-7 days to reduce swelling. * Avoid prolonged standing or sitting with the leg hanging down. * Move your toes and non-injured joints often to maintain circulation. 2. Immobilization and Dressing * Keep the splint, cast, or boot clean and dry at all times. * Do not remove the splint or dressings. * If the splint feels excessively tight, numbness develops, or your toes become pale/blue and cold, loosen the christine wrap if possible and contact your surgeon immediately. * Call orthopedics if the splint becomes wet. 3. Wound Care * Keep the dressing intact and dry until your follow-up visit or until instructed to change it. * Do not soak the incision (no baths, pools, or hot tubs) until the incision is fully healed. * Do not shower. 4. Pain Management * Take prescribed pain medications as directed. * You may use Tylenol or NSAIDs if approved by your surgeon for mild pain. * Ice may be applied over the splint (20 minutes on, 20 minutes off) several times a day to help with pain and swelling ? make sure the splint stays dry. 5. Diet and Constipation Prevention * Resume your regular diet as tolerated. * Pain medications can cause constipation ? increase fluids, fiber, and activity as tolerated. * You may use [id number] stool softeners (Colace, Senna, Miralax) if needed. 6. Signs to Contact Your Surgeon Call your surgeon or go to the emergency room if you experience: * Fever > 101?F (38.3?C) * Excessive swelling, redness, or drainage from incision site(s) * Numbness, tingling, or inability to move your toes * Calf pain, swelling, or shortness of breath (possible blood clot) 7. Follow-Up * Your first postoperative appointment is typically 10?14 days after surgery for wound check and possible suture/staple removal and cast placement. Print Language: Estonian
--- NOTE | 2025-05-08 14:04 | MHC.CM.PN ---
Addendum entered by Kimberli Coto 05/08/25 14:36: [facility] HAS NOW OFFERED A BED TODAY AFTER 5: 30 PM. BLS BOOKED FOR 5: 30 PM VIA [facility]. PROVIDER/RN UPDATED. Original Note: EMR REVIEWED AND PT WOULD LIKE TO GO TO REHAB. [facility] HAS OFFERED A BED FOR 05/09 AT 3: 30 PM, PT ACCEPTS BED OFFER. NO OFFERS TODAY FROM OTHER [facility]. BLS PRE-BOOKED FOR 05/09 AT 3: 30 PM VIA [facility]. CM WILL CONTINUE TO FOLLOW FOR ANY CHANFGE TO DC PLAN.
[2025-05-08 15:55] VITALS: BP 102/58; PULSE 78; RESP 20; TEMP 36.5; O2SAT 95
--- NOTE | 2025-05-12 15:43 | W.PM.OPN ---
Operative Note Operative Note Date of Service: 05/05/25 Narrative: Date of Service: 05/05/25 Pre-op diagnosis: Right bimalleolar ankle fracture dislocation Post-op diagnosis: same Procedure: ORIF dawson ORIF syndesmosis Implants: Rubia Pangea lateral locking plate [place] 4.0 Cannulated screws x 2 Surgeon: Tito Barron MD Anesthesia: local Was an [employer] used for this Procedure?: No Estimated blood loss (mL): 25 Tourniquet time (min): 70 IV fluids (mL): 1,000 Pathology: none sent Condition: stable Disposition: PACU Procedure in detail: Patient was brought to the operating room and placed supine on the operative table. All bony prominences were well padded and a time-out was called to identify proper site proper procedure proper surgeon. IV antibiotics per weight were administered. I began by exsanguinating limb is slightly tourniquet to 300 mm Hg. I then made a standard posterolateral incision over the fibula. Full-thickness flaps were taken down to the fibular shaft and distal fibula. The fracture was identified and cleaned with a combination of curette, rongeur and irrigation. A lobster claw was used to provisionally reduce the fracture and a 6 hole distal fibular locking plate was applied using standard AO technique. 6 distal locking screws were placed and 3 bicortical non locking screws were placed proximal to the fracture. This reduced the fibular anatomically. Biplanar fluoroscopy was used to confirm hardware position and fracture reduction. Once I was satisfied that both of these were acceptable I irrigated copiously and turned my attention to the medial side. The transverse medial malleolar fracture was identified after skin incision. Full-thickness skin flaps were developed and, With a sharp tenaculum, the fracture was reduced. 2 threaded K-wires were then placed from distal to proximal and perpendicular to the fracture. Biplanar fluoroscopy was used to confirm positioning and then they were overdrilled and 2 40 mm 4.0 partially-threaded cannulated cancellous screws were placed across the fracture. The bone quality was very poor but I was satisfied with the position and the fracture reduction based on biplanar fluoroscopy. This syndesmosis was tested using external rotation test and was unstable with increased medial clear space. Her bone quality was extremely poor so I elected to place 2 quadricortical screws from lateral to medial across the syndesmosis. I was satisfied with the position on fluoro and the stability on ER test. Therefore all instrumentation was removed and copious irrigation was performed. Absorbable suture and ann were used for closure and the patient was placed into sterile dressings and a well-padded posterior splint. Tourniquet was let down and the patient was extubated brought to recovery room in stable condition there were no known complications.
== END 2025-05-08 17:34 | disposition short-term general hospital (02) ==
LOC: HO.SSS 11:17 → HO.S3 15:14
PROVIDERS: Physician Assistant; PCP Nurse Practitioner Family; Visit Provider Orthopaedic Surgery
PROC: (CPT 27814; principal; 2025-05-05 12:50)
DX: S82.841A Displaced bimalleolar fracture of right lower leg, initial encounter for closed fracture (principal); S93.431A Sprain of tibiofibular ligament of right ankle, initial encounter; M25.571 Pain in right ankle and joints of right foot; W01.0XXA Fall on same level from slipping, tripping and stumbling without subsequent striking against object, initial encounter; X50.1XXA Overexertion from prolonged static or awkward postures, initial encounter; Y93.89 Activity, other specified; Y92.89 Other specified places as the place of occurrence of the external cause; Y99.9 Unspecified external cause status; E78.2 Mixed hyperlipidemia; R00.2 Palpitations; Z86.718 Personal history of other venous thrombosis and embolism; F39 Unspecified mood [affective] disorder; M25.569 Pain in unspecified knee; Z96.651 Presence of right artificial knee joint; Z66 Do not resuscitate; Z79.899 Other long term (current) drug therapy; Z98.890 Other specified postprocedural states
CPT/HCPCS: 27814; 36415; 85014; 85018; 97161; 97165; C1713; J0131; J0690; J1171; J1650; J2704; J2795; J3010; J7120

== ENCOUNTER → 2025-05-05 11:16 | Outpatient (BNV) | payer MEDICARE, OTHER, SELFPAY | PROVIDERS: PCP Nurse Practitioner Family; Visit Provider Orthopaedic Surgery | DX: S82.851A Displaced trimalleolar fracture of right lower leg, initial encounter for closed fracture (principal) | CPT/HCPCS: 27814; 99024 ==

== ENCOUNTER → 2025-05-05 11:16 | Outpatient (BNV) | payer MEDICARE, OTHER, SELFPAY | PROVIDERS: PCP Nurse Practitioner Family; Visit Provider Hospitalist | DX: S82.851A Displaced trimalleolar fracture of right lower leg, initial encounter for closed fracture (principal); E78.5 Hyperlipidemia, unspecified; Z87.898 Personal history of other specified conditions | CPT/HCPCS: 99223; 99231; 99232 ==

== ENCOUNTER 2025-05-11 09:21 | Outpatient (AMB) | payer MEDICARE, OTHER, SELFPAY ==
--- NOTE | 2025-05-11 09:29 | MHC.OFFVIS ---
Intake Visit Reasons: PO RT ankle ORIF 05/05/25 NE Intake Note: Bety is a 74 year old female who presents today for a post op appointment status post right ankle ORIF 05/05/25 NE. Patient reports she is doing well. 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 Chinchilla is a is a 74-year-old female who presents to the office today for follow-up status post right ankle ORIF performed on 05/05/[address] Barron. She has been residing at [facility] rehab after surgery with plans to discharge home on Thursday. Overall she is doing very well. She denies any pain. She has been nonweightbearing. She has noticed some GI upset after taking Celebrex and is wondering if she can DC this. No additional complaints. [facility] Medical History Mood disorder PVCs (premature ventricular contractions) Mixed hyperlipidemia History of revision of total replacement of right knee joint DVT (deep venous thrombosis) Arthritis Back pain Hx: UTI (urinary tract infection) Elevated cholesterol History of depression History of palpitations Surgical History History of revision of total knee arthroplasty Hx of bilateral cataract extraction History of loop electrical excision procedure (LEEP) History of total right knee replacement (TKR) Hx of colonoscopy Family History Maternal Aunt Substance use disorder Social History Household Members: None Housing: House Are you a primary intensive care specialist to a significant other at home: No Do you presently have visiting nurse or other home services: No Alcohol intake: current Alcohol intake frequency: holidays/special occasions only Patient Tobacco Use Status: Never used Tobacco e-Cigarette/Vaping Use: Never Used Second Hand Smoke Exposure: Yes service: No Current occupational status: retired Cognitive needs: No Hearing needs: No Vision needs: No Review of Systems Const All systems reviewed & are unremarkable except as noted in HPI and below Physical Exam Const General: cooperative, healthy appearing and no acute distress Resp Effort & Inspection: normal respiratory effort and able to speak in complete sentences Extrem Other: Right ankle incision sites are clean dry and intact. No surrounding erythema or drainage no signs of infection. Lateral malleolar incision site Steri-Strips are clean dry and intact. Medial incision site ann are intact. Able to slightly dorsiflex and plantar flex. Skin is intact. NVI. Psych Appearance: grossly normal Mental Status: mental status grossly normal Attitude: cooperative Office Procedures Casting/Splints [id number] Leg splint application Procedure code (CPT) selection complete Assessment & Plan Assessment & Plan (1) Fracture of ankle, trimalleolar, right, closed: Code(s): S82.851A - Displaced trimalleolar fracture of right lower leg, initial encounter for closed fracture Category: Medical Qualifiers: Encounter type: subsequent encounter (2) Status post ORIF of fracture of ankle: Code(s): Z98.890 - Other specified postprocedural states; Z87.81 - Personal history of (healed) traumatic fracture Category: Surgical Plan Ms. Chinchilla is a is a 74-year-old female who presents to the office today for follow-up status post right ankle ORIF performed on 05/05/[address] Barron. She has been residing at [facility] after surgery with plans to discharge home on Thursday. Overall she is doing very well. She denies any pain. She has been nonweightbearing. She has noticed some GI upset after taking Celebrex and is wondering if she can DC this. No additional complaints. While in the office today skin is clean dry and intact. No signs of infection. She was placed back into a custom molded posterior splint. She will continue nonweightbearing. She may discontinue the Celebrex and SSEPs to with ibuprofen if needed. She is taking Tylenol for pain at this point as the oxycodone did not make her feel well. She will keep the splint clean dry and intact. Should the splint become dirty, damage or wet she will contact the orthopedic office immediately. She will follow up in 1 week for anticipated removal of ann on the medial malleolus with x-ray and likely cast placement at that time. She may follow up sooner if needed. Coding Level of Care Code Global (16093) Diagnoses Fracture of ankle, trimalleolar, right, closed S82.851A Encounter type: subsequent encounter Status post ORIF of fracture of ankle Z98.890; Z87.81 CPT Codes Splint - CPT: [id number] Leg splint application ([id number])
== END 2025-05-11 10:12 | disposition home or self-care (01) ==
LOC: HO.HOS 09:23
PROVIDERS: PCP Nurse Practitioner Family; Visit Provider Physician Assistant
DX: S82.851A Displaced trimalleolar fracture of right lower leg, initial encounter for closed fracture (principal); Z98.890 Other specified postprocedural states; Z87.81 Personal history of (healed) traumatic fracture
CPT/HCPCS: 29515; 99024

== ENCOUNTER → 2025-05-11 09:21 | Outpatient (BNVA) | payer MEDICARE, OTHER, SELFPAY | PROVIDERS: PCP Nurse Practitioner Family; Visit Provider Physician Assistant | DX: S82.851D Displaced trimalleolar fracture of right lower leg, subsequent encounter for closed fracture with routine healing (principal); Z96.7 Presence of other bone and tendon implants | CPT/HCPCS: 29515; 99212 ==

== ENCOUNTER 2025-05-18 09:21 | Outpatient (REF) | payer MEDICARE, OTHER, SELFPAY ==
--- NOTE | ~2025-05-18 | XR_ITS ---
CLINICAL HISTORY: M25.579 - Pain in unspecified ankle and joints of unspecified foot 3 view right ankle Comparison: 05/02/2025 Findings: There is minimal healing of the medial malleolar fracture with surgical hardware in position. There is anatomic alignment with healing of the distal fibular fracture. The exam is otherwise unchanged. IMPRESSION: 1. Iatrogenic findings with minimal healing of medial malleolar fracture and healed distal fibular fracture. This document has been electronically signed by: Smith Urbina MD on 05/19/2025 10:43:31
== END 2025-05-18 09:22 | disposition home or self-care (01) ==
LOC: HO.HOSX 09:21
PROVIDERS: Visit Provider Physician Assistant
DX: S82.851D Displaced trimalleolar fracture of right lower leg, subsequent encounter for closed fracture with routine healing (principal); Z98.890 Other specified postprocedural states; Z87.81 Personal history of (healed) traumatic fracture; X58.XXXD Exposure to other specified factors, subsequent encounter
CPT/HCPCS: 29405; 73610; 99212

== ENCOUNTER 2025-05-18 11:33 | Outpatient (AMB) | payer MEDICARE, OTHER, SELFPAY ==
--- NOTE | 2025-05-18 11:53 | MHC.OFFVIS ---
Intake Visit Reasons: PO-Rt Ankle ORIF 05/05/25 NE w/xrays-staple removal Intake Note: Bety is a 74 year old female who presents today for a post op appointment status post right ankle ORIF, performed by Dr. Barron on 05/05/25. At her last visit she was placed in a new splint. Patient reports she is doing well, states no pain at the moment. 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 Renée coker is a 74-year-old female who presents to the office today status post right ankle ORIF performed on 05/05/[address] Barron. Splint was removed while in the office today for x-rays to be obtained. Patient states pain is managed. No additional complaints. ON LICENSE OF [facility] Medical History Mood disorder PVCs (premature ventricular contractions) Mixed hyperlipidemia History of revision of total replacement of right knee joint DVT (deep venous thrombosis) Arthritis Back pain Hx: UTI (urinary tract infection) Elevated cholesterol History of depression History of palpitations Surgical History History of revision of total knee arthroplasty Hx of bilateral cataract extraction History of loop electrical excision procedure (LEEP) History of total right knee replacement (TKR) Hx of colonoscopy Family History Maternal Aunt Substance use disorder Social History Household Members: None Housing: House Are you a primary primary care nurse to a significant other at home: No Do you presently have visiting nurse or other home services: No Alcohol intake: current Alcohol intake frequency: holidays/special occasions only Patient Tobacco Use Status: Never used Tobacco e-Cigarette/Vaping Use: Never Used Second Hand Smoke Exposure: Yes service: No Current occupational status: retired Cognitive needs: No Hearing needs: No Vision needs: No Review of Systems Const All systems reviewed & are unremarkable except as noted in HPI and below Physical Exam Const General: cooperative, healthy appearing and no acute distress Resp Effort & Inspection: normal respiratory effort and able to speak in complete sentences Extrem Other: Right ankle incision sites are clean dry and intact. No surrounding erythema or drainage no signs of infection. Lateral malleolar incision site Steri-Strips are clean dry and intact. Medial incision site ann are intact. Able to slightly dorsiflex and plantar flex. Skin is intact. NVI. Psych Appearance: grossly normal Mental Status: mental status grossly normal Attitude: cooperative Office Procedures Casting/Splints [address]-[id number] Leg Cast Application Procedure code (CPT) selection complete Assessment & Plan Assessment & Plan (1) Fracture of ankle, trimalleolar, right, closed: Code(s): S82.851A - Displaced trimalleolar fracture of right lower leg, initial encounter for closed fracture Category: Medical Qualifiers: Encounter type: subsequent encounter (2) Status post ORIF of fracture of ankle: Code(s): Z98.890 - Other specified postprocedural states; Z87.81 - Personal history of (healed) traumatic fracture Category: Surgical Plan Ms. Chinchilla this is a 74-year-old female who presents to the office today status post right ankle ORIF performed on 05/05/[address] Barron. Splint was removed while in the office today for x-rays to be obtained. Patient states pain is managed. No additional complaints. While the office today, ann on the medial incision site were removed and Steri-Strips were applied. Patient was placed into a short-leg cast. Patient was educated on cast maintenance and instructed to keep the cast clean, dry, and intact. However, should the cast become wet, dirty, damaged, or there are any concerns please call the office immediately for a cast change. She will remain nonweightbearing on the right lower extremity. She will follow up in 4 weeks for cast off and repeat x-rays, sooner if needed. X-rays of the right ankle which were obtained while in the office today and were reviewed by me, Josee Sullivan PA-C, revealed intact orthopedic hardware with routine healing. Orders: Orders XR ankle RT min 3V Today M25.579 - Pain in unspecified ankle and joints of unspecified foot Coding Level of Care Code Global (48716) Diagnoses Fracture of ankle, trimalleolar, right, closed S82.851A Encounter type: subsequent encounter Status post ORIF of fracture of ankle Z98.890; Z87.81 CPT Codes Casting - CPT: 36659-Kqvzp Leg Cast Application ([id number])
== END 2025-05-18 13:02 | disposition home or self-care (01) ==
LOC: HO.HOS 11:34
PROVIDERS: PCP Nurse Practitioner Family; Visit Provider Physician Assistant
DX: S82.851A Displaced trimalleolar fracture of right lower leg, initial encounter for closed fracture (principal); Z98.890 Other specified postprocedural states; Z87.81 Personal history of (healed) traumatic fracture
CPT/HCPCS: 29405; 99024

== ENCOUNTER → 2025-05-18 11:36 | Outpatient (BNV) | payer MEDICARE, OTHER, SELFPAY | PROVIDERS: Visit Provider Specialist | DX: S82.51XD Displaced fracture of medial malleolus of right tibia, subsequent encounter for closed fracture with routine healing (principal) | CPT/HCPCS: 73610 ==

== ENCOUNTER 2025-05-25 09:54 | Outpatient (AMB) | payer MEDICARE, OTHER, SELFPAY ==
--- NOTE | 2025-05-25 10:14 | A.OFFPC_ITS ---
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 Tobacco use date assessed: 05/25/25 Fall risk assessment: No Falls in past year Last assessed Fall Risk: 05/25/25 Dental Screening Dental Screen Date: 05/25/25 Did you have a dental visit in the last 12 months?: Yes Did you have a dental problem in the last 6 months where you did not have access to dental care?: No Was dental information given to patient?: Patient has dentist HPI HPI Comments History of Present Illness Details Patient is a 74-year-old female with a past medical history of HTN, HLD, PVC, palpitations, low back pain, mood disorder, status post right TKA and DVT no longer on anticoagulation who is here for a hospital discharge follow-up. On April 25 patient sustained a fall at home so she went to the [facility] emergency department, x-rays of the ankle were obtained and she was found to have a right ankle try malleolar fracture and dislocation. In the ER, they reduced it and placed her in a splint and she followed up with Orthopedics on May 02. Orthopedics planned to do a ORIF on May 05 so she was admitted to the hospital on that date and the ORIF was performed by Dr. Tito Barron. She did well postop and was sent to [facility] rehab where she was discharged on May 14. While at [facility], she received PT and OT and physiatry. She had no postop complications and she followed up with Orthopedics on May 18, where the hardware was found to be intact with routine healing and no complications. She was told to follow up in 4 weeks to have the cast removed and repeat x-rays. Today, she tells me she has home OT for bathtub transfers. She is full NWB. She denies any pain, can move her toes without pain. Is taking Tylenol if she needs it. Regarding her fall, denies any chest pain, dizziness, sob, lightheadedness prior to her fall. She does check her BP at home and holds it if her systolic is less than 100. She is asking for a handicap placard. [facility] Medical History Mood disorder PVCs (premature ventricular contractions) Mixed hyperlipidemia History of revision of total replacement of right knee joint DVT (deep venous thrombosis) Arthritis Back pain Hx: UTI (urinary tract infection) Elevated cholesterol History of depression History of palpitations Surgical History History of revision of total knee arthroplasty Hx of bilateral cataract extraction History of loop electrical excision procedure (LEEP) History of total right knee replacement (TKR) Hx of colonoscopy Family History Maternal Aunt Substance use disorder Social History Household Members: None Housing: House Are you a primary medicare contact specialist to a significant other at home: No Do you presently have visiting nurse or other home services: No Alcohol intake: current Alcohol intake frequency: holidays/special occasions only Patient Tobacco Use Status: Never used Tobacco e-Cigarette/Vaping Use: Never Used Second Hand Smoke Exposure: Yes service: No Current occupational status: retired Cognitive needs: No Hearing needs: No Vision needs: No Questionnaire PHQ-9 Over the last 2 weeks, how often have you been bothered by any of the following problems? 1. Little interest or pleasure in doing things: not at all 2. Feeling down, depressed, or hopeless: not at all 3. Trouble falling or staying asleep, or sleeping too much: not at all 4. Feeling tired or having little energy: not at all 5. Poor appetite or overeating: not at all 6. Feeling bad about yourself - or that you are a failure or have let yourself or your family down: not at all 7. Trouble concentrating on things, such as reading the newspaper or watching television: not at all 8. Moving or speaking so slowly that other people could have noticed. Or the opposite - being so fidgety or restless that you have been moving around a lot more than usual: not at all 9. Thoughts that you would be better off or of hurting yourself in some way: not at all Total score: 0 Depression Screening Interpretation: Negative Depression Screening Done: Yes 39218 - PHQ-9 Billing: Yes Source: Developed by Drs. Dominic Andrew, Pili Levi, Pancho Root and colleagues, with an educational justyn from [employer]. Thrive Questionnaire Date Thrive assessed: 11/10/24 I am a: Patient What is your living situation today?: I have a steady place to live Within the past 12 months, did the food you bought not last and you didn't have the money to get more?: Never true Within the past 12 months, did you worry whether your food would run out before you got money to buy more?: Never true Do you have trouble paying for medicines?: No Do you have trouble getting transportation to medical appointments?: No Do you have trouble paying your heating and electricity bill?: No Do you have trouble taking care of your child, family member or friend?: No Do you have trouble with day-to-day activities such as bathing, preparing meals, shopping, managing finances, etc.?: No Are you currently unemployed and looking for a job?: No Are you interested in more education?: No Please select the resources that you would like help with: None Currently or been in a relationship where the following occur: No concerns reported THRIVE Score: 0 ZAMZAM-7 AMB Questionnaire ZAMZAM-7 Date ZAMZAM - 7 assessed: 05/25/25 Feeling nervous, anxious, or on edge: 0 = Not at all Not being able to stop or control worryin = Not at all Worrying too much about different things: 0 = Not at all Trouble relaxin = Not at all Being so restless that it is hard to sit still: 0 = Not at all Becoming easily annoyed or irritable: 0 = Not at all Feeling afraid as if something awful might happen: 0 = Not at all Total ZAMZAM-7 score (0-4 normal; 5-9 mild; 10-14 moderate; 15-21 severe): 0 Source: Developed by Pili Herrera B.W. Gurmeet, Pancho Root and colleagues, with an educational justyn from [employer]. ZAMZAM-7 Assessment Billing ZAMZAM-7 Assessment Tool: ZAMZAM-7 Assessment 42968 Review of Systems Const All systems reviewed & are unremarkable except as noted in HPI and below Physical exam (Primary Care) Vital Signs: Last Vital Signs Pulse 69 05/25/25 10:16 BP 112/66 05/25/25 10:16 Pulse Ox 97 05/25/25 10:16 Tobacco/Smoking Status: Tobacco use Status Tobacco use date assessed 11/16/24 05/25/25 10:14 Patient Tobacco Use Status Never used Tobacco 05/25/25 10:14 e-Cigarette/Vaping Use Never Used 05/25/25 10:14 PHQ-9: PHQ-9 Score PHQ-9: Total score 0 05/25/25 10:14 Depression Screening Interpretation: Negative Thrive Assessment: Date of Thrive Assessment Date Thrive assessed 11/10/24 05/25/25 10:14 Currently or been in a relationship where the following occur: No concerns reported Const General: cooperative, healthy appearing, comfortable and no acute distress Orientation/consciousness: patient oriented x3 Limitations: no limitations HENMT Head: Yes normal to inspection Face and sinus: Yes normal facial exam Eyes General: appearance normal, both eyes and all related structures Resp Effort & Inspection: normal respiratory effort and able to speak in complete sentences Neuro General: patient oriented x3 Extrem Right lower extremity: lower leg (in cast, able to dorsiflex &plantarflex toes, all toes NVI, no skin changes) Coding Level of Care Code Est Pt Level 3 (93429) Diagnoses Hospital discharge follow-up Z09 Status post ORIF of fracture of ankle Z98.890; Z87.81 Additional Codes ZAMZAM-7 Assessment Billing - ZAMZAM-7 Assessment Tool: ZAMZAM-7 Assessment 40833 ([id number]) PHQ-9 - 82822 - PHQ-9 Billing: Yes ([id number]) Assessment & Plan Assessment & Plan (1) Hospital discharge follow-up: Code(s): Z09 - Encounter for follow-up examination after completed treatment for conditions other than malignant neoplasm Category: Medical Plan: - Patient will leave handicap placard request with the front end specialist for Jose Hanks NP, her PCP, to sign - Continue NWB and follow up with Ortho in 3 weeks, call them [facility]RIANNA if you damage your cast, if it gets wet or dirty. - Continue with OT (2) Status post ORIF of fracture of ankle: Code(s): Z98.890 - Other specified postprocedural states; Z87.81 - Personal history of (healed) traumatic fracture Category: Surgical Plan: as above
[2025-05-25 10:16] VITALS: BP 112/66; PULSE 69; RESP 16; O2SAT 97
== END 2025-05-25 12:23 | disposition home or self-care (01) ==
LOC: HO.HMCC 09:55
PROVIDERS: PCP Nurse Practitioner Family; Visit Provider Physician Assistant
DX: Z09 Encounter for follow-up examination after completed treatment for conditions other than malignant neoplasm (principal); Z98.890 Other specified postprocedural states; Z87.81 Personal history of (healed) traumatic fracture

== ENCOUNTER → 2025-05-25 09:54 | Outpatient (BNVA) | payer MEDICARE, OTHER, SELFPAY | PROVIDERS: PCP Nurse Practitioner Family; Visit Provider Physician Assistant | DX: I10 Essential (primary) hypertension (principal); E78.5 Hyperlipidemia, unspecified; Z09 Encounter for follow-up examination after completed treatment for conditions other than malignant neoplasm; Z96.651 Presence of right artificial knee joint; Z86.718 Personal history of other venous thrombosis and embolism; Z98.890 Other specified postprocedural states; Z87.81 Personal history of (healed) traumatic fracture | CPT/HCPCS: 96127; 99212 ==

== ENCOUNTER 2025-06-13 13:04 | Outpatient (REF) | payer MEDICARE, OTHER, SELFPAY ==
--- NOTE | ~2025-06-13 | XR_ITS ---
EXAMINATION: XR ANKLE, RIGHT CLINICAL INFORMATION: M25.579 - Pain in unspecified ankle and joints of unspecified foot COMPARISON: Previous x-ray most recent May 18, 2025 TECHNIQUE: AP, lateral, and mortise views of the right ankle. FINDINGS: 2 screws transfixing the medial malleolus fracture with anatomic alignment. Plate and screws transfixing the distal fibular shaft fracture with anatomic alignment and 2 screws across the distal tib-fib joint. Surgical hardware is intact. Fracture lines appear more indistinct suggestive of healing. Normal ankle mortise. Osteopenia. Diffuse soft tissue swelling. Calcaneal spurs. Soft tissue calcification of the plantar fascia over the calcaneus. XR/XR ankle RT min 3V IMPRESSION: ORIF of bimalleolar fractures. Electronically signed by: Emily Fuchs MD 06/13/2025 03:09 PM [facility]
== END 2025-06-13 13:05 | disposition home or self-care (01) ==
LOC: HO.HOSX 13:04
PROVIDERS: Visit Provider Physician Assistant
DX: Z47.89 Encounter for other orthopedic aftercare (principal); Z98.890 Other specified postprocedural states; Z87.891 Personal history of nicotine dependence
CPT/HCPCS: 73610; 99212

== ENCOUNTER 2025-06-13 14:47 | Outpatient (AMB) | payer MEDICARE, OTHER, SELFPAY ==
--- NOTE | 2025-06-13 15:09 | MHC.OFFVIS ---
Intake Visit Reasons: PO-Rt Ankle ORIF 05/05/25 NE w/xrays Intake Note: Bety is a 74 year old female who presents today for a post op appointment status post right ankle ORIF, performed by Dr. Barron on 05/05/25. At her last visit she was placed in a short leg cast. Patient states she is not having pain at the moment. 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 Chinchilla is a 74-year-old female who presents to the office today for routine follow-up status post right ankle ORIF performed on 05/05/[address] Barron. Cast was removed while in the office today for repeat x-rays to be obtained. Patient states pain is well managed. She has been nonweightbearing as instructed. No additional complaints. [facility] Medical History Dyslipidemia Palpitations Mood disorder PVCs (premature ventricular contractions) Mixed hyperlipidemia History of revision of total replacement of right knee joint DVT (deep venous thrombosis) Arthritis Back pain Hx: UTI (urinary tract infection) Elevated cholesterol History of depression History of palpitations Surgical History History of revision of total knee arthroplasty Hx of bilateral cataract extraction History of loop electrical excision procedure (LEEP) History of total right knee replacement (TKR) Hx of colonoscopy Family History Maternal Aunt Substance use disorder Social History Household Members: None Housing: House Are you a primary resident care manager rn to a significant other at home: No Do you presently have visiting nurse or other home services: No Alcohol intake: current Alcohol intake frequency: holidays/special occasions only Patient Tobacco Use Status: Never used Tobacco e-Cigarette/Vaping Use: Never Used Second Hand Smoke Exposure: Yes service: No Current occupational status: retired Cognitive needs: No Hearing needs: No Vision needs: No Review of Systems Const All systems reviewed & are unremarkable except as noted in HPI and below Physical Exam Const General: cooperative, healthy appearing and no acute distress Resp Effort & Inspection: normal respiratory effort and able to speak in complete sentences Extrem Other: Right ankle incision sites are clean dry and intact. No surrounding erythema or drainage no signs of infection. Lateral malleolar incision site Steri-Strips are clean dry and intact. Medial incision site Steri-Strips are clean dry and intact. Able to slightly dorsiflex and plantar flex. Skin is intact. NVI. Psych Appearance: grossly normal Mental Status: mental status grossly normal Attitude: cooperative Assessment & Plan Assessment & Plan (1) Status post ORIF of fracture of ankle: Code(s): Z98.890 - Other specified postprocedural states; Z87.81 - Personal history of (healed) traumatic fracture Category: Surgical Plan Ms. Chinchilla is a 74-year-old female who presents to the office today for routine follow-up status post right ankle ORIF performed on 05/05/[address] Barron. Cast was removed while in the office today for repeat x-rays to be obtained. Patient states pain is well managed. She has been nonweightbearing as instructed. No additional complaints. While in the office today, the patient was transitioned to a tall walking boot. She may begin to weightbear as tolerated. The patient is unable to drive at this time and therefore [facility] has been ordered to begin physical therapy working on range of motion, gait training and weaning out of the boot in the next 4-6 weeks. I would like to see the patient back in 6 weeks with repeat x-rays, sooner if needed. X-rays of the right ankle which were obtained while in the office today and were reviewed by me, Josee Sullivan PA-C, revealed intact orthopedic hardware with routine healing. Orders: Orders XR ankle RT min 3V Today M25.579 - Pain in unspecified ankle and joints of unspecified foot Referrals [facility] Referral Z87.81 - Personal history of (healed) traumatic fracture, Z98.890 - Other specified postprocedural states Coding Level of Care Code Global (07540) Diagnoses Status post ORIF of fracture of ankle Z98.890; Z87.81
== END 2025-06-13 16:00 | disposition home or self-care (01) ==
PROVIDERS: PCP Nurse Practitioner Family; Visit Provider Physician Assistant
DX: Z98.890 Other specified postprocedural states (principal); Z87.81 Personal history of (healed) traumatic fracture
CPT/HCPCS: 99024

== ENCOUNTER → 2025-06-13 14:48 | Outpatient (BNV) | payer MEDICARE, OTHER, SELFPAY | PROVIDERS: Visit Provider Radiology Diagnostic Radiology | DX: M25.571 Pain in right ankle and joints of right foot (principal) | CPT/HCPCS: 73610 ==

== ENCOUNTER 2025-07-25 08:25 | Outpatient (REF) | payer MEDICARE, OTHER, SELFPAY ==
--- NOTE | ~2025-07-25 | XR_ITS ---
EXAMINATION: XR ANKLE, RIGHT CLINICAL INFORMATION: M25.579 - Pain in unspecified ankle and joints of unspecified foot COMPARISON: 06/13/2025 TECHNIQUE: AP, lateral, and mortise views of the right ankle. FINDINGS: Postoperative changes are again identified with dynamic lateral plate across the distal fibula, 2 syndesmotic screws, and 2 medial malleolar cancellous screws . There is persistent mild lucency adjacent the syndesmotic screws traversing the fibula, unchanged. Overall, stable x-ray. XR/XR ankle RT min 3V IMPRESSION: Stable x-ray post-ORIF of a bimalleolar fracture with persistent mild disc to the bone metal interface of fibula around 2 syndesmotic screws. Electronically signed by: Dario Napier MD 07/25/2025 02:10 PM [facility]
== END 2025-07-25 08:26 | disposition home or self-care (01) ==
LOC: HO.HOSX 08:25
PROVIDERS: Visit Provider Physician Assistant
DX: Z47.89 Encounter for other orthopedic aftercare (principal); Z87.81 Personal history of (healed) traumatic fracture; M25.571 Pain in right ankle and joints of right foot
CPT/HCPCS: 73610; 99212

== ENCOUNTER 2025-07-25 13:04 | Outpatient (AMB) | payer MEDICARE, OTHER, SELFPAY ==
--- NOTE | 2025-07-25 13:19 | A.OFFVIS_ITS ---
Intake Visit Reasons: PO-Rt Ankle ORIF 05/05/25 NE-6WK Intake Note: Bety is a 74 year old female who presents today for a post op appointment status post right ankle ORIF, performed by Dr. Barron on 05/05/25. At her last visit she was advised to continue with physical therapy working on range of motion, gait training and weaning out of the boot. Patient states that she is doing well. She mentions that she is a bit sore today. Allergies almond (ALMOND) Allergy (Intermediate, Verified 07/25/25 13:29) SWELLING,ITCHING clams (CLAMS) Allergy (Intermediate, Verified 07/25/25 13:29) SWELLING,ITCHING,GI ISSUES nickel Adverse Reaction (Intermediate, Verified 07/25/25 13:29) infection from knee prosthesis from TKR HPI HPI PO-Rt Ankle ORIF 05/05/25 [id number]: Details: This is a 74-year-old female who presents to the office today for routine follow-up status post right ankle ORIF performed on 05/05/[address] Barron. Patient has been in the tall walking boot since her last appointment. She reports that home physical therapy has discharged her as there is nothing further they could do at home and she is ready to transition to outpatient therapy. She denies any pain. PFSH Medical History Dyslipidemia Palpitations Mood disorder PVCs (premature ventricular contractions) Mixed hyperlipidemia History of revision of total replacement of right knee joint DVT (deep venous thrombosis) Arthritis Back pain Hx: UTI (urinary tract infection) Elevated cholesterol History of depression History of palpitations Surgical History History of revision of total knee arthroplasty Hx of bilateral cataract extraction History of loop electrical excision procedure (LEEP) History of total right knee replacement (TKR) Hx of colonoscopy Family History Maternal Aunt Substance use disorder Social History Household Members: None Housing: House Are you a primary gericare aide teacher to a significant other at home: No Do you presently have visiting nurse or other home services: No Alcohol intake: current Alcohol intake frequency: holidays/special occasions only Patient Tobacco Use Status: Never used Tobacco e-Cigarette/Vaping Use: Never Used Second Hand Smoke Exposure: Yes service: No Current occupational status: retired Cognitive needs: No Hearing needs: No Vision needs: No Review of Systems Const All systems reviewed & are unremarkable except as noted in HPI and below Physical Exam Const General: cooperative, healthy appearing and no acute distress Resp Effort & Inspection: normal respiratory effort and able to speak in complete sentences Extrem Other: Right ankle incision sites are well approximated and fully healed. No surroundi ng erythema or drainage no signs of infection. Able to fully dorsiflex and plantar flex. Some discomfort with pronation and supination. NVI. Psych Appearance: grossly normal Mental Status: mental status grossly normal Attitude: cooperative Assessment & Plan Assessment & Plan (1) Status post ORIF of fracture of ankle: Code(s): Z98.890 - Other specified postprocedural states; Z87.81 - Personal history of (healed) traumatic fracture Category: Surgical Plan This is a 74-year-old female who presents to the office today for routine follow-up status post right ankle ORIF performed on 05/05/[address] Barron. Patient has been in the tall walking boot since her last appointment. She reports that home physical therapy has discharged her as there is nothing further they could do at home and she is ready to transition to outpatient therapy. She denies any pain. While in the office today, we discontinue the tall walking boot and the patient will transition to a supportive walking shoe. I placed an outpatient physical therapy order in which the patient will attend. Patient is overall doing very well and is happy with her progress. Therefore, we decided to schedule a telephone encounter in 6 weeks to let me know how she is doing. If the patient is struggling or has any questions or concerns at that time or before this appointment she will contact me and I am happy to see her. X-rays of the right ankle which were obtained while in the office today and were reviewed by me, Josee Sullivan PA-C, revealed intact orthopedic hardware with routine healing. Orders: Orders XR ankle RT min 3V Today M25.579 - Pain in unspecified ankle and joints of unspecified foot Coding Level of Care Code Global (87340) Diagnoses Status post ORIF of fracture of ankle Z98.890; Z87.81
== END 2025-07-25 13:38 | disposition home or self-care (01) ==
LOC: HO.HOS 13:05
PROVIDERS: PCP Nurse Practitioner Family; Visit Provider Physician Assistant
DX: Z98.890 Other specified postprocedural states (principal); Z87.81 Personal history of (healed) traumatic fracture
CPT/HCPCS: 99024

== ENCOUNTER → 2025-07-25 13:06 | Outpatient (BNV) | payer MEDICARE, OTHER, SELFPAY | PROVIDERS: Visit Provider Radiology Diagnostic Radiology | DX: M25.571 Pain in right ankle and joints of right foot (principal) | CPT/HCPCS: 73610 ==